=== PATIENT | female | born 2000 | race Caucasian/White ===

== ENCOUNTER 2022-07-26 09:26 | Emergency (ER) | payer OTHER, SELFPAY ==
[2022-07-26 09:55] VITALS: BP 132/90; PULSE 100; RESP 16; TEMP 37.1; O2SAT 100
--- NOTE | 2022-07-26 10:41 | ED.URI ---
HPI - URI/Sore Throat General Chief Complaint: Upper Respiratory Infection Stated Complaint: cough, congestion Time Seen by Provider: 07/26/22 10:25 History of Present Illness HPI Narrative: Patient is a 22-year-old female here for evaluation of upper respiratory infectious symptoms for the past several days. Patient states that she has been congested, runny nose, diffuse frontal headache. Son is sick with similar symptoms. Patient is about 5 weeks by LMP but she denies any abdominal cramping, vaginal bleeding, sudden gush of fluids or other concerns in that regard. Requesting a COVID test. Related Data Allergies Allergy/AdvReac Type Severity Reaction Status Date / Time No Known Allergies Allergy Unverified 05/07/18 14:40 Review of Systems Review of Systems: Gen.: Denies fevers or chills Eyes: Denies eye pain or visual change ENT: Reports congestion Respiratory: Denies shortness of breath or cough CV: Denies chest pain or palpitations GI: Denies abdominal pain nausea, emesis or diarrhea denies burning, urgency, frequency or hematuria Musculoskeletal: Denies back pain or muscle pain Neuro: Denies numbness, tingling, weakness or focal weakness Skin: Denies rash Except as documented, all other systems reviewed and negative Exam Narrative: APPEARANCE: Well appearing, no pain in distress, well-nourished. Head: Normocephalic and atraumatic. EYES: PERRLA/EOMI, conjunctivae clear NOSE: No nasal drainage EARS: External ear normal in appearance THROAT: Oropharynx is clear. Mucous membranes are moist. NECK: Supple. No adenopathy, no masses. RESPIRATORY: Airway patent, respirations nonlabored. Clear to auscultation bilaterally, no rales, rhonchi, wheezing. CARDIOVASCULAR: Regular rate and rhythm without murmurs, rubs, or gallops. ABDOMINAL: Normoactive bowel sounds. Soft, nontender, nondistended. No rebound tenderness or guarding. MUSCULOSKELETAL: Extremities are warm and well-perfused. Moves all extremities well. No edema. NEURO: Normal speech. No focal neurologic deficits. SKIN: Skin is warm and dry. No rashes. PSYCHIATRIC: Normal affect/mood. Course Vital Signs Vital signs: Vital Signs Temperature 98.7 F 07/26/22 09:55 Pulse Rate 100 07/26/22 09:55 Respiratory Rate 16 07/26/22 09:55 Blood Pressure 132/90 07/26/22 09:55 Pulse Oximetry 100 07/26/22 09:55 Temperature 98.7 F 07/26/22 09:55 Pulse Rate 16 L 07/26/22 11:06 Respiratory Rate 16 07/26/22 09:55 Blood Pressure 132/90 07/26/22 09:55 Pulse Oximetry 100 07/26/22 09:55 MDM - URI/Sore Throat MDM Narrative Medical decision making narrative: 22-year-old female here for evaluation of upper respiratory infectious symptoms over the past several days, positive sick contacts, patient's son has similar symptoms. She is nontoxic in appearance and has normal vital signs. She has no oropharyngeal exudates, and has clear breath sounds throughout. Requesting COVID testing which was negative today. Advised supportive measures at home, we discussed return precautions and she voiced understanding. Lab Data Labs: Lab Results 07/26/22 Range/Units 09:58 Influenza A (RT-PCR) Negative (Negative) Influenza B (RT-PCR) Negative (Negative) SARS-CoV-2 RNA (RT-PCR) Negative Discharge Plan Discharge Clinical Impression: Upper respiratory infection Patient Disposition: Home, Self-Care Condition: Stable Instructions: Antibiotic Form, Upper Respiratory Infection (ED) Additional Instructions: Your COVID and flu test were negative. Please continue pushing fluids, getting plenty of rest. Use Tylenol as needed for fever. Return to the ED if you have difficulty breathing or have other concerning symptoms. Follow-up/Referrals: UNKNOWN,DOCTOR [Primary Care Provider] -
[2022-07-26 10:47] LABS: Influenza A QL RT-PCR Negative (Negative); Influenza B QL RT-PCR Negative (Negative); SARS-CoV-2 RNA PCR Negative
[2022-07-26 11:06] VITALS: RESP 16
== END 2022-07-26 11:05 | disposition home or self-care (01) ==
LOC: ANHED 11:11
PROVIDERS: Emergency Medicine; Emergency Provider Physician Assistant
DX: O99.511 Diseases of the respiratory system complicating pregnancy, first trimester (principal); J06.9 Acute upper respiratory infection, unspecified; Z20.822 Contact with and (suspected) exposure to COVID-19; Z3A.01 Less than 8 weeks gestation of pregnancy
CPT/HCPCS: 87636; 99282; 99283

== ENCOUNTER 2022-12-01 11:26 | Emergency (ER) | payer OTHER, SELFPAY ==
--- NOTE | 2022-12-01 11:28 | ECG_ITS ---
Measurements Intervals [place] Rate: 108 P: 31 KS: 126 QRS: 13 QRSD: 85 T: 11 QT: 321 QTc: 432 Interpretive Statements SINUS TACHYCARDIA ABNORMAL RHYTHM ECG NO PREVIOUS ECG AVAILABLE FOR COMPARISON Electronically Signed On 12-01-2022 16:00:23 CDT by Vinnie Carrillo M.D.
[2022-12-01 11:34] VITALS: BP 127/71; PULSE 107; RESP 16; TEMP 36.7; O2SAT 100
[2022-12-01 11:46] VITALS: O2SAT 100
[2022-12-01 11:47] LABS: Basophils Percent Auto 0.3 % (0.2-1.2); Eosinophils Absolute Auto 0.3 K/mm3 (0-0.3); Eosinophils Percent Auto 2.5 % (0-4.4); Hematocrit 36.9 % (37.0-47.0); Hemoglobin 12.1 g/dL (12.0-15.0); Immature Granulocyte Absolute 0.14 K/mm3 (0.00-0.031); Immature Granulocyte Percent A 1.1 % (0-0.5); Lymphocytes Absolute Auto 2.03 K/mm3 (0.9-3.2); Lymphocytes Percent Auto 16.1 % (18.3-44.2); Mean Corpuscular HGB Conc 32.8 g/dl (32-36); Mean Corpuscular Hemoglobin 29.7 pg (26-34); Mean Corpuscular Volume 90.4 fl (80-100); Mean Platelet Volume 9.7 fl (7.4-10.4); Monocytes Absolute Auto 1.1 K/mm3 (0.1-0.6); Monocytes Percent Auto 8.4 % (2.6-8.5); Neutrophils Percent Auto 71.6 % (45.5-73.1); Platelet Count Result 313 k/mm3 (150-375); Red Blood Count 4.08 M/mm3 (4.2-5.4); Red Cell Distribution Width 12.8 % (11.5-14.5); White Blood Count 12.6 K/mm3 (4.5-10.0)
[2022-12-01 11:59] LABS: Alanine Aminotransferase 22 U/L (6-35); Alkaline Phosphatase 83 U/L (38-126); Anion Gap 7 mmol/L (8-16); Aspartate Amino Transferase 19 U/L (14-36); Bilirubin,Total 0.3 mg/dL (0.2-1.3); Blood Urea Nitrogen 10 mg/dL (7-17); Carbon Dioxide 25 mmol/L (22-30); Chloride 103 mmol/L (98-107); Estimated CRCL calculation 182 ml/min; Estimated Glomerular Filt Rate > 60; Glucose 74 mg/dL (65-110); Sodium 135 mmol/L (137-145)
[2022-12-01 13:13] VITALS: BP 114/66; PULSE 109; RESP 20; O2SAT 100
[2022-12-01] MEDS: SODIUM CHLORIDE 0.9% IV 1,000 ML 999 ML IV CONT (13:23)
--- NOTE | 2022-12-01 13:25 | ED.GENADULT ---
HPI - General Adult General Chief complaint: Shortness of Breath/Dyspnea Stated complaint: sob, dizziness, 23 weeks preg Time Seen by Provider: 12/01/22 11:58 History of Present Illness HPI narrative: 22-year-old female present emergency department for evaluation of dizziness and rapid heart rate. Patient states that she has had follow-up with her [employer] CLAIM EXAMINER and they told her this is most likely related to dehydration and the heat. Patient states she does not drink very much water Related Data Allergies Allergy/AdvReac Type Severity Reaction Status Date / Time No Known Allergies Allergy Verified 12/01/22 11:50 Review of Systems Review of Systems: All systems reviewed & are unremarkable except as noted in HPI and below Exam Narrative: APPEARANCE: Well appearing, no pain, no distress, well-nourished. HEAD: normocephalic, atraumatic. EYES: PERRLA/EOMI, conjunctivae clear. NOSE: Normal no drainage NECK: Supple. No adenopathy, no masses. RESPIRATORY: Airway patent, respirations nonlabored. Clear to auscultation bilaterally, no rales, rhonchi, wheezing. CARDIOVASCULAR: Regular rate and rhythm without murmurs rubs or gallops. ABDOMINAL: Soft, nontender, nondistended, normal bowel sounds MUSCULOSKELETAL: Moves all extremities. Strength/ROM intact, No edema, No calf tenderness. NEURO: Alert. Cranial nerves II through XII intact. SKIN: Warm, dry. Normal Color Course Course Emergency Course: 22-year-old female present emergency department for evaluation of lightheadedness. Patient is afebrile but does have a minor leukocytosis of 12.6. Patient has no significant electrolyte abnormalities. Patient did have an abnormal UA but patient denies any urinary symptoms. Urine culture was ordered. Patient was encouraged to drink more fluids. Patient is requesting discharge to home. Patient was educated on reasons to return to the emergency department and on the importance of close follow-up with [employer] CLAIM [employer]AM[employer]ER. Vital Signs Vital signs: Vital Signs Temperature 98.0 F 12/01/22 11:34 Pulse Rate 107 H 12/01/22 11:34 Respiratory Rate 16 12/01/22 11:34 Blood Pressure 127/71 12/01/22 11:34 Pulse Oximetry 100 12/01/22 11:34 Oxygen Delivery Room Air 12/01/22 11:34 Temperature 98.0 F 12/01/22 11:34 Pulse Rate 100 12/01/22 15:05 Respiratory Rate 18 12/01/22 15:05 Blood Pressure 105/70 12/01/22 15:05 Pulse Oximetry 100 12/01/22 15:05 Oxygen Delivery Room Air 12/01/22 11:46 Medical Decision Making Vital Signs Vital Signs: Vital Signs Temperature 98.0 F 12/01/22 11:34 Pulse Rate 107 H 12/01/22 11:34 Respiratory Rate 16 12/01/22 11:34 Blood Pressure 127/71 12/01/22 11:34 Pulse Oximetry 100 12/01/22 11:34 Oxygen Delivery Room Air 12/01/22 11:34 Temperature 98.0 F 12/01/22 11:34 Pulse Rate 100 12/01/22 15:05 Respiratory Rate 18 12/01/22 15:05 Blood Pressure 105/70 12/01/22 15:05 Pulse Oximetry 100 12/01/22 15:05 Oxygen Delivery Room Air 12/01/22 11:46 Lab Data 12/01/22 11:39 12/01/22 11:39 Labs: Lab Results 12/01/22 12/01/22 Range/Units 11:39 12:43 WBC 12.6 H (4.5-10.0) K/mm3 RBC 4.08 L (4.2-5.4) M/mm3 Hgb 12.1 (12.0-15.0) g/dL Hct 36.9 L (37.0-47.0) % MCV 90.4 (80-100) fl MCH 29.7 (26-34) pg MCHC 32.8 (32-36) g/dl RDW 12.8 (11.5-14.5) % Plt Count 313 (150-375) k/mm3 MPV 9.7 (7.4-10.4) fl Immature Gran % (Auto) 1.1 H (0-0.5) % Neut % (Auto) 71.6 (45.5-73.1) % Lymph % (Auto) 16.1 L (18.3-44.2) % [place] % (Auto) 8.4 (2.6-8.5) % Eos % (Auto) 2.5 (0-4.4) % Baso % (Auto) 0.3 (0.2-1.2) % Lymph # (Auto) 2.03 (0.9-3.2) K/mm3 [place] # (Auto) 1.1 H (0.1-0.6) K/mm3 Eos # (Auto) 0.3 (0-0.3) K/mm3 Baso # (Auto) 0.0 (0.0-0.1) K/mm3 Abs Immat Gran (auto) 0.14 H (0.00-0.031) K/mm3 Absolute Neuts (auto) 9.0 H (1.3-6.7) K/mm3 Absolute Nucle
[2022-12-01 13:33] LABS: Bacteria Urine 4+ /hpf; Bilirubin Urine Negative (Negative); Blood Urine Negative (Negative); Glucose Urine UA 1+ mg/dL (Negative); Ketones Urine Negative (Negative); Leukocyte Esterase Ur 1+ LEU/UL (Negative); Need Manual Microscopic Reviewed; Nitrate Urine Negative (Negative); Protein Urine Trace mg/dL (Negative); Specific Grav Ur 1.028 (1.001-1.035); Squamous Epithelial Cell Urine Many /hpf (Few)
[2022-12-01 13:44] LABS: Color Urine Yellow (Yellow)
[2022-12-01 13:46] LABS: Add Urine Microscopic? YES; Appearance Urine Cloudy (Clear)
[2022-12-01 15:05] VITALS: BP 105/70; PULSE 100; RESP 18; O2SAT 100
== END 2022-12-01 15:09 | disposition home or self-care (01) ==
PROVIDERS: General Practice; Emergency Provider Emergency Medicine
DX: R42 Dizziness and giddiness (principal)
CPT/HCPCS: 36415; 80053; 81001; 85025; 87086; 87147; 87181; 87186; 93005; 96360; 96361; 99284; J7030

== ENCOUNTER 2022-12-07 12:58 | Outpatient (CLI) | payer OTHER, SELFPAY ==
--- NOTE | 2022-12-11 16:16 | WPDHOLTEREM ---
Holter/Event Monitor Holter/Event Monitor Date of procedure: 12/07/22 Holter/Event Procedure: 24 Hr Holter Monitor Indications: Dizziness Conclusion: 1. 24 hour holter monitor on 12/07/22. 2. Underlying rhythm is sinus rhythm. HR range 63-138 bpm; average HR 94 bpm. 3. No premature supraventricular complexes. No supraventricular tachycardia. 4. No premature ventricular complexes. No ventricular tachycardia. 5. No sinoatrial or atrioventricular blocks. No significant pauses greater than 2 seconds. 6. No symptoms available for correlation.
== END 2022-12-07 12:59 | disposition home or self-care (01) ==
PROVIDERS: PCP Internal Medicine; Visit Provider Advanced Practice Midwife
DX: R42 Dizziness and giddiness (principal)
CPT/HCPCS: 93225; 93226

== ENCOUNTER 2023-03-09 11:07 | Observation (INO) | payer OTHER, SELFPAY ==
[2023-03-09] VITALS (7 sets, daily range): BP systolic 101–134; BP diastolic 77–86; PULSE 86–104
[2023-03-09] MEDS: ACETAMINOPHEN 325 MG TABLET 650 MG PO (12:40)
--- NOTE | 2023-03-09 13:18 | OBADM ---
This patient, Maricruz Duke, admitted to the OB room Labor/Delivery/Recovery 105 for observation. Patient/family oriented to hospital policies and general routines including ID bracelet, bed and alarms, visiting hours, pain management, procedures, bathroom and other care routines, personal items, smoking policy, room service/diet, and visiting hours. Patient/Family are encouraged to report perceived risks to care and to ask questions if they do not understand what they are told or what they should do.
--- NOTE | 2023-03-12 20:08 | PM.OBTRLD ---
OB - Triage/Final Diagnosis Visit Information Date of evaluation: 03/09/23 Reason for evaluation: threatened labor Comments/Additional reasons for admission: I have assessed the risk for this patient, Maricruz Duke, and determined that she would benefit from observation care.
== END 2023-03-09 13:41 | disposition home or self-care (01) ==
PROVIDERS: Admitting Provider Obstetrics & Gynecology; PCP Internal Medicine; Referring Provider Advanced Practice Midwife; Visit Provider Obstetrics & Gynecology
DX: O47.9 False labor, unspecified (principal); Z3A.00 Weeks of gestation of pregnancy not specified
CPT/HCPCS: A9270; G0378; G0379

== ENCOUNTER 2023-03-28 04:54 | Inpatient (IN) | payer OTHER, MEDICAID, SELFPAY ==
[2023-03-28] VITALS (112 sets, daily range): BP systolic 79–149; BP diastolic 48–97; PULSE 77–189; RESP 18; TEMP 36.4–37.3; O2SAT 96–100; BMI 38.0
[2023-03-28] MEDS: LACTATED RINGERS 1,000 ML 125 ML IV CONT ×3 (05:44→14:36)
[2023-03-28] MEDS: OXYTOCIN 30 UNITS/NS 500 ML 30 UNITS/500 ML BAG IV CONT (05:45)
[2023-03-28 05:47] LABS: Basophils Absolute Auto 0.1 K/mm3 (0.0-0.1); Basophils Percent Auto 0.4 % (0.2-1.2); Eosinophils Absolute Auto 0.2 K/mm3 (0-0.3); Eosinophils Percent Auto 1.5 % (0-4.4); Hematocrit 34.9 % (37.0-47.0); Hemoglobin 10.7 g/dL (12.0-15.0); Immature Granulocyte Percent A 0.8 % (0-0.5); Lymphocytes Absolute Auto 2.39 K/mm3 (0.9-3.2); Lymphocytes Percent Auto 18.1 % (18.3-44.2); Mean Corpuscular HGB Conc 30.7 g/dl (32-36); Mean Corpuscular Volume 78.4 fl (80-100); Mean Platelet Volume 10.6 fl (7.4-10.4); Monocytes Absolute Auto 1.2 K/mm3 (0.1-0.6); Monocytes Percent Auto 9.1 % (2.6-8.5); Neutrophils Absolute Auto 9.3 K/mm3 (1.3-6.7); Neutrophils Percent Auto 70.1 % (45.5-73.1); Platelet Count Result 369 k/mm3 (150-375); Red Blood Count 4.45 M/mm3 (4.2-5.4); Red Cell Distribution Width 14.7 % (11.5-14.5); White Blood Count 13.2 K/mm3 (4.5-10.0)
--- NOTE | 2023-03-28 06:45 | LDADM ---
This patient, Maricruz Duke, was admitted to Labor/Delivery/Recovery 104 on 03/28/23 at 04:54. Plans for labor, pain management and were discussed with patient. Patient/family oriented to hospital policies and general routines including ID bracelet, bed and alarms, visiting hours, pain management, procedures, bathroom and other care routines, personal items, smoking policy, room service/diet and guest tray routines, security routines, and visiting hours. Patient/Family are encouraged to report perceived risks to care and to ask questions if they do not understand what they are told or what they should do. See OBIX for further documentation.
[2023-03-28] MEDS: ACETAMINOPHEN 325 MG TABLET 650 MG PO (07:40)
--- NOTE | 2023-03-28 07:49 | WPDOBADMIT ---
Obstetrics - Admit Note Admission Note: record reviewed. No pertinent additions to the history and/or any subsequent changes in the physical findings that are not consistent with the expected course of the were found. Additions to the history and/or subsequent changes in the physical findings follow. Pt admitted for IOL. SVE /-3. AROM attempted. Anticipate vaginal delivery.
[2023-03-28] MEDS: fentaNYL CITRATE INJ (*CRX) 100 MCG/2 ML VIAL 50 MCG IV PUSH (13:22)
--- NOTE | 2023-03-28 14:21 | WPDANESEPP ---
Anes - Eval Pre Procedure Procedure: Labor epidural Date/Time: 03/28/23 14:21 Surgeon: Arron Preop Diagnosis: Abdominal pain with contractions Pre Op Diagnosis: IOL Patient Data Age: 23 Gender: F Height: 1.57 m Weight: 94.5 kg Last Vital Signs Temp 98.7 F 03/28/23 10:30 Pulse 89 03/28/23 14:01 BP 134/82 03/28/23 14:01 O2 Del Method Room Air 03/28/23 06:39 Allergies Allergy/AdvReac Type Severity Reaction Status Date / Time No Known Allergies Allergy Verified 03/28/23 06:34 Home Medications Medication Instructions Recorded Confirmed Type vit no.95-ferrous 1 tablet PO DAILY 03/09/23 03/09/23 History fumarate 28 mg-folic acid 800 mcg tablet () Laboratory Tests 03/28/23 05:38 WBC 13.2 H K/mm3 (4.5-10.0) RBC 4.45 M/mm3 (4.2-5.4) Hgb 10.7 L g/dL (12.0-15.0) Hct 34.9 L % (37.0-47.0) MCV 78.4 L fl (80-100) MCH 24.0 L pg (26-34) MCHC 30.7 L g/dl (32-36) RDW 14.7 H % (11.5-14.5) Plt Count 369 k/mm3 (150-375) MPV 10.6 H fl (7.4-10.4) Immature Gran % (Auto) 0.8 H % (0-0.5) Neut % (Auto) 70.1 % (45.5-73.1) Lymph % (Auto) 18.1 L % (18.3-44.2) [place] % (Auto) 9.1 H % (2.6-8.5) Eos % (Auto) 1.5 % (0-4.4) Baso % (Auto) 0.4 % (0.2-1.2) Lymph # (Auto) 2.39 K/mm3 (0.9-3.2) [place] # (Auto) 1.2 H K/mm3 (0.1-0.6) Eos # (Auto) 0.2 K/mm3 (0-0.3) Baso # (Auto) 0.1 K/mm3 (0.0-0.1) Abs Immat Gran (auto) 0.10 H K/mm3 (0.00-0.031) Absolute Neuts (auto) 9.3 H K/mm3 (1.3-6.7) Absolute Nucleated RBC 0.0 K/mm3 (0.0-0.012) Nucleated RBC % 0.0 % (0.0-0.2) RPR Pending Blood Type O Positive Antibody Screen Negative : gestational age HCG: positive Patient hx anesthesia problems: none Family hx anesthesia problems: none Results Review: All pre-operative results and documents have been reviewed as part of the pre-operative evaluation. COUNT INCLUDES THE [facility] Past Medical History Medical History Anxiety and depression Eczema Migraines Overweight (BMI 25.0-29.9) Post depression Family History Family History Other No pertinent family history in first degree relatives Social History Social History Smoking status: Never smoker Second hand tobacco smoke exposure: No Substance use: former Other substance usage details: Used marijuana prior to Lack of Transportation: No Lack of Food: Never True Current Housing: I Have Housing Concerned About Future Housing: No Difficulty Paying Gas/Electric Bills: No Difficulty Paying for Meds: No Currently Unemployed: No Education: High School Diploma/GED Difficulty w/ Childcare or Family Care: No Spiritual care concerns: No Exam Day of Procedure 03/28/23 14:21 Patient weight: overweight
[2023-03-28 14:40] LABS: Rapid Plasma Reagin Non-Reactive (NonReactive)
--- NOTE | 2023-03-28 17:53 | PM.OBPRVD ---
OB - Vaginal Delivery Note Procedure Delivery date: 03/28/23 Events: Elective Induction of Labor Induction method: AROM and Per Pitocin Protocol Delivery monitor: External FHT and Internal FHT Route of delivery: Episiotomy description: None Laceration Description: None Specimen: No Quantitative Blood Loss (ml): 75 Anesthesia type: Epidural Disposition: Floor Complications: Other complications [place] Baby Date of : 03/28/23 Time of : 17:44 Weeks of gestation at delivery: 40 Infant gender: Female Weight (pounds): 6 Weight (ounces): 14 presentation: vertex position: Left Occiput Anterior Placenta delivery description: Spontaneous Cord Vessel Description: 3 Vessels score one minute: 9 score five minutes: 9 Narrative: mother and baby skin to skin after pediatrican evaluation, stable condition
[2023-03-28] MEDS: OXYTOCIN 30 UNITS/NS 500 ML 30 UNITS/500 ML BAG 125 UNITS IV CONT (18:17)
[2023-03-28] MEDS: BENZOCAINE 20% AER SPR (*SP) 56 GM CAN 1 SPRAY TOPICAL (19:54)
[2023-03-28] MEDS: WITCH HAZEL 40 PADS 1 PAD TOPICAL (19:54)
--- NOTE | 2023-03-28 20:21 | OBPPTRN ---
Patient transferred to post room #284 via W/C. Support person present. Oriented to unit, room, information board, rooming in, admission packet and security measures. Patient verbalizes understanding.
[2023-03-28] MEDS: IBUPROFEN 600 MG TABLET PO (20:50)
[2023-03-29 00:45] VITALS: BP 127/83; PULSE 101; RESP 18; TEMP 36.9
[2023-03-29] MEDS: ACETAMINOPHEN 325 MG TABLET 650 MG PO ×4 (00:50→22:42)
[2023-03-29 05:21] LABS: Hematocrit 29.1 % (37.0-47.0); Hemoglobin 8.7 g/dL (12.0-15.0)
[2023-03-29 07:35] VITALS: BP 122/75; PULSE 89; RESP 16; TEMP 37.4; O2SAT 100
--- NOTE | 2023-03-29 08:02 | PM.OBPNVD ---
OB - PN: Subj Subjective Date/time seen: 03/29/23 08:02 Patient comments: no complaints, pain well controlled, incisional pain, tolerating diet and flatus present OB - PN: Obj Data Labs 03/29/23 04:31 Labs: Laboratory Results - last 24 hr 03/28/23 03/29/23 05:38 04:31 Hgb 8.7 L Hct 29.1 L RPR Non-reactive OB - PN A/P Plan day: 1 Plan: routine care Comments: No problems, routine care Time Spent With Patient Time: Total time spent is greater than 50% in coordination of care (as documented) at patient's floor/unit and/or counseling patient: Exam Const: General: comfortable, no acute distress and alert Resp: Effort & Inspection: normal respiratory effort Auscultation: no crackles, no rales and no rhonchi Cardio: Rate: regular rate Heart sounds: no click, no murmurs and no rubs GI: Inspection: non-distended GI Palp: No Tenderness to palpation present (GI) Auscultation: normal bowel sounds Other: Incision - CDI Extrem: General: normal to inspection, no pedal edema and no calf tenderness
[2023-03-29] MEDS: DOCUSATE SODIUM 100 MG CAPSULE PO ×2 (08:30→17:24)
[2023-03-29] MEDS: POLYSACCHARIDE IRON COMPLEX 150 MG CAPSULE PO ×2 (08:30→17:24)
[2023-03-29] MEDS: MULTIVIT/MIN/PREN/FOL AC/IRON TABLET 1 TAB PO (08:30)
--- NOTE | 2023-03-29 08:54 | WPDANLDPN2 ---
Anes-Prog Note L&D Date/Time: 03/29/23 08:54 Comfortable throughout: labor and delivery Neuraxial method: epidural Epidural/Spinal procedure site: tender Neuro status: Neuro function grossly intact. Cardiovascular status: normal Respiratory status: normal Airway patency: baseline Mental status: baseline Post-Op hydration status: normal Vital Signs: Last Vital Signs Temp 36.9 C 03/29/23 00:45 Pulse 101 H 03/29/23 00:45 Resp 18 03/29/23 00:45 BP 127/83 03/29/23 00:45 Pulse Ox 100 03/28/23 17:41 O2 Del Method Room Air 03/28/23 20:40 Pain score (VAS): 3/10 I/O: Intake & Output 03/28/23 03/29/23 03/29/23 23:59 07:59 15:59 Output Total 225 Balance -225 Post-procedural complaints: pruritis mild, no treatment Patient feedback: Patient satisfied with anesthetic care.
[2023-03-29] MEDS: IBUPROFEN 600 MG TABLET PO ×2 (10:21→17:24)
[2023-03-29 12:08] VITALS: BP 123/75; PULSE 89; RESP 16; TEMP 37.1; O2SAT 99
[2023-03-29 15:50] VITALS: BP 128/89; PULSE 96; RESP 16; TEMP 36.9; O2SAT 100
[2023-03-29 19:59] VITALS: BP 131/78; PULSE 84; RESP 18; TEMP 37; O2SAT 100
[2023-03-30] MEDS: IBUPROFEN 600 MG TABLET PO ×2 (05:13→12:46)
--- NOTE | 2023-03-30 07:50 | PM.OBPNVD ---
OB - PN: Subj Subjective Date/time seen: 03/30/23 07:50 Interval history: PPD 2 Baby not feeding well Will DC patient to no care bed No complaints OB - PN: Obj Data Labs 03/29/23 04:31 OB - PN A/P Plan day: 2 Plan: routine care and discharge home Time Spent With Patient Time: Total time spent is greater than 50% in coordination of care (as documented) at patient's floor/unit and/or counseling patient: Review of Systems Review of Systems: All systems reviewed & are unremarkable except as noted in HPI and below Exam Const: General: cooperative, healthy appearing and comfortable Resp: Effort & Inspection: normal respiratory effort Cardio: Rate: regular rate GI: Other: soft Neuro: General: patient oriented x3 Extrem: Right lower extremity: normal to inspection Left lower extremity: normal to inspection Psych: Appearance: grossly normal
--- NOTE | 2023-03-30 07:51 | PM.OBDSVD ---
DS: Admitting Diagnosis Discharge Date 03/30/23 Admitting Diagnosis IOL DS: Discharge Diagnosis Discharge Diagnosis (1) Vaginal delivery: Code(s): O80 - Encounter for full-term uncomplicated delivery Status: Acute OB - DS: Summary OB Procedures : None OB Procedures Intrapartum: Spontaneous Vag Delivery OB Procedures: : None Peripartum Data Laceration Description: None Episiotomy description: None Time Spent with Patient Time attestation: Total time spent providing and/or coordinating discharge services: Discharge Plan Discharge Attending physician on discharge: Germania Heller Discharging Clinician: Andria Ortiz Patient Disposition: Home, Self-Care Activity: pelvic rest Diet: regular Patient Instructions: Antibiotic Form Stand Alone Forms: General Discharge Information Follow-up/Referrals: Andria Ortiz CNM [Certified Nurse Networking Technology Instructor] - Discharge Medications: New ibuprofen 600 mg Tablet 600 mg PO Q6H PRN (Reason: Cramping) Qty: 30 0RF polysaccharide iron complex 150 mg iron Capsule 150 mg PO BIDWM Qty: 60 0RF Continued PNV cmb#95-ferrous fumarate-FA [] 28 mg iron- 800 mcg Tablet 1 tablet PO DAILY Date of admission: 03/28/23 04:54 Primary Care Provider: LorraineNeal Admitting Provider: Germania Heller Attending physician on admission: Germania Heller Condition: Stable
[2023-03-30 08:10] VITALS: BP 118/58; PULSE 96; RESP 16; TEMP 36.7; O2SAT 100
[2023-03-30] MEDS: POLYSACCHARIDE IRON COMPLEX 150 MG CAPSULE PO (09:08)
[2023-03-30] MEDS: DOCUSATE SODIUM 100 MG CAPSULE PO (09:08)
[2023-03-30] MEDS: MULTIVIT/MIN/PREN/FOL AC/IRON TABLET 1 TAB PO (09:08)
--- NOTE | 2023-03-30 15:40 | PC.NURSE ---
[id number] Introductions were made, then consulted with patient to assess needs related to . Discussed with mother her?plans to pump and feed EBM with a bottle. Mother has 50mls sitting on her night stand as we discuss protecting her milk supply, her goals and pumping. Instructions given on cleaning, care, usage, that there should be no pain, pumping schedule for milk production, collection, and storage of human milk. Patient encouraged to pump for comfort and nipple stretching/stimulation for adequate milk production every 3 hours (8 times in 24 hours) 1-2 times at night.?Mother voiced understanding of the education shared along with mom/baby guide. Resources provided for inpatient and outpatient services with community [facility] connection, OB office and the mom/baby guide. Mother voiced understanding of information and will call if there is a request for assistance.
[2023-03-31 08:24] VITALS: BP 139/81; PULSE 96; RESP 18; TEMP 37; O2SAT 100
== END 2023-03-30 16:30 | disposition home or self-care (01) | DRG 807 ==
LOC: ANHLDR 04:58 → ANHOB2 20:35
PROVIDERS: Advanced Practice Midwife; Admitting Provider Obstetrics & Gynecology; PCP Internal Medicine; Visit Provider Obstetrics & Gynecology
DX: O77.0 Labor and delivery complicated by meconium in amniotic fluid (principal); Z37.0 Single live birth; Z3A.40 40 weeks gestation of pregnancy
CPT/HCPCS: 36415; 85014; 85018; 85025; 86592; 86850; 86900; 86901; A9270; J2590; J2795; J3010; J7120

== ENCOUNTER 2023-07-26 14:00 | Outpatient (RCR) | payer OTHER, MEDICAID, SELFPAY ==
--- NOTE | 2023-06-28 14:56 | OPREHPOC ---
Outpatient Therapy Plan of Care This is a Multidisciplinary Plan of Care that may contain components documented by all disciplines (PT, OT, and ST.) PT Problem 1 PT Problem #1 Knowledge Deficit PT Goal 1 Goal 1. Patient will perform independent HEP Target Visit 3 PT Problem 2 PT Problem #2 Pain PT Goal 1 Goal 1. Patient will be able to tolerate use of tampon and pap smear or other pelvic exam without pain Target Visit 6 PT Problem 3 PT Problem #3 Impaired Flexibility PT Goal 1 Goal 1. Patient will demonstrate normal pelvic floor muscle tone Target Visit 6
--- NOTE | 2023-06-28 14:56 | PTOPEVAL1 ---
Assessment and note entered by Kimberly Gallegos DPT Evaluation Information Assessment Status Evaluation Subjective Information Pt reports pelvic pain since delivery 3 months ago . Some pelvic pain while but not to this extent. No prior pelvic pain. Highest pain 8/10 and lowest 0/10. Voids more than 10 times a day, reports stress incontinence since her first 5 years ago. Occurs with cough or sneeze and typically a couple times a week. Denies pain with urination. Can hold urge to void as long as needed. BM every 4-5 days, history of constipation all my life . Pain with BM which has always been present but is worse now. Pt has been 2 times, 2 vaginal deliveries. Uterine infection 1 month after her second delivery, was given antibiotics and has resolved. Pain is vaginal, with moderate to deep penetration. Too painful to use a tampon currently. Also reports she had a IUD inserted 6 weeks ago and has still been spotting. Patient goal: get rid of the pain Return to MD is not scheduled. Reported Pain Level Pain Score 0: Self Report Assessment PT Clinical Summary The patient is presenting to skilled therapy with a history of pelvic pain that has increased since delivery 3 months ago. She presents with increased pelvic floor muscle tone and pain with palpation, as well as decreased core strength which are contributing to her pain and inability to tolerate tampon use. She will highly benefit from therapy to address muscle impairments in order to reduce pain and allow her to return to prior level of fully tolerating tampon use, pap smear, etc. Plan of Care Interventions Electrical Stimulation,Hot Pack/Cold Pack,Manual Therapy,Neuro Re-education,Patient/Caregiver Education,Therapeutic Activities,Therapeutic Exercise,Self-Care/Home Management PT Services Indicated Yes Treatment Frequency and 1 time a week for 6 weeks Duration These treatments will address the objective and functional deficits as defined above. The patient will be advanced safely and appropriately in order for the patient to progress towards his/her prior level of function. Additional exercises will be introduced and as well as a comprehensive home exercise program upon discharge, if needed, ?to ensure carryover of functional gains achieved in the clinic. This treatment plan has been reviewed and agreement upon by the patient.
--- NOTE | 2023-07-12 11:21 | PCPTNOTE ---
Patient did not show up for appointment scheduled 07/12/23. Left VM for patient to reschedule.
--- NOTE | 2023-08-02 11:50 | PTOPDC ---
Assessment and note entered by KAMILA WalkerT Evaluation Information Assessment Status Discharge - Pt Not Present Subjective Information - Assessment PT Clinical Summary The patient called to cancel remaining appointments due to family issues. Plan of Care PT Services Indicated No
== END 2023-08-02 14:39 | disposition home or self-care (01) ==
LOC: ANHPT 14:00
PROVIDERS: PCP Internal Medicine; Visit Provider Advanced Practice Midwife
DX: R10.2 Pelvic and perineal pain (principal)
CPT/HCPCS: 97110; 97112; 97140; 97161; 99199

== ENCOUNTER 2024-01-14 13:31 | Outpatient (CLI) | payer OTHER, MEDICAID, SELFPAY ==
--- NOTE | ~2024-01-14 | NM_ITS ---
EXAMINATION: NM thyroid scan w uptake DATE: 01/15/2024 14:34 INDICATION: Other specified abnormal findings of blood chemistry COMPARISON: None. TECHNIQUE: [id number] microcuries [id number] was administered orally in capsule form. Scintigraphic images of th e thyroid gland were obtained at 24 hours. Thyroid uptake was calculated by the technologist. FINDINGS: The thyroid uptake is 33% (normal 10-30%), with the right lobe measuring 20.7% uptake and the left 13 .3%. Also there is twice the relative uptake in the right thyroid when compared with the left kidney activity appears relatively diffuse with no focal area of decreased or increased activity to suggest hypofunctioning or hyperfunctioning nodule. IMPRESSION: 1. Increased 24-hour iodine uptake consistent with Graves' disease. Given the asymmetric significant ly higher degree of uptake in the right thyroid lobe relative to the left could consider correlation with thyroid ultrasound although no discrete focal hyperfunctioning nodule is appreciated on the scin tigraphic images. Reviewed, dictated and finalized at location A. IMPRESSION: 1. Increased 24-hour iodine uptake consistent with Graves' disease. Given the asymmetric significantly higher degree of uptake in the right thyroid lobe rela tive to the left could consider correlation with thyroid ultrasound although no discrete focal hyperfunctioning nodule is appreciated on the scintigraphic denis ges.
== END 2024-01-14 13:32 | disposition home or self-care (01) ==
LOC: ANHIMG 13:32
PROVIDERS: PCP Internal Medicine; Visit Provider Internal Medicine
DX: R79.89 Other specified abnormal findings of blood chemistry (principal); E04.2 Nontoxic multinodular goiter
CPT/HCPCS: 78014; A9516

== ENCOUNTER 2024-02-18 12:33 | Outpatient (CLI) | payer OTHER, MEDICAID, SELFPAY ==
--- NOTE | ~2024-02-18 | US_ITS ---
EXAMINATION: US FNA w image guidance DATE: 02/18/2024 13:51 INDICATION: Thyroid nodule. TECHNIQUE: The procedure and its benefits and risks were discussed with the patient. Risks specifically discusse d included bleeding. The patient verbalized understanding of the risks and agreed to proceed. The nec k was prepped and draped in the usual sterile manner. 1% lidocaine was used for local anesthesia. 7 passes were made with a 25G needle into the lesion under ultrasound guidance. There were no immedia te complications. FINDINGS: Grayscale ultrasound images demonstrate needles advanced into a 2.0 cm nodule in left thyroid lobe fo r biopsy. IMPRESSION: 1. Ultrasound-guided fine needle aspiration of a left thyroid nodule. Reviewed, dictated and finalized at location A. SIGMA BLACK TRAINER
== END 2024-02-18 12:34 | disposition home or self-care (01) ==
PROVIDERS: PCP Internal Medicine; Visit Provider Internal Medicine
DX: E04.2 Nontoxic multinodular goiter (principal); R79.89 Other specified abnormal findings of blood chemistry
CPT/HCPCS: 10005; 88172; 88173; 88177; 88305

== ENCOUNTER 2024-05-30 06:57 | Day surgery (SDC) | payer OTHER, MEDICAID, SELFPAY ==
[2024-05-30] VITALS (18 sets, daily range): BP systolic 111–133; BP diastolic 72–93; PULSE 80–107; RESP 14–23; TEMP 36.1–36.8; O2SAT 98–100
--- NOTE | ~2024-05-30 | CT_ITS ---
EXAMINATION: CT abdomen pelvis wo con DATE: 05/30/2024 10:56 INDICATION: Right lower quadrant abdominal pain. TECHNIQUE: Computed tomography (CT) of the abdomen and pelvis was performed without intravenous contr ast. Automated exposure control and iterative reconstruction technique were employed. The dose-length product was 268.25 mGy-cm. COMPARISON: Pelvis ultrasound 05/30/2024 FINDINGS: The visualized portions of the lung bases demonstrate minimal atelectasis. No pleural effus ion. The heart size is normal. No pericardial effusion. The liver, gallbladder, spleen, pancreas, adr enal glands, and kidneys are normal. There is no urolithiasis. There is an intrauterine device in exp ected position. There are no dilated loops of bowel. The appendix measures 8 mm in diameter. There ar e no pathologically enlarged lymph nodes. There is physiologic fluid in the pelvis. There is a 3.0 cm cyst in the right ovary. The bones are unremarkable. IMPRESSION: 1. Appendiceal diameter of 8 mm, which is indeterminate for acute appendicitis. Correlate with physic al exam. 2. 3.0 cm cyst in the right ovary, likely a follicular cyst. Reviewed, dictated and finalized at location A. [facility] MEDIA COORDINATOR IMPRESSION: 1. Appendiceal diameter of 8 mm, which is indeterminate for acute appendicitis. Correlate with physical exam. 2. 3.0 cm cyst in the right ovary, likely a follicular cyst.
--- NOTE | ~2024-05-30 | US_ITS ---
EXAMINATION: US pelvic complete w TV DATE: 05/30/2024 09:16 INDICATION: Right lower quadrant abdominal pain. TECHNIQUE: Multiple transabdominal and transvaginal sonographic images of the pelvis were obtained. COMPARISON: None. FINDINGS: TRANSABDOMINAL ULTRASOUND: The uterus measures 10.0 x 5.3 x 7.3 cm. There is physiologic free fluid in the pelvis. TRANSVAGINAL ULTRASOUND: The endometrial complex measures 6 mm in thickness. There is an intrauterine device in expected posit ion. The right ovary is not well visualized. The left ovary measures 4.6 x 3.2 x 3.6 cm. There is a 3 .1 cm cyst in left ovary. IMPRESSION: 1. Right ovary not visualized. 2. 3.9 cm cyst in left ovary, likely a follicular cyst. Reviewed, dictated and finalized at location A. LFISH MANAGER
--- NOTE | 2024-05-30 07:38 | PC.NURSE ---
pt continues to refuse iv and lab draw edp aware
--- OUTSIDE RECORDS SUMMARY | 2024-05-30 08:19 | XMS_ITS | Clinical Summary ---
Author Organization [facility] Address [address] [place] [address] Care Team Providers Care Flitch Hanger Name Role Phone Dayanna Peters MD Primary Care Provide r Allergies No known active allergies Medications escitalopram (LEXAPRO) 5 mg tablet Take 5 mg by mouth daily 3 Active zonisamide (ZONEGRAN) 50 mg capsuleIndications: Partial Epilepsy Treatment Adjunct Take 1 capsule (50 mg total) by mouth daily 30 capsule 3 3 Active rizatriptan VEHICLE SERVICE ATTENDANT (MAXALT-VEHICLE SERVICE ATTENDANT) 10 mg disintegrating tabletIndications:M igraine Take 1 tablet (10 mg total) by mouth once as needed for migraine May repeat in 2 hours if unresolved. Do not exceed 30 mg in 24 hours. 9 tablet 3 3 Active Active Problems Problem Noted Date Diagnosed Date Migraine without status migrainosus, not intract able 06/21/2022 Social History Tobacco Use Types Packs/Day Years Used Date Smoking Tobacco: Never Smokeless Tobacco: Never Personal Safety Answer Date Recorded Getting School Help Needed Not on file 04/22 Comments Unknown Sex and Gender Information Value Date Recorded Sex Assigned at Not on file Legal Sex Female 5:09 AM CDT Gender Identity Not on file Sexual Orientation Not on file Obstetrics History Last Filed Vital Signs Vital Sign Reading Time Taken Comments Blood Pressure 90/60 06/21/2022 9:04 AM ELECTRICIAN WIRING Pulse 93 06/21/2022 9:04 AM ELECTRICIAN WIRING Temperature 36.7 C (98 F) 06/21/2022 9:04 AM ELECTRICIAN WIRING Respiratory Rate 20 06/21/2022 9:04 AM ELECTRICIAN WIRING Oxygen Saturation 99% 06/21/2022 9:04 AM ELECTRICIAN WIRING Inhaled Oxygen Concentration - - Weight 82 kg (180 lb 12.8 oz) 06/21/2022 9:04 AM ELECTRICIAN WIRING Height 157.5 cm (5' 2 ) 06/21/2022 9:04 AM ELECTRICIAN WIRING Body Mass Index 33.07 06/21/2022 9:04 AM ELECTRICIAN WIRING Plan of Treatment Health Maintenance Due Date Last Done Comments Cervical Cancer Screening 1999 Depression Screening 1999 Hepatitis C Screening 1999 Regular Well Visit/Exam 18-64 2017 DTaP/Tdap/Td Vaccine (7 - Td or Tdap) 03/04/2020 03/04/2010, 09/26/2004, 07/30/2000, Additional history exists Influenza Vaccine (#1) 2023 0, 03/04/2010, 01/26/2009, Additional history exists Pneumococcal vaccine <65 Completed 02/08/2001, 07/15 Varicella Vaccines Completed 02/04/2007, 04/30/2000 HPV Vaccines Completed 09/20/2010, 05/17, 03/04/2010 Insurance CMR CMR Care Teams Flitch Hanger Relationship Specialty Start Date End Date Dayanna Peters MD [address] [place] [address] PCP - General Internal Medicine 05/17/22
--- OUTSIDE RECORDS SUMMARY | 2024-05-30 08:19 | XMS_ITS | Referral Summary ---
Author Organization [facility] Address [address] [place] [address] Care Team Providers Care Operating Engineer Name Role Phone Dayanna Peters MD Primary Care Provide r Allergies No known active allergies Medications escitalopram (LEXAPRO) 5 mg tablet Take 5 mg by mouth daily 3 Active zonisamide (ZONEGRAN) 50 mg capsuleIndications: Partial Epilepsy Treatment Adjunct Take 1 capsule (50 mg total) by mouth daily 30 capsule 3 3 Active rizatriptan JOIST SETTER (MAXALT-JOIST SETTER) 10 mg disintegrating tabletIndications:M igraine Take 1 [...] on file Sexual Orientation Not on file Last Filed Vital Signs Vital Sign Reading Time Taken Comments Blood Pressure 90/60 06/21/2022 9:04 AM LOCKSTITCH POCKET SETTER Pulse 93 06/21/2022 9:04 AM LOCKSTITCH POCKET SETTER Temperature 36.7 C (98 F) 06/21/2022 9:04 AM LOCKSTITCH POCKET SETTER Respiratory Rate 20 06/21/2022 9:04 AM LOCKSTITCH POCKET SETTER Oxygen Saturation 99% 06/21/2022 9:04 AM LOCKSTITCH POCKET SETTER Inhaled Oxygen Concentration - - Weight 82 kg (180 lb 12.8 oz) 06/21/2022 9:04 AM LOCKSTITCH POCKET SETTER Height 157.5 cm (5' 2 ) 06/21/2022 9:04 AM LOCKSTITCH POCKET SETTER Body Mass Index 33.07 06/21/2022 9:04 AM LOCKSTITCH POCKET SETTER Plan of Treatment Not on file Insurance CMR Care Teams Operating Engineer Relationship Specialty Start Date End Date Dayanna Peters MD [address] [place] [address] PCP - General Internal Medicine 05/17/22
--- OUTSIDE RECORDS SUMMARY | 2024-05-30 08:20 | XMS_ITS | Data Portability ---
Author Organization [place] [facility], Main Office Address [address] [place] [address] Care Team Providers Care Pot Sander Name Role Phone ZACKARY PETERS Primary Care Provider [phone] ISAURA RICO Health Insurance Sales Agent LIZZIE MCKEON Marine [employer]el Mechanic SHELLY CLOUD Neurologist [facility] Otolary ngologist Assessment Encounter Date Assessment Date Assessment LastModified by Organization Details LastModified Time 07/31/2023 07/31/2023 05/01/2023 VIT D 26.8 ALT 70 TG 241 Not available 07/29/2023 12:27:42 02/21/2024 02/21/2024 05/01/2023 VIT D 26.8 ALT 70 TG 241 Not available 11/25/2023 17:23:29 04/01/2024 04/01/2024 05/01/2023 VIT D 26.8 ALT 70 TG 241 Not available 03/17/2024 11:40:09 05/08/2024 05/08/2024 05/01/2023 VIT D 26.8 ALT 70 TG 241 Not available 05/08/2024 17:40:36 Plan of Treatment Reminders Order Date Submit Date Provider Last Modified By Organization Details Last Modified Time Details Appointments New Patient 15 2024 09:30A Sherry Owens MD Not available Not available Not available Any 15 2024 04:30P M Zackary sandoval MD Not available Not available Not available Lab vitamin D, 25-hydrox y, total, serum [address] (Lab), [address] [place], [address], 05/08/2024 17:51:36 gamma-glu tamyl transfera se (ggt), serum 2024 025 [facility] (Lab), [address] [place], [address], 05/12/2024 11:18:48 hepatitis panel (A+B+C), acute, serum 2024 025 [facility] (Lab), [address] [place], [address], 05/12/2024 11:44:44 lipid panel, serum 2024 025 [facility] (Lab), [address] [place], [address], 05/12/2024 11:18:38 CMP, serum or plasma 2024 025 [facility] (Lab), [address] [place], [address], 05/12/2024 11:18:44 CBC w/ auto diff 2024 025 [facility] (Lab), [address] [place], [address], 05/12/2024 11:16:32 TSH, serum or plasma 2024 025 [facility] (Lab), [address] [place], [address], 05/12/2024 11:44:53 vitamin B12 + folate, serum or blood [address] (Lab), [address] [place], [address], 05/08/2024 17:51:36 gamma-glu tamyl transfera se (ggt), serum [address] (Lab), [address] [place], [address], 04/01/2024 18:03:09 hepatitis panel (A+B+C), acute, serum [address] (Lab), [address] [place], [address], 04/01/2024 18:03:09 lipid panel, serum [address] (Lab), [address] [place], [address], 04/01/2024 18:03:07 CMP, serum or plasma [address] (Lab), [address] [place], [address], 04/01/2024 18:03:08 CBC w/ auto diff [address] (Lab), [address] [place], [address], 04/01/2024 18:03:08 TSH, serum or plasma [address] (Lab), [address] [place], [address], 04/01/2024 18:03:09 vitamin D, 25-hydrox y, total, serum [address] (Lab), [address] [place], [address], 04/01/2024 18:03:08 vitamin B12 + folate, serum or blood [address] (Lab), [address] [place], [address], 04/01/2024 18:03:08 gamma-glu tamyl transfera se (ggt), serum [address] (Lab), [address] [place], [address], 02/21/2024 13:16:43 hepatitis panel (A+B+C), acute, serum [address] (Lab), [address] [place], [address], 02/21/2024 13:16:43 lipid panel, serum [address] (Lab), [address] [place], [address], 02/21/2024 13:16:41 CMP, serum or plasma [address] (Lab), [address] [place], [address], 02/21/2024 13:16:42 CBC w/ auto diff [address] (Lab), [address] [place], [address], 02/21/2024 13:16:42 TSH, serum or plasma [address] (Lab), [address] [place], [address], 02/21/2024 13:16:43 vitamin D, 25-hydrox y, total, serum [address] (Lab), [address] [place], [address], 02/21/2024 13:16:42 vitamin B12 + folate, serum or blood [address] (Lab), [address] [place], [address], 02/21/2024 13:16:42 vitamin D, 25-hydrox y, total, serum [address] (Lab), [address] [place], [address], 01/28/2024 11:18:01 gamma-glu tamyl transfera se (ggt), serum [address] (Lab), [address] [place], [address], 01/28/2024 11:18:01 hepatitis panel (A+B+C), acute, serum [address] (Lab), [address] [place], [address], 02/04/2024 10:53:10 lipid panel, serum [address] (Lab), [address] [place], [address], 01/28/2024 11:18:00 CMP, serum or plasma [address] (Lab), [address] [place], [address], 01/28/2024 11:18:00 CBC w/ auto diff [address] (Lab), [address] [place], [address], 01/28/2024 11:18:01 TSH, serum or plasma [address] (Lab), [address] [place], [address], 01/28/2024 11:18:01 vitamin B12 + folate, serum or blood [address] (Lab), [address] [place], [address], 01/28/2024 11:18:01 vitamin D, 25-hydrox y, total, serum [address] (Lab), [address] [place], [address], 11/01/2023 08:19:57 lipid panel, serum 2023 024 [facility] (Lab), [address] [place], [address], 05/01/2023 18:26:02 CMP, serum or plasma 2023 024 [facility] (Lab), [address] [place], [address], 05/01/2023 18:26:05 vitamin B12 + folate, serum or blood [address] (Lab), [address] [place], [address], 11/01/2023 08:19:57 Referral endocrino logy referral 2024 025 [place] [address] [place], [address], [place], [address], 05/08/2024 17:55:37 dermatolo gist referral - Please call patient to schedule. 2024 025 [email or web address] [facility] [place], [facility] [place], [address], 05/08/2024 17:55:[address] referral - Please call patient to schedule. 2024 025 Shelly Menezes, [address] [facility] [address], [place], [address], 05/08/2024 17:55:37 endocrino logy referral 2023 024 [email or web address] [place], [address] [address], [place], [address], 04/02/2024 15:11:27 dermatolo gist referral - Please call patient to schedule. 2023 024 [email or web address] [facility] [place], [facility] [place], [address], 04/02/2024 15:11:[address] referral - Please call patient to schedule. 2023 024 [email or web address] Shelly Menezes, [address], [place], [address], 04/02/2024 15:11:24 endocrino logy referral 2023 024 [email or web address] [place], [address] [address], [place], [address], 02/27/2024 14:04:34 dermatolo gist referral - Please call patient to schedule. 2023 024 [email or web address] [facility] [place], [address] [place], [address], 05/27/2024 08:59:[address] referral - Please call patient to schedule. 2023 024 [email or web address] Shelly Menezes, [facility] , [address], [place], [address], 05/27/2024 08:59:55 endocrino logy referral 2023 024 Isaura Rico MD, [address], [place], [address], 01/28/2024 11:18:43 dermatolo gist referral - Pt has [employer] Mer[employer] POS, no insurance referral required [address]23 [address] [place] [address] [facility] [place], [facility], [address] [place], [address], 01/28/2024 11:18:[address] referral - Pt has [employer] POS, no insurance referral required 2023 024 [place] [address] Shelly Menezes, [facility] , [address], [place], [address], 04/02/2024 15:10:55 ENT surgery referral 2023 024 [email or web address] Kyle Harvey, [address] [facility], [place], [address], 11/12/2023 09:17:47 dermatolo gist referral 2023 024 [place] [address] [facility], [address] [place], [address], 11/01/2023 08:20:[address] referral 2023 024 [email or web address] Shelly Menezes, [facility] [address], [place], [address], 11/27/2023 17:24:48 Procedures None recorded. Surgeries None recorded. Imaging MRI, internal auditory canal, w/o contrast [address] ([facility]), [address] [place], [address], 05/08/2024 18:00:33 MRI, internal auditory canal, w/o contrast [address] ([facility]), [address] [place], [address], 04/01/2024 18:27:14 MRI, internal auditory canal, w/o contrast - Please call patient to schedule. [address] ([facility]), [address] [place], [address], 05/06/2024 08:40:33 US, thyroid 2023 024 [facility] ([facility] Sched[facility]), [address] [place], [address], 05/11/2023 15:05:59 Medication Orders phentermi ne 37.5 mg tablet [address] [facility], [address] [place], [id number], 05/08/2024 17:10:26 phentermi ne 37.5 mg tablet [address] [id number], [address] [place], [id number], 05/08/2024 17:10:26 Qulipta 10 mg tablet 2023 024 [facility], [address] [place], [id number], 02/21/2024 13:16:27 Patient TargetsNo targets recorded. Patient InstructionsNo instructions recorded. Reason for Referral Neurologist Referral for [facility] reena Referring Physician: Sergio Pulliam Medicine, Encounter Date: 05/01/2023 Regulatory Attorney Referral for A cne Referring Physician: Sergio Pulliam, Encounter Date: 05/01/2023 ENT Surgery Referral for Thy roid nodule Referring Physician: Sergio Pulliam, Encounter Date: 05/01/2023 Neurologist Referral for Trey reena Pt has [employer] POS, no insurance referral required Referring Physician: Sergio Pulliam Medicine, Encounter Date: 07/31/2023 Regulatory Attorney Referral for A cne Pt has [employer] POS, no insurance referral required Referring Physician: Sergio Pulliam, Encounter Date: 07/31/2023 Endocrinology Referral for T hyroid nodule Referring Physician: Sergio Pulliam, Encounter Date: 07/31/2023 Neurologist Referral for Trey reena Please call patient to schedule. Referring Physician: Sergio Pulliam, Encounter Date: 02/21/2024 Regulatory Attorney Referral for A cne Please call patient to schedule. Referring Physician: Sergio Pulliam, Encounter Date: 02/21/2024 Endocrinology Referral for T hyroid nodule Referring Physician: Sergio Pulliam, Encounter Date: 02/21/2024 Neurologist Referral for Trey reena Please call patient to schedule. Referring Physician: Sergio Pulliam, Encounter Date: 04/01/2024 Regulatory Attorney Referral for A cne Please call patient to schedule. Referring Physician: Sergio Pulliam, Encounter Date: 04/01/2024 Endocrinology Referral for T hyroid nodule Referring Physician: Sergio Pulliam, Encounter Date: 04/01/2024 Neurologist Referral for Trey reena Please call patient to schedule. Referring Physician: Zackary Peters Internal Medicine, Encounter Date: 05/08/2024 Regulatory Attorney Referral for A cne Please call patient to schedule. Referring Physician: Zackary Peters, Internal Medicine, Encounter Date: 05/08/2024 Endocrinology Referral for T hyroid nodule Referring Physician: Zackary Peters, Internal Medicine, Encounter Date: 05/08/2024 Results Created Date Observation Date Name Description Value Unit Range Abnormal Flag Note LastModifiedBy Organization Detail LastModifiedTime 05/01/19 24 05/01/2023 LIPID PANEL cholesterol 185 mg/dL 140-19 9 [facility] NSUS RECOM MENDA TION FOR JACK STERO L: ADULT CHILD LOW RISK: <200 <170 BORDE RLINE : <200- 239 ----- HIGH RISK: >240 >200 Not Available [facility] (Lab) [address] [place], [address], 05/01/2023 18:26:02 05/01/19 24 05/01/2023 LIPID PANEL triglyceride s 241 mg/dL 0-150 high [facility] NSUS REPOR T RECOM MENDA TION FOR TRIGL YCERI LATHA: ADULT CHILD LOW RISK: <150 ----- BODER LINE: 150-1 99 ----- HIGH RISK: >200 ----- Not Available [facility] (Lab) [address] [place], [address], 05/01/2023 18:26:02 05/01/19 24 05/01/2023 LIPID PANEL HDL cholesterol 43 mg/dL 40- Not Available [facility] (Lab) [address] [place], [address], 05/01/2023 18:26:02 05/01/19 24 05/01/2023 LIPID PANEL LDL cholesterol, calculated 94 mg/dL 0-130 [facility] NSUS REPOR T RECOM MENDA TIONS FOR LDL: ADULT CHILD LOW RISK <130 <110 (OPTI MAL LDL) <100 ----- BORDE RLINE : 130-1 59 ----- HIGH RISK: >160 >130 A TRIGL YCERI DE RESUL T >400 INVAL IDATE S THE CALCU LATIO N FOR LDL FRACT IONAT ION - THE LDL RESUL T WILL NOT BE REPOR RAVI. Not Available [facility] (Lab) [address] [place], [address], 05/01/2023 18:26:02 05/01/19 24 05/01/2023 COMPR EHENS TAMMY METAB OLIC PANEL sodium 141 mmol/ L 137-14 5 Not Available [facility] (Lab) [address] [place], [address], 05/01/2023 18:26:05 05/01/19 24 05/01/2023 COMPR EHENS TAMMY METAB OLIC PANEL potassium 4.7 mmol/ L 3.5-5. 1 Not Available [facility] (Lab) [address] [place], [address], 05/01/2023 18:26:05 05/01/19 24 05/01/2023 COMPR EHENS TAMMY METAB OLIC PANEL chloride 103 mmol/ L 98-107 Not Available [facility] (Lab) [address] [place], [address], 05/01/2023 18:26:05 05/01/19 24 05/01/2023 COMPR EHENS TAMMY METAB OLIC PANEL carbon dioxide 30 mmol/ L 22-30 Not Available [facility] (Lab) [address] [place], [address], 05/01/2023 18:26:05 05/01/19 24 05/01/2023 COMPR EHENS TAMMY METAB OLIC PANEL anion gap 12.7 mmol/ L 14-22 low Not Available [facility] (Lab) [address] [place], [address], 05/01/2023 18:26:05 05/01/19 24 05/01/2023 COMPR EHENS TAMMY METAB OLIC PANEL glucose 93 mg/dL 70-99 Not Available [facility] (Lab) [address] [place], [address], 05/01/2023 18:26:05 05/01/19 24 05/01/2023 COMPR EHENS TAMMY METAB OLIC PANEL BUN 14 mg/dL 8-19 Not Available [facility] (Lab) [address] [place], [address], 05/01/2023 18:26:05 05/01/19 24 05/01/2023 COMPR EHENS TAMMY METAB OLIC PANEL creatinine 0.72 mg/dL 0.66-1 .25 Not Available [facility] (Lab) [address] [place], [address], 05/01/2023 18:26:05 05/01/19 24 05/01/2023 COMPR EHENS TAMMY METAB OLIC PANEL GFR >60 Refer ence Range : [place] ge GFR Healt hy Adult : >60 mL/mi n/1.7 3 m2 Chron ic Kidne y Disea se: 15-60 mL/mi n/1.7 3 m2 Kidne y Failu re: <15/m L/min /1.73 m2 www.n iddk. nih.g ov The MDRD study equat ion has not been valid ated in child giuliana <18 years of age; pregn ant women ; the elder ly >85 years of age; or in some racia l or ethni c subgr oups, such as Hispa nics. Outsi de the valid ated jessica eters , estim ated GFR is less accur ate, requi ring clini arun judgm ent on a case- by-ca se basis . Clini arun inter preta tion for other races and ages must be made by the clini mu. The MDRD study equat ion has not been valid ated for the evalu ation of serum creat inine relat ed to nutri eber l statu s or medic ation usage . For perso ns <18 years of age, a pedia tric GFR calcu lator is avail able on the [facility] websi te: https ://tabitha dunne.arianne boggs.o prabha/tiffany avilez s/kdo qi/gf r_cal culat or Not Available [facility] (Lab) [address] [place], [address], 05/01/2023 18:26:05 05/01/19 24 05/01/2023 COMPR EHENS TAMMY METAB OLIC PANEL alkaline phosphatase 114 U/L 38-126 Not Available [facility] (Lab) [address] [place], [address], 05/01/2023 18:26:05 05/01/19 24 05/01/2023 COMPR EHENS TAMMY METAB OLIC PANEL alanine aminotransfe rase 70 U/L 0-35 high Not Available [facility] (Lab) [address] [place], [address], 05/01/2023 18:26:05 05/01/19 24 05/01/2023 COMPR EHENS TAMMY METAB OLIC PANEL aspartate aminotransfe rase 27 U/L 15-37 Not Available [facility] (Lab) [address] [place], [address], 05/01/2023 18:26:05 05/01/19 24 05/01/2023 COMPR EHENS TAMMY METAB OLIC PANEL bilirubin, total 0.20 mg/dL 0.20-1 .30 Not Available [facility] (Lab) [address] [place], [address], 05/01/2023 18:26:05 05/01/19 24 05/01/2023 COMPR EHENS TAMMY METAB OLIC PANEL calcium 10.3 mg/dL 8.4-10 .2 high Not Available [facility] (Lab) [address] [place], [address], 05/01/2023 18:26:05 05/01/19 24 05/01/2023 COMPR EHENS TAMMY METAB OLIC PANEL total protein 7.4 g/dL 6.3-8. 2 Not Available [facility] (Lab) [address] [place], [address], 05/01/2023 18:26:05 05/01/19 24 05/01/2023 COMPR EHENS TAMMY METAB OLIC PANEL albumin 4.1 g/dL 3.4-5. 0 Not Available [facility] (Lab) [address] [place], [address], 05/01/2023 18:26:05 05/01/19 24 05/01/2023 COMPR EHENS TAMMY METAB OLIC PANEL globulin 3.3 g/dL 2.6-4. 2 Not Available [facility] (Lab) [address] [place], [address], 05/01/2023 18:26:05 05/01/19 24 05/01/2023 COMPR EHENS TAMMY METAB OLIC PANEL A/G ratio 1.2 ratio 1.0-2. 0 Not Available [facility] (Lab) [address] [place], [address], 05/01/2023 18:26:05 05/01/19 24 05/01/2023 VITAM IN D 25-HY DROXY [id number] 26.8 NG/mL 30-100 low Vitam in D Statu s: Defic ient: <20 ng/mL Insuf ficie nt: 20-29 ng/mL Suffi cient : 30-10 0 ng/mL Not Available [facility] (Lab) [address] [place], [address], 05/01/2023 18:40:20 05/01/19 24 05/01/2023 VITAM IN B12 (MONTRELL ABAD ) vb12 942 pg/mL 239-93 1 high Not Available [facility] (Lab) [address] [place], [address], 05/01/2023 19:50:38 05/01/19 24 05/01/2023 FOLAT E, SERUM /PLAS MA folate 7.69 NG/mL 2.76-2 0.0 Not Available [facility] (Lab) [address], [place], [address], 05/01/2023 19:50:43 05/11/19 24 05/11/2023 US, head + neck, soft tissu e [facility] [address], [place] [address] Patien t Name: MARICRUZ DODD Access ion #: [id number] Sex: F : 1999 8 Dictat ed By: Brittani Nguyễn Attend ing Physic constanza: KEYANNA MUIR Orderi Physic constanza: KEYANNA MUIR Exam Date: 2023 12:05 PM Exam Name: US NECK HEAD SOFT TISSUE Admitt ing Diagno sis(es ): ULTRAS OUND SOFT TISSUE HEAD AND NECK CLINIC AL INDICA TION: Abnorm al TSH TECHNI QUE: Multip le real time sonogr aphic images of the thyroi d were obtain ed. COMPAR CHONG: Prior exam datedn one FINDIN GS: The right thyroi d gland measur es 4.2 x 1.2 x 1.9 cm. The left thyroi d gland measur es approx imatel y 4.3 x 1.2 x 1.6 cm. The isthmu s measur es 0.3 cm. There is a hetero geneou s TI-RAD S 4 thyroi d nodule in the left inferi or thyroi d gland measur ing 1.6 cm. There is a hetero geneou s TI-RAD S 4 nodule measur ing 0.7 cm in the left mid thyroi d gland. IMPRES KEYSHAWN: 1. A 1.6 cm TI-RAD S 4 nodule in the left inferi or thyroi d gland. Recomm end FNA. 2. A 0.7 cm TI-RAD S 4 nodule in the left mid thyroi d gland. No furthe r follow -up is needed . Americ an Paul idllard of Radiol ogy TI-RAD S Catego diamante and Recomm endati ons (2017) : TR1: 0 points , Benign , No FNA TR2: 2 points , Not suspic ious, No FNA TR3: 3 points , Mildly suspic ious, FNA if > or = 2.5 cm, Follow if > or = 1.5 Page 1 [facility] [address] [place] [address] Patien t Name: MARICRUZ DODD Access ion #: [id number] Sex: F : 1999 8 Dictat ed By: Brittani Nguyễn Attend ing Physic constanza: GINI CASTREJONclearsky [facility] Physic constanza: KEYANNA MUIR Exam Date: 2023 12:05 PM Exam Name: US NECK HEAD SOFT TISSUE Admitt ing Diagno sis(es ): cm TR4: 4-6 points , Modera tely Suspic ious, FNA if > or = 1.5 cm, Follow if > or = 1.0 cm TR5: 7+ points , Highly Suspic ious, FNA if > or = 1.0 cm, Follow if > or = 0.5 cm Follow -up ultras ound guidel laurie: TR5: yearly for 5 years, if no growth or change in TI-RAD S level TR4: at 1, 2, 3 and 5 years, if no growth or change in TI-RAD S level TR3: at 1, 3 and 5 years, if no growth or change in TI-RAD S level If increa sed but below thresh old for FNA, repeat in one year. Source : ACR Thyroi d Gigi g, Report ing and Data System (TI-RA DS): White Paper of the ACR TI-RAD S Commit candie. Cynthia et al., J Am Irwin Radiol 2017;1 4:587- 595. Electr onical ly Signed by: Brittani Nguyễn at 2023 13:56: 03 PM Page 2 [email or web address] [facility] (Imaging) [address] [place], [address], 05/16/2023 15:31:50 05/11/19 24 05/11/2023 US, thyro id No observ ation record ed. [email or web address] [facility] [address] [place], [address], 05/17/2023 14:59:04 05/15/19 24 05/15/2023 US, abdom en, limit ed [facility] [address] [facility] [place] [address] Patien t Name: MARICRUZ DODD Access ion #: [id number] Sex: F : 1999 0 Dictat ed By: Emanuel Mueller Attend ing Physic constanza: KEYANNA MUIR Orderi ng Physic constanza: KEYANNA MUIR Exam Date: 2023 11:23 AM Exam Name: US ABDOME N SINGLE ORGAN Admitt ing Diagno sis(es ): US ABDOME N SINGLE ORGAN HISTOR Y: 23 years old Female being evalua ravi for elevat ed lfts. COMPAR CHONG: None TECHNI QUE: Transv erse and longit udinal graysc christy and color sonogr aphic images were obtain ed of the abdome n. FINDIN GS: Liver: - Size: 16.2 cm - Echoge nicity : Increa sed - Surfac e Contou r: Smooth - Liver Lesion (s): None - Portal Vein: Patent and forwar d flowin g. - Bile Ducts: Normal . The common bile duct measur es 2.1 mm. Gallbl adder: Normal . The sonogr aphic Contreras sign is negati ve. Pancre as: Not seen. Kidney s: - Right kidney size: 8.9 x 3.9 x 4.6 cm. There is no hydron ephros is, renal calcul i, or mass lesion . Aorta and Inferi or Vena Cava: The visual ized portio ns of the abdomi nal aorta and intrah epatic vena cava are normal . Other: None Page 1 [facility] [address] [facility] [place] [address] [phone] Patien t Name: MARICRUZ DODD ion #: [id number] Sex: F : 1999 0 Dictat ed By: Emanuel Mueller Attend ing Physic constanza: KEYANNA Fitch JULIOWENDI PITTS Orderi Physic constanza: JULIOWENDI PITTS MURTUZ A Exam Date: 2023 11:23 AM Exam Name: US ABDOME N SINGLE ORGAN Admitt ing Diagno sis(es ): IMPRES KEYSHAWN: Mild hepati c steato sis. Electr onical ly Signed by: Emanuel Mueller at 2023 14:47: 13 PM Page [email or web address] (Imaging) [address] [place], [address], 05/16/2023 15:31:42 05/15/19 24 05/15/2023 US, liver No observ ation record ed. [email or web address] [facility] [address] [place], [address], 05/17/2023 14:59:11 01/15/20 24 01/14/2024 NM, thyro id scan No observ ation record ed. [email or web address] [facility] ([facility]) [address] [place], [address], 01/23/2024 16:37:28 02/18/20 24 02/18/2024 fine needl e aspir ation , thyro id (PROC ) No observ ation record ed. [email or web address] [facility] [address], [place], [address], 05/06/2024 08:39:25 05/19/19 25 05/19/2024 MRI, inter nal audit ory canal , w/o contr ast [facility] [address] [facility] [place] [address] [phone] Patien t Name: MARICRUZ DODD Access ion #: [id number] Sex: F : 1999 2 Dictat ed By: Juvencio dillard Attend ing Physic constanza: GINI KEYANNA PITTS Physic constanza: GINI PITTSKEYANNA Exam Date: 2024 10:11 AM Exam Name: MRI IACS WO Admitt ing Diagno sis(es ): EXAM: MRI IACS WO HISTOR Y: 24-yea r-old female with migrai ne headac hes, dizzin ess, blurry vision COMPAR CHONG: MRI BRAIN WO on DOS: TECHNI QUE: Multip lanar multis equenc e noncon trast MR images of the brain and IACs were perfor med. FINDIN GS: Brain: No intrac ranial mass, midlin e shift, hydroc ephalu s, signal abnorm alitie s, or abnorm al enhanc ement. Diffus ion-we ighted images were not perfor med. Flow voids are presen t in the major intrac ranial vessel s. The corpus callos um, sella, and pituit bisi are unrema rkable . There is mild cerebe llar tonsil lar ectopi a withou t eviden ce of Chiari I malfor mation . The optic globes are symmet angie. There is mild mucosa l thicke jose of the bilate ral maxill bisi sinuse s. The other parana joe sinuse s are clear. There is palati ne and lingua l tonsil lar hypert rophy with mild narrow ing of the oropha ryngea l airway . IACs: No abnorm al thicke jose of the sevent h or eighth crania l nerves . No masses are identi fied in the IACs or cerebe llopon lian angle cister ns. No fluid is seen in the mastoi d air cells or middle ear spaces . The manager wellness al audito ry canals are patent . IMPRES KEYSHAWN: 1. No acute intrac ranial proces s. Page 1 [facility] [address] [place] [address] [phone] Patien t Name: MARICRUZ DODD Access ion #: [id number] Sex: F : 1999 2 Dictat ed By: Juvencio dillard Attend ing Physic constanza: SAMANTHAFrandyKAREL Fitch [facility] Ordersuhail esquivel Physic constanza: KEYANNA MUIR Exam Date: 2024 10:11 AM Exam Name: MRI IACS WO Admitt ing Diagno sis(es ): 2. Normal MRI appear ance of the IACs and tempor al bones. 3. Mild bilate ral maxill bisi sinus diseas e. 4. Palati ne and lingua l tonsil lar hypert rophy with mild narrow ing of the upper airway . Electr onical ly Signed by: Juvencio dillard at 2024 15:21: 20 PM Page 2 [facility] (Imaging) [address] [place], [address], 05/19/2024 16:23:56 05/19/19 25 05/19/2024 imagi ng/judy castilloos tic resul t No observ ation record ed. [facility] [address] [place], [address], 05/19/2024 16:26:15 Result Notes None recorded. Problems Name Problem SNOMED Code Status Onset Date Resolution Date Notes Provider Name and Address Organization Details Recorded Time Bipolar disorder 51309032 Active 2020 Not Available [facility] 3 19:17:51 Toothache 22101451 Active 2022 Not Available [facility] 3 19:17:51 Pain of left hip joint 9872009317206 00 Active 2021 Not Available [facility] 3 19:17:51 Depressive disorder 18751962 Active 2020 Not Available [facility] 3 19:17:51 Migraine 00918592 Active 2021 Not Available [facility] 3 19:17:51 Anxiety 01850194 Active 2020 Not Available [facility] 3 19:17:51 Limitation of joint movement 93789613 Active 2021 Not Available [facility] 3 19:17:51 COVID-19 175335089 Active 2021 Not Available [facility] 3 19:17:51 Mixed anxiety and depressive disorder 442139048 Active 2022 Not Available [facility] 3 19:17:51 Acne 79992539 Active 2022 Not Available [facility] 3 19:17:51 Low back pain 395305851 Active 2022 Not Available [facility] 3 19:17:51 Hyperlipid emia 74905920 Active 2022 Not Available [facility] 3 19:17:51 Dizziness 240999333 Active 2022 Not Available [facility] 3 19:17:51 Vitamin D deficiency 83411459 Active 2022 Not Available [facility] 3 19:17:51 Serum vitamin B12 below reference range 698313284 Active 2022 Not Available [facility] 3 19:17:51 Acute right otitis media 971203696 Active 2022 Not Available [facility] 3 19:17:51 Upper respirator y infection 41989457 Active 2022 Not Available [facility] 3 19:17:51 Vertigo 366329041 Active 2022 Not Available [facility] 3 19:17:51 Acute sinusitis 98288374 Active 2022 Not Available [facility] 3 19:17:51 Serum thyroid stimulatin g hormone level outside reference range 414619970 Active 2023 Zackary fitch MD [address], [address], [place], [address] , [facility] 4 16:53:02 Thyroid nodule 818554749 Active 2023 Zackary fitch MD [address], [address], [place], [address] , [facility] 4 16:54:04 Liver enzymes level above reference range 981311446 Active 2023 Andie Anders RN null, [facility] 4 15:38:27 Steatosis of liver 280786009 Active 2023 Andie Anders RN null, [facility] 4 10:40:40 Increased liver function 84874535 Active 2023 Zackary fitch MD [address] [facility], [address], [place], [address] , [facility] 4 12:28:47 Acute urinary tract infection 488183114 Active 2023 Georgia Bliss MA null, [facility] 4 17:45:40 Obesity 025977787 Active 2023 Zackary fitch MD [address], [facility] [address], [place], [address] , [facility] 4 13:11:43 Graves' disease 314035606 Active 2023 SAM Mcguire null, [facility] 5 12:51:35 Hypertroph y of lingual tonsil 292735825 Active 2024 SAM Mcguire null, [facility] 5 13:59:22 Problem Notes None recorded. Procedures Surgical History Date Name Laterality Status Provider Name and Address Organization Details Recorded Time biopsy of thyroid completed SAM Mcguire [facility] 02/21/2024 12:21:32 Imaging Results Imaging Date Name Status LastModified by Organiz [facility] Details LastModified Time 05/11/2023 US, head + neck, soft tissue completed [email or web address] [place] [address] (Imaging) [address] [facility], [place], [address], 05/16/2023 15:31:50 05/11/2023 US, thyroid completed [id number] [facility] [address] [place], [address], 05/17/2023 14:59:04 05/15/2023 US, abdomen, limited completed [id number] (Imaging) [address] [place], [address], 05/16/2023 15:31:42 05/15/2023 US, liver completed [email or web address] [facility] [address] [place], [address], 05/17/2023 14:59:11 01/14/2024 NM, thyroid scan completed [address] ([employer] [facility]) [address] [place], [address], 01/23/2024 16:37:28 02/18/2024 fine needle aspiration, thyroid (PROC) active [address], [place], [address], 05/06/2024 08:39:25 05/19/2024 MRI, internal auditory canal, w/o contrast active INTERFACE [facility] (Imaging) [address] [place], [address], 05/19/2024 16:23:56 05/19/2024 imaging/diagn ostic result active KELLE [facility] [address] [place], [address], 05/19/2024 16:26:15 Procedure Notes None recorded. Medical Equipment None Reported. Allergies No known drug allergies Medications Name Sig Start Date Stop Date Status Note LastModified by Organization Details LastModified Time amoxicillin 500 mg capsule TAKE 1 CAPSULE BY MOUTH EVERY 12 HOURS FOR 10 DAYS 05/01 completed Not Available Not Available Not Available bupropion HCl SR 150 mg tablet,12 hr sustained-r elease TAKE 1 TABLET BY MOUTH TWICE DAILY IN THE MORNING 02/22 completed Not Available Not Available Not Available benztropine 0.5 mg tablet TAKE 1 TABLET BY MOUTH AT BEDTIME 06/26 completed Not Available Not Available Not Available trazodone 50 mg tablet TAKE 1 TABLET BY MOUTH AT BEDTIME AND AT NIGHT NEEDED 02/22 completed Not Available Not Available Not Available citalopram 10 mg tablet TAKE 1 TABLET BY MOUTH DAILY 02/22 completed Not Available Not Available Not Available hydrocodone 5 mg-acetamin ophen 325 mg tablet TAKE 1 TABLET BY MOUTH EVERY 6 HOURS NEEDED FOR PAIN 02/20 completed Not Available Not Available Not Available ondansetron HCl 4 mg tablet TAKE 1 TABLET BY MOUTH THREE TIMES DAILY NEEDED FOR NAUSEA 06/26 completed Not Available Not Available Not Available dextroamphe tamine-amph etamine 10 mg tablet TAKE 1 TABLET BY MOUTH EVERY DAY 02/22 completed Not Available Not Available Not Available clonazepam 0.5 mg tablet TAKE 1 TABLET BY MOUTH TWICE DAILY NEEDED 02/22 completed Not Available Not Available Not Available spironolact one 100 mg tablet TAKE 1 TABLET BY MOUTH DAILY 06/26 completed Not Available Not Available Not Available doxycycline hyclate 50 mg capsule TAKE 1 CAPSULE BY MOUTH TWICE DAILY 06/26 completed Not Available Not Available Not Available sertraline 100 mg tablet TAKE 1 TABLET BY MOUTH AT BEDTIME 06/26 completed Not Available Not Available Not Available metronidazo le 500 mg tablet TAKE 1 TABLET BY MOUTH EVERY 12 HOURS FOR 7 DAYS 02/20 completed Not Available Not Available Not Available phentermine 37.5 mg tablet Take 1 tablet every day by oral route for 30 days. 05/08 completed She did not even pick it up. Not Available Not Available Not Available ciprofloxac in 500 mg tablet TAKE 1 TABLET BY MOUTH EVERY 12 HOURS FOR 7 DAYS 02/20 completed Not Available Not Available Not Available bupropion HCl SR 100 mg tablet,12 hr sustained-r elease TAKE 1 TABLET BY MOUTH TWICE DAILY 06/26 completed Not Available Not Available Not Available amoxicillin 500 mg tablet TAKE 1 TABLET BY MOUTH EVERY 8 HOURS FOR 5 DAYS 05/01 completed Not Available Not Available Not Available lamotrigine 25 mg tablet TAKE 1 TABLET BY MOUTH TWICE DAILY 06/26 completed Not Available Not Available Not Available bupropion HCl 100 mg tablet TAKE 1 TABLET BY MOUTH TWICE DAILY 02/22 completed Not Available Not Available Not Available citalopram 20 mg tablet TAKE 1 TABLET BY MOUTH DAILY 02/22 completed Not Available Not Available Not Available metoclopram alec 5 mg tablet TAKE 1 TABLET BY MOUTH FOUR TIMES DAILY 09/26 completed Not Available Not Available Not Available rizatriptan 10 mg disintegrat ing tablet Take 1 mg every day by oral route as needed for 9 days. 09/26 completed Not Available Not Available Not Available buspirone 10 mg tablet TAKE 1 TABLET BY MOUTH TWICE DAILY 02/22 completed Not Available Not Available Not Available polymyxin B sulfate 10,000 unit-trimet hoprim 1 mg/mL eye drops 02/22 completed Not Available Not Available Not Available minocycline 50 mg capsule TAKE 1 CAPSULE BY MOUTH TWICE DAILY FOR 30 DAYS THEN TAKE 1 CAPSULE BY MOUTH DAILY FOR 30 DAYS 06/26 completed Not Available Not Available Not Available ergocalcife rol (vitamin D2) 1,250 mcg (50,000 unit) capsule TAKE 1 CAPSULE BY MOUTH EVERY WEEK 05/01 completed Not Available Not Available Not Available ibuprofen 600 mg tablet TAKE 1 TABLET BY MOUTH EVERY 6 HOURS NEEDED FOR CRAMPING 05/01 completed Not Available Not Available Not Available levofloxaci n 750 mg tablet TAKE 1 TABLET BY MOUTH EVERY DAY FOR 7 DAYS 09/26 completed Not Available Not Available Not Available hydroxyzine HCl 10 mg tablet TAKE 1 TABLET BY MOUTH EVERY 4 HOURS NEEDED 02/22 completed Not Available Not Available Not Available ondansetron 4 mg disintegrat ing tablet DISSOLVE 1 TABLET ON THE TONGUE EVERY 4 TO 6 HOURS NEEDED 05/01 completed Not Available Not Available Not Available topiramate 100 mg tablet TAKE 1 TABLET BY MOUTH TWICE DAILY 02/22 completed Not Available Not Available Not Available sertraline 50 mg tablet TAKE 1 TABLET BY MOUTH EVERY DAY 05/01 completed Not Available Not Available Not Available doxycycline hyclate 100 mg tablet TAKE 1 TABLET BY MOUTH TWICE DAILY FOR 7 DAYS 02/20 completed Not Available Not Available Not Available amoxicillin 875 mg-potassiu m clavulanate 125 mg tablet TAKE 1 TABLET BY MOUTH EVERY 12 HOURS FOR 7 DAYS 09/26 completed Not Available Not Available Not Available buspirone 15 mg tablet TAKE 1 TABLET BY MOUTH TWICE DAILY 02/22 completed Not Available Not Available Not Available cyclobenzap rine 5 mg tablet TAKE 1 TABLET BY MOUTH EVERY 8 HOURS NEEDED 07/30 completed Not Available Not Available Not Available ciprofloxac in 0.3 %-dexametha sone 0.1 % ear drops,suspe nsion SHAKE LIQUID AND INSTILL 4 DROPS TO AFFECTED EAR EVERY 12 HOURS FOR 7 DAYS 05/24 completed Not Available Not Available Not Available Crestor 40 mg tablet Take 1 tablet every day by oral route. 2024 active Not Available Not Available Not Avai lable bupropion HCl XL 300 mg 24 hr tablet, extended release TAKE 1 TABLET BY MOUTH EVERY DAY IN THE MORNING 06/26 completed Not Available Not Available Not Available bupropion HCl XL 150 mg 24 hr tablet, extended release TAKE 1 TABLET BY MOUTH EVERY DAY 06/26 completed Not Available Not Available Not Available zonisamide 50 mg capsule Take 1 capsule every day by oral route for 90 days. 09/26 completed Not Available Not Available Not Available escitalopra m 5 mg tablet TAKE 1 TABLET BY MOUTH EVERY DAY 09/26 completed Not Available Not Available Not Available topiramate 50 mg tablet TAKE 1 TABLET BY MOUTH TWICE DAILY 02/22 completed Not Available Not Available Not Available nitrofurant oin monohydrate /macrocryst als 100 mg capsule TAKE 1 CAPSULE BY MOUTH EVERY 12 HOURS FOR 7 DAYS DIRECTED 05/01 completed Not Available Not Available Not Available duloxetine 30 mg capsule,del ayed release TAKE 1 CAPSULE BY MOUTH EVERY DAY FOR 7 DAYS 03/30 completed Not Available Not Available Not Available duloxetine 60 mg capsule,del ayed release TAKE 1 CAPSULE BY MOUTH EVERY DAY AT BEDTIME 03/30 completed Not Available Not Available Not Available 05/01 completed Not Available Not Available Not Available aripiprazol e 2 mg tablet TAKE 1 TABLET BY MOUTH EVERY DAY 06/26 completed Not Available Not Available Not Available cholecalcif duyen (vitamin D3) 1,250 mcg (50,000 unit) capsule Take 1 capsule every week by oral route, for 8 weeks. 2024 active Not Available Not Available Not Avai lable FeroSul 325 mg (65 mg iron) tablet TAKE 1 TABLET BY MOUTH EVERY DAY DIRECTED 02/20 completed Not Available Not Available Not Available BP 5 % topical gel APPLY TO THE AFFECTED AREA EACH MORNING FOR ACNE 06/23 completed Not Available Not Available Not Available Aurovela Fe 1-20 (28) 1 mg-20 mcg (21)/75 mg (7) tablet TAKE 1 TABLET BY MOUTH EVERY DAY 02/22 completed Not Available Not Available Not Available Ubrelvy 50 mg tablet TAKE 1 TABLET BY MOUTH AT START OF HEADACHE, CAN REPEAT IN 2 HOURS IF NEEDED; NO MORE THAN 2 PER 24 HOURS 2023 active Not Available Not Available Not Mary [facility] ID NOW COVID-19 Test Kit TEST DIRECTED 02/22 completed Not Available Not Available Not Available Qulipta 60 mg tablet Take 1 tablet every day by oral route. 06/26 completed Not Available Not Available Not Available Qulipta 10 mg tablet TAKE 1 TABLET BY MOUTH EVERY DAY 2023 active Not Available Not Available Not [facility] Paxlovid 300 mg (150 mg x 2)-100 mg tablets in a dose pack Take 3 tablets twice a day by oral route for 5 days. 06/26 completed Not Available Not Available Not Available Vitals Date Recorded Body height Body mass index (BMI) Body weight Body temperature Heart rate Systolic blood pressure Diastolic blood pressure Provider Name and Address Organization Details Last Updated DateTime 4 154.94 cm 35 kg/m2 69627.5 9 g 97.6 [degF] 84 /min 116 mm[Hg] 80 mm[Hg] SAM Mcguire [facility] [employer] 4 16:26:51 Date Recorded Body height Body mass index (BMI) Body weight Body temperature Heart rate Systolic blood pressure Diastolic blood pressure Provider Name and Address Organization Details Last Updated DateTime 4 154.94 cm 33.7 kg/m2 98711.2 4 g 97.5 [degF] 84 /min 100 mm[Hg] 66 mm[Hg] SAM Mcguire [facility] [employer] [facility] 4 11:16:43 Date Recorded Body height Body mass index (BMI) Body weight Body temperature Heart rate Systolic blood pressure Diastolic blood pressure Provider Name and Address Organization Details Last Updated DateTime 4 154.94 cm 36.5 kg/m2 07793.3 3 g 97.8 [degF] 84 /min 118 mm[Hg] 76 mm[Hg] SAM [facility]guire [facility] [employer] [facility] 4 12:23:33 Date Recorded Body height Body mass index (BMI) Body weight Body temperature Heart rate Systolic blood pressure Diastolic blood pressure Provider Name and Address Organization Details Last Updated DateTime 4 154.94 cm 34.2 kg/m2 23363.2 2 g 97.6 [degF] 84 /min 124 mm[Hg] 80 mm[Hg] SAM Mcguire [facility] [employer] [facility] 4 17:51:13 Date Recorded Body height Body mass index (BMI) Body weight Body temperature Heart rate Systolic blood pressure Diastolic blood pressure Provider Name and Address Organization Details Last Updated DateTime 5 154.94 cm 34.6 kg/m2 95325.4 g 97.6 [degF] 84 /min 118 mm[Hg] 80 mm[Hg] SAM Mcguire [facility] [employer] [facility] 5 17:13:11 Social History Question Answer Notes LastModified by Organizat ion Details LastModified Time Tobacco Smoking Status Never Smoker Not Available [facility] 06/14/2022 23:55:08 Do You Have An Advance Directive? No Information n ot available 06/26/2022 What Is Your Level Of Alcohol Consumption? None [id number] Information not available 06/14/2022 What Is Your Level Of Caffeine Consumption? Heavy [id number].[id number] Information not available 06/14/2022 In The 14 Days Before Symptom Onset, Have You Had Close Contact With A Laboratory-confirm ed COVID-19 While That Case Was Ill? No [id number] Information not available 06/14/2022 In The 14 Days Before Symptom Onset, Have You Had Close Contact With A Person Who Is Under Investigation For COVID-19 While That Person Was Ill? No [id number].[id number] Information not available 06/14/2022 Are You Currently Employed? Yes Information not available 06/26/2022 What Type Of Diet Are You Following? REGULAR [id number].[id number] Information not available 06/14/2022 Which Illicit Or Recreational Drugs Have You Used? 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 Unknown Information not available 06/26/2022 Do You Use Insect Repellent Routinely? No MIGRATION.[id number] Information not available 06/14/2022 Do You Have A Medical Power Of Business Development Representative? No Information not available 06/26/2022 What Was The Date Of Your Most Recent Tobacco Screening? 05/08/2024 Information not available 05/08/2024 What Is Your Relationship Status? Single MIGRATION.[id number] Information not available 06/14/2022 Do You Use Your Seat Belt Or Car Seat Routinely? Yes [id number] Information not available 06/14/2022 Do You Have Smoke And Carbon Monoxide Detectors In Your Home? Yes MIGRATION.957321 1992 Information not available 06/14/2022 Are You Passively Exposed To Smoke? Yes MIGRATION.[id number] Information not available 06/14/2022 Are There Any Smokers In Your House? Yes MIGRATION.924181 4567 Information not available 06/14/2022 Do You Feel Stressed (tense, Restless, Nervous, Or Anxious, Or Unable To Sleep At Night)? [id number] MIGRATION.196283 5061 Information not available 06/14/2022 Do You Use Any Illicit Or Recreational Drugs? Yes MIGRATION.573222 0201 Information not available 06/14/2022 Do You Use Sunscreen Routinely? No MIGRATION.893519 9076 Information not available 06/14/2022 Has Tobacco Cessation Counseling Been Provided? No N/a Information not available 09/26/2022 Have You Recently Traveled Abroad? No [id number].[id number] Information not available 06/14/2022 Have You Used IV Drugs? No MIGRATION.234760 8647 Information not available 06/14/2022 Do You Have Any Dietary Restrictions? No MIGRATION.128498 4276 Information not available 06/14/2022 Do You Or Have You Ever Used Any Other Forms Of Tobacco Or Nicotine? No Information not available 06/26/2022 Sex: Female Functional Status Question Answer Note LastModified by Organizat ion Details LastModified Time What is your exercise level? Occasional [id number].[id number] Information not available 06/14/2022 Mental Status None recorded. Family History Relationship Description Onset Age of this Age Resolved Age Notes LastModified by Organization Details LastModified Time Mother Vertigo [id number] Not available 06/14/2022 23:55:33 Maternal Grandmother Anemia MIGRATION.488 [id number] Not available 06/14/2022 23:55:33 Maternal Grandmother Vertigo MIGRATION.959 [id number] Not available 06/14/2022 23:55:33 Maternal Grandmother Heart disease MIGRATION.423 [id number] Not available 06/14/2022 23:55:33 Maternal Grandmother Hypertensive disorder MIGRATION.632 [id number] Not available 06/14/2022 23:55:33 Maternal Grandmother Diabetes mellitus MIGRATION.548 [id number] Not available 06/14/2022 23:55:33 Medical History Condition Response BLINDNESS N NERVE DISEASE N RHEUMATIC FEVER N BLADDER PROBLEMS N KIDNEY STONES N MRSA N OTHER # 1 N POLIO N LUNG DISEASE/DISORDER N HISTORY OF DRUG ABUSE N RADIATION / CHEMOTHERAPY N COPD N Other # 2 N BLOOD DISEASES N EAR OR HEARING PROBLEMS N MUMPS N SHINGLES N DEPRESSION (INCLUDING POST ) N BOWEL PROBLEMS N STROKE/TIA N ULCERS N BENIGN PROSTATIC HYPERPLASIA N MEASLES N HYPOTENSION N MYOCARDIAL INFARCTION N OBESITY N GERD/NAUSEA N ANEURYSM N URINARY/BLADDER/KIDNEY PROBLEMS N CORONARY ARTERY DISEASE (CAD) N ADDICTION CONCERNS N ENDOMETRIOSIS N Impotence N USE OF BLOOD THINNERS N SKIN PROBLEMS N GASTROINTESTINAL DISORDER N PERIPHERAL VASCULAR DISEASE N MUSCLE,JOINT OR BONE PROBLEMS N GASTROINTESTINAL BLEEDING N BLOOD CLOTS N ASTHMA N CATARACTS N ERECTILE DYSFUNCTION N VARICOSITIES N GI PROBLEMS N Low Testosterone N INFERTILITY N AIDS/HIV N CHEMOTHERAPY / RADIATION N LIVER DISEASE N MALE HYPOGONADISM N HYPERTENSION N Deficiency N TOURETTE'S N ANXIETY DISORDER Y BLOOD TRANSFUSION N ANEMIA/BLOOD DISORDER Y CHRONIC EAR INFECTIONS N BRONCHITIS N TUBERCULOSIS N GLAUCOMA N FOOT PROBLEM N DIVERTICULITIS N CHICKENPOX N SLEEP APNEA N INFECTIOUS DISEASE N HEART ARRHYTHMIA N PROSTATE N INSOMNIA N HIGH CHOLESTEROL / HYPERLIPIDEMIA N HYPERTHYROIDISM N EYE PROBLEMS N EDEMA N CHRONIC PAIN SYNDROME N HYPOTHYROIDISM Y CAROTID BLOCKAGE N CONSTIPATION N BACK / NECK PROBLEMS N HAVE YOU BEEN HOSPITALIZED OR SEEN IN [facility] IN THE PAST YEAR ? N ATHEROSCLEROSIS N BREAST PROBLEMS N DIALYSIS N ECZEMA N OSTEOPOROSIS N ARTHRITIS N NO SIGNIFICANT PAST MEDICAL HISTORY N APPENDICITIS N DIABETES, TYPE N BAD TEETH N ENT N HEARTBURN / REFLUX N AUTISM SPECTRUM DISORDER (ASD) N HEPATITIS / LIVER DISEASE N GOUT N SLEEP DISORDER N ALZHEIMER'S DISEASE N Brain Problems N HERPES N DEMENTIA N HEADACHES/MIGRAINES N SEIZURES/EPILEPSY N VASCULAR DISEASE N PACEMAKER N Blood Disorder N DIZZINESS N HEART DISEASE/HEART PROBLEMS N KIDNEY DISEASE N MULTIPLE SCLEROSIS N CARDIAC ARRHYTHMIA N CANCER: SPECIFY N ATRIAL FIBRILLATION N Gall Stones N PULMONARY EMBOLISM N AUTOIMMUNE DISEASE N Gynecological HistoryNo gynecological history recorded. Obstetrics History GPAL:G 1 P 1 0 0 1 Type Value Full Term 1 Living 1 Total 1 Past Encounters Encounter ID Performer Location Encounter Start Date Encounter Closed Date Diagnosis/Indication Diagnosis SNOMED-CT Code Diagnosis ICD10 Code Diagnosis Note [id number] [facility] [address] [place] [address] [address] 02/22/2021 00:00:00 02/23/2021 13:30:49 [id number] [facility] Jose Rafael mendoza [address] [place] [address] [place] [address] 03/30/2021 00:00:00 03/30/2021 12:12:50 [id number] [facility] [address] [address] 05/24/2021 00:00:00 05/24/2021 14:06:17 [id number] [facility] [address] [address] 06/23/2021 00:00:00 06/23/2021 11:57:35 [id number] Zackary fitch MD [facility] Jose Rafael mendoza [address] [place] [address] [place] [address] 06/26/2022 17:39:22 06/26/2022 18:28:43 Screening - NAD 457070553 Z13.9 Well women: Get a referral, to Dr Burnette Get yearly flu shotGet tdapGet COVID 19 vaccineShe has refused the above vaccine follow all [facility] guidleline s! RTC in 3 monthsDo labsER if worseShe did verbalize her understand ing of the above Migraine [id number] G43.90 9 On zonisamide 50mg dailyOn rizatripta n 10mg PRNGiven by Shelly Gutierrez NP neurology, will now refer to Dr Jha Mixed anxi ety and depressive disorder 493594277 F41.8 Not on aripoprazo le 2mg daily or bupropion XL 300mg daily On escitalopr am 5mg daily, given by Georgia Stallings SOCIAL SERVICE ASSISTANT, does not see Dr Rivera nowNot suicidal or homicidal Acne 25881327 L70.9 See dermatolog y Hyperlipidemia 11807729 E78.5 Not on any medsGet labs Dizziness 181879594 R42 [facility] Dr Mendoza 06/23/2022 On heart monitor Vitamin D deficiency 347 39400 E55.9 Serum case min B12 below reference range 182715043 R79.89 Gynecologi c examination 07621197 Z01.419 Acute righ t otitis media 298721091 H66.91 Recently treated with augmentin, no relief, get on levaquin and if not better may need MDP and see ENT [id number] Zackary fitch MD [facility] [address] [facility], [address] [place] [address] 09/26/2022 17:21:03 09/26/2022 17:55:35 Screening - NAD [id number] Z13.9 Well women: Now see her OB as she is , she is on pre Get yearly flu shotGet tdapGet COVID 19 vaccineShe has refused the above vaccine follow all [facility] guidleline s! RTC in 6 monthsDo labsER if worseShe did verbalize her understand ing of the above Migraine 21271406 G43.90 9 On zonisamide 50mg dailyOn rizatripta n 10mg PRNGiven by Shelly Gutierrez NP neurology, will now refer to Dr Jha OV 09/26/2022 :Does well now Mixed anxi ety and depressive disorder [id number] F41.8 Not on aripoprazo le 2mg daily or bupropion XL 300mg daily On escitalopr am 5mg daily, given by Georgia Stallings SOCIAL SERVICE ASSISTANT, does not see Dr Miguel Delarosa suicidal or homicidal OV 09/26/2022 :On sertraline 50mg daily, given by Jes Phillips who is her OB Acne [id number] L70.9 See dermatolog y Hyperlipidemia 76189505 E78.5 Not on any medsGet labs Dizziness [id number] R42 [facility] Dr Mendoza 06/23/2022 On heart monitor Vitamin D deficiency 347 42813 E55.9 Serum case min B12 below reference range 523402246 R79.89 Acute righ t otitis media 250554832 H66.91 R otitis, get on amoxicilli n, it is listed as an allergy, but she is able to take this, has taken in the past, it is listed as an allergy as it is not very effective , she is , ENT if not better [id number] Zackary fitch MD [facility] [address] [facility], [facility] [address] [place] [address] 05/01/2023 16:15:29 05/01/2023 17:08:42 Screening - NAD [id number] Z13.9 See her OB, s/p Get yearly flu shotGet tdapGet COVID 19 vaccineShe has refused the above vaccine follow all CDC guidleline s! 05/01/2023 RTC in 3 monthsDo labsER if worseShe did verbalize her understand ing of the above Migraine 72677407 G43.90 9 On zonisamide 50mg dailyOn rizatripta n 10mg PRNGiven by Shelly Gutierrez NP neurology, will now refer to Dr Jha OV 09/26/2022 :Does well now OV 05/01/2023 :Does well now, should see neurology Mixed anxi ety and depressive disorder 415746208 F41.8 Not on aripoprazo le 2mg daily or bupropion XL 300mg daily On escitalopr am 5mg daily, given by Georgia Stallings SOCIAL SERVICE ASSISTANT, does not see Dr Miguel Delarosa suicidal or homicidal OV 09/26/2022 :On sertraline 50mg daily, given by Jes Phillips who is her OB OV 05/01/2023 : Not on any meds, does well, not suicidal or homicidal Acne 57338307 L70.9 See dermatolog y Hyperlipidemia 67450793 E78.5 Did have CBC and TSH and FT4 done at her OB office , get the reports Not on any medsGet labs Dizziness 766111978 R42 [facility] [address] Mendoza 06/23/2022 Does well now Vitamin D deficiency 347 02138 E55.9 Serum case min B12 below reference range 768102466 R79.89 Get labsOn iron Serum thyr oid stimulating hormone level outside reference range 622320594 R89.1 Did get TSH and FT4 done at her OB's office, get the reportsGet US thyroidRef er to ENT for the thyroid nodule noted on the L side of thyroid Thyroid nodule 507376740 E04.1 Get a referral to ENT [id number] Zackary fitch MD [facility] [address] [facility], [facility] [address] 07/31/2023 10:56:19 07/31/2023 11:53:32 Screening - NAD 797487573 Z13.9 See her OB, s/p Get yearly flu shotGet tdapGet COVID 19 vaccineShe has refused the above vaccine follow all CDC guidleline s! 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 Not on aripoprazo le 2mg daily or bupropion XL 300mg daily On escitalopr am 5mg daily, given by Georgia Chandrakant SOCIAL SERVICE ASSISTANT, does not see Dr Miguel Delarosa suicidal or homicidal OV 09/26/2022 :On sertraline 50mg daily, given by Jes Phillips who is her OB OV 05/01/2023 : Not on any meds, does well, not suicidal or homicidal OV 07/31/2023 : Not on any meds, does well, not suicidal or homicidal Acne 53542429 L70.9 See dermatolog y Hyperlipidemia 29459373 E78.5 Did have CBC and TSH and FT4 done at her OB office , get the reports Not on any medsGet labs Dizziness 055522250 R42 [facility] [address] Mendoza 06/23/2022 Does well now Vitamin D deficiency 347 20218 E55.9 Serum case min B12 below reference range 627560992 R79.89 Get labsOn iron Serum thyr oid stimulating hormone level outside reference range 258357401 R89.1 Did get TSH and FT4 done at her OB's office, get the reportsGet US thyroidRef er to ENT for the thyroid nodule noted on the L side of thyroidNow has to see endocrine MD Thyroid nodule 912306758 E04.1 US thyroid 05/11/2023 Get a referral to ENT but was told she must see an endocrine MD first, see case 05/03/2023 Increased liver function 49367693 R94.5 US liver 05/15/2023 : Mild hepatic steatosisG et labs [id number] Zackary fitch MD [facility] [address] [facility] [address] [place] [address] 02/21/2024 11:55:21 02/21/2024 13:17:34 Screening - NAD 178984891 Z13.9 See her OB, s/p Get yearly flu shotGet tdapGet COVID 19 vaccineShe has refused the above vaccine follow all CDC guidleline s! 05/01/2023 RTC in 3 monthsDo labsER if worseShe did verbalize her understand ing of the above Migraine 25590966 G43.90 9 On zonisamide 50mg dailyOn rizatripta n 10mg PRNGiven by Shelly Gutierrez NP neurology, will now refer to Dr Jha OV 09/26/2022 :Does well now OV 05/01/2023 :Does well now, should see neurology OV 07/31/2023 : Again advised to keep her neurology apt, she does state that she has not noted any migraines since her delivery of her baby since 04/2023 See case 02/13/2024 OV 02/21/2024 :MRI brain 03/07/2021 , get MRI IACs as she does get dizzy spells with turning her headKeep apt with neurologyG et on quilipta Mixed anxi ety and depressive disorder 596171598 F41.8 Not on aripoprazo le 2mg daily or bupropion XL 300mg daily On escitalopr am 5mg daily, given by Georgia Stallings SOCIAL SERVICE ASSISTANT, does not see Dr Miguel Delarosa suicidal or homicidal OV 09/26/2022 :On sertraline 50mg daily, given by Jes Phillips who is her OB OV 05/01/2023 : Not on any meds, does well, not suicidal or homicidal OV 07/31/2023 : Not on any meds, does well, not suicidal or homicidal Acne 00371680 L70.9 See dermatolog y Hyperlipidemia 69026550 E78.5 Did have CBC and TSH and FT4 done at her OB office , get the reports Not on any medsGet labs Dizziness 107369392 R42 [facility] Dr Mendoza 06/23/2022 Does well now Vitamin D deficiency 347 67728 E55.9 Serum case min B12 below reference range 091331181 R79.89 Get labsOn iron Serum thyr oid stimulating hormone level outside reference range 748433057 R89.1 Did get TSH and FT4 done at her OB's office, get the reportsGet US thyroidRef er to ENT for the thyroid nodule noted on the L side of thyroidNow has to see endocrine MD Thyroid Bx: 02/18/2024 : Benign Thyroid nodule 955856578 E04.1 US thyroid 05/11/2023 Get a referral to ENT but was told she must see an endocrine MD first, see case 05/03/2023 Thyroid Bx: 02/18/2024 : Benign Will now see Dr Valero as Dr Rico has not contacted her regarding the thryoid bx Increased liver function 24739039 R94.5 US liver 05/15/2023 : Mild hepatic steatosisG et labs Obesity 917567952 E66.9 She is eager to start on phentermin e, did not want to take any GLP-1All side effects explained to herRUST in one month for refill and weight check [id number] Zackary fitch MD [facility] [address] [facility], [facility] [address] [place] [address] 04/01/2024 17:42:18 04/01/2024 18:03:31 Screening - NAD 079624585 Z13.9 See her OB, s/p Get yearly flu shotGet tdapGet COVID 19 vaccineShe has refused the above vaccine follow all CDC guidleline s! 05/01/2023 RTC in 3 monthsDo labsER if worseShe did verbalize her understand ing of the above Migraine 48205327 G43.90 9 On zonisamide 50mg dailyOn rizatripta n 10mg PRNGiven by Shelly Gutierrez SOCIAL SERVICE ASSISTANT neurology, will now refer to Dr Jha OV 09/26/2022 :Does well now OV 05/01/2023 :Does well now, should see neurology OV 07/31/2023 : Again advised to keep her neurology apt, she does state that she has not noted any migraines since her delivery of her baby since 04/2023 See case 02/13/2024 OV 02/21/2024 :MRI brain 03/07/2021 , get MRI IACs as she does get dizzy spells with turning her headKeep apt with neurologyG et on quilipta OV 04/01/2024 :Keep apt with neurology and get MRI Mixed anxi ety and depressive disorder 507986006 F41.8 Not on aripoprazo le 2mg daily or bupropion XL 300mg daily On escitalopr am 5mg daily, given by Georgia Stallings SOCIAL SERVICE ASSISTANT, does not see Dr Miguel Delarosa suicidal or homicidal OV 09/26/2022 :On sertraline 50mg daily, given by Jes Phillips who is her OB OV 05/01/2023 : Not on any meds, does well, not suicidal or homicidal OV 07/31/2023 : Not on any meds, does well, not suicidal or homicidal Acne 31072582 L70.9 See dermatolog y Hyperlipidemia 75166160 E78.5 Did have CBC and TSH and FT4 done at her OB office , get the reports Not on any medsGet labs Dizziness 782422970 R42 [facility] Dr Mendoza 06/23/2022 Does well now Vitamin D deficiency 347 80490 E55.9 Serum case min B12 below reference range 073934495 R79.89 Get labsOn iron Serum thyr oid stimulating hormone level outside reference range 234510631 R89.1 Did get TSH and FT4 done at her OB's office, get the reportsGet US thyroidRef er to ENT for the thyroid nodule noted on the L side of thyroidNow has to see endocrine MD Thyroid Bx: 02/18/2024 : Benign Thyroid nodule 019478170 E04.1 US thyroid 05/11/2023 Get a referral to ENT but was told she must see an endocrine MD first, see case 05/03/2023 Thyroid Bx: 02/18/2024 : Benign Will now see Dr Valero as Dr Rico has not contacted her regarding the thryoid bx Increased liver function 93449252 R94.5 US liver 05/15/2023 : Mild hepatic steatosisG et labs Obesity 087672772 E66.9 She is eager to start on phentermin e, did not want to take any GLP-1All side effects explained to herRTC in one month for refill and weight check OV 04/01/2024 :Does wellLost about 8 poundsRene wed phentermin e [id number] Zackary fitch MD [facility] [address] [place] [address] 05/08/2024 16:55:54 05/08/2024 17:55:37 Screening - NAD 891308854 Z13.9 See her OB, s/p Get yearly flu shotGet tdapGet COVID 19 vaccineShe has refused the above vaccine follow all CDC guidleline s! 05/01/2023 RTC in 3 monthsDo labsER if worseShe did verbalize her understand ing of the above Migraine 40298265 G43.90 9 On zonisamide 50mg dailyOn rizatripta n 10mg PRNGiven by Shelly Gutierrez NP neurology, will now refer to Dr Jha OV 09/26/2022 :Does well now OV 05/01/2023 :Does well now, should see neurology OV 07/31/2023 : Again advised to keep her neurology apt, she does state that she has not noted any migraines since her delivery of her baby since 04/2023 See case 02/13/2024 OV 02/21/2024 :MRI brain 03/07/2021 , get MRI IACs as she does get dizzy spells with turning her headKeep apt with neurologyG et on quilipta OV 04/01/2024 :Keep apt with neurology and get MRI OV 05/08/2024 :Still needs to get the MRINeeds to see the neurology Mixed anxi ety and depressive disorder 783879430 F41.8 Not on aripoprazo le 2mg daily or bupropion XL 300mg daily On escitalopr am 5mg daily, given by Georgia Stallings SOCIAL SERVICE ASSISTANT, does not see Dr Miguel Delarosa suicidal or homicidal OV 09/26/2022 :On sertraline 50mg daily, given by Jes Phillips who is her OB OV 05/01/2023 : Not on any meds, does well, not suicidal or homicidal OV 07/31/2023 : Not on any meds, does well, not suicidal or homicidal Acne 89548433 L70.9 See dermatolog y Hyperlipidemia 25451689 E78.5 Did have CBC and TSH and FT4 done at her OB office , get the reports Not on any medsGet labs Dizziness 202680544 R42 [facility] Dr Mendoza 06/23/2022 Does well now Vitamin D deficiency 347 68413 E55.9 Serum case min B12 below reference range 140519067 R79.89 Get labsOn iron Serum thyr oid stimulating hormone level outside reference range 258660934 R89.1 Did get TSH and FT4 done at her OB's office, get the reportsGet US thyroidRef er to ENT for the thyroid nodule noted on the L side of thyroidNow has to see endocrine Thyroid Bx: 02/18/2024 : Benign Thyroid nodule 777702361 E04.1 US thyroid 05/11/2023 Get a referral to ENT but was told she must see an endocrine MD first, see case 05/03/2023 Thyroid Bx: 02/18/2024 : Benign Will now see Dr Valero as Dr Rico has not contacted her regarding the thryoid bx Increased liver function 19263587 R94.5 US liver 05/15/2023 : Mild hepatic steatosisG et labs Obesity 508176073 E66.9 She is eager to start on phentermin e, did not want to take any GLP-1All side effects explained to [facility] in one month for refill and weight check OV 04/01/2024 :Does wellLost about 8 poundsRene wed phentermin e OV 05/08/2024 :Not on any phentermin eGet a referral to endocrine Health Concerns Section Related Observation LastModified by Organization Detai ls LastModified Time None Recorded Concern Status LastModified by Organization Details LastModified Time None Recorded Advance Directives Directive N: Payers Encounter Date Sequence Insurance Name Policy Number Policy Quarles Covered Member ID Quarles Member ID Guarantor Name 05/01/2023 1 [employer] Kyle Bob [id number] [employer] 07/31/2023 1 [employer] Kyle Bob [id number] [employer] [facility] 02/21/2024 1 [employer] Kyle Bob [id number] Mar[employer]ruz [facility] 02/21/2024 2 [place] [facility] [id number] [facility] 04/01/2024 1 [employer] Kyle Bob [id number] Maricruz [place] 04/01/2024 2 [place] [facility] [id number] [facility] 05/08/2024 1 [employer] Kyle Bob [id number] [employer] [facility] 05/08/2024 2 [place] [facility] [id number] [facility] Notes Date Note Type Note Provider Name and Address Organization Details Recorded Time 05/01/2023 text/html OV 02/22/21:Here to establish care/ new patientPast Hx:Anxiety did see a counsler at [facility]es bar not anymoreNot suicidal or homicidalReviewed social family and surgical historyC/o occasional headaches, none today, feels that these could be migraines, do make her nauseous sometimesAlso has acne and wants to get treated for that OV 05/24/2021:Here for her routine aptShe is doing wellShe did see Debora Perez and is now on ubrelvyLabs done on 03/04/2021 OV 06/26/2022:Here for her f/u apt, she did see Dr Mendoza for her dizzy spells and is now on a heart monitor, no recent labs noted OV 09/26/2022:Here for f/u apt she is doing well, does have R ear ache again, no d/c no fevers or chills, or dizziness, she is and has stopped her migraine medication, she has not seen the military pay technician or the neurologist OV 05/01/2023: Here for her routine apt, she is doing well today Zackary Peters MD [address] [facility], [place] [address], [place], [address], [facility] 05/10/2023 11:40:21 07/31/2023 text/html OV 02/22/21:Here to establish care/ new patientPast Hx:Anxiety did see a counsler at somes bar not anymoreNot suicidal or homicidalReviewed social family and surgical historyC/o occasional headaches, none today, feels that these could be migraines, do make her nauseous sometimesAlso has acne and wants to get treated for that OV 05/24/2021:Here for her routine aptShe is doing Alex did see Debora Perez and is now on ubrelvyLabs done on 03/04/2021 OV 06/26/2022:Here for her f/u apt, she did see Dr Mendoza for her dizzy spells and is now on a heart monitor, no recent labs noted OV 09/26/2022:Here for f/u apt she is doing well, does have R ear ache again, no d/c no fevers or chills, or dizziness, she is and has stopped her migraine medication, she has not seen the military pay technician or the neurologist OV 05/01/2023: Here for her routine apt, she is doing well today OV 07/31/2023: Here for her f/u apt, she feels well today Zackary Peters MD [address] [facility], [address], [place], [address], [facility] 07/31/2023 12:14:54 02/21/2024 text/html OV 02/22/21:Here to establish care/ new patientPast Hx:Anxiety did see a counsler at somes bar not anymoreNot suicidal or homicidalReviewed social family and surgical historyC/o occasional headaches, none today, feels that these could be migraines, do make her nauseous sometimesAlso has acne and wants to get treated for that OV 05/24/2021:Here for her routine aptShe is doing wellShe did see Debora Perez and is now on ubrelvyLabs done on 03/04/2021 OV 06/26/2022:Here for her f/u apt, she did see Dr Mendoza for her dizzy spells and is now on a heart monitor, no recent labs noted OV 09/26/2022:Here for f/u apt she is doing well, does have R ear ache again, no d/c no fevers or chills, or dizziness, she is and has stopped her migraine medication, she has not seen the military pay technician or the neurologist OV 05/01/2023: Here for her routine apt, she is doing well today OV 07/31/2023: Here for her f/u apt, she feels well today OV 02/21/2024: Here for her f/u apt, she is doing well today, wants to discuss her migraines, she has not yet seen neurology Zackary Peters MD [address] [facility], [address], [place], [address], [facility] 02/27/2024 12:57:56 04/01/2024 text/html OV 02/22/21:Here to establish care/ new patientPast Hx:Anxiety did see a counsler at somes bar not anymoreNot suicidal or homicidalReviewed social family and surgical historyC/o occasional headaches, none today, feels that these could be migraines, do make her nauseous sometimesAlso has acne and wants to get treated for that OV 05/24/2021:Here for her routine aptShe is doing wellShe did see Debora Perez and is now on ubrelvyLabs done on 03/04/2021 OV 06/26/2022:Here for her f/u apt, she did see Dr Mendoza for her dizzy spells and is now on a heart monitor, no recent labs noted OV 09/26/2022:Here for f/u apt she is doing well, does have R ear ache again, no d/c no fevers or chills, or dizziness, she is and has stopped her migraine medication, she has not seen the military pay technician or the neurologist OV 05/01/2023: Here for her routine apt, she is doing well today OV 07/31/2023: Here for her f/u apt, she feels well today OV 02/21/2024: Here for her f/u apt, she is doing well today, wants to discuss her migraines, she has not yet seen neurology OV 04/01/2024: Here for her phentermine refill, she is doing well today Zackary Peters MD [address] [place] [address], [address] [address], [place], [address], [facility] 04/01/2024 18:03:43 05/08/2024 text/html OV 02/22/21:Here to establish care/ new patientPast Hx:Anxiety did see a counsler at somes bar not anymoreNot suicidal or homicidalReviewed social family and surgical historyC/o occasional headaches, none today, feels that these could be migraines, do make her nauseous sometimesAlso has acne and wants to get treated for that OV 05/24/2021:Here for her routine aptShe is doing wellShe did see Debora Perez and is now on ubrelvyLabs done on 03/04/2021 OV 06/26/2022:Here for her f/u apt, she did see Dr Mendoza for her dizzy spells and is now on a heart monitor, no recent labs noted OV 09/26/2022:Here for f/u apt she is doing well, does have R ear ache again, no d/c no fevers or chills, or dizziness, she is and has stopped her migraine medication, she has not seen the military pay technician or the neurologist OV 05/01/2023: Here for her routine apt, she is doing well today OV 07/31/2023: Here for her f/u apt, she feels well today OV 02/21/2024: Here for her f/u apt, she is doing well today, wants to discuss her migraines, she has not yet seen neurology OV 04/01/2024: Here for her phentermine refill, she is doing well today OV 05/12/2024: Here for her f/u apt, she is doing very well today Zackary Peters MD [address] [place] [address], [facility] [address], [place], [address], [facility] 05/12/2024 09:27:53 OBGyn Episode No OBEpisode recorded.
--- OUTSIDE RECORDS SUMMARY | 2024-05-30 08:20 | XMS_ITS | Clinical Summary ---
Author Organization [facility] Address [address] [place] [id number] Care Team Providers Care Provider Relations Consultant Name Role Phone Unavailable Primary Care Provider Unavailabl e Social History Tobacco Use Types Packs/Day Years Used Date Smoking Tobacco: Never Assessed Comments Unknown Sex and Gender Information Value Date Recorded Sex Assigned at Not on file Legal Sex Female 4:34 PM CDT Gender Identity Not on file Sexual Orientation Not on file Plan of Treatment Health Maintenance Due Date Last Done Comments Cervical Cancer Screening Pa p Smear (Age 21 to 29) Every 3 Years 1999 Cervical Cancer Screening 1999 Annual Physical 2002 HPV Vaccines (1 - 3-dose series) 2014 Hepatitis C 2017 DTaP, Tdap and Td Vaccines ( 1 - Tdap) 2018 Hepatitis B Vaccines (1 of 3 - 19+ 3-dose series) 2018 COVID-19 Vaccine (2023-2 5 season) 2023 Influenza Adult (#1) 2024 Meningococcal B Vaccine Aged Out No l onger eligible based on patient's age to complete this topic Meningococcal Vaccine Aged Out No jacoby jacques eligible based on patient's age to complete this topic Pneumococcal Vaccine: Pediat rics (0 to 5 Years) and At-Risk Patients (6 to 64 Years) Aged Out No longer eligible b ased on patient's age to complete this topic RSV Immunizations Under 20 Months Aged Out No longer eligible based on patient's age to complete this topic
--- OUTSIDE RECORDS SUMMARY | 2024-05-30 08:20 | XMS_ITS | Data Portability ---
Author Organization [facility] Address [address] [place] [address] Assessment Encounter Date Assessment Date Assessment LastModified by Organization Details LastModified Time 12/07/2023 12/07/[address] mccullough send cultures treat infection and pain do not have unprotected intercourse as IUD is mal-positioned plan to removal and replace next sunday if fever worsening pain to ED for evlauation [id number] Not available 12/07/2023 17:02:17 Plan of Treatment Reminders Order Date Submit Date Provider Last Modified By Organization Details Last Modified Time Details Appointments None recorded. Lab bacterial vaginosis DNA, PCR, vaginal fluid 2023 024 [facility] (Lab), [address], [place], [address], 4 11:06:39 colleen sp DNA, vaginal 2023 024 [facility] (Lab), [address], [place], [address], 4 11:06:40 mobiluncus, DNA, vaginal 2023 024 [facility] (Lab), [address] [place], [address], 4 11:06:40 colleen krusei DNA, vaginal 2023 024 [facility] (Lab), [address], [place], [address], 4 11:06:41 STI panel 2023 024 [facility] (Lab), [address], [place], [address], 4 11:06:38 test, urine 2023 024 [email or web address] [address], [address], [place], [address], 4 15:08:39 Referral None recorded. Procedures None recorded. Surgeries None recorded. Imaging US, transvagina l 2023 024 [place] [address] [address], [address], [place], [address], 4 13:50:49 US, pelvis 2023 [address], [address], [place], [address], 4 12:49:54 US, transvagina l 2023 [address], [address], [place], [address], 4 12:49:54 US, pelvis [address], [address], [place], [address], 4 18:49:33 US, transvagina l 2023 [address], [address], [place], [address], 4 18:49:33 Medication Orders Mirena 21 mcg/24 hr (up to 8 years) 52 mg intrauterin e device 2023 024 [email or web address] 1 [facility][id number], [address], [place], [place], [id number], 4 15:10:05 Flagyl 500 mg tablet 2023 024 [facility] #[id number], [address], [place], [place], [id number], 4 15:04:12 hydrocodone 5 mg-acetamin ophen 325 mg tablet 2023 024 [facility] #[id number], [address], [place], [place], [id number], 4 16:48:58 doxycycline hyclate 100 mg tablet 2023 024 [facility] #[id number], [address], [place], [place], [id number], 4 15:04:05 Patient TargetsNo targets recorded. Patient InstructionsNo instructions recorded. Reason for Referral None Reported. Results Created Date Observation Date Name Description Value Unit Range Abnormal Flag Note LastModifiedBy Organization Detail LastModifiedTime 05/09/19 24 05/09/2023 CT/GC AND TRICH OMONA S VAGIN KENNEY (RRNA ), URINE chlamydia trachomatis, PCR Negati ve negati ve Not Available [facility] (Lab) [address] [place], [address], 05/10/2023 15:34:52 05/09/19 24 05/09/2023 CT/GC AND TRICH OMONA S VAGIN KENNEY (RRNA ), URINE neisseria gonorrhoeae, PCR Negati ve negati ve Not Available [facility] (Lab) [address] [place], [address], 05/10/2023 15:34:52 05/09/19 24 05/09/2023 CT/GC AND TRICH OMONA S VAGIN KENNEY (RRNA ), URINE trichomonas vaginalis ribosomal RNA (rrna) Negati ve negati ve Not Available [facility] (Lab) [address] [facility], [place], [address], 05/10/2023 15:34:52 12/07/19 24 12/07/2023 CT/GC AND TRICH OMONA S VAGIN KENNEY (RRNA ), URINE chlamydia trachomatis, PCR Negati ve negati ve Not Available [facility] (Lab) [address] [facility], [place], [address], 12/10/2023 10:34:57 12/07/19 24 12/07/2023 CT/GC AND TRICH OMONA S VAGIN KENNEY (RRNA ), URINE neisseria gonorrhoeae, PCR Negati ve negati ve Not Available [facility] (Lab) [address] [facility], [place], [address], 12/10/2023 10:34:57 12/07/19 24 12/07/2023 CT/GC AND TRICH OMONA S VAGIN KENNEY (RRNA ), URINE trichomonas vaginalis ribosomal RNA (rrna) Negati ve negati ve Not Available [facility] (Lab) [address] [facility], [place], [address], 12/10/2023 10:34:57 12/07/19 24 12/07/2023 CULTU RE: URINE result report SEE RESULT S BELOW Test: Cultu re: Urine Speci men Sourc e: Urine - Clean Catch Speci men Type: Urine Speci men Date: 2023 1554 Resul t Date: 2023 0608 Resul t Statu s: Final resul t Abnor mal: No Resul stevog Lab: [facility] [address] [facility] [address] Tel: CULTU RE ----- ----- ----- --- No growt h in 1 day (dete ction level of 10,00 0 colon ies / ml.) Not Available [facility] (Lab) [address] [facility], [place], [address], 12/10/2023 10:34:58 12/07/19 24 12/07/2023 VAGIN ITIS/ VAGIN OSIS, DNA PROBE colleen sp. detection, direct probe Negati ve negati ve Not Available [facility] (Lab) [address] [facility], [place], [address], 12/10/2023 10:34:59 12/07/19 24 12/07/2023 VAGIN ITIS/ VAGIN OSIS, DNA PROBE gardnerella vag. detection, direct probe Negati ve negati ve Not Available [facility] (Lab) [address] [facility], [place], [address], 12/10/2023 10:34:59 12/07/19 24 12/07/2023 VAGIN ITIS/ VAGIN OSIS, DNA PROBE trichomonas vag. detection, direct probe Negati ve negati ve Not Available [facility] (Lab) [address] [place], [address], 12/10/2023 10:34:59 12/14/19 24 12/14/2023 UROGE NITAL MYCOP LASMA /UREA PLASM A PANEL RT-PC R, ONESW AB mycoplasma genitalium by RT-PCR Negati ve Swab- 1 Cerv/ End Not Available [facility] (Lab) [address] [place], [address], 12/25/2023 11:06:38 12/14/19 24 12/14/2023 UROGE NITAL MYCOP LASMA /UREA PLASM A PANEL RT-PC R, ONESW AB mycoplasma hominis by RT-PCR Negati ve Swab- 1 Cerv/ End Not Available [facility] (Lab) [address] [place], [address], 12/25/2023 11:06:38 12/14/19 24 12/14/2023 UROGE NITAL MYCOP LASMA /UREA PLASM A PANEL RT-PC R, ONESW AB ureaplasma urealyticum by RT-PCR Negati ve Swab- 1 Cerv/ End Not Available [facility] (Lab) [address] [place], [address], 12/25/2023 11:06:38 12/14/19 24 12/14/2023 BACTE RIAL VAGIN OSIS PANEL (WITH LACTO BACIL CHATO PROFI LING) BY QRT TERRELL, ERON STEWART (CHARISMA) atopobium vaginae PCR Negati ve Swab- 1 Cerv/ End Not Available [facility] (Lab) [address] [place], [address], 12/25/2023 11:06:39 12/14/19 24 12/14/2023 BACTE RIAL VAGIN OSIS PANEL (WITH LACTO BACIL CHATO PROFI LING) BY QRT TERRELL, ERON STEWART (CHARISMA) bacterial vaginosis associated bacterium 1 (bvab1) RT PCR Negati ve Swab- 1 Cerv/ End Not Available [facility] (Lab) [address] [facility], [place], [address], 12/25/2023 11:06:39 12/14/19 24 12/14/2023 BACTE RIAL VAGIN OSIS PANEL (WITH LACTO BACIL CHATO PROFI LING) BY QRT PRC, ERON STEWART (CHARISMA) bacterial vaginosis associated bacteria 2 (bvab2) Negati ve Swab- 1 Cerv/ End Not Available [facility] (Lab) [address] [place], [address], 12/25/2023 11:06:39 12/14/19 24 12/14/2023 BACTE RIAL VAGIN OSIS PANEL (WITH LACTO BACIL CHATO PROFI LING) BY QRT TERRELL, ERON STEWART (CHARISMA) bacterial vaginosis associated bacterium 3 (bvab3) RT PCR Negati ve Swab- 1 Cerv/ End Not Available [facility] (Lab) [address] [place], [address], 12/25/2023 11:06:39 12/14/19 24 12/14/2023 BACTE RIAL VAGIN OSIS PANEL (WITH LACTO BACIL CHATO PROFI LING) BY QRT PRC, ERON STEWART (CHARISMA) bacteroides fragilis by real - time PCR Negati ve Swab- 1 Cerv/ End Not Available [facility] (Lab) [address] [place], [address], 12/25/2023 11:06:39 12/14/19 24 12/14/2023 BACTE RIAL VAGIN OSIS PANEL (WITH LACTO BACIL CHATO PROFI LING) BY QRT PRC, ERON STEWART (CHARISMA) bifidobacter ium breve by real-time PCR Negati ve Swab- 1 Cerv/ End Not Available [facility] (Lab) [address] [place], [address], 12/25/2023 11:06:39 12/14/19 24 12/14/2023 BACTE RIAL VAGIN OSIS PANEL (WITH LACTO BACIL CHATO PROFI LING) BY QRT PRC, ERON STEWART (CHARISMA) gardnerella vaginalis PCR Negati ve Swab- 1 Cerv/ End Not Available [facility] (Lab) [address] [place], [address], 12/25/2023 11:06:39 12/14/19 24 12/14/2023 BACTE RIAL VAGIN OSIS PANEL (WITH LACTO BACIL CHATO PROFI LING) BY QRT PRC, ERON STEWART (CHARISMA) lactobacillu s (bvpanel) PCR See Commen t Swab- 1 Cerv/ End L.cri spatu s: Posit andrea L.radha senii : Negat andrea L.gas seri : Negat andrea L.ine rs : Negat andrea. Not Available [facility] (Lab) [address] [place], [address], 12/25/2023 11:06:39 12/14/19 24 12/14/2023 BACTE RIAL VAGIN OSIS PANEL (WITH LACTO BACIL CHATO PROFI LING) BY QRT PRC, ERON STEWART (CHARISMA) lactobacillu s acidophilus by real-time PCR Negati ve Swab- 1 Cerv/ End Not Available [facility] (Lab) [address] [place], [address], 12/25/2023 11:06:39 12/14/19 24 12/14/2023 BACTE RIAL VAGIN OSIS PANEL (WITH LACTO BACIL CHATO PROFI LING) BY QRT PRC, KOFIW AB (MDL) megasphaera species (type 1 and type 2) PCR Negati ve (Type1 ,Type2 ) Swab- 1 Cerv/ End Type1 :Nega tive Type2 :Nega tive. Not Available [facility] (Lab) [address] [facility], [place], [address], 12/25/2023 11:06:39 12/14/19 24 12/14/2023 BACTE RIAL VAGIN OSIS PANEL (WITH LACTO BACIL CHATO PROFI LING) BY QRT PRC, KOFIW AB (MDL) mobiluncus curtisii by real-time PCR Negati ve Swab- 1 Cerv/ End Not Available [facility] (Lab) [address] [facility], [place], [address], 12/25/2023 11:06:39 12/14/19 24 12/14/2023 BACTE RIAL VAGIN OSIS PANEL (WITH LACTO BACIL CHATO PROFI LING) BY QRT PRC, ERON AB (MDL) mobiluncus mulieris by real-time PCR Negati ve Swab- 1 Cerv/ End Not Available [facility] (Lab) [address] [place], [address], 12/25/2023 11:06:39 12/14/19 24 12/14/2023 BACTE RIAL VAGIN OSIS PANEL (WITH LACTO BACIL CHATO PROFI LING) BY QRT PRC, KOFIW AB (MDL) prevotella bivia by real-time PCR Negati ve Swab- 1 Cerv/ End Not Available [facility] (Lab) [address] [place], [address], 12/25/2023 11:06:39 12/14/19 24 12/14/2023 BACTE RIAL VAGIN OSIS PANEL (WITH LACTO BACIL CHATO PROFI LING) BY QRT PRC, ERON STEWART (CHARISMA) sneathia sanguinegens real-time PCR Negati ve Swab- 1 Cerv/ End Not Available [facility] (Lab) [address] [place], [address], 12/25/2023 11:06:39 12/14/19 24 12/14/2023 BACTE RIAL VAGIN OSIS PANEL (WITH LACTO BACIL CHATO PROFI LING) BY QRT PRC, ERON STEWART (L) streptococcu s anginosus by real-time PCR Negati ve Swab- 1 Cerv/ End Not Available [facility] (Lab) [address] [place], [address], 12/25/2023 11:06:39 12/14/19 24 12/14/2023 MOBIL UNCUS MULIE RIS/C URTIS STEVEN, RT-PC R, ONE SWAB mobiluncus mulieris and mobiluncus curtisii by RT-PCR Negati ve Swab- 1 Cerv/ End Not Available [facility] (Lab) [address] [place], [address], 12/25/2023 11:06:40 12/14/19 24 12/14/2023 EMILI DA VAGIN ITIS PANEL RT-PC R, ONESW AB colleen albicans PCR Negati ve Swab- 1 Cerv/ End Not Available [facility] (Lab) [address] [place], [address], 12/25/2023 11:06:40 12/14/19 24 12/14/2023 EMILI DA VAGIN ITIS PANEL RT-PC R, ONESW AB colleen glabrata PCR Negati ve Swab- 1 Cerv/ End Not Available [facility] (Lab) [address] [place], [address], 12/25/2023 11:06:40 12/14/19 24 12/14/2023 EMILI DA VAGIN ITIS PANEL RT-PC R, ONESW AB colleen krusei by RT-PCR Negati ve Swab- 1 Cerv/ End Not Available [facility] (Lab) [address] [facility], [place], [address], 12/25/2023 11:06:40 12/14/19 24 12/14/2023 EMILI DA VAGIN ITIS PANEL RT-PC R, ONESW AB colleen parapsilosis PCR Negati ve Swab- 1 Cerv/ End Not Available [facility] (Lab) [address] [facility], [place], [address], 12/25/2023 11:06:40 12/14/19 24 12/14/2023 EMILI DA VAGIN ITIS PANEL RT-PC R, ONESW AB colleen tropicalis PCR Negati ve Swab- 1 Cerv/ End Not Available [facility] (Lab) [address] [facility], [place], [address], 12/25/2023 11:06:40 12/14/19 24 12/14/2023 EMILI DA AYAH I BY RT-PC R colleen krusei by RT-PCR [facility] Not Available [facility] (Lab) [address] [facility], [place], [address], 12/25/2023 11:06:41 12/14/19 24 12/14/2023 pregn gamaliel test, urine HCG negati ve Not Available [place] [address], [place], [address], 12/14/2023 15:07:32 06/06/19 24 06/06/2023 US, trans vagin al No observ ation record ed. [email or web address] [place] [address], [place], [address], 06/06/2023 15:53:01 06/07/19 24 06/07/2023 US, pelvi s No observ ation record ed. [email or web address] [place] [address], [place], [address], 06/07/2023 10:32:49 06/07/19 24 06/07/2023 US, trans vagin al No observ ation record ed. [email or web address] [place] [address] [address], [place], [address], 06/07/2023 10:32:38 06/07/19 24 06/07/2023 US, pelvi s No observ ation record ed. KELLE Gaby [address], [place], [address], 06/08/2023 20:56:23 12/04/19 24 12/04/2023 US, pelvi s No observ ation record ed. [facility] [address], [place], [address], 12/04/2023 17:40:10 12/04/19 24 12/04/2023 US, trans vagin al No observ ation record ed. [facility] [address], [place], [address], 12/04/2023 17:40:25 12/04/19 24 12/04/2023 US, pelvi s No observ ation record ed. [email or web address] [address], [place], [address], 12/06/2023 09:48:56 01/11/20 24 01/11/2024 US, trans vagin al No observ ation record ed. [email or web address], [place], [address], 01/11/2024 13:15:06 01/11/20 24 01/11/2024 US, trans vagin al No observ ation record ed. KELLE [address], [place], [address], 01/13/2024 10:06:03 Result Notes None recorded. Problems Name Problem SNOMED Code Status Onset Date Resolution Date Notes Provider Name and Address Organization Details Recorded Time Gestatio n period, 37 weeks [id number] Completed 201808/18/2020 37 weeks gestatio n of pregnanc y;Practi ce ID: 0001 Natalie arias, [facility] 11:33:46 Normal pregnanc y in multigra phyllis [id number] 4106 Completed 201808/18/2020 Encounte r for suprvsn of normal pregnanc y, third trimeste r;Practi ce ID: 0001 Natalie arias, [facility] 11:34:43 False labor at or after 37 complete d weeks of gestatio n [id number] Completed 201808/18/2020 False labor at or after 37 complete d weeks of gestatio n;Practi ce ID: 0001 Natalie arias, [facility] 11:33:32 Gestatio n period, 38 weeks [id number] Completed 201808/18/2020 38 weeks gestatio n of pregnanc y;Practi ce ID: 0001 Natalie arias, [facility] 11:33:48 Lacerati on of female perineum Completed 201808/18/2020 First degree perineal lacerati on during delivery ;Practic e ID: 0001 Natalie arias, [facility] 11:33:57 Single live [id number] Completed 201808/18/2020 Single live ;Pr actice ID: 0001 Natalie arias, [facility] 11:34:58 Gestatio n period, 39 weeks [id number] Completed 201808/18/2020 39 weeks gestatio n of pregnanc y;Practi ce ID: 0001 Natalie arias, [facility] 11:33:50 Lochia finding Completed 201808/18/2020 Encounte r for routine postpart um follow-u p;Practi ce ID: 0001 Natalie arias, [facility] 11:34:42 Discharg e from nipple [id number] Completed 201908/18/2020 Nipple discharg e;Practi ce ID: 0001 Natalie arias, [facility] 11:33:27 Uses combined oral contrace ption [id number] Completed 201908/18/2020 Encounte r for surveill ance of contrace ptive pills;Pr actice ID: 0001 Natalie arias, [facility] 11:33:26 Finding of menstrua l bleeding Completed 201608/18/2020 Menorrha trevon;Juan Manuel rded Elsewher e: No Locat ion: [facility] S ource: EHR Mechanical Sound Technician alida: N Practi ce ID: 0001 Scout lable Time: 02:15:00 PM Natalie arias, [facility] 11:33:34 Procedur e Completed 201608/18/2020 Encounte r for checking , reinsert ion or removal of implanta ble subderma l contrace ptive;Re corded Elsewher e: No [facility] S ource: EHR Mechanical Sound Technician alida: N Practi ce ID: 0001 Scout lable Time: 02:15:00 PM Natalie arias, [facility] 11:34:54 Pregnanc y, childbir th and puerperi um finding Completed 201708/18/2020 Encounte r for supervis ion of normal 1st pregnanc y;Record ed Elsewher e: No Locat ion: [facility] S ource: EHR Mechanical Sound Technician alida: N Practi ce ID: 0001 Scout lable Time: 02:30:00 PM Natalie Magana [facility], [facility] 1 11:34:48 Pregnanc y detectio n examinat ion Completed 201708/18/2020 Encounte r for pregnanc y test, result positive ;Recorde d Elsewher e: No [facility] S ource: EHR Mechanical Sound Technician alida: N Practi ce ID: 0001 Scout lable Time: 11:00:00 AM Natalie Magana [facility], [facility] 11:34:45 Developm ental disorder Completed 201708/18/2020 Malforma tion of placenta , unspecif ied, third trimeste r;Record ed Elsewher e: No Locat ion: Randal gilma [facility] S ource: EHR Mechanical Sound Technician alida: N Stuti ce ID: 0001 Scout lable Time: 03:15:00 PM Natalie Magana [facility], [facility] 11:33:16 Cardioto chogram finding [id number] Completed 201808/18/2020 Other abnormal findings on antenata l screenin g of mother;R ecorded Elsewher e: No Locat ion: Randal gilma [facility] S ource: EHR Mechanical Sound Technician alida: N Practi ce ID: 0001 Scout lable Time: 03:30:00 PM Natalie Magana [facility], [facility] 1 11:33:23 Gestatio n period, 30 weeks [id number] Completed 201708/18/2020 30 weeks gestatio n of pregnanc y;Record ed Elsewher e: No Locat ion: [facility] S ource: EHR Mechanical Sound Technician alida: N Practi ce ID: 0001 Scout lable Time: 03:15:00 PM Natalie Magana [facility] 11:33:42 Rubella screenin g status [id number] Completed 201708/18/2020 Encounte r for antenata l screenin g, unspecif ied;Juan Manuel rded Elsewher e: No Locat ion: [facility] S ource: EHR Mechanical Sound Technician alida: N Stuti ce ID: 0001 Scout lable Time: 10:15:00 AM Natalie Magana [facility], [facility] 11:34:56 Pregnanc y test negative [id number] Completed 201608/18/2020 Encounte r for pregnanc y test, result negative ;Recorde d Elsewher e: No Locat ion: [facility] S ource: EHR Mechanical Sound Technician alida: N Stuti ce ID: 0001 Scout lable Time: 02:15:00 PM Natalie arias, [facility] 11:34:46 Insertio n of subcutan eous contrace ptive Completed 201408/18/2020 Insertio n of implanta ble subderma l contrace ptive;Re corded Elsewher e: No Locat ion: [facility] S ource: EHR Mechanical Sound Technician alida: N Stuti ce ID: 0001 Scout lable Time: 11:00:00 AM Natalie arias, [facility] 11:33:55 Gestatio n period, 32 weeks [id number] Completed 201708/18/2020 32 weeks gestatio n of pregnanc y;Record ed Elsewher e: No Locat ion: [facility] S ource: EHR Mechanical Sound Technician alida: N Stuti ce ID: 0001 Scout lable Time: 03:15:00 PM Natalie arias, [facility] 11:33:44 Developm ental disorder Completed 201708/18/2020 Malforma tion of placenta , unspecif ied, second trimeste r;Record ed Elsewher e: No Locat ion: [facility] S ource: EHR Mechanical Sound Technician alida: Jemima Perazati ce ID: 0001 Scout lable Time: 02:00:00 PM Natalie Izzy hugo, [facility] 1 11:33:14 Antenata l ultrasou nd finding [id number] Completed 201808/18/2020 Abnormal ultrason ic finding on antenata l screenin g of mother;R ecorded Elsewher e: No Locat ion: [facility]: N Stuti ce ID: 0001 Scout lable Time: 01:45:00 PM Natalie Magana hugo, [facility] 11:33:21 Speciali zed medical examinat ion Completed 201308/18/2020 Gynecolo gical Examinat ion;Juan Manuel rded Elsewher e: No Locat ion: [facility] S [facility]ce: [facility]: Jemima Perazalawson ce ID: 0001 Scout lable Time: 03:00:00 PM Natalie Magana [facility], [facility] 11:35:05 Threaten ed miscarri age [id number] Completed 201708/18/2020 Threaten ed ;Recorde d Elsewher e: No Locat ion: [facility] S ource: EHR Mechanical Sound Technician alida: N Stulawson ce ID: 0001 Scout lable Time: 11:30:00 AM Natalie Magana hugo, [facility] 1 11:35:09 Antenata l screenin g for malforma tion Completed 201708/18/2020 Encounte r for antenata l screenin g for malforma tions;Re corded Elsewher e: No Locat ion: [facility] S ource: EHR Mechanical Sound Technician alida: N Stuti ce ID: 0001 Scout lable Time: 03:30:00 PM Natalie Magana hugo, [facility] 11:33:20 Subcutan eous contrace ptive implant present [id number] Completed 201408/18/2020 Surveill ance of implanta ble subderma l contrace ptive;Re corded Elsewher e: No Locat ion: [facility] S ource: EHR Mechanical Sound Technician alida: N Practi ce ID: 0001 Scout lable Time: 03:00:00 PM Natalie arias [facility] 11:35:07 Gestatio n less than 9 weeks [id number] Completed 201708/18/2020 Less than 8 weeks gestatio n of pregnanc y;Record ed Elsewher e: No Locat ion: [facility] S ource: EHR Mechanical Sound Technician alida: N Stuti ce ID: 0001 Scout lable Time: 11:30:00 AM Natalie arias [facility] 11:33:[address] Concept Completed 201608/18/2020 Well woman check w/o abnormal finding; Recorded Elsewher e: No Locat ion: [facility] S ource: EHR Mechanical Sound Technician alida: N Practi ce ID: 0001 Scout lable Time: 01:30:00 PM Natalie arias [facility] 11:35:02 Gestatio n period, 23 weeks [id number] Completed 201708/18/2020 23 weeks gestatio n of pregnanc y;Record ed Elsewher e: No Locat ion: [facility] S ource: EHR Mechanical Sound Technician alida: N Practi ce ID: 0001 Scout lable Time: 03:00:00 PM Natalie arias [facility] 11:33:38 Gestatio n period, 28 weeks [id number] Completed 201708/18/2020 28 weeks gestatio n of pregnanc y;Record ed Elsewher e: No Locat ion: [facility] S ource: EHR Mechanical Sound Technician alida: N Stuti ce ID: 0001 Scout lable Time: 02:00:00 PM Natalie arias [facility] 11:33:40 Gestatio n period, 35 weeks [id number] Completed 201808/18/2020 35 weeks gestatio n of pregnanc y;Record ed Elsewher e: No Locat ion: [facility] S ource: EHR Mechanical Sound Technician alida: N Practi ce ID: 0001 Scout lable Time: 03:30:00 PM Natalie arias [facility] 11:33:45 Educatio n Completed 201408/18/2020 Family planning ;Recorde d Elsewher e: No [facility] S ource: EHR Mechanical Sound Technician alida: N Practi ce ID: 0001 Scout lable Time: 01:00:00 PM Natalie arias [facility] 11:33:30 Pregnanc y, childbir th and puerperi um finding Completed 201708/18/2020 Encntr for suprvsn of normal first preg, second trimeste r;Record ed Elsewher e: No Locat ion: Mary dillard [facility] S ource: EHR Mechanical Sound Technician alida: N Practi ce ID: [id number] Scout lable Time: 09:30:00 AM Natalie arias [facility] 11:34:[address] Concept Completed 201608/18/2020 Encntr for routine child health exam w/o abnormal findings ;Recorde d Elsewher e: No Locat ion: [facility] S ource: EHR Mechanical Sound Technician alida: N Practi ce ID: [id number] Scout lable Time: 01:30:00 PM Natalie arias [facility] 11:35:[address] Concept Completed 201608/18/2020 Encounte r for surveill ance of other contrace ptives;P ractice ID: [id number] Natalie Magana [facility], [facility] 1 11:35:03 Pregnanc y, childbir th and puerperi um finding Completed 201708/18/2020 Encntr for suprvsn of normal first preg, first trimeste r;Practi ce ID: [id number] Natalie Magana [facility], [facility] 1 11:34:50 Antenata l screenin g Completed 201708/18/2020 Encounte r for other specifie d antenata l screenin g;Practi ce ID: [id number] Natalie Magana [facility], [facility] 1 11:33:18 Pregnanc y [id number] Completed 202204/02/[address] [facility] 3 16:06:04 Mixed anxiety and depressi ve disorder [id number] Active bipolar- zoloft 50. stopped. needs to make appt with psych- [place] Chandrakantrajinder Blackmananejerald Snyderle [facility] 3 16:05:56 Mixed anxiety and depressi ve disorder [id number] Completed bipolar- zoloft 50. stopped. needs to make appt with psych- [place] Chandrakantrajinder Blackmananejerald IrbyQuinton [facility] 3 16:05:56 Postpart um depressi on [id number] Active last pregnanc y- bad Britaney Quinton [facility] 3 16:05:56 Postpart um depressi on [id number] Completed last pregnanc y- bad Britaney Quinton [facility] 3 16:05:56 Anemia of pregnanc y [id number] Completed 2022 slofe daily Britaney Quinton null, [facility] 3 16:05:56 Problem Notes None recorded. Procedures Surgical History Date Name Laterality Status Provider Name and Address Organization Details Recorded Time 4 IUD Removal completed Andria Ortiz CNM [address], [place], [address], [facility] 12/14/2023 15:32:58 4 IUD Insertion completed Andria Ortiz CNM [address], [place], [address], [facility] 12/14/2023 15:32:56 4 IUD Insertion completed Natalie Magana [facility] 05/14/2023 11:37:05 3 Date of Last Pap Smear completed Natalie Magana [facility] 08/08/2022 17:32:46 9 procedure on tongue completed Natalievesta Magana [facility] 08/18/2020 11:36:37 Imaging Results Imaging Date Name Status LastModified by Organization Details LastModified Time 06/06/2023 US, transvaginal completed [email or web address] [place] [address], [place], [address], 06/06/2023 15:53:01 06/07/2023 US, pelvis completed [email or web address] [place] [address], [place], [address], 06/07/2023 10:32:49 06/07/2023 US, transvaginal completed [email or web address] [place] [address], [place], [address], 06/07/2023 10:32:38 06/07/2023 US, pelvis completed KELLE Gaby [address], [place], [address], 06/08/2023 20:56:23 12/04/2023 US, pelvis completed [email or web address] [place] [address], [place], [address], 12/04/2023 17:40:10 12/04/2023 US, transvaginal completed martina dillard [address], [place], [address], 12/04/2023 17:40:25 12/04/2023 US, pelvis completed Gaby [address], [place], [address], 12/06/2023 09:48:56 01/11/2024 US, transvaginal completed [email or web address] dillard [address], [place], [address], 01/11/2024 13:15:06 01/11/2024 US, transvaginal completed KELLE Gaby [address], [place], [address], 01/13/2024 10:06:03 Procedure Notes None recorded. Medical Equipment None Reported. Allergies No known drug allergies Medications Name Sig Start Date Stop Date Status Note LastModified by Organization Details LastModified Time amoxicill in 500 mg capsule TAKE 1 CAPSULE BY MOUTH EVERY 12 HOURS FOR 10 DAYS 03/14 completed Not Available Not Available Not Available Mirena 21 mcg/24 hr (up to 8 years) 52 mg intrauter ine device Take 1 device by intraute rine route. 2023 active 4 mirena IUD inserted lot [id number] Exp 01/2026 and needs removed by 2 Not Available Not Available Not Available bupropion HCl SR 150 mg tablet,12 hr sustained -release TAKE 1 TABLET BY MOUTH TWICE DAILY IN THE MORNING 07/13 completed Not Available Not Available Not Available benztropi ne 0.5 mg tablet TAKE 1 TABLET BY MOUTH AT BEDTIME 08/08 completed Not Available Not Available Not Available trazodone 50 mg tablet TAKE 1 TABLET BY MOUTH AT BEDTIME AND AT NIGHT NEEDED 08/08 completed Not Available Not Available Not Available citalopra m 10 mg tablet TAKE 1 TABLET BY MOUTH DAILY 08/18 completed Not Available Not Available Not Available hydrocodo ne 5 mg-acetam inophen 325 mg tablet TAKE 1 TABLET BY MOUTH EVERY 6 HOURS NEEDED FOR PAIN active Not Available Not Available No t Available ondansetr on HCl 4 mg tablet TAKE 1 TABLET BY MOUTH THREE TIMES DAILY NEEDED FOR NAUSEA 08/08 completed Not Available Not Available Not Available dextroamp hetamine- amphetami ne 10 mg tablet TAKE 1 TABLET BY MOUTH EVERY DAY 07/13 completed Not Available Not Available Not Available clonazepa m 0.5 mg tablet TAKE 1 TABLET BY MOUTH TWICE DAILY NEEDED 08/18 completed Not Available Not Available Not Available spironola ctone 100 mg tablet TAKE 1 TABLET BY MOUTH DAILY 08/08 completed Not Available Not Available Not Available doxycycli ne hyclate 50 mg capsule TAKE 1 CAPSULE BY MOUTH TWICE DAILY 08/08 completed Not Available Not Available Not Available sertralin e 100 mg tablet TAKE 1 TABLET BY MOUTH AT BEDTIME 08/08 completed Not Available Not Available Not Available metronida zole 500 mg tablet TAKE 1 TABLET BY MOUTH EVERY 12 HOURS FOR 7 DAYS 12/13 completed Not Available Not Available Not Available oxcarbaze pine 300 mg tablet TK 1 T PO BID 08/18 completed Not Available Not Available Not Available ciproflox acin 500 mg tablet TAKE 1 TABLET BY MOUTH EVERY 12 HOURS FOR 7 DAYS 12/13 completed Not Available Not Available Not Available bupropion HCl SR 100 mg tablet,12 hr sustained -release TAKE 1 TABLET BY MOUTH TWICE DAILY 08/08 completed Not Available Not Available Not Available amoxicill in 500 mg tablet TAKE 1 TABLET BY MOUTH EVERY 8 HOURS FOR 5 DAYS 10/04 completed Not Available Not Available Not Available lamotrigi ne 25 mg tablet TAKE 1 TABLET BY MOUTH TWICE DAILY 08/08 completed Not Available Not Available Not Available bupropion HCl 100 mg tablet TAKE 1 TABLET BY MOUTH TWICE DAILY 07/13 completed Not Available Not Available Not Available citalopra m 20 mg tablet TAKE 1 TABLET BY MOUTH DAILY 08/18 completed Not Available Not Available Not Available metoclopr amide 5 mg tablet TAKE 1 TABLET BY MOUTH FOUR TIMES DAILY 01/15 completed Not Available Not Available Not Available ibuprofen 100 mg tablet take 2 tablet by oral route every 4 - 6 hours as needed with food 08/18 completed Prescrib ed [facility] e: Yes Loca tion: [facility] M odify By: araceli nichols DateTime : 01/20/20 03:00:00 PM Not Available Not Available Not Available rizatript an 10 mg disintegr ating tablet 08/08 completed Not Available Not Available Not Available buspirone 10 mg tablet TAKE 1 TABLET BY MOUTH TWICE DAILY 08/18 completed Not Available Not Available Not Available polymyxin B sulfate 10,000 unit-trim ethoprim 1 mg/mL eye drops INSTILL 1 DROP IN AFFECTED EYE(S) EVERY 4 HOURS FOR 7 DAYS. 08/18 completed Not Available Not Available Not Available minocycli ne 50 mg capsule TAKE 1 CAPSULE BY MOUTH TWICE DAILY FOR 30 DAYS THEN TAKE 1 CAPSULE BY MOUTH DAILY FOR 30 DAYS 08/08 completed Not Available Not Available Not Available ergocalci ferol (vitamin D2) 1,250 mcg (50,000 unit) capsule TAKE 1 CAPSULE BY MOUTH EVERY WEEK 03/14 completed Not Available Not Available Not Available ibuprofen 600 mg tablet TAKE 1 TABLET BY MOUTH EVERY 6 HOURS NEEDED FOR CRAMPING 04/25 completed Not Available Not Available Not Available levofloxa alex 750 mg tablet TAKE 1 TABLET BY MOUTH EVERY DAY FOR 7 DAYS 08/08 completed Not Available Not Available Not Available hydroxyzi ne HCl 10 mg tablet TAKE 1 TABLET BY MOUTH EVERY 4 HOURS NEEDED 07/13 completed Not Available Not Available Not Available ondansetr on 4 mg disintegr ating tablet DISSOLVE 1 TABLET ON THE TONGUE EVERY 4 TO 6 HOURS NEEDED 03/14 completed Not Available Not Available Not Available topiramat e 100 mg tablet TAKE 1 TABLET BY MOUTH TWICE DAILY 07/13 completed Not Available Not Available Not Available sertralin e 50 mg tablet TAKE 1 TABLET BY MOUTH EVERY DAY 01/15 completed Not Available Not Available Not Available doxycycli ne hyclate 100 mg tablet TAKE 1 TABLET BY MOUTH TWICE DAILY FOR 7 DAYS 12/13 completed Not Available Not Available Not Available amoxicill in 875 mg-potass ium clavulana te 125 mg tablet TAKE 1 TABLET BY MOUTH EVERY 12 HOURS FOR 7 DAYS 08/08 completed Not Available Not Available Not Available buspirone 15 mg tablet TAKE 1 TABLET BY MOUTH TWICE DAILY 08/18 completed Not Available Not Available Not Available Bactrim DS 800 mg-160 mg tablet take 1 tablet by oral route every 12 hours 12/18 completed Prescrib ed Elsewher e: No Locat ion: [facility] odify By: ashly worthington DateTime : 11/27/19 18 02:43:12 PM Not Available Not Available Not Available Ortho Evra 150 mcg-35 mcg/24 hr transderm al patch apply 1 patch by transder mal route every week 04/26 completed Prescrib ed Elsewher e: No Locat ion: [facility] odify By: carmela z Encoun ter DateTime : 01/22/20 14 10:57:33 AM Not Available Not Available Not Available Lexapro 10 mg tablet Take 1 tablet every day by oral route. 11/02 completed Not Available Not Available Not Available Lexapro 20 mg tablet take one tablet by oral route once daily 12/24 completed Not Available Not Available Not Available Sprintec (28) 0.25 mg-35 mcg tablet take 1 tablet by oral route every day 10/15 completed Prescrib ed Elsewher e: No Locat ion: [facility] odify By: araceli nichols DateTime : 12/09/19 17 03:46:37 PM Not Available Not Available Not Available cyclobenz aprine 5 mg tablet TAKE 1 TABLET BY MOUTH EVERY 8 HOURS NEEDED active Not Available Not Available No t Available ciproflox acin 0.3 %-dexamet hasone 0.1 % ear drops,en pension SHAKE LIQUID AND INSTILL 4 DROPS TO AFFECTED EAR EVERY 12 HOURS FOR 7 DAYS 03/30 /2022 completed Not Available Not Available Not Available bupropion HCl XL 300 mg 24 hr tablet, extended release TAKE 1 TABLET BY MOUTH EVERY DAY IN THE MORNING 07/13 completed Not Available Not Available Not Available bupropion HCl XL 150 mg 24 hr tablet, extended release TAKE 1 TABLET BY MOUTH EVERY DAY 08/08 completed Not Available Not Available Not Available zonisamid e 50 mg capsule 08/08 completed Not Available Not Available Not Available escitalop félix 5 mg tablet TAKE 1 TABLET BY MOUTH EVERY DAY 08/08 completed Not Available Not Available Not Available topiramat e 50 mg tablet TAKE 1 TABLET BY MOUTH TWICE DAILY 08/08 completed Not Available Not Available Not Available nitrofura ntoin monohydra te/macroc rystals 100 mg capsule TAKE 1 CAPSULE BY MOUTH EVERY 12 HOURS FOR 7 DAYS DIRECTED 04/25 completed Not Available Not Available Not Available duloxetin e 30 mg capsule,d elayed release TAKE 1 CAPSULE BY MOUTH EVERY DAY FOR 7 DAYS 07/13 completed Not Available Not Available Not Available duloxetin e 60 mg capsule,d elayed release TAKE 1 CAPSULE BY MOUTH EVERY DAY AT BEDTIME 07/13 completed Not Available Not Available Not Available 04/25 completed Not Available Not Available Not Available aripipraz ole 2 mg tablet TAKE 1 TABLET BY MOUTH EVERY DAY 08/08 completed Not Available Not Available Not Available FeroSul 325 mg (65 mg iron) tablet TAKE 1 TABLET BY MOUTH EVERY DAY DIRECTED 04/25 completed Not Available Not Available Not Available Lo Loestrin Fe 1 mg-10 mcg (24)/10 mcg (2) tablet take 1 tablet by oral route every day 07/02 completed Prescrib ed Elsewher e: No [facility] By: roxana medina DateTime : 06/29/19 19 02:30:00 PM Not Available Not Available Not Available Nexplanon 68 mg subdermal implant 05/25 completed Prescrib ed Elsewher e: Yes [facility] By: jair Tovar nter DateTime : 04/26/19 17 02:15:00 PM Not Available Not Available Not Available BP 5 % topical gel APPLY TO THE AFFECTED AREA EACH MORNING FOR ACNE 08/08 completed Not Available Not Available Not Available Aurovela Fe 1-20 (28) 1 mg-20 mcg (21)/75 mg (7) tablet TAKE 1 TABLET BY MOUTH EVERY DAY 07/13 completed Not Available Not Available Not Available Ubrelvy 50 mg tablet 08/08 completed Not Available Not Available Not Available ID NOW COVID-19 Test Kit TEST DIRECTED 07/13 completed Not Available Not Available Not Available Paxlovid 300 mg (150 mg x 2)-100 mg tablets in a dose pack TK 2 NIRMATRE LVIR TS AND 1 RITONAVI R T TOGETHER PO BID FOR 5 DAYS TWICE DAILY FOR 5 DAYS 08/08 completed Not Available Not Available Not Available Vitals Date Recorded Body height Body mass index (BMI) Body weight Systolic blood pressure Diastolic blood pressure Provider Name and Address Organization Details Last Updated DateTime 12/07/2023 156.21 cm 35.5 kg/m2 80374.14 g 124 mm[Hg] 85 mm[Hg] Natalie Magana [facility] 4 16:24:40 Date Recorded Body height Body mass index (BMI) Body weight Systolic blood pressure Diastolic blood pressure Provider Name and Address Organization Details Last Updated DateTime 12/14/2023 156.21 cm 35.5 kg/m2 39857.14 g 136 mm[Hg] 86 mm[Hg] Natalie Magana [facility] 4 15:02:14 Social History Question Answer Notes LastModified by Organizat ion Details LastModified Time Tobacco Smoking Status Never Smoker Natalie Magana [facility], [facility] 08/08/2022 17:30:01 What Is Your Level Of Alcohol Consumption? None Information not available 07/13/2021 If You Are , What Was Your Level Of Alcohol Consumption Prior To ? None [email or web address] Information not available 08/08/2022 Are You Blind Or Do You Have Difficulty Seeing? No [email or web address] Information not available 08/18/2020 What Is Your Level Of Caffeine Consumption? Heavy Information not available 07/13/2021 How Much Tobacco Do You Chew? None [email or web address] Information not available 08/08/2022 In The 14 Days Before Symptom Onset, Have You Had Close Contact With A Laboratory-confir med COVID-19 While That Case Was Ill? No [email or web address] Information not available 08/18/2020 In The 14 Days Before Symptom Onset, Have You Had Close Contact With A Person Who Is Under Investigation For COVID-19 While That Person Was Ill? No [email or web address] Information not available 08/18/2020 Have You Been To An Area Known To Be High Risk For COVID-19? No [email or web address] Information not available 08/18/2020 Are You Deaf Or Do You Have Serious Difficulty Hearing? No [email or web address] Information not available 08/18/2020 What Type Of Diet Are You Following? REGULAR [email or web address] Information not available 08/18/2020 Do You Or Have You Ever Used E-cigarettes Or Vape? Never Used Electronic Cigarettes [email or web address] Information not available 08/08/2022 What Is The Highest Grade Or Level Of School You Have Completed Or The Highest Degree You Have Received? [id number] Information not available 07/13/2021 Are There Any Guns Present In Your Home? No Information not available 07/13/2021 What Was The Date Of Your Most Recent Tobacco Screening? 12/14/2023 [email or web address] Information not available 12/14/2023 Have You Ever Been Counseled For Unhealthy Alcohol Use? No Information not available 08/08/2022 Do You Use Protection During Sex? No Information not available 07/13/2021 Do You Use Your Seat Belt Or Car Seat Routinely? Yes Information not available 08/18/2020 Do You Have Smoke And Carbon Monoxide Detectors In Your Home? Yes [email or web address] Information not available 08/18/2020 Do You Or Have You Ever Used Smokeless Tobacco? Never Used Smokeless Tobacco [email or web address] Information not available 08/08/2022 How Much Tobacco Do You Smoke? No [email or web address] Information not available 12/25/2019 Do You Feel Stressed (tense, Restless, Nervous, Or Anxious, Or Unable To Sleep At Night)? [id number] [email or web address] Information not available 08/18/2020 Do You Use Any Illicit Or Recreational Drugs? No Information not available 08/18/2020 Do You Use Sunscreen Routinely? No Information not available 07/13/2021 Has Tobacco Cessation Counseling Been Provided? No [email or web address] Information not available 08/08/2022 Have You Used IV Drugs? No [email or web address] Information not available 08/08/2022 Do You Or Have You Ever Used Any Other Forms Of Tobacco Or Nicotine? No [email or web address] Information not available 08/08/2022 Sex: Unknown Functional Status Question Answer Note LastModified by Organizat ion Details LastModified Time Do you have difficulty walking or climbing stairs? No [email or web address] Information not available 08/08/2022 Are you able to walk? YESWOREST [email or web address] Information not available 08/18/2020 Are you able to care for yourself? Yes [email or web address] Information not available 08/08/2022 Do you have difficulty dressing or bathing? No [email or web address] Information not available 08/08/2022 What is your exercise level? Occasional [email or web address] Information not available 12/25/2019 Mental Status None recorded. Family History Relationship Description Onset Age of this Age Resolved Age Notes LastModified by Organization Details LastModified Time Paternal Grandmother Asthma [email or web address] Not available 2019 13:59:04 Paternal Grandmother Hypertensive disorder [email or web address] Not available 2019 13:59:22 Paternal Grandfather Hypertensive disorder [email or web address] Not available 2019 13:59:22 Medical History Condition Response Allergies (Food, seasonal, environmental ) N Other N Breast Cancer N Drug/Latex Allergies/Reactions N Blood Transfusion N Dermatologic Disorders N Lung Disease N Defects or Inherited Disease N Breast Problem N Gestational Diabetes N Hematologic disorders N Anesthesia Complications N History of STI N Deep Vein Thrombosis N Polycystic ovary syndrome N Anxiety Disorder Y Autoimmune disease N Arthritis N Infertility N Polyps N Acid Reflux (GERD) N History of abnormal pap N Cancer N Stroke N Varicosities N Neurologic/Epilepsy Y Endometriosis N High Cholesterol N Headaches N Fibromyalgia N Kidney Disease N Heart Problems N Kidney or Bladder Problems N Thyroid Problems Y GI Problems N Eating Disorder N Anemia N Art (IVF or FET) N Psychiatric Illness Y Ovarian Cancer N Diabetes N Pulmonary (TB, Asthma) N Hepatitis/Liver Disease N No Past Medical History N Eczema N Urinary Tract Infection N Abuse/Domestic Violence N Asthma N Trauma/Violence N Depression/ depression Y Heart Disease N Pre-Eclampsia N Hypertension N Osteoporosis N Thrombophilias N Gynecological History Statement/Question Response Flow Light Date of LMP 06/14/2022 N Was last menstrual period normal Y STIs/STDs Y HPV Vaccine Y Duration of Flow (days) 6 Current Control Method IUD Age at First Child 3 Are cycles usually normal Y Sexually Active? Y Menses Monthly Y Age of first menstrual cycle 12 Date of Last Pap Smear 08/08/2022 Sexual Problems? Y Desired Control Method LMP Approximate N Obstetrics History GPAL:G 2 P 2 0 0 2 Type Value Full Term 2 Living 2 Total 2 Past Encounters Encounter ID Performer Location Encounter Start Date Encounter Closed Date Diagnosis/Indication Diagnosis SNOMED-CT Code Diagnosis ICD10 Code Diagnosis Note [id number] Steven Mccullough MD [place] [address],[place] [address] 09/05/2019 12:18:56 09/05/2019 13:53:44 Mixed anxiety and depressive disorder [id number] F41.8 This patient is a 19-year-ol d female anxiety and depression . Talked about her symptoms, performed physical exam, took a detailed history. Patient does have a overbearin g, rigid, difficult mother. We talked about counseling . We talked about medical treatment. We talked about the side effects, risks and benefits of the medication . We agreed to treat with Lexapro 10 mg. She is no think about counseling . She will return in 1 month. We spent over 35 minutes face-to-fa ce. [id number] MD Brannon Wyatt [address],[facility] [place] [address] 10/06/2019 12:40:28 10/06/2019 13:06:30 [id number] MD Brannon Wyatt [address],[facility] [place] [address] 11/03/2019 11:19:11 11/03/2019 12:23:40 Mixed anxiety and depressive disorder [id number] F41.8 This patient is a 19-year-ol d female who presents for follow-up on depression and anxiety.We had increased her Lexapro to 20 mg a day. She is not finding this helpful. She still has significan t anxiety and depression . We talked abouttreat ment options. She does seem to have a element of marked agitation. Talked about the addition of medication s for agitation. The patient is interested in trying Zoloft.We agreed to change her dose to 100 mg of Zoloft. She also needs counseling . We spent over 15 minutes face-to-fa ce talking aboutvario us aspects of her care.We are going to arrange for a counselor. She is going to return in 4 weeks todiscuss the value of the medication change. [id number] Steven Mccullough MD [place] [address],[place] [address] 11/24/2019 10:43:02 11/24/2019 11:23:54 Mood disorder [id number] F39 This patient is a 19-year-ol d female presents for follow-up on anxiety and depression . She had a medication changes her last visit. She with her Lexapro to 100 mg of Zoloft. She says that her mood is much better. Does have some diarrhea. I encouraged her to stick with it and that the diarrhea may resolve soon. She does continue has some agitation. We talked about the addition of all oxcarbazep ine. We talked about that previously . We agreed to 300 of oxcarbazep ine twice a day. She will follow up in 4 weeks. She was given precaution s about the medication s. [id number] Steven Mccullough MD [place] [address],[place] [address] 12/25/2019 12:05:15 12/25/2019 13:05:40 Mixed anxiety and depressive disorder [id number] F41.8 This patient is a 19-year-ol d female who presents for follow-up on medication s. She has depression and anxiety. She has been treated with Zoloft initially. The dosed of Zoloft was increased to 100 at some point. Later when she still complained of anxiety oxcarbazep ine was added. She presents today and continues to have anxiety. I believe she has a more complex problem that I am able to deal with. we agreed to a psychiatry referral. She will continue on her current medication s. The counselor we refer her to never reached out to her. We will contact that counselor or new counselor to make arrangemen ts. [id number] [facility] [address] [address] 08/18/2020 11:11:52 08/18/2020 11:56:41 Vaginal discharge [id number] N89.8 [id number] Grace Prater [facility] [address],[facility] [place] [address] 07/13/2021 15:49:12 07/13/2021 16:41:35 Cyst of ovary [id number] N83.209 PCP referred today for incidental finding of ovarian cyst on MRI.She did not bring this report with her.A release was signed but unable to get this result in a timely manner today.We agreed to update a TVUS in this office & will scheduleSh e is not having any concerning sx's today. ER precaution s reviewed: Patient is to contact office or go to nearest ED/Urgent care if fever >/= 100.1, pain, excessive bleeding, unusual drainage or swelling in area of concern; or experienci ng worsening sx's or new onset of concerning sx's. Understand ing verbalized . All questions answered to patient satisfacti on. Once have results will reach out to let her know next steps. Time spent in visit is a total of 32 mins with at least 50% of visit consisting of counseling and review of plan of care.Addit ional precaution bisi measures were taken to minimize potential exposure to the Covid-19 virus during this patient s visit, including available hand freight car cleaner delta system upon arrive, temperatur e check and being asked a series of screening questions. All staff wore face coverings during this encounter, as well as provided additional cleaning and sanitizing of all surfaces, including countertop s, pens, chairs, door handles, light switches, etc, prior to and following the patient s visit. [id number] Remedios Hendrix [place] [address],[place] [address] 07/14/2021 10:51:44 07/14/2021 11:41:35 Cyst of left ovary [id number] N83.292 [id number] Louann Rojas [place] [address],[place] [address] 08/08/2022 16:32:18 08/08/2022 17:28:04 Uncertain viability of 393717690 O36.80X0 Z3A.01 [id number] Jes Phillips [place] [address],[place] [address] 08/08/2022 16:34:23 08/08/2022 18:02:30 Amenorrhea 02069448 N91.2 test positive 879968479 Z32.01 Risk factors addressed: Tobacco Cessation, Safe Sexual Practices, environmen yessi, work hazards, travel restrictio ns, seat belt use.Eat a health well balanced diet, avoid alcohol, tobacco, and street drugs.Enga ge in daily low impact exercise, avoid temperatur e extremes, and cat, rodent, and bird feces.Avoi d travel to areas where zika virus is a concern.Of fered cf/sma/nip t. Desires at 12 weeks. Handouts given and discussed with patient.Ch ildbirth classes recommende d.New OB sheet given.If previous , counseling .Pt verbalizes that she understand s the importance of above instructio ns.All questions were answered.P atient reminded to have annual well woman examinatio n and address preventati ve healthcare .Time spent in visit is a total of 45 mins with at least 50% of visit consisting of counseling and review of plan of care. Mixed anxi ety and depressive disorder [id number] F41.8 Pt would like to restart sertraline . Discussed risks and benefits. Will return in 2 weeks for follow up or sooner if any problems/c oncerns. [id number] Remedios Hendrix [place] [address],[place] [address] 09/04/2022 14:23:25 09/04/2022 15:34:43 screening 674972490 Z36.82 [id number] Paulina Trimble MD [place] [address],[place] [address] 09/04/2022 14:23:54 09/06/2022 10:54:32 Routine care 664352811 Z34.91 Mixed anxi ety and depressive disorder 977848906 F41.8 [id number] Paulina Trimble MD [place] [address],[place] [address] 10/04/2022 14:04:27 10/04/2022 14:36:27 Routine care 093128938 Z34.91 Mixed anxi ety and depressive disorder 747622034 F41.8 [id number] Louann Rojas [place] [address],[place] [address] 11/01/2022 14:08:20 11/01/2022 16:00:16 screening 550566473 Z36.3 [id number] Paulina Trimble MD [place] [address],[place] [address] 11/01/2022 14:08:32 11/08/2022 13:13:27 Routine care 433286429 Z34.91 [id number] Remedios Hendrix [place] [address],[place] [address] 11/27/2022 16:32:41 11/27/2022 17:35:09 screening 456645166 Z36.2 [id number] Paulina Trimble MD [place] [address],[place] [address] 11/27/2022 16:36:02 11/28/2022 15:49:11 Routine care 012233978 Z34.91 Mixed anxi ety and depressive disorder 120126206 F41.8 [id number] [facility] [address],[place] [address] 12/11/2022 17:27:19 12/11/2022 17:51:53 Low back pain in 5327431325 106 O26.899 O23.42 Z3A.24 [id number] Paulina Trimble MD [place] [address],[place] [address] 01/01/2023 15:29:48 01/03/2023 15:02:56 Routine care 002441380 Z34.91 Mixed anxi ety and depressive disorder 149905318 F41.8 [id number] OCTAVIANO KIMBLE MD [place] [address],[place] [address] 01/15/2023 15:49:53 01/15/2023 16:41:02 Routine care 273781084 Z34.93 Mixed anxi ety and depressive disorder 369980352 F41.8 [id number] Andria Ortiz [facility] [address],[place] [address] 02/02/2023 16:50:57 02/04/2023 17:05:44 Routine care 317739043 Z34.82 [id number] [facility] [address],[place] [address] 02/16/2023 16:39:22 02/16/2023 17:26:19 Urinary symptoms 605907163 R39.9 Routine an tenatal care 458592016 Z34.82 [id number] [facility] [address],[place] [address] 02/16/2023 16:39:47 02/18/2023 09:55:17 Uterine size for dates discrepancy 481715240 O26.843 Z3A.34 [id number] [facility] [address],[place] [address] 02/28/2023 16:25:09 02/28/2023 17:29:27 Routine care 893541265 Z34.82 Acute righ t otitis media 028551336 H66.91 [id number] [facility] [address] [place] [address] 03/07/2023 16:25:01 03/07/2023 16:54:45 Routine care 942099296 Z34.82 [id number] Remedios Hendrix [place] [address] [place] [address] 03/14/2023 15:28:01 03/14/2023 16:13:02 Poor growth affecting management 513939856 O36.5930 Z3A.38 [id number] Andria Ortiz [facility] [address],[place] [address] 03/14/2023 15:28:26 03/14/2023 16:32:56 Routine care 825772251 Z34.82 [id number] Andria Ortiz [facility] [address],[place] [address] 03/21/2023 16:22:36 03/21/2023 16:56:08 Routine care 504471363 Z34.82 [id number] OCTAVIANO KIMBLE MD [place] [address],[place] [address] 03/26/2023 16:11:47 03/29/2023 09:01:40 Gestation period, 39 weeks 31478864 Z3A.39 [id number] [facility] [address],[place] [address] 04/06/2023 13:59:14 04/06/2023 16:03:01 Abnormal uterine bleeding 2569790367 9100 N93.9 R10.2 [id number] Andria Ortiz [facility] [address],[place] [address] 04/06/2023 15:18:33 04/06/2023 15:35:53 Urinary symptoms 932274632 R39.9 Abdominal pain 48992477 R10.9 urine for culture, flagyl and macrobid to pharmacypr ecautions for ed given f/u pending culture [id number] Natalie Magana [place] [address] [place] [address] 04/25/2023 14:11:13 04/25/2023 16:46:53 care 336461689 R53.82 continue meds for UTI, abstain from intercours e until mirena placementf /u in 2 weeks [id number] Natalie Magana [place] [address],[place] [address] 05/09/2023 16:44:59 05/09/2023 17:23:45 Insertion of intrauterine contraceptive device 79702782 Z30.430 [id number] [facility] [address],[place] [address] 06/06/2023 14:12:13 06/06/2023 14:33:11 Pain in pelvis 80989564 R10.2 plan pelvic floor PT Irregular periods 564144 07 N92.6 Abnormal u terine bleeding 6319581257 9100 N93.9 [id number] Remedios Hendrix [place] [address],[place] [address] 06/07/2023 09:56:05 06/07/2023 10:38:53 Abnormal uterine bleeding 9767325217 9100 N93.9 R10.2 [id number] Alicia Aguirre [place] [address],[place] [address] 12/04/2023 10:47:25 12/04/2023 12:11:56 Abnormal uterine bleeding 0518194079 9100 N93.9 R10.2 [id number] [facility] [address],[place] [address] 12/07/2023 16:08:20 12/10/2023 09:42:12 Mechanical complication of intrauterine contraceptive device 093807301 T83.39XA Irregular intermenstrual bleeding 50380026 N92.1 Pain in pelvis 97376998 R10.2 Bacterial vaginosis 4197 20740 N76.0 [id number] Natalie Magana [place] [address],[place] [address] 12/14/2023 14:39:13 12/14/2023 15:37:30 Contraception care management 565154340 Z30.9 removal and reinsertio n of IUD f/u one month IUD check Venereal d isease screening 981306732 Z11.3 Insertion of intrauterine contraceptive device 24464296 Z30.430 Vaginal discharge 226420 006 N89.8 [id number] Remedios [facility] [address],[place] [address] 01/11/2024 12:19:12 01/11/2024 13:44:05 Vaginal discharge 726845648 N89.8 Health Concerns Section Related Observation LastModified by Organization Detai ls LastModified Time None Recorded Concern Status LastModified by Organization Details LastModified Time None Recorded Advance Directives Directive None Recorded Payers Encounter Date Sequence Insurance Name Policy Number Policy Quarles Covered Member ID Quarles Member ID Guarantor Name 06/07/2023 1 [employer] (POS II) [id number] Kyle Lisbeth [id number] Kyle Lisbeth 06/07/2023 2 MEDICAID-[place]: [address] [id number] Kyle Lisbeth 12/04/2023 1 [employer] (POS II) [id number] Kyle Lisbeth [id number] [place] 12/04/2023 2 MEDICAID[place]: [address] [id number] Kyle [place] 12/07/2023 1 [employer] (POS II) [id number] Kyle [place] [id number] Kyle [place] 12/07/2023 2 MEDICAID-DC: [facility] [address] [place] [address] [id number] Kyle [place] 12/14/2023 1 [employer] (POS II) [id number] Kyle [place] [id number] Kyle Lisbeth 12/14/2023 2 MEDICAID-[place]: [facility] [employer] [address] [place] [address] [id number] Kyle Lisbeth 01/11/2024 1 [employer] (POS II) [id number] Kyle [place] [id number] Kyle [place] 01/11/2024 2 MEDICAID-[place]: [address] [id number] Kyle Lisbeth Notes Date Note Type Note Provider Name and Address Organization Details Recorded Time 12/07/2023 text/html Patient presents for follow up on pelvic US, IUD positioned in myometrium, has been having pelvic pain and cramping, lots of spotting and now also started vaginal discharge with odor and green/mucous in color, afebrile Andria Ortiz, CNM [address], [place], [address], [facility] 12/07/2023 17:03:00 12/14/2023 text/html Patient presents for IUD removal and reinsertion, still some d/c with odor took flagyl and doxy all tests were negative for infection Natalie arias, [facility] 12/14/2023 15:38:05 OBGyn Episode Ob Episode Information Episode Created Date Number of Fetuses Patient Bloodtype Patient rh Status Prepregnancy Weight lbs Domestic Partner Domestic Partner Phone Father Name Price Lister Status 09/05/19 20 1 CLOSED Fetus Data First Name Last Name Admitted to NICU Weight (g) Sex Living Outcome Pediatric Complications Fetus ID Race Codes Race Delivery Type 3430.06 2704 M Full Term 1661 Vaginal Delivery Mitul Calculation Initial Mitul Date Initial Exam Date Initial Exam Provider Initial Ultrasound Date Last Menstrual Period Date Ultra Sound Weeks Gestation 0 Eighteen To Twenty Week Mitul Update Ultra Sound Date Fundal Height At Umbil Quickening Date Ultra Sound Latest Weeks Gestation Final Mitul Confirmed By Final Mitul Confirmed Date Final Mitul Date Ultra Sound Latest Days Gestation 0 0 Menstrual History Last Menstrual Date Menses Monthly On Bcp Conception Prior Menses Frequency Hcg Plus Date Menarche Onset Age Delivery Information Delivery Date Delivery Type Labor Anesthesia Weeks Gestation Incision Type Labor Labor Length Hrs Delivered By Post Complications Tubal Sterilization Discharge Date Comments 9 39 Discharge Information Feeding Method Contraceptive Method Maternal HG B and HCT Levels Ob Episode Information Episode Created Date Number of Fetuses Patient Bloodtype Patient rh Status Prepregnancy Weight lbs Domestic Partner Domestic Partner Phone Father Name Price Lister Status 09/05/19 23 1 O Positive 183 CLOSED Fetus Data First Name Last Name Admitted to NICU Weight (g) Sex Living Outcome Pediatric Complications Fetus ID Race Codes Race Delivery Type Maria Esther 3118.44 5 F true Full Term Vaginal Delivery Problems Problem Notes Problem Name Start Date End Date Resolution Snomed Code Not e Anemia of 02/20/2023 [id number] slofe daily Mixed anxiety and depressive disorder [id number] bipolar- zoloft 50. stopped. needs to make appt with psych- Georgia Chandrakant depression 21081409 last - bad Mitul Calculation Initial Mitul Date Initial Exam Date Initial Exam Provider Initial Ultrasound Date Last Menstrual Period Date Ultra Sound Weeks Gestation 03/28/2023 09/04/2022 08/08/2022 6 Eighteen To Twenty Week Mitul Update Ultra Sound Date Fundal Height At Umbil Quickening Date Ultra Sound Latest Weeks Gestation Final Mitul Confirmed By Final Mitul Confirmed Date Final Mitul Date Ultra Sound Latest Days Gestation 0 [email or web address] 09/04/2022 03/28/20 23 0 Pre- Flowsheet Flowsheet Date 09/04/2022 Alexandre Score Blood Edema Fundus Height Fundus Units Glucose Ketones Leukocytes Nitrite Labor Signs Protein Cervic Dilation Cervic Effacement Cervic Station neg none none trace Type Weight in lbs Pre/Post Dialysis Refused Weight 186.236061114971 BP Diastolic BP Location Tested BP Systolic BP Type 80 120 Fetus Heart Rate Present A 165 Fetus Movement A No Comments Maricruz is a at 10.5 here for care. She has history of anxiety and depression and ADHD. ON zoloft 25mg, restarted about 4 weeks ago, not really helping, will increase to 50mg. Having a lot of nausea, about 3 of 7 days are bad right now. Taking reglan which helps a little. Her migraines have not been bad. NOrmal NT today, though 2 days short of 11w. Labs and NIPT today. Routine care. Depression precautions given. Flowsheet Date 10/04/2022 Alexandre Score Blood Edema Fundus Height Fundus Units Glucose Ketones Leukocytes Nitrite Labor Signs Protein Cervic Dilation Cervic Effacement Cervic Station neg none none trace Type Weight in lbs Pre/Post Dialysis Refused Weight 185.690462128744 BP Diastolic BP Location Tested BP Systolic BP Type 79 116 Fetus Heart Rate Present A 160 Fetus Movement A No Comments Doing well, feels much trip r. Anx/dep better too. Some sciatica, comfort measures discussed. Anatomy US next. Flowsheet Date 11/01/2022 Alexandre Score Blood Edema Fundus Height Fundus Units Glucose Ketones Leukocytes Nitrite Labor Signs Protein Cervic Dilation Cervic Effacement Cervic Station Type Weight in lbs Pre/Post Dialysis Refused BP Diastolic BP Location Tested BP Systolic BP Type Fetus Heart Rate Present Fetus Movement Comments Flowsheet Date 11/01/2022 Alexandre Score Blood Edema Fundus Height Fundus Units Glucose Ketones Leukocytes Nitrite Labor Signs Protein Cervic Dilation Cervic Effacement Cervic Station trace Type Weight in lbs Pre/Post Dialysis Refused Weight 186.538438600368 BP Diastolic BP Location Tested BP Systolic BP Type 74 110 Fetus Heart Rate Present A 160 Fetus Movement A Yes Comments Doing ok. Some nausea with h eat/showers. Some round lig pain, discussed comfort measures, precautions. Diarrhea for a few days, may try immodium. Us today anatomy wnl but incomplete, will repeat in 4 weeks. Maricruz is asking about a tubal. We discussed the procedure and RBA in depth, especially the risk of regret given her young age. I encouraged her to consider LARC instead. She will consider. Flowsheet Date 11/27/2022 Alexandre Score Blood Edema Fundus Height Fundus Units Glucose Ketones Leukocytes Nitrite Labor Signs Protein Cervic Dilation Cervic Effacement Cervic Station Type Weight in lbs Pre/Post Dialysis Refused BP Diastolic BP Location Tested BP Systolic BP Type Fetus Heart Rate Present Fetus Movement Comments Flowsheet Date 11/27/2022 Alexandre Score Blood Edema Fundus Height Fundus Units Glucose Ketones Leukocytes Nitrite Labor Signs Protein Cervic Dilation Cervic Effacement Cervic Station neg trace none trace Type Weight in lbs Pre/Post Dialysis Refused Weight 192.552324216238 BP Diastolic BP Location Tested BP Systolic BP Type 78 117 Fetus Heart Rate Present A 160 Fetus Movement A Yes Comments Doing ok. Mood is bad but denies SI/HI. Admits she has not been taking her zoloft, she doesn't like it. Feels dull and has no sex drive on it. She has not contacted her psychiatrist yet- Georgia Stallings in [place]. She admits she had very bad PP depression after her last . She will schedule an appt with Dr. Stallings. I am happy to communicate with her re medications that are ok to use in . We will check with Maricruz in a couple days to make sure that she has an appt set up. Depression precautions given. US today anatomy now complete and wnl. GCT next visit. Needs to sschedule more visits. Flowsheet Date 12/11/2022 Alexandre Score Blood Edema Fundus Height Fundus Units Glucose Ketones Leukocytes Nitrite Labor Signs Protein Cervic Dilation Cervic Effacement Cervic Station Type Weight in lbs Pre/Post Dialysis Refused BP Diastolic BP Location Tested BP Systolic BP Type Fetus Heart Rate Present Fetus Movement Comments Flowsheet Date 01/01/2023 Alexandre Score Blood Edema Fundus Height Fundus Units Glucose Ketones Leukocytes Nitrite Labor Signs Protein Cervic Dilation Cervic Effacement Cervic Station neg trace 30 2+ trace Type Weight in lbs Pre/Post Dialysis Refused Weight 197.152672510619 BP Diastolic BP Location Tested BP Systolic BP Type 83 130 Fetus Heart Rate Present A 155 Fetus Movement A Yes Comments Doing fine. Mood not good be cause cat got out and now lost for 2 days. Denies SI/HI. Never made appt with her psychiatrist because she doesn't want to start meds until after delivery. We discussed that that is an ok plan, but I would like her to see her and have a plan in place for after delivery, nevertheless, since she had severe pp depression last . She agrees. GCT today. Will do Tdap, but probably not flu. Flowsheet Date 01/15/2023 Alexandre Score Blood Edema Fundus Height Fundus Units Glucose Ketones Leukocytes Nitrite Labor Signs Protein Cervic Dilation Cervic Effacement Cervic Station none 1+ trace Type Weight in lbs Pre/Post Dialysis Refused Weight 200.147368102162 BP Diastolic BP Location Tested BP Systolic BP Type 84 129 Fetus Heart Rate Present A 155 Fetus Movement Comments Doing well, baby moving. BH contractions, no painful contractions. No LOF, VB. Discussed growth US at 36 weeks. Mood fine, no SI/HI. Passed GCT. RTC 2 weeks Flowsheet Date 02/02/2023 Alexandre Score Blood Edema Fundus Height Fundus Units Glucose Ketones Leukocytes Nitrite Labor Signs Protein Cervic Dilation Cervic Effacement Cervic Station neg trace none trace Type Weight in lbs Pre/Post Dialysis Refused Weight 200.940083892441 BP Diastolic BP Location Tested BP Systolic BP Type 84 130 Fetus Heart Rate Present Fetus Movement A Yes Comments patient is having some pain, contractions, discharge, swelling and not sleeping well. ok for unisom/benadryl, +FM ptl precautions reviewed, call for preadmit f/u 2 weeks Flowsheet Date 02/16/2023 Alexandre Score Blood Edema Fundus Height Fundus Units Glucose Ketones Leukocytes Nitrite Labor Signs Protein Cervic Dilation Cervic Effacement Cervic Station neg trace none trace Type Weight in lbs Pre/Post Dialysis Refused Weight 204.143353560815 BP Diastolic BP Location Tested BP Systolic BP Type 89 125 Fetus Heart Rate Present Fetus Movement A Yes Comments patient BH contractions, dis charge, pain with urination and swelling. macrobid rx, urine for culture, US today for growth, gbs next visitplans only in room for delivery Flowsheet Date 02/16/2023 Alexandre Score Blood Edema Fundus Height Fundus Units Glucose Ketones Leukocytes Nitrite Labor Signs Protein Cervic Dilation Cervic Effacement Cervic Station Type Weight in lbs Pre/Post Dialysis Refused BP Diastolic BP Location Tested BP Systolic BP Type Fetus Heart Rate Present Fetus Movement Comments Flowsheet Date 02/28/2023 Alexandre Score Blood Edema Fundus Height Fundus Units Glucose Ketones Leukocytes Nitrite Labor Signs Protein Cervic Dilation Cervic Effacement Cervic Station neg trace none trace 1cm 50% -2 Type Weight in lbs Pre/Post Dialysis Refused Weight 204.972182597441 BP Diastolic BP Location Tested BP Systolic BP Type 87 125 Fetus Heart Rate Present A 150 Fetus Movement A Yes Comments patient state that has ear a liliya, BH contractions, discharge, swelling, nausea and vomiting. right ear, fluid filled red, plan antibiotic, hard to sleep due to pain, norco 5/325mg for pain. gbs done precautions and education f/u one week Flowsheet Date 03/07/2023 Alexandre Score Blood Edema Fundus Height Fundus Units Glucose Ketones Leukocytes Nitrite Labor Signs Protein Cervic Dilation Cervic Effacement Cervic Station neg trace none trace 2cm 50% -2 Type Weight in lbs Pre/Post Dialysis Refused Weight 207.670590228730 BP Diastolic BP Location Tested BP Systolic BP Type 80 127 Fetus Heart Rate Present Fetus Movement A Yes Comments patient states that having s ome contractions, swelling, and discharge. doing well, does not want iOL, precautions reviewed +FM f/u one week Flowsheet Date 03/14/2023 Alexandre Score Blood Edema Fundus Height Fundus Units Glucose Ketones Leukocytes Nitrite Labor Signs Protein Cervic Dilation Cervic Effacement Cervic Station Type Weight in lbs Pre/Post Dialysis Refused BP Diastolic BP Location Tested BP Systolic BP Type Fetus Heart Rate Present Fetus Movement Comments Flowsheet Date 03/14/2023 Alexandre Score Blood Edema Fundus Height Fundus Units Glucose Ketones Leukocytes Nitrite Labor Signs Protein Cervic Dilation Cervic Effacement Cervic Station neg none none trace 2cm 50% -3 Type Weight in lbs Pre/Post Dialysis Refused Weight 204.241662901778 BP Diastolic BP Location Tested BP Systolic BP Type 84 132 Fetus Heart Rate Present Fetus Movement A Yes Comments patient is having contractio ns, pelvic pain, discharge and nausea. efw 18%, membrane sweep next week education and precautions Flowsheet Date 03/21/2023 Alexandre Score Blood Edema Fundus Height Fundus Units Glucose Ketones Leukocytes Nitrite Labor Signs Protein Cervic Dilation Cervic Effacement Cervic Station neg none none trace 2cm 40% -3 Type Weight in lbs Pre/Post Dialysis Refused Weight 207.196264113790 BP Diastolic BP Location Tested BP Systolic BP Type 86 121 Fetus Heart Rate Present A 145 Present Fetus Movement A Yes Comments patient is having some pelvi c pain, contractions, discharge, and nausea. wants IOL at 40 weeks if undelivered, membrane sweep on membrane, precautions reviewed Flowsheet Date 03/26/2023 Alexandre Score Blood Edema Fundus Height Fundus Units Glucose Ketones Leukocytes Nitrite Labor Signs Protein Cervic Dilation Cervic Effacement Cervic Station 2cm 50% -3 Type Weight in lbs Pre/Post Dialysis Refused Weight 209.906457940274 BP Diastolic BP Location Tested BP Systolic BP Type 84 133 Fetus Heart Rate Present A 140 Fetus Movement Comments Intermittent contractions, g ood movement. Planning induction this week. Membrane sweep performed, 2cm dilated. Menstrual History Last Menstrual Date Menses Monthly On Bcp Conception Prior Menses Frequency Hcg Plus Date Menarche Onset Age Genetic Screening And Infection History Question Response Note Mental Retardation/Autism false Patient's Age Will Be 35 Years Or Older At Estim ated Date of Delivery false Thalassemia ([place] Islander, Armenian, Mediterranean, Or Background): MCV < 80 false Neural Tube Defect (Meningomyelocele, Spina Bifi da, Or Anencephaly) false Congenital Heart Defect false Down Syndrome false Jesus-Sachs (eg, Catholic, Cajun, Macedonian-Coke) f alse Davion Disease false Sickle Cell Disease Or Trait () false Hemophilia Or Other Blood Disorders false Muscular Dystrophy false Cystic Fibrosis false Cristiane's Chorea false Intellectual Disability/Autism false If Yes, Was Person Tested For Fragile X? false Other Inherited Genetic Or Chromosomal Disorder false Maternal Metabolic Disorder (eg, Type 1 Diabetes , PKU) false Patient Or Baby's Father Had A Child With Defects Not Listed Above false Recurrent Loss, Or A Stillbirth false Medications (including Suppl ements, Vitamins, Herbs, OTC Drugs), Illicit/Recreational Drugs, Alcohol true If Yes, Agent(s) And Strength/Dosage false Any Other Genetic History false Live With Someone With TB Or Exposed To TB false Patient Or Partner Has History Of Genital Herpes false Rash Or Viral Illness Since Last Menstrual Perio d false History Of STD, Gonorrhea, Chlamydia, HPV, Syphi lis false Other Infection History false History of HIV false History of Hepatitis false Prior GBS-infected child false Hemoglobinopathy Or Carrier false Other Structural Defect false Recent Travel History Outside of Country false Delivery Information Delivery Date Delivery Type Labor Anesthesia Weeks Gestation Incision Type Labor Labor Length Hrs Delivered By Post Complications Tubal Sterilization Discharge Date Comments 3 Induce d Regional-Ep idural 40 false Andria Ortiz CNM Anemia of , Mixed anxiety and depressiv e disorder, Postpartu m depressio n Discharge Information Feeding Method Contraceptive Method Maternal HG B and HCT Levels
--- OUTSIDE RECORDS SUMMARY | 2024-05-30 08:20 | XMS_ITS ---
Author Organization [facility] Address [address] [address] Care Team Providers Care Household Assistant Name Role Phone Anjum Emily Primary Care Provider Allergies No Known Allergies REASON FOR VISIT est. care referred pt// TEXT LINK Medications Medication SIG (Take, Route, Frequency, Duration) Notes Start Date End Date Status Mirena (52 MG) 20 MCG/DAY as directed Intrauterine Active dexAMETHasone 1 MG 1 tablet Orally at 1 0 pm night before 8 am cortisol for 1 days 05/15/2024 Active Qulipta 10 MG 1 tablet Orally Once a day Active Ubrelvy 50 MG 1 tablet as needed, may take second dose at least 2 hours after first dose up to 4 tablets per day as needed Orally Once a day Active Social History Tobacco Use: Social History Observation Description Date Smoking Status WARNING: Information temporarily unavailable Smoking: Question Answer Notes Additional Findings: Tobacco User does smoke marijuana Problems Problem Type SNOMED Code ICD Code Onset Dates Problem Status W/U Status Risk Notes Problem Non-toxic single thyroid nodule (343667349) Nontoxic single thyroid nodule (E04.1) Active confirmed Problem Obesity (096201988) Obesity, unspecified (E66.9) Active confirmed Problem Irregular menstruation (46881415) Irregular menstruation, unspecified (N92.6) Active confirmed Problem Vitamin D deficiency (45932370) Vitamin D deficiency, unspecified (E55.9) Active confirmed Vital Signs Blood pressure systolic 120 mm Hg 05/15/19 25 Blood pressure diastolic 72 mm Hg 025 Heart Rate 82 /min 05/15/2024 Respiratory Rate 12 /min 05/15/2024 Height 62 in 05/15/2024 Weight 180 lbs 05/15/2024 BMI 32.92 kg/m2 05/15/2024 Encounters Encounter Location Date Provider Diagnosis [facility] - Emily Valero [address] [place] [address] 05/15/2024 Emily Valero Nontoxic single thyroid nodule E04.1 ; Obesity, unspecified E66.9 ; Irregular menstruation, unspecified N92.6 ; Impaired fasting glucose R73.01 ; Encounter for screening for lipoid disorders Z13.220 and Vitamin D deficiency, unspecified E55.9 Assessments Encounter Date Diagnosis (ICD Code) Assessment Notes Treatment Notes Treatment Clinical Notes Section Notes 05/15/2024 Nontoxic single thyroid nodule (ICD-10 - E04.1) 05/15/2024 Obesity, unspecified (ICD-10 - E66.9) 05/15/2024 Irregular menstruation, unspecified (ICD-10 - N92.6) 05/15/2024 Impaired fasting glucose (ICD-10 - R73.01) 05/15/2024 Encounter for screening for lipoid disorders (ICD-10 - Z13.220) 05/15/2024 Vitamin D deficiency, unspecified (ICD-10 - E55.9) 05/15/2024 Other Assessment and Plan: Thyroid NodulePatient presents with a thyroid nodule, experiencing occasional difficulty swallowing and pain from seatbelt friction.Previous evaluations included thyroid ultrasound, uptake scan, and pathology from February through August.Recent labs indicated normal thyroid function after initial findings suggestive of Graves' disease, potentially due to subacute thyroiditis.Actions: Repeat thyroid function tests. Schedule follow-up thyroid nodule imaging in August. Arrange a follow-up appointment in 3-4 weeks post-lab completion. 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 Schedule cortisol and dexamethasone level labs before 8 AM, with fasting from midnight. Order additional 15-18 labs for a comprehensive evaluation. Provide written instructions for the DEXA suppression test. MigrainesPatient reports frequent migraines, currently managed with Qulipta and Ubrelvy.Actions: Continue current migraine medications: Qulipta and Ubrelvy. Consider recommending a brain MRI as previously suggested by another provider. ObesityPatient reports a weight increase over the past five years, with a current weight indicating obesity.Actions: Address weight management within the overall treatment plan. Consider the relation to suspected Frankfort's syndrome. Multiple ComorbiditiesPatient reports various health issues including irregular menstrual cycles, acid reflux, and more.Actions: Comprehensive lab workup for thyroid function, metabolic panel, lipid profile, complete blood count, and vitamin D levels. Consider a sleep study for sleep apnea. Recommend an annual eye exam due to family history and current vision changes. Follow up on management of recurrent UTIs. Evaluate and manage other reported symptoms based on lab results and clinical presentation. Follow-up:Schedule follow-up appointments as necessary to review lab results and assess the response to interventions.Encourage patient to report any new or worsening symptoms. Spent 45 minutes preparing to see the patient (ex review of tests/chart), obtaining and / or reviewing separately obtained history, performing a medically appropriate examination and/or evaluation, counseling and educating the patient/family/caregive r, ordering medications, tests, or procedures, referring and communicating with other health personal care worker, documenting clinical information in the electronic or other health record, independently interpreting results and communicating results to the patient/family/caregive r and care coordinating patient plan. Patient alert and oriented x 4 and aware of discussion noted above and in agreeance to plan in management of thyroid nodule, insomnia, weight gain, irregular cycles. Due to the nature of telemedicine, the ability to do physical assessment was limited to what can be accomplished by patient directed telehealth visit based on instruction. Those limits are understood by the patient and myself. Impression is based on history, available information, and physical findings accomplished with telehealth visit. Chronic disease/problem list/ medication list reviewed and updated where indicated. Discussed diagnosis, plan including risks, benefits, and options of treatment. Advised to call for new, worsening, or persistent symptoms. Level of patient risk was of moderate complexity due to the documented nature of presentation, the information assessment required and the nature of the development of an evaluation and treatment plan as documented. PMH, FHx, SHx, Surgical Hx, Quality management review carried out and addressed as documented today as part of this visit. Medication list was reviewed and adjusted as indicated. Medication requiring a refill was addressed. Risk and benefits of any new medications were discussed and all questions were answered. Plan Of Treatment Medication Medication Name Sig Start Date Stop Date Notes dexAMETHasone 1 MG 1 tablet Orally at 1 0 pm night before 8 am cortisol for 1 days 05/15/2024 Treatment Notes Assessment Notes Other Assessment and Plan: Thyroid NodulePatient presents with a thyroid nodule, experiencing occasional difficulty swallowing and pain from seatbelt friction.Previous evaluations included thyroid ultrasound, uptake scan, and pathology from February through August.Recent labs indicated normal thyroid function after initial findings suggestive of Graves' disease, potentially due to subacute thyroiditis.Actions: Repeat thyroid function tests. Schedule follow-up thyroid nodule imaging in August. Arrange a follow-up appointment in 3-4 weeks post-lab completion. Suspected Alvaro's SyndromePresentation includes weight gain, anxiety, mood swings, sleep disturbances, and prolonged healing, with physical examination revealing stretch valverde and bruising.Actions: Order dexamethasone suppression test and prescribe dexamethasone for the night before the test. Schedule cortisol and dexamethasone level labs before 8 AM, with fasting from midnight. Order additional 15-18 labs for a comprehensive evaluation. Provide written instructions for the DEXA suppression test. MigrainesPatient reports frequent migraines, currently managed with Qulipta and Ubrelvy.Actions: Continue current migraine medications: Qulipta and Ubrelvy. Consider recommending a brain MRI as previously suggested by another provider. ObesityPatient reports a weight increase over the past five years, with a current weight indicating obesity.Actions: Address weight management within the overall treatment plan. Consider the relation to suspected Alvaro's syndrome. Multiple ComorbiditiesPatient reports various health issues including irregular menstrual cycles, acid reflux, and more.Actions: Comprehensive lab workup for thyroid function, metabolic panel, lipid profile, complete blood count, and vitamin D levels. Consider a sleep study for sleep apnea. Recommend an annual eye exam due to family history and current vision changes. Follow up on management of recurrent UTIs. Evaluate and manage other reported symptoms based on lab results and clinical presentation. Follow-up:Schedule follow-up appointments as necessary to review lab results and assess the response to interventions.Encourage patient to report any new or worsening symptoms. Spent 45 minutes preparing to see the patient (ex review of tests/chart), obtaining and / or reviewing separately obtained history, performing a medically appropriate examination and/or evaluation, counseling and educating the patient/family/caregiver, ordering medications, tests, or procedures, referring and communicating with other health personal care worker, documenting clinical information in the electronic or other health record, independently interpreting results and communicating results to the patient/family/caregiver and care coordinating patient plan. Patient alert and oriented x 4 and aware of discussion noted above and in agreeance to plan in management of thyroid nodule, insomnia, weight gain, irregular cycles. Due to the nature of telemedicine, the ability to do physical assessment was limited to what can be accomplished by patient directed telehealth visit based on instruction. Those limits are understood by the patient and myself. Impression is based on history, available information, and physical findings accomplished with telehealth visit. Chronic disease/problem list/ medication list reviewed and updated where indicated. Discussed diagnosis, plan including risks, benefits, and options of treatment. Advised to call for new, worsening, or persistent symptoms. Level of patient risk was of moderate complexity due to the documented nature of presentation, the information assessment required and the nature of the development of an evaluation and treatment plan as documented. PMH, FHx, SHx, Surgical Hx, Quality management review carried out and addressed as documented today as part of this visit. Medication list was reviewed and adjusted as indicated. Medication requiring a refill was addressed. Risk and benefits of any new medications were discussed and all questions were answered. Next Appt Details Follow Up: 4 Weeks, Reason: labwork Progress Notes * Aleksandr DUKEDreOB:2000 (24 yo F)Acc No.[id number]:05/15/2024 Progress Notes Patient: Maricruz CAST Provider: Sherry Valero MD :2000 A ge:24 Y S ex:Female Date:05/15/2024 Address:[address] [place] [address] Subjective: * Chief Complaints: * 1 . est. care referred pt// TEXT LINK. * HPI: I nterval Hx: 24 yo female calls in to initiate telehealth visit to establish care in management of nontoxic thyroid nodule, weight gain/obesity, fatigue, irregular cycles and concern for underlying hormonal changes. Verbal consent provided by patient to proceed with this visit. This visit was performed in office via provider and patient located in primary care office with real time audio with video. Patient had thyroid u/s completed in 12/07 found to have 2 cm left dominant nodule- sent for nuclear scan in 03/09 and this was consistent with graves disease not autonomous functioning nodule. Biopsy completed end of February of 2024 and pathology benign. The patient presents for evaluation of a thyroid nodule, reporting occasional difficulty swallowing and pain. She has a history of Graves' disease, with recent labs suggesting possible subacute thyroiditis. The patient also experiences frequent migraines, significant weight gain, and multiple comorbidities including sleep apnea, acid reflux, and recurrent UTIs. A comprehensive lab workup and follow-up imaging for the thyroid nodule are planned, along with evaluation for suspected Alvaro's syndrome. Current migraine medications will be continued, and weight management will be addressed. Patient presents for evaluation of a thyroid nodule. She reports occasional difficulty swallowing and pain, especially when the seatbelt rubs against it. Patient has a history of Graves' disease, but recent labs were normal, suggesting possible subacute thyroiditis following illness this winter. Patient also complains of frequent migraines, for which she is currently taking Qulipta and Ubrelvy. She reports associated fatigue, vision changes, and blurry vision. Family history is significant for macular degeneration, glaucoma, and Fuchs' dystrophy. Patient has experienced significant weight gain, increasing from 150-160 lbs five years ago to a current weight of 180 lbs, with a maximum weight of 195 lbs. She is 5'2 tall. Associated symptoms include irregular menstrual cycles, sleep apnea, snoring, hair loss, acne, and night sweats. Patient also reports acid reflux, allergies, sinus issues, and approximately 2 UTIs per year. Additional symptoms include lower back pain with sciatic nerve involvement, palpitations, cold hands, leg cramps, and restless leg syndrome. Patient has a history of high cholesterol (192) and low vitamin D3. She also reports high anxiety and depression. Medical History - Thyroid nodule - Graves' disease (possibly resolved) - Migraines - Acid reflux - Sleep apnea - Allergies/sinus issues - Anemia - Vitamin D deficiency - Hypercholesterolemia - Recurrent UTIs - Lower back pain - Sciatic nerve pain - Hair loss - Acne - Night sweats - Vision issues - Restless leg syndrome - Anxiety - Depression Current and Past Medications and Supplements - Qulipta - Ubrelvy - Mirena IUD Social History - Marital status: Single - Sexual activity: Sexually active, using Mirena IUD for contraception - Substance use: Occasional marijuana use - Mental health: History of anxiety and depression Review of Systems - General: Weight gain, fatigue - Neurological: Migraines, headaches, blurry vision - Endocrine: Irregular menstrual cycles - Gastrointestinal: Acid reflux, trouble swallowing - Respiratory: Sleep apnea, snoring - Allergic/Immunologic: Allergies, sinus issues - Hematologic: Anemia - Genitourinary: Recurrent UTIs - Musculoskeletal: Lower back pain, sciatic nerve pain - Dermatologic: Hair loss, acne - Psychiatric: Anxiety, depression - Cardiovascular: Heart racing/fluttering - Vascular: Cold hands - Neurological: Leg cramps, restless leg syndrome - Constitutional: Night sweats - ENT: Sore throat, cough, congestion. * ROS: D ERMATOLOGY: no r danay. n o c hange in color of moles. n o?lumps. n o d ry or sensitive skin. n o h randal. n o o isaac skin. n o?acne. n o m oles-irregular. n o m oles-change/new. n o b oils. n o dandruff. n o e xcessive body odor. n o p soriasis. n o f ungal infections. n o n ail problems. n o r edness/inflammation. n o a thlete's foot. n o s kin cancer. n o e czema. E NDOCRINOLOGY: fatigue y es. n o e xcessive sweating. n o e xcessive thirst. n o e xcessive urination. n o w eight loss. n o s leep disturbance. n o c old intolerance. n o h eat intolerence. t hyroid disease y es. i ncreased loss of hair y es. n o h x of borderline diabetes. n o d iabetes. a bdormal body hair y es. n o r heumatism. n o c hanges in skin texture. N EUROLOGY: headache y es. n o t ingling numbness. n o s eizures. n o i nsomnia. n o m kevon loss. n o d izziness. n o g ait abnormality. n o c hange in sensation anywhere on body. n o l ocalized weakness or numbness. n o b lackouts or near blackouts. m igraine y es. n o t remors.?no f ainting spells. n o h ead injury. n o s troke. O PTHALMOLOGY: no d iminished vision. n o e ye irritation. n o?drainage from eyes. b lurring of vision y es. n o s easonal eye sx. n o?dander related eye sx. n o l oss of vision. n o c ataracts. n o g lasses/contacts. n o g laucoma, r uns in family. n o d etached retina. n o m acular degeneration, r uns in family. n o e ye redness. R ESPIRATORY: no s hortness of breath. n o c hest pain. n o?wheezing. n o a sthma. n o b reathlessness when lying flat. n o p rolonged cough. n o f requent infections (bronchitis). n o e mphysema. n o c hest congestion. n o s leep apnea. A LLERGY: no r unny nose. n o s cratchy throat. n o i tchy eyes. n o e ar fullness. n o s inus congestion. n o s tuffy nose. n o w atery eyes. s easonal allergies y es. n o h ay fever. n o a llergy. n o p olyps. n o s neezing. H EMATOLOGY/LYMPH: no s wollen glands. f atigue y es. n o l oss of appetite. n o e asy bruising. n o e asy bleeding. a nemia y es. ? U ROLOGY: no d ifficulty urinating. n o b lood in urine. n o u rinary urgency. n o f requent urination. n o u rinary incontinence. n o v oiding dysfunction. n o v ulvodynia. n o d ysparaunia. r ecurrent UTI yes. n o w eak flow. n o d ribbling after urination. f requent bladder infections y es. n o k idney stone. n o k idney disease. n o u rine hesitancy.?no p ainful urination. N UTRITION: greater than body requirmemts y es. L ess than body requirements y es. a ppropriate / adequate y es, y es. C ONSTITUTIONAL: weight gain y es. n o l oss of appetite. n o?fever. n o w eakness. n o w eight loss. n ight sweats y es. n o n ausea. n o v isual changes. n o c hange in sleep patterns. h +p reviewed y es, R OS form reviewed with patient see scan for detail. n o c hange in activity capacity. E NT: no c old. n o c ough. n o c oughing blood.?no n ose bleed. n o h earing loss. n o c hange in voice. n o s ore throat. n o r inging in ears. n o s noring. n o e ar pain. n o r unny nose. n o w atery eyes. n o s inus infection. n o e ar infection. n o facial pain. n o h oarseness. n o g oiter. n o g um problems. n o?postnasal drip. n o f requent nosebleeds. C ARDIOLOGY: no c hest pain. p alpitations y es. n o l eg swelling. n o d izziness. n o s hortness of breath. n o v aricose veins.?leg cramps y es. c old hands or feet y es. n o h igh blood pressure. n o ankle swelling. n o c ardiac catheterization. n o h eart attacks. n o a ngina. n o m urmurs. n o l ow blood pressure. n o l eg pain that resolves w/rest. n o p urple fingers or lips. n o i rregular heart rate. n o c ongenital heart defects. n o d izziness when standing up quickly. n o a wakening at night short of breath. G ASTROENTEROLOGY: no n ausea. h eartburn y es. n o s tool incontinence. n o r eflux. n o a bdominal pain. n o i ndigestion. n o h emorrhoids. n o h iatal hernia. n o u lcers. n o a nal fissures. n o?hepatitis. n o g allstones. n o r ed blood after bowel movements. n o v omiting. n o b loating/belching. n o d ifficulty swallowing. n o d iarrhea.?no c onstipation. n o c hange in bowel habits. n o b lood in stool. ? M USCULOSKELETAL: no j oint swelling. n o j oint pain. n o l eg cramps. n o j oint stiffness. n o a rthritis. n o b ack pain. n o?muscle aches. n o m orning stiffness. n o t endinitis. n o n guy pain. no b ursitis. n o b one marrow biopsy. n o g out. a ctivity intolerance?weakness. n o f racture. P SYCHOLOGY: no h igh stress level. n o d epression. n o?sleep disturbances. n o r gabi sx worse with stress. n o s uicidal ideation. n o e ating disorder. n o m ental or physical abuse. n o a nxiety. n o h eadaches. d isease state y es. F EMALE REPRODUCTIVE: no h eavy periods. n o d ysparaunia. n o s exually active. n o p remenstrual syndrome. n o d ysmenorrhea. n o i nfertility. n o f requent yeast infections. n o v aginal itching. n o i ntermenstrual bleeding. n o p ost coital bleeding. n o p ostmenopausal bleeding. n o p elvic pain. n o m enstral cycle. n o v aginal discharge. n o v aginal dryness. n o o varian cysts. n o f ibroids. n o d ischarge from breast. n o abn. bleeding between cycles. n o p ostmenopausal symptoms. n o l oss of sexual interest. n o p ainful sexual intercourse. n o e ndometriosis. n o v aginal warts. n o a bnormal pap. n o i rregular periods. n o a bnormal vaginal discharge. n o h ot flashes. * Medical History: T hyroid nodule, Graves disease. * Surgical History: t yon tied as , thyroid biopsy of left dominant nodule , vaginal delivery x 2 . * Hospitalization/Major Diagno stic Procedure: v aginal delivery x 2 . * Family History: F ather: alive. M other: alive. S iblings: alive. M atechris Grand Mother: , diagnosed with Stroke, Heart Disease, Diabetes, family history unknown . * Social History: S moking: no A dditional Findings: Tobacco User does smoke marijuana. E xercise: no. Alcohol: no. Sexually active: yes, single. sexually active, has IUD. * Medications: T aking Mirena (52 MG)(Levonorgestrel) 20 MCG/DAY Intrauterine Device as directed Intrauterine , Taking Qulipta(Atogepant) 10 MG Tablet 1 tablet Orally Once a day , Taking Ubrelvy(Ubrogepant) 50 MG Tablet 1 tablet as needed, may take second dose at least 2 hours after first dose up to 4 tablets per day as needed Orally Once a day * Allergies: N .K.D.A. Objective: * Vitals: R R:12, HR:82, BP:120/72, Ht:62, Wt:180, BMI: 32.92. * Examination: G eneral Examination: General n ormal, NAD, well nourished and hydrated, pleasant obese female. Neck, thyroid : s upple. Assessment: * Assessment: 1. N ontoxic single thyroid nodule - E04.1 (Primary) 2 . O besity, unspecified - E66.9 3 . I rregular menstruation, unspecified - N92.6 4 .?Impaired fasting glucose - R73.01 5 . E ncounter for screening for lipoid disorders - Z13.220 6 . V itamin D deficiency, unspecified - E55.9 ? Plan: * Treatment: 2. O thers Notes: Assessment and Plan: Thyroid NodulePatient presents with a thyroid nodule, experiencing occasional difficulty swallowing and pain from seatbelt friction.Previous evaluations included thyroid ultrasound, uptake scan, and pathology from February through August.Recent labs indicated normal thyroid function after initial findings suggestive of Graves' disease, potentially due to subacute thyroiditis.Actions: Repeat thyroid function tests. Schedule follow-up thyroid nodule imaging in August. Arrange a follow-up appointment in 3-4 weeks post-lab completion. 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 Schedule cortisol and dexamethasone level labs before 8 AM, with fasting from midnight. Order additional 15-18 labs for a comprehensive evaluation. Provide written instructions for the DEXA suppression test. MigrainesPatient reports frequent migraines, currently managed with Qulipta and Ubrelvy.Actions: Continue current migraine medications: Qulipta and Ubrelvy. Consider recommending a brain MRI as previously suggested by another provider. ObesityPatient reports a weight increase over the past five years, with a current weight indicating obesity.Actions: Address weight management within the overall treatment plan. Consider the relation to suspected Alvaro's syndrome. Multiple ComorbiditiesPatient reports various health issues including irregular menstrual cycles, acid reflux, and more.Actions: Comprehensive lab workup for thyroid function, metabolic panel, lipid profile, complete blood count, and vitamin D levels. Consider a sleep study for sleep apnea. Recommend an annual eye exam due to family history and current vision changes. Follow up on management of recurrent UTIs. Evaluate and manage other reported symptoms based on lab results and clinical presentation. Follow-up:Schedule follow-up appointments as necessary to review lab results and assess the response to interventions.Encourage patient to report any new or worsening symptoms. Spent 45 minutes preparing to see the patient (ex review of tests/chart), obtaining and / or reviewing separately obtained history, performing a medically appropriate examination and/or evaluation, counseling and educating the patient/family/caregiver, ordering medications, tests, or procedures, referring and communicating with other health personal care worker, documenting clinical information in the electronic or other health record, independently interpreting results and communicating results to the patient/family/caregiver and care coordinating patient plan. Patient alert and oriented x 4 and aware of discussion noted above and in agreeance to plan in management of thyroid nodule, insomnia, weight gain, irregular cycles. Due to the nature of telemedicine, the ability to do physical assessment was limited to what can be accomplished by patient directed telehealth visit based on instruction. Those limits are understood by the patient and myself. Impression is based on history, available information, and physical findings accomplished with telehealth visit. Chronic disease/problem list/ medication list reviewed and updated where indicated. Discussed diagnosis, plan including risks, benefits, and options of treatment. Advised to call for new, worsening, or persistent symptoms. Level of patient risk was of moderate complexity due to the documented nature of presentation, the information assessment required and the nature of the development of an evaluation and treatment plan as documented. PMH, FHx, SHx, Surgical Hx, Quality management review carried out and addressed as documented today as part of this visit. Medication list was reviewed and adjusted as indicated. Medication requiring a refill was addressed. Risk and benefits of any new medications were discussed and all questions were answered. ? * Follow Up: 4 Weeks (Reason: labwork) * Billing Information: * Visit Code: 61987 Office Visit, New Pt., Level 4. Modifiers: 95 * Procedure Codes: * O REGULATOR Sign off status: Completed true * Provider: Sherry Valero MD Date: 05/15/2024 Generated for Altagraciai ng/Fajulisag/eTransmitting on: 05/30/2024 08:20 AM PIANO REGULATOR History and Physical Notes * HPI (History of Present Illness) Category Sub-Category Detail Notes Category Not es Interval Hx 24 yo female calls in to initiate telehealth visit to establish care in management of nontoxic thyroid nodule, weight gain/obesity, fatigue, irregular cycles and concern for underlying hormonal changes. Verbal consent provided by patient to proceed with this visit. This visit was performed in office via provider and patient located in primary care office with real time audio with video. Patient had thyroid u/s completed in 12/07 found to have 2 cm left dominant nodule- sent for nuclear scan in 03/09 and this was consistent with graves disease not autonomous functioning nodule. Biopsy completed end of February of 2024 and pathology benign. The patient presents for evaluation of a thyroid nodule, reporting occasional difficulty swallowing and pain. She has a history of Graves' disease, with recent labs suggesting possible subacute thyroiditis. The patient also experiences frequent migraines, significant weight gain, and multiple comorbidities including sleep apnea, acid reflux, and recurrent UTIs. A comprehensive lab workup and follow-up imaging for the thyroid nodule are planned, along with evaluation for suspected Frankfort's syndrome. Current migraine medications will be continued, and weight management will be addressed. Patient presents for evaluation of a thyroid nodule. She reports occasional difficulty swallowing and pain, especially when the seatbelt rubs against it. Patient has a history of Graves' disease, but recent labs were normal, suggesting possible subacute thyroiditis following illness this winter. Patient also complains of frequent migraines, for which she is currently taking Qulipta and Ubrelvy. She reports associated fatigue, vision changes, and blurry vision. Family history is significant for macular degeneration, glaucoma, and Fuchs' dystrophy. Patient has experienced significant weight gain, increasing from 150-160 lbs five years ago to a current weight of 180 lbs, with a maximum weight of 195 lbs. She is 5'2 tall. Associated symptoms include irregular menstrual cycles, sleep apnea, snoring, hair loss, acne, and night sweats. Patient also reports acid reflux, allergies, sinus issues, and approximately 2 UTIs per year. Additional symptoms include lower back pain with sciatic nerve involvement, palpitations, cold hands, leg cramps, and restless leg syndrome. Patient has a history of high cholesterol (192) and low vitamin D3. She also reports high anxiety and depression. Medical History - Thyroid nodule - Graves' disease (possibly resolved) - Migraines - Acid reflux - Sleep apnea - Allergies/sinus issues - Anemia - Vitamin D deficiency - Hypercholesterolemia - Recurrent UTIs - Lower back pain - Sciatic nerve pain - Hair loss - Acne - Night sweats - Vision issues - Restless leg syndrome - Anxiety - Depression Current and Past Medications and Supplements - Qulipta - Ubrelvy - Mirena IUD Social History - Marital status: Single - Sexual activity: Sexually active, using Mirena IUD for contraception - Substance use: Occasional marijuana use - Mental health: History of anxiety and depression Review of Systems - General: Weight gain, fatigue - Neurological: Migraines, headaches, blurry vision - Endocrine: Irregular menstrual cycles - Gastrointestinal: Acid reflux, trouble swallowing - Respiratory: Sleep apnea, snoring - Allergic/Immunologic: Allergies, sinus issues - Hematologic: Anemia - Genitourinary: Recurrent UTIs - Musculoskeletal: Lower back pain, sciatic nerve pain - Dermatologic: Hair loss, acne - Psychiatric: Anxiety, depression - Cardiovascular: Heart racing/fluttering - Vascular: Cold hands - Neurological: Leg cramps, restless leg syndrome - Constitutional: Night sweats - ENT: Sore throat, cough, congestion Examination Category Sub-Category Detail Notes Category Not es General Examination Neck, thyroid : supple General normal, NAD, well no urished and hydrated, pleasant obese female
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
--- OUTSIDE RECORDS SUMMARY | 2024-05-30 08:21 | XMS_ITS ---
Author Organization [facility] Address [address] [place] [address] Care Team Providers Care Colored Leather Setter Name Role Phone Emily Valero Primary Care Provider [phone] REASON FOR VISIT records Encounters Encounter Location Date Provider Diagnosis [facility] - Emily Valero [address] [place] [address] 05/15/2024 Emily Valero Plan Of Treatment No Information Progress Notes * Yeny DODDOB:2000 (24 yo F)Acc No.[id number]:05/15/2024 Patient: Maricruz CAST :2000 A ge:24 Y S ex:Female Address:[address] [place] [address] * true * Date: Generated for Altagraciai alvin/Fajulisag/eTransmitting on: 0 05/30/2024 08:21 AM SIMPLEX PRINTER INSTALLER
--- OUTSIDE RECORDS SUMMARY | 2024-05-30 08:21 | XMS_ITS | Patient Health Record ---
Author Organization [facility] Address [address] [address] Care Team Providers Care Medical Record Consultant Name Role Phone Emily Valero Primary Care Provider Allergies No Known Allergies Results Component Value Reference Range Notes COMPREHENSIVE METABOLIC PANE L (Not yet reviewed by provider) Interpretation: Performing Lab:JAYANT, [facility], [address], [place], [address] Vern Lyons Notes/Report: FASTING:YES FASTING: YES VITAMIN D, 25-HYDROXY, LC/MS /MS (Not yet reviewed by provider) Interpretation: Performing Lab:KS, [facility], [address], [address] Vern Lyons MD Notes/Report: FASTING:YES FASTING: YES ACTH, PLASMA (Not yet review ed by provider) Interpretation: Performing Lab:ELEAZAR, [facility], [address], [place], [place], Kaveh Caicedo M.D.,PhD Notes/Report: FASTING:YES FASTING: YES TSI (THYROID STIMULATING IMM UNOGLOBULIN) (Not yet reviewed by provider) Interpretation: Performing Lab:EZ, [facility],, [address] [place], [address] Kesha Rojo MD,PhD,MANPREET Notes/Report: FASTING:YES FASTING: YES T3, FREE (Not yet reviewed b y provider) Interpretation: Performing Lab:KS, [facility], [address] [place], [address] Vern Lyons MD Notes/Report: FASTING:YES FASTING: YES CORTISOL, TOTAL (Not yet rev iewed by provider) Interpretation: Performing Lab:[facility], [address] [place], [address] Vern Lyons MD Notes/Report: FASTING:YES FASTING: YES DHEA SULFATE (Not yet review ed by provider) Interpretation: Performing Lab:[facility], [address] [place], [address] Vern Lyons MD Notes/Report: FASTING:YES FASTING: YES ESTRADIOL (Not yet reviewed by provider) Interpretation: Performing Lab:[facility], [address] [place], [address] [facility] Lyons Notes/Report: FASTING:YES FASTING: YES FERRITIN (Not yet reviewed b y provider) Interpretation: Performing Lab:[facility], [address] [place], [address] LauraSara Lyons MD Notes/Report: FASTING:YES FASTING: YES HEMOGLOBIN A1c (Not yet revi ewed by provider) Interpretation: Performing Lab:[facility], [address] [place], [address] [place] [address] Karin Lyons Notes/Report: FASTING:YES FASTING: YES INSULIN (Not yet reviewed by provider) Interpretation: Performing Lab:[facility], [address] [place], [address] LauraSara Lyons MD Notes/Report: FASTING:YES FASTING: YES CBC (INCLUDES DIFF/PLT) (Not yet reviewed by provider) Interpretation: Performing Lab:[facility], [address] [place], [phone] [place] [address] Karin Lyons Notes/Report: FASTING:YES FASTING: YES VITAMIN B12/FOLATE, SERUM PA LAWRENCE (Not yet reviewed by provider) Interpretation: Performing Lab:[facility], [address] [place], [address] Vern Lyons MD Notes/Report: FASTING:YES FASTING: YES PROGESTERONE (Not yet review ed by provider) Interpretation: Performing Lab:, [facility], [address] [place], [address] [facility] Karin Notes/Report: FASTING:YES FASTING: YES IRON AND TOTAL IRON BINDING CAPACITY (Not yet reviewed by provider) Interpretation: Performing Lab:[place], [facility], [address] [facility], [place], [address] Laura-Sara Lyons MD Notes/Report: FASTING:YES FASTING: YES LIPID PANEL (Not yet reviewe d by provider) Interpretation: Performing Lab:, [facility], [address] [place], [address] [facility] Lyons Notes/Report: FASTING:YES FASTING: YES T4, FREE (Not yet reviewed b y provider) Interpretation: Performing Lab:, [facility], [address] [place], [address] [facility] Karin Lyons Notes/Report: FASTING:YES FASTING: YES TSH (Not yet reviewed by pro vider) Interpretation: Performing Lab:, [facility], [address] [place], [address] [facility] Karin Lyons Notes/Report: FASTING:YES FASTING: YES THYROID PEROXIDASE ANTIBODIE S (Not yet reviewed by provider) Interpretation: Performing Lab:, [facility], [address] [place], [address] Michael Medina Notes/Report: FASTING:YES FASTING: YES THYROID PEROXIDASE ANTIBODIES 2 <9 IU/mL TESTOSTERONE, FREE (DIALYSIS ) AND TOTAL,MS (Not yet reviewed by provider) Interpretation: Performing Lab:Z3E, [facility], [address] [address], [address], [place], [address] Kirt Leonard MD,PhD Notes/Report: FASTING:YES FASTING: YES Reason For Referral No Information Medications Medication SIG (Take, Route, Frequency, Duration) [...] Problem Status W/U Status Risk Notes Problem Vitamin D deficiency (90779608) Vitamin D deficiency, unspecified (E55.9) Active confirmed Problem Non-toxic single thyroid nodule (163928800) Nontoxic single thyroid nodule (E04.1) Active confirmed Problem Obesity (052070712) Obesity, unspecified (E66.9) Active confirmed Problem Irregular menstruation (54555239) Irregular menstruation, unspecified (N92.6) Active confirmed Vital Signs Heart Rate 82 /min 05/15/2024 Respiratory Rate 12 /min 05/15/2024 Blood pressure diastolic 72 mm Hg 05/15/2024 Height 62 in 05/15/2024 Blood pressure systolic 120 mm Hg 05/15/2024 Weight 180 lbs 05/15/2024 BMI 32.92 kg/m2 05/15/2024 Encounters Encounter Location Date Provider Diagnosis [facility] [address] [place] [address] 05/15/2024 [email or web address] Nontoxic single thyroid nodule E04.1 ; Obesity, unspecified E66.9 ; Irregular menstruation, unspecified N92.6 ; Impaired fasting glucose R73.01 ; Encounter for screening for lipoid disorders Z13.220 and Vitamin D deficiency, unspecified E55.9 [facility] [address] [place] [address] 05/15/2024 Emily [employer] Assessments Encounter Date Diagnosis (ICD Code) Assessment [...] appointment in 3-4 weeks post-lab completion. 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 Plan Of Treatment Pending Test Test Name Order Date COMPREHENSIVE METABOLIC PANEL 05/27/2024 VITAMIN D, 25-HYDROXY, LC/MS/MS 05/27/19 25 ACTH, PLASMA 05/27/2024 TSI (THYROID STIMULATING IMMUNOGLOBULIN) 05/27/2024 T3, FREE 05/27/2024 CORTISOL, TOTAL 05/27/2024 DHEA SULFATE 05/27/2024 ESTRADIOL 05/27/2024 FERRITIN 05/27/2024 HEMOGLOBIN A1c 05/27/2024 INSULIN 05/27/2024 CBC (INCLUDES DIFF/PLT) 05/27/2024 VITAMIN B12/FOLATE, SERUM PANEL 05/27/19 25 PROGESTERONE 05/27/2024 IRON AND TOTAL IRON BINDING CAPACITY 02/2025 LIPID PANEL 05/27/2024 T4, FREE 05/27/2024 TSH 05/27/2024 THYROID PEROXIDASE ANTIBODIES 05/27/2024 TESTOSTERONE, FREE (DIALYSIS) AND TOTAL, MS 05/27/2024 Insurance Providers Payer Name Payer Address Payer Phone Subscriber Number Group Number Insured Name Patient Relationship to Insured Coverage Start Date Coverage End Date [facility] [address] [place], [place] [phone] [id number] Maricruz Duke Self - patient is the insured Medicaid [place] [address] [address] [place] [address] [id number] Maricruz Duke Self - patient is the insured Medical (General) History Medical History History ICD Code thyroid nodule graves disease Surgical History Surgery Date(Month/Year) vaginal delivery x 2 thyroid biopsy of left dominant nodule tongue tied as infant Hospitalization History Reason Date(Month/Year) vaginal delivery x 2
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
--- OUTSIDE RECORDS SUMMARY | 2024-05-30 08:21 | XMS_ITS | Patient Health Record ---
Author Organization Formerly [facility] Address [address] [place] [address] Care Team Providers Care Corporate Giving Manager Name Role Phone Georgia Stallings Primary Care Provider Allergies No Known Allergies Reason For Referral No Information Medications Medication SIG (Take, Route, Frequency, Duration) Notes Start Date End Date Status busPIRone HCl 15 MG 1 tablet Orally Twic e a day Not-Taking clonazePAM 0.5 MG 1 tablet at bedtime Orally Once a day Not-Taking traZODone HCl 50 MG 1 tablet at bedtime as needed Orally at night for 30 day(s) 08/23/2020 Not-Taking Citalopram Hydrobromide 20 MG 1 tablet Orally Once a day for 30 day(s) Not-Taking lamoTRIgine 25 MG 1 tablet Orally Twic e a day Not-Taking Topiramate 100 MG 1 tablet Orally twic e a day for 30 day(s) 08/23/2020 Not-Taking Wellbutrin SR 150 MG 1 tablet in the mor jose Orally twice a day for 30 days Not-Taking hydrOXYzine HCl 10 MG 1 tablet as needed Orally every 4 hrs for 30 days 10/06/2020 Not-Taking Adderall 10 MG 1 tablet Orally once daily for 30 days 10/06/2020 Not-Taking Social History Tobacco Use: Social History Observation Description Date Details (start date - stop date) Never Smoker NA - NA Dont use, Tobacco Use/Smoking Question Answer Notes Are you a nonsmoker Problems Problem Type SNOMED Code ICD Code Onset Dates Problem Status W/U Status Risk Notes Problem 62548254 Bipolar II disorder (F31.81) Active confirmed Problem 29649379 ADHD (attention deficit hyperactivity disorder), combined type (F90.2) Active confirmed Problem 16380858 WILLIS (generalized anxiety disorder) (F41.1) Active confirmed Plan Of Treatment No Information Insurance Providers Payer Name Payer Address Payer Phone Subscriber Number Group Number Insured Name Patient Relationship to Insured Coverage Start Date Coverage End Date [facility] [address] [address] [place] [phone] [id number] Kyle Cruz Child - Insured has Financial Responsibility 1 MEDICAID [address] [place] [address] [id number] Maricruz Duke Self - patient is the insured 1 Medical (General) History Surgical History Surgery Date(Month/Year)
--- OUTSIDE RECORDS SUMMARY | 2024-05-30 08:21 | XMS_ITS | Referral Summary ---
Author Organization [facility] Address [address] [place] [address] Care Team Providers Care Catering Server Name Role Phone Neal Peters MD Primary Care Provider Source Comments [facility],non-owned Affiliates and Associated Physician Practices is amultiple site organization consisting of ambulatory clinics and hospital sitesin [place], [place], [place] and [place]. This disclosure is being madepursuant to the Care Everywhere program and may not contain all information available regarding this patient. Last updated 18.[facility] Allergies No known active allergies Medications * [...] PPD 12/07/2003 TDAP (7yrs+) 03/04/2010 VARICELLA 02/04/2007,04/30/2000 Social History Tobacco Use Types Packs/Day Years [...] Pressure 133/91 09/07/2023 12:22 PM CDT Repeat BS=197/86 Pulse 86 09/07/2023 12:22 PM CDT Temperature [...] 09/07/2023 12:22 PM CDT Plan of Treatment Not on file Goals Goal Patient Goal Type Associated Problems Recent Progress Patient-Stated? Author Medication Management General No Luci Navas, RN Note: Expected end date: Ongoing Interventions: Take all medications as prescribed Let your doctor know right away about any changes in your medications Make sure to request a refill of your medication at least one week prior to your last dose Use safety retraint in car Lifestyle On track( 017 4:02 PM CDT) No Pelaez, Cricket A, RN Administered Medications Maricruz Duke Personal/Famil y Self 2000 [address] 04[address] [address] Care Teams Catering Server Relationship Specialty Start Date End Date Neal Peters MD [address] [address] PCP - General Internal Medicine 09/07/23
[2024-05-30 08:50] LABS: BEDSIDEPREGUCG Negative (Negative)
[2024-05-30 08:50] LABS: Basophils Percent Auto 0.3 % (0.2-1.2); Eosinophils Absolute Auto 0.3 K/mm3 (0-0.3); Eosinophils Percent Auto 2.3 % (0-4.4); Hemoglobin 16.2 g/dL (12.0-15.0); Immature Granulocyte Absolute 0.03 K/mm3 (0.00-0.031); Immature Granulocyte Percent A 0.3 % (0-0.5); Lymphocytes Absolute Auto 2.58 K/mm3 (0.9-3.2); Lymphocytes Percent Auto 21.6 % (18.3-44.2); Mean Corpuscular HGB Conc 32.4 g/dl (32-36); Mean Corpuscular Hemoglobin 29.2 pg (26-34); Mean Corpuscular Volume 90.1 fl (80-100); Mean Platelet Volume 9.7 fl (7.4-10.4); Monocytes Absolute Auto 0.6 K/mm3 (0.1-0.6); Monocytes Percent Auto 5.3 % (2.6-8.5); Neutrophils Absolute Auto 8.4 K/mm3 (1.3-6.7); Neutrophils Percent Auto 70.2 % (45.5-73.1); Platelet Count Result 346 k/mm3 (150-375); Red Blood Count 5.55 M/mm3 (4.2-5.4); Red Cell Distribution Width 12.4 % (11.5-14.5); White Blood Count 11.9 K/mm3 (4.5-10.0)
[2024-05-30 08:58] LABS: Add Urine Microscopic? YES; Appearance Urine Cloudy (Clear); Bacteria Urine Rare /hpf; Bilirubin Urine Negative (Negative); Blood Urine Negative (Negative); Color Urine Yellow (Yellow); Glucose Urine UA Negative (Negative); Ketones Urine Negative (Negative); Leukocyte Esterase Ur Negative LEU/UL (Negative); Nitrate Urine Negative (Negative); Non Pathogenic Casts 0-2; Protein Urine Negative (Negative); Specific Grav Ur 1.023 (1.001-1.035); Squamous Epithelial Cell Urine Few /hpf (Few); Urobilinogen Urine 0.2 mg/dL (<2.0); WBC Urine 0-5 /hpf (0-3); pH Urine 5.5 (5.0-9.0)
[2024-05-30 09:05] LABS: Alanine Aminotransferase 35 U/L (6-35); Albumin Level 4.6 g/dL (3.5-5.1); Alkaline Phosphatase 80 U/L (38-126); Anion Gap 12 mmol/L (4-12); Aspartate Amino Transferase 22 U/L (14-36); Bilirubin,Total 0.9 mg/dL (0.2-1.3); Blood Urea Nitrogen 12 mg/dL (7-17); Calcium 9.5 mg/dL (8.4-10.2); Carbon Dioxide 26 mmol/L (22-30); Chloride 103 mmol/L (98-107); Estimated CRCL calculation 137 ml/min; Estimated Glomerular Filt Rate > 60; Glucose 93 mg/dL (65-110); Sodium 141 mmol/L (137-145)
[2024-05-30 09:18] LABS: Beta HCG Quantitative < 2.39 mIU/ML
--- NOTE | 2024-05-30 12:13 | ED_ITS ---
HPI - General Adult General Chief complaint: Unspecified Stated complaint: right groin pain Time Seen by Provider: 05/30/24 07:33 Source: patient Mode of arrival: ambulatory Limitations: no limitations History of Present Illness HPI narrative: 24-year-old with a history of ovarian cysts here with a complaint of right lower abdominal pain which started last night however since this morning pain has been quite intense. She denies any fever or chills. Denies any vaginal bleeding. Onset (ago): day(s) (1) Location: abdomen Radiation: non-radiation Severity: moderate Quality: aching Pain Consistency: constant Relieving factors: none Exacerbating factors: none Associated symptoms: denies other symptoms Related Data Allergies Allergy/AdvReac Type Severity Reaction Status Date / Time No Known Allergies Allergy Verified 05/30/24 07:07 Review of Systems 2 Review of Systems: All systems reviewed & are unremarkable except as noted in HPI and below Constitutional: Constitutional: Reports no additional constitutional complaints Eyes: Eyes: Reports no additional eye complaints ENT: Reports system reviewed and no additional complaints, except as documented Cardiovascular: Cardiovascular: Reports no additional cardiovascular complaints Respiratory: Respiratory: Reports no additional respiratory complaints Gastrointestinal: Gastrointestinal: Reports as per HPI Genitourinary: Genitourinary: Reports as per HPI Musculoskeletal: Musculoskeletal: Reports no additional musculoskeletal complaints Integumentary/Breasts: Skin/Breast: Reports system reviewed and no additional complaints, except as docu PMFSH Past Medical History Medical History Tongue tied Post depression Eczema Anxiety and depression Overweight (BMI 25.0-29.9) Migraines Family History Family History Sibling Diabetes mellitus Heart disease Hypertension Asthma Depression Stomach cancer Thyroid disease Other No pertinent family history in first degree relatives Social History Social History Smoking status: Never smoker Second hand tobacco smoke exposure: No Substance use: former Other substance usage details: Used marijuana prior to Do You Feel Safe in your Home?: No Lack of Transportation: No Lack of Food: Never True Current Housing: I Have Housing Concerned About Future Housing: No Difficulty Paying Gas/Electric Bills: No Difficulty Paying for Meds: No Currently Unemployed: No Education: High School Diploma/GED Difficulty w/ Childcare or Family Care: No Spiritual care concerns: No Exam 2 Narrative: GENERAL: Well-appearing, well-nourished, and in no acute distress. HEAD: Normocephalic, atraumatic. EYES: PERRLA and EOMI. NECK: Supple. CHEST: Clear to auscultation. No respiratory distress. HEART: Regular rate and rhythm. No murmur heard. Normal peripheral pulses. ABDOMEN: Soft, mild tenderness in the right lower quadrant area ., nondistended, normal active bowel sounds. EXTREMITIES: Normal range of motion. No edema. SKIN: Warm, dry, no rash. NEURO: No focal deficits. Alert and oriented x3. PSYCH: Normal mood and affect. Course Course Emergency Course: Notified patient about her ultrasound findings she still continues to have pain will do a CT scan to rule out appendicitis CT shows indeterminate appendix surgery was consulted. Tracy VISCOSE CELLAR WORKER for Surgery was here to see the patient discussed with Dr. Gomez, will take her to surgery. Vital Signs Vital signs: Vital Signs Oxygen Delivery Room Air 05/30/24 07:04 Pulse Rate 80 05/30/24 10:31 Respiratory Rate 16 05/30/24 10:31 Blood Pressure 122/86 05/30/24 10:31 Pulse Oximetry 98 05/30/24 10:31 Oxygen Delivery Room Air 05/30/24 07:04 Medical Decision Making Vital Signs Vital Signs: Vital Signs Oxygen Delivery Room Air 05/30/24 07:04 Pulse Rate 80 05/30/24 10:31 Respiratory Rate 16 05/30/24 10:31 Blood Pressure 122/86 05/30/24 10:31 Pulse Oximetry 98 05/30/24 10:31 Oxygen Delivery Room Air 05/30/24 07:04 Lab Data 05/30/24 08:39 05/30/24 08:39 Labs: Lab Results 05/30/24 05/30/24 Range/Units 08:39 08:48 WBC 11.9 H (4.5-10.0) K/mm3 RBC 5.55 H (4.2-5.4) M/mm3 Hgb 16.2 H D (12.0-15.0) g/dL Hct 50.0 H (37.0-47.0) % MCV 90.1 (80-100) fl MCH 29.2 (26-34) pg MCHC 32.4 (32-36) g/dl RDW 12.4 (11.5-14.5) % Plt Count 346 (150-375) k/mm3 MPV 9.7 (7.4-10.4) fl Immature Gran % (Auto) 0.3 (0-0.5) % Neut % (Auto) 70.2 (45.5-73.1) % Lymph % (Auto) 21.6 (18.3-44.2) % [place] % (Auto) 5.3 (2.6-8.5) % Eos % (Auto) 2.3 (0-4.4) % Baso % (Auto) 0.3 (0.2-1.2) % Lymph # (Auto) 2.58 (0.9-3.2) K/mm3 [place] # (Auto) 0.6 (0.1-0.6) K/mm3 Eos # (Auto) 0.3 (0-0.3) K/mm3 Baso # (Auto) 0.0 (0.0-0.1) K/mm3 Abs Immat Gran (auto) 0.03 (0.00-0.031) K/mm3 Absolute Neuts (auto) 8.4 H (1.3-6.7) K/mm3 Absolute Nucleated RBC 0.000 (0.0-0.012) K/mm3 Nucleated RBC % 0.0 (0.0-0.2) % Sodium 141 (137-145) mmol/L Potassium 4.0 (3.4-5.0) mmol/L Chloride 103 (98-107) mmol/L Carbon Dioxide 26 (22-30) mmol/L Anion Gap 12 (4-12) mmol/L BUN 12 (7-17) mg/dL Creatinine 0.51 L (0.7-1.0) mg/dL Estim Creat Clear Calc 137 ml/min Estimated GFR > 60 (59 - ) Glucose 93 (65-110) mg/dL Calcium 9.5 (8.4-10.2) mg/dL Total Bilirubin 0.9 (0.2-1.3) mg/dL AST 22 (14-36) U/L ALT 35 (6-35) U/L Alkaline Phosphatase 80 (38-126) U/L Total Protein 8.0 (6.3-8.2) g/dL Albumin 4.6 (3.5-5.1) g/dL Beta HCG, Quant < 2.39 mIU/ML Urine Color Yellow (Yellow) Urine Appearance Cloudy H (Clear) Urine pH 5.5 (5.0-9.0) Ur Specific [place] 1.023 (1.001-1.035) Urine Protein Negative (Negative) mg/dL Urine Glucose (UA) Negative (Negative) mg/dL Urine Ketones Negative (Negative) mg/dL Ur Blood (Man) Negative (Negative) Urine Nitrate Negative (Negative) Urine Bilirubin Negative (Negative) Urine Urobilinogen 0.2 (<2.0) mg/dL Leukocyte Esterase Rfl Negative (Negative) KM/UL Urine RBC 3-5 H (0-2) /hpf Urine WBC 0-5 (0-3) /hpf Ur Squamous Epith Cells Few (Few) /hpf Urine Bacteria Rare /hpf Urine Casts 0-2 POC Urine HCG, Qual Negative (Negative) Discharge Plan Discharge Clinical Impression: Acute appendicitis Qualifiers: Acute appendicitis type: with localized peritonitis Appendicitis gangrene presence: without gangrene Appendicitis perforation presence: without perforation Appendicitis abscess presence: without abscess Qualified Code(s): K 35.30 - Acute appendicitis with localized peritonitis, without perforation or gangrene Patient Disposition: Still a Patient Condition: Stable
[2024-05-30] MEDS: ACETAMINOPHEN 500 MG TABLET 1000 MG PO (12:19)
--- OUTSIDE RECORDS SUMMARY | 2024-05-30 12:24 | XMS_ITS | Clinical Summary ---
Author Organization [facility] Address [address] [place] [address] Care Team Providers Care Electric Fork Operator Name Role Phone Dayanna Peters MD Primary Care Provide r Allergies No known active allergies Medications escitalopram (LEXAPRO) 5 mg tablet Take 5 mg by mouth daily 3 Active zonisamide (ZONEGRAN) 50 mg capsuleIndications: Partial Epilepsy Treatment Adjunct Take 1 capsule (50 mg total) by mouth daily 30 capsule 3 3 Active rizatriptan ZINC PLATE GRAINER (MAXALT-ZINC PLATE GRAINER) 10 mg disintegrating tabletIndications:M igraine Take 1 [...] Comments Blood Pressure 90/60 06/21/2022 9:04 AM FLUE DUST LABORER Pulse 93 06/21/2022 9:04 AM FLUE DUST LABORER Temperature 36.7 C (98 F) 06/21/2022 9:04 AM FLUE DUST LABORER Respiratory Rate 20 06/21/2022 9:04 AM FLUE DUST LABORER Oxygen Saturation 99% 06/21/2022 9:04 AM FLUE DUST LABORER Inhaled Oxygen Concentration - - Weight 82 kg (180 lb 12.8 oz) 06/21/2022 9:04 AM FLUE DUST LABORER Height 157.5 cm (5' 2 ) 06/21/2022 9:04 AM FLUE DUST LABORER Body Mass Index 33.07 06/21/2022 9:04 AM FLUE DUST LABORER Plan of Treatment Health Maintenance Due Date Last Done Comments Cervical Cancer Screening 1999 Depression Screening 1999 Hepatitis C Screening 1999 Regular Well Visit/Exam 18-64 2017 DTaP/Tdap/Td Vaccine (7 - Td or Tdap) 03/04/2020 03/04/2010, 09/26/2004, 07/30/2000, Additional history exists Influenza Vaccine (#1) 2023 0, 03/04/2010, 01/26/2009, Additional history exists Pneumococcal vaccine <65 Completed 02/08/2001, 07/15 Varicella Vaccines Completed 02/04/2007, 04/30/2000 Hepatitis B Screening Completed 01/07/2010 , 1999, 1999, Additional history exists HPV Vaccines Completed 09/20/2010, 05/17, 03/04/2010 Insurance CMR Care Teams Electric Fork Operator Relationship Specialty Start Date End Date Dayanna Peters MD [address] [place] [address] PCP - General Internal Medicine 05/17/22
--- OUTSIDE RECORDS SUMMARY | 2024-05-30 12:24 | XMS_ITS | Referral Summary ---
Author Organization [facility] Address [address] [place] [address] Care Team Providers Care Refining Machine Operator Name Role Phone Dayanna Peters MD Primary Care Provide r Allergies No known active allergies Medications escitalopram (LEXAPRO) 5 mg tablet Take 5 mg by mouth daily 3 Active zonisamide (ZONEGRAN) 50 mg capsuleIndications: Partial Epilepsy Treatment Adjunct Take 1 capsule (50 mg total) by mouth daily 30 capsule 3 3 Active rizatriptan TIN RECOVERY WORKER (MAXALT-TIN RECOVERY WORKER) 10 mg disintegrating tabletIndications:M igraine Take 1 [...] Comments Blood Pressure 90/60 06/21/2022 9:04 AM THERAPEUTIC RADIOLOGIST Pulse 93 06/21/2022 9:04 AM THERAPEUTIC RADIOLOGIST Temperature 36.7 C (98 F) 06/21/2022 9:04 AM THERAPEUTIC RADIOLOGIST Respiratory Rate 20 06/21/2022 9:04 AM THERAPEUTIC RADIOLOGIST Oxygen Saturation 99% 06/21/2022 9:04 AM THERAPEUTIC RADIOLOGIST Inhaled Oxygen Concentration - - Weight 82 kg (180 lb 12.8 oz) 06/21/2022 9:04 AM THERAPEUTIC RADIOLOGIST Height 157.5 cm (5' 2 ) 06/21/2022 9:04 AM THERAPEUTIC RADIOLOGIST Body Mass Index 33.07 06/21/2022 9:04 AM THERAPEUTIC RADIOLOGIST Plan of Treatment Not on file Insurance CMR Care Teams Refining Machine Operator Relationship Specialty Start Date End Date Dayanna Peters MD [address] [place] [address] PCP - General Internal Medicine 05/17/22
--- OUTSIDE RECORDS SUMMARY | 2024-05-30 12:24 | XMS_ITS | Clinical Summary ---
Author Organization [facility] Address [address] [place] [address] Care Team Providers Care Sql Programmer Analyst Name Role Phone Unavailable Primary Care Provider [...]
--- OUTSIDE RECORDS SUMMARY | 2024-05-30 12:25 | XMS_ITS | Patient Health Summary ---
Author Organization [facility] Address [address] [place] [address] Care Team Providers Care Mobile Qa Tester Name Role Phone Neal Peters MD Primary Care Provider Note from [facility],non-owned Affiliates and Associated Physician Practices is amultiple site organization consisting of ambulatory clinics and hospital sitesin [place], [place], [place] and [place]. This disclosure is being madepursuant to the Care Everywhere program and may not contain all information available regarding this patient. Last updated 18.[facility] Allergies No known active allergies Medications [...] Pressure 133/91 09/07/2023 12:22 PM CDT Repeat CJ=231/86 Pulse 86 09/07/2023 12:22 PM CDT Temperature [...] DIFFERENTIAL(Performed 09/07/2023) Performed for Elevated LFTs * [place] LIVER ELASTOGRAPHY(Performed 09/07/2023) Performed for Elevated LFTs [...] 4.0 - 10.7 x10E9/L 09/07/2023 3:26 PM [facility] RBC Count 5.30(H) 3.90 - 5.20 x10E12/L 09/07/2023 3:26 PM [facility] Hemoglobin 13.9 11.9 - 15.8 g/dL 09/07/2023 3:26 PM [facility] Hematocrit 43.7 34.8 - 46.1 % 09/07/2023 3:26 PM [facility] MCV 82.5 80.0 - 98.0 fL 09/07/2023 3:26 PM [facility] MCH 26.2(L) 26.7 - 33.6 pg 09/07/2023 3:26 PM [facility] MCHC 31.8 31.7 - 36.3 g/dL 09/07/2023 3:26 PM [facility] RDW-CV 13.5 11.3 - 14.8 % 09/07/2023 3:26 PM [facility] Platelet Count 366 150 - 420 x10E9/L 09/07/2023 3:26 PM [facility] MPV 10.1 7.8 - 11.4 fL 09/07/2023 3:26 PM [facility] Neutrophil % 53.0 41.0 - 74.0 % 09/07/2023 3:26 PM [facility] Lymphocyte % 28.0 17.0 - 47.0 % 09/07/2023 3:26 PM [facility] Monocyte % 9.7 3.0 - 11.0 % 09/07/2023 3:26 PM [facility] Eosinophil % 8.0(H) 0.0 - 7.0 % 09/07/2023 3:26 PM [facility] Basophil % 1.1 0.0 - 1.6 % 09/07/2023 3:26 PM [facility] Immature Granulocytes % 0.2 0.0 - 1.0 % 09/07/2023 3:26 PM [facility] Neutrophil Absolute 4.38 1.60 - 7.50 x10E9/L 09/07/2023 3:26 PM [facility] Lymphocyte Absolute 2.31 1.00 - 4.40 x10E9/L 09/07/2023 3:26 PM [facility] Monocyte Absolute 0.80 0.15 - 1.00 x10E9/L 09/07/2023 3:26 PM [facility] Eosinophil Absolute 0.66(H) 0.00 - 0.60 x10E9/L 09/07/2023 3:26 PM [facility] Basophil Absolute 0.09 0.00 - 0.13 x10E9/L 09/07/2023 3:26 PM [facility] Blood BLOOD SPECIMEN / Unknown Lab Venipuncture / Unknown 09/07/2023 2:28 PM CDT 09/07/2023 3:16 PM T Laureen Cota MINER PLACER-MARKETING PROFESSOR LAB - HEMATO LOGY ORDERABLES [facility] [address] [place] [address], [facility] [phone] * (ABNORMAL) COMPREHENSIVE METABOLIC PANEL (09/07/2023 2:28 PM CDT) Only the most recent of2 resultswithin the time period is included. BUN 13 7 - 26 mg/dL 09/07/2023 3:45 PM [facility] Creatinine 0.56 0.56 - 0.96 mg/dL 09/07/2023 3:45 PM [facility] Sodium 141 136 - 145 mmol/L 09/07/2023 3:45 PM [facility] Potassium 4.1 3.5 - 4.5 mmol/L 09/07/2023 3:45 PM [facility] Chloride 106 98 - 107 mmol/L 09/07/2023 3:45 PM [facility] CO2 26 22 - 29 mmol/L 09/07/2023 3:45 PM [facility] Glucose 78 70 - 115 mg/dL 09/07/2023 3:45 PM [facility] Calcium 10.1 8.4 - 10.2 mg/dL 09/07/2023 3:45 PM [facility] Protein Total 7.9 6.0 - 8.3 g/dL 09/07/2023 3:45 PM [facility] Albumin 4.0 3.4 - 5.0 g/dL 09/07/2023 3:45 PM [facility] Bilirubin Total 0.4 0.2 - 1.2 mg/dL 09/07/2023 3:45 PM [facility] Alkaline Phosphatase 90 40 - 150 U/L 09/07/2023 3:45 PM [facility] ALT 27 5 - 55 U/L 09/07/2023 3:45 PM [facility] AST 16 5 - 34 U/L 09/07/2023 3:45 PM [facility] Anion Gap 9 6 - 16 09/07/2023 3:45 PM [facility] BUN/Creatinine Ratio 23 7 - 23 09/07/2023 3:45 PM CDT [facility] Osmolality Calculated 291 275 - 295 mOsm/kg 09/07/2023 3:45 PM CDT [facility] Albumin/Globulin Ratio 1.0(L) 1.1 - 2.3 09/07/2023 3:45 PM CDT [facility] eGFR by CKD-EPI >90 >=90 mL/min/1.7 3 m2 09/07/2023 3:45 PM CDT [facility] Blood BLOOD SPECIMEN / Unknown Lab Venipuncture / Unknown 09/07/2023 2:28 PM CDT 09/07/2023 3:15 PM CDT Laureen SANZ LAB - CHEMIS TRY ORDERABLES [facility] [address] [place] [address], [facility] [phone] * [place] LIVER ELASTOGRAPHY (09/07/2023 1:17 PM CDT) Narrative [...] patients with nonalcoholic fatty liver disease. Gastroenterology 2019;156:8326-8416. Sushila MS, Mary Carmen R, Van Natta [...] at-risk nonalcoholic steatohepatitis (MEDINA) in a [place] cohort and comparison to other non-invasive algorithms. PLoS ONE (2021) 17: [id number]. Josie AJ, Tae J, Enoc ZM, et al. Enhanced diagnosis of advanced fibrosis and cirrhosis in individuals with NAFLD using FibroScan-based Agile scores. J Hepatol (2022) 78: 247-259. Fibroscan LSM can also be used with laboratory parameters without formulas to assess prognosis. According to the Baveno-VII criteria (Ferrell, 2021), Fibroscan LSM ?15 kPa plus a platelet count of ?214y315/L rules out clinically significant portal hypertension (sensitivity [...] FIB-4 score (Ingauke et al. Hepatology Communications 2019;3:2491-1843) or NAFLD Fibrosis score (Conteh et al. Clinical Gastroenterology and Hepatology 2019;17:4022-2266 using routine clinical data. Note: 1. Fibroscan [...] additional interpretive data was last updated 08/19/22.) [email or web address] Laureen Cota MINER PLACER-MARKETING PROFESSOR PROCEDURE/DE NOR SURGICAL ORDERABLES * SKIN TEST PPD - POINT OF CARE (07/10/2018) Only the most recent of2 resultswithin the time period is included. PPD 0mm Comment:No induration Other MISCELLANEOUS SAMPLE S / Unknown 07/10/2018 Rosie Chapa MINER PLACER-MARKETING PROFESSOR LAB - POINT OF CARE ORDERABLES * SONOGRAM - COMPLETE (04/26/2018 8:04 AM RETICLE PRINTER) Anatomical Region Laterality Modality Other 04/26/2018 8:04 AM RETICLE PRINTER Narrative 04/26/2018 9:55 AM RETICLE PRINTER [facility] PHONE: FAX: Pat. Name: MARICRUZ DODD Pat. 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 MEASUREMENTS & AGE GROWTH EVALUATION Measurement GA Range Srce %for GA Ratios ----- ---- ------- BPD 8.8 cm 35w3d (98q5d-11b6s) Hadl BPD 66% FL/BPD 0.76 (0.71 - 0.87) HC 34.2 cm 39w3d (12p6e-64d6u) Hadl HC 97% FL/AC 0.20 (0.20 - 0.24) AC 32.7 cm 36w4d (63q9u-50t3i) Hadl AC 92% HC/AC 1.05 (0.93 - 1.12) FL 6.6 cm 34w1d (68a8y-26h4k) Hadl FL 22% CI 0.69 (0.70 - 0.86* HL 5.8 cm 33w6d (41p2a-66z3b) Jesse HL 30% GA for sonogram 36w3d (49x8m-70a0m) Weight Estimate: based on (BPD,HC,AC,FL) Avg Weight: [...] <Electronic Signature> 04/26/2018 09:55am Chase Heller MD [facility] ORDERABLES * IMAGING/RADIOLOGY/XRAY RESULTS ORDER (04/10/2018) [...] - CHEMISTRY ASHOK GRIMALDO Performing Organization Address City/[facility]/ZIP Co de Phone Number NONSSM RESULT SCAN * C-REACTIVE PROTEIN (12/06/2015) Blood specimen (specimen) BLOOD SPECIMEN / Unknown 12/06/2015 Scarlet Larkin MD LAB - CHEMISTRY ASHOK GRIMALDO NONSSM RESULT SCAN * KATI[place]KA BLOOD SCREEN W/REFLEX TITER (12/06/2015) Blood specimen (specimen) BLOOD SPECIMEN / Unknown 12/06/2015 Scarlet Larkin MD LAB - CHEMISTRY ASHOK GRIMALDO Performing Organization Address City/[facility] Co de Phone Number NONSSM RESULT SCAN * SED RATE AUTO (ESR) (12/06/2015) Blood specimen (specimen) BLOOD SPECIMEN / Unknown 12/06/2015 Scarlet Larkin MD LAB - HEMATOLOGY ORD [facility] RESULT [facility] * CBC W MANUAL DIFFERENTIAL (12/06/2015) Blood specimen (specimen) BLOOD SPECIMEN / Unknown 12/06/2015 Scarlet Larkin MD LAB - HEMATOLOGY ORD ERAERICH NONS RESULT SCAN * LAB RESULTS ORDER (04/13/2015) Scanned Document LAB - THERAPEUTIC DR UG MONITORING ORDERABLES * URINALYSIS W MICROSCOPIC - POINT OF CARE (05/06/2013 3:38 PM RETICLE PRINTER) Only the most recent of2 resultswithin the time period is included. Leukocyte UA trace Negative Comment:culture sent Nitrite UA POCT negative Negative Urobilinogen UA 0.2 0.1 - 1.0 Protein UA POCT trace Negative pH UA 5.0 5.0 - 8.0 pH units Blood UA negative Negative Specific Isabella UA POCT 1.030 1.002 - 1.030 Ketone [...] ORDERABLES * CULTURE URINE (05/06/2013 3:33 PM RETICLE PRINTER) Only the most recent of2 resultswithin the time period is included. Urine Culture Routine Final report [facility] INSURANCE BILL Result 1 No growth [facility] INSURANCE BILL Urine specimen (specimen) URINE SPECIMEN OBTAINED BY CLEAN CATCH PROCEDURE / Unknown 05/06/2013 3:33 PM RETICLE PRINTER 05/06/2013 9:07 PM RETICLE PRINTER Narrative Resulting Agency Comment [facility] [address] [facility] [phone] Scarlet Larkin MD LAB - MICROBIOLOGY O RDERAERICH [facility] INSURANCE BILL * (ABNORMAL) INFLUENZA A+B - POINT OF CARE (AMB) (04/18/2013 4:07 PM RETICLE PRINTER) Influenza A Antigen Rapid Positive(A) Negative Influenza [...] 9:10 PM CDT Narrative Resulting Agency Comment [facility] [address] [facility] [phone] Dhaval Jovel MD LAB - MICROBIOLOGY O [place] Performing Organization Address City/[facility] Co de Phone Number [facility] INSURANCE BILL [...] MD DIAGNOSTIC IMAGING O RDERABLES Care Teams Mobile Qa Tester Relationship Specialty Start Date End Date Neal Peters MD [address] [phone] PCP - General Internal Medicine 09/07/23
--- OUTSIDE RECORDS SUMMARY | 2024-05-30 12:25 | XMS_ITS | Referral Summary ---
Author Organization [facility] [employer] Address [address] [place] [address] Care Team Providers Care Nursery School Attendant Name Role Phone Neal Peters MD Primary Care Provider Source Comments [facility],non-owned Affiliates and Associated Physician Practices is amultiple site organization consisting of ambulatory clinics and hospital sitesin [place], [place], [place] and [place]. This disclosure is being madepursuant to the Care Everywhere program and may not contain all information available regarding this patient. Last updated 18.[facility] [employer] Allergies No known active allergies Medications * [...] Pressure 133/91 09/07/2023 12:22 PM CDT Repeat EE=024/86 Pulse 86 09/07/2023 12:22 PM CDT Temperature [...] Self [address] 04[address] [address] Care Teams Nursery School Attendant Relationship Specialty Start Date End Date Neal Peters MD [address] [id number] PCP - General Internal Medicine 09/07/23
--- OUTSIDE RECORDS SUMMARY | 2024-05-30 12:25 | XMS_ITS | Clinical Summary ---
Author Organization [facility] [employer] Address [address] [facility] [facility] [place] [address] Care Team Providers Care Parquet Floor Layer Name Role Phone Neal Peters MD Primary Care Provider Source Comments [facility],non-owned Affiliates and Associated Physician Practices is amultiple site organization consisting of ambulatory clinics and hospital sitesin [place], [place] and [place]. This disclosure is being madepursuant to the Care Everywhere program and may not contain all information available regarding this patient. Last updated 18.[facility] [employer] Allergies No known active allergies Medications * [...] Pressure 133/91 09/07/2023 12:22 PM CDT Repeat RN=237/86 Pulse 86 09/07/2023 12:22 PM CDT Temperature [...] [address] 04[address]17 [place] [address] Care Teams Parquet Floor Layer Relationship Specialty Start Date End Date Neal Peters MD [address] [facility] [address] [place] [address] PCP - General Internal Medicine 09/07/23
[2024-05-30] MEDS: ONDANSETRON INJ 4 MG/2 ML VIAL IV PUSH ×2 (12:33→15:40)
[2024-05-30] MEDS: SODIUM CHLORIDE 0.9% IV 1,000 ML 150 ML IV CONT (12:33)
--- NOTE | 2024-05-30 12:54 | P.HP_ITS ---
H&P: HPI History of Present Illness Date/Time: 05/30/24 12:54 Chief Complaint: Right lower quadrant abdominal pain Narrative: This is a 24-year-old with history of ovarian cysts, who presented to the ED today with complaints of right lower quadrant pain. She reports noticing some diffuse lower abdominal cramping yesterday throughout the day. She did not pay much attention to this pain, as she thought it was the start of her menstrual cycle. This cramping persisted throughout the day and she woke up early this morning from sleep with an acute onset of right lower quadrant pain. She has a history of ovarian cyst and reports this pain is much more severe than what she has experienced in the past. Due to her worsening pain, she came into the ED for evaluation. She is afebrile and vital signs stable in the ED. [place] [address]. UA negative for UTI. Bedside negative. With her history of ovarian cyst, she initially had a transvaginal pelvic ultrasound that showed a 3.9 cm cyst in the left ovary and right ovary not visualized. She then had a CT scan of the abdomen and pelvis which showed her appendix measuring 8 mm, which is indeterminate for acute appendicitis. Also seen is a 3 cm cyst in the right ovary likely a follicular cyst. Our service was then consulted for the right lower quadrant pain with abnormal CT findings of the appendix. She is now seen in the ED. She is still having right lower quadrant pain. She reports her pain is aggravated by bending and certain movements. She reports that it hurt to get in and out of the car. No previous abdominal surgeries. Denies ever having this type of pain in the past. Review of Systems Review of Systems: All systems reviewed & are unremarkable except as noted in HPI and below PMFSH Past Medical History Medical History Tongue tied Post depression Eczema Anxiety and depression Overweight (BMI 25.0-29.9) Migraines Surgical History Surgical History No pertinent past surgical history Family History Family History Sibling Diabetes mellitus Heart disease Hypertension Asthma Depression Stomach cancer Thyroid disease Other No pertinent family history in first degree relatives Social History Social History Smoking status: Never smoker Second hand tobacco smoke exposure: No Substance use: former Other substance usage details: Used marijuana prior to Do You Feel Safe in your Home?: No Lack of Transportation: No Lack of Food: Never True Current Housing: I Have Housing Concerned About Future Housing: No Difficulty Paying Gas/Electric Bills: No Difficulty Paying for Meds: No Currently Unemployed: No Education: High School Diploma/GED Difficulty w/ Childcare or Family Care: No Spiritual care concerns: No Meds Home Medications and Allergies Home Medications ?Medication ?Instructions ?Recorded ?Confirmed ?Type ibuprofen 600 mg tablet 600 mg PO Q6H PRN Cramping #30 tabs 03/30/23 Rx polysaccharide iron complex 150 mg 150 mg PO BIDWM #60 caps 03/30/23 Rx iron capsule Allergies Allergy/AdvReac Type Severity Reaction Status Date / Time No Known Allergies Allergy Verified 05/30/24 07:07 Vital Signs Vital Signs - 24 hr 05/30/24 07:04 05/30/24 10:31 05/30/24 12:20 Temperature Pulse Rate 80 102 H Respiratory Rate 16 Blood Pressure 122/86 Pulse Oximetry 98 Oxygen Delivery Room Air 05/30/24 12:25 05/30/24 12:26 05/30/24 12:27 Temperature 97.0 F L Pulse Rate 102 H 103 H 97 Respiratory Rate 14 16 17 Blood Pressure 133/88 133/88 Pulse Oximetry 100 100 Oxygen Delivery 05/30/24 12:31 Temperature Pulse Rate 94 Respiratory Rate 23 H Blood Pressure 121/85 Pulse Oximetry 99 Oxygen Delivery Exam Const: General: comfortable and no acute distress Nutritional Appearance: average body habitus Orientation/consciousness: patient oriented x3 HENMT: Head: normocephalic and atraumatic Ears: hearing grossly normal bilaterally Mouth: Yes moist mucous membranes Eyes: General: appearance normal, both eyes and all related structures Pupils: Equal, round and reactive pupils present Neck: Neck: normal visual inspection and full ROM Resp: Effort & Inspection: no respiratory distress Auscultation: clear to auscultation bilaterally Cardio: Rate: regular rate Rhythm: regular rhythm Peripheral pulses: Peripheral pulses 2+ throughout GI: Inspection: non-distended, no scars, striae and no visible herniation GI Palp: Yes Soft to palpation, Yes Tenderness to palpation present (GI) (focal RLQ tenderness), Yes Guarding due to palpation present (GI) (RLQ), Yes No hepatosplenomegaly present and No Rebound tenderness present Percussion: Yes normal to percussion Auscultation: normal bowel sounds Skin: General skin exam: normal color Neuro: General: moves all extremities and no focal motor deficits Speech: normal speech Motor exam (neuro): 5/5 motor strength present throughout Extrem: General: normal to inspection and no edema Psych: Mental Status: mental status grossly normal Attitude: cooperative Insight: Good insight present (Psych) Judgement: Good judgement present (Psych) H&P: Results Labs Labs: Short CBC 05/30/24 Range/Units 08:39 WBC 11.9 H (4.5-10.0) K/mm3 Hgb 16.2 H D (12.0-15.0) g/dL Hct 50.0 H (37.0-47.0) % Plt Count 346 (150-375) k/mm3 BMP 05/30/24 08:39 Sodium 141 Potassium 4.0 Chloride 103 Carbon Dioxide 26 BUN 12 Creatinine 0.51 L Glucose 93 Calcium 9.5 Liver Function 05/30/24 Range/Units 08:39 Total Bilirubin 0.9 (0.2-1.3) mg/dL AST 22 (14-36) U/L ALT 35 (6-35) U/L Alkaline Phosphatase 80 (38-126) U/L Albumin 4.6 (3.5-5.1) g/dL Urine 05/30/24 Range/Units 08:39 Urine Color Yellow (Yellow) Urine Appearance Cloudy H (Clear) Urine pH 5.5 (5.0-9.0) Ur Specific [place] 1.023 (1.001-1.035) Urine Protein Negative (Negative) mg/dL Urine Glucose (UA) Negative (Negative) mg/dL Imaging CT scan - abdomen: Radiologist's impression: ITS Impressions Pelvic/Transvag US 05/30/24 09:46 IMPRESSION: 1. Right ovary not visualized. 2. 3.9 cm cyst in left ovary, likely a follicular cyst. Abdomen/Pelvis CT 05/30/24 11:10 IMPRESSION: 1. Appendiceal diameter of 8 mm, which is indeterminate for acute appendicitis. Correlate with physical exam. 2. 3.0 cm cyst in the right ovary, likely a follicular cyst. Assessment and Plan Assessment and plan (1) Acute appendicitis: Qualifiers: Acute appendicitis type: with localized peritonitis Appendicitis abscess presence: without abscess Appendicitis gangrene presence: without gangrene Appendicitis perforation presence: without perforation Qualified Code(s): K35.30 - Acute appendicitis with localized peritonitis, without perforation or gangrene Code(s): K35.80 - Unspecified acute appendicitis Status: Acute Assessment and Plan: Patient presents with RLQ abdominal pain and CT findings of an 8 mm appendix without surrounding inflammatory stranding. Her WBC count is elevated at 11,900. Her clinical picture and exam would correlate with acute appendicitis. I discussed the CT scan findings and both nonoperative and surgical treatment options with the patient. We discussed the option of treating with IV antibiotics and monitoring versus proceeding with a laparoscopic appendectomy, possible open. We discussed the risks of recurrence or treatment failure with the option of antibiotic therapy. I also discussed the details of a laparoscopic appendectomy, possible open, under general anesthesia that would be done by Dr. Gomez. Description of the procedure, risks, benefits, alternatives, and expected recovery were discussed. She wishes to proceed with surgery. Will keep her NPO and start IV Zosyn, IV fluids, and analgesics as needed pre-operatively. She has been added to the surgery schedule for today. Plan I have discussed the patient's case and plan of care with Dr. Gomez.
[2024-05-30] MEDS: LACTATED RINGERS 1,000 ML 30 ML IV CONT ×2 (13:00→15:20)
--- NOTE | 2024-05-30 14:04 | WPDHPUPDATE1 ---
History and Physical Update Update Date/Time: 05/30/24 14:04 History and Physical has been reviewed, including an updated exam of the patient. There are NO changes in the patient's condition. Risks, benefits, and alternatives have been discussed and questions answered. Patient agrees to proceed with procedure.
--- NOTE | 2024-05-30 14:13 | P.PNAN_ITS ---
Anes - Initial Pre Proc Eval Procedure: Operation Date: 05/30/24 15:00 Proposed Procedures p Laparoscopic Appendectomy - Paulo Gomez DO Date/Time: 05/30/24 14:13 Surgeon: Paulo Gomez DO Pre Op Diagnosis: right groin pain Patient Data Age: 24 Gender: F Height: 1.55 m Weight: 81.8 kg Last Vital Signs Temp 97.0 F L 05/30/24 12:26 Pulse 94 05/30/24 12:31 Resp 23 H 05/30/24 12:31 BP 121/85 05/30/24 12:31 Pulse Ox 99 05/30/24 12:31 O2 Del Method Room Air 05/30/24 07:04 Allergies Allergy/AdvReac Type Severity Reaction Status Date / Time No Known Allergies Allergy Verified 05/30/24 07:07 Home Medications ?Medication ?Instructions ?Recorded ?Confirmed ?Type ibuprofen 600 mg tablet 600 mg PO Q6H PRN Cramping #30 tabs 03/30/23 Rx polysaccharide iron complex 150 mg 150 mg PO BIDWM #60 caps 03/30/23 Rx iron capsule Laboratory Tests 05/30/24 05/30/24 08:39 08:48 WBC 11.9 H K/mm3 (4.5-10.0) RBC 5.55 H M/mm3 (4.2-5.4) Hgb 16.2 H D g/dL (12.0-15.0) Hct 50.0 H % (37.0-47.0) MCV 90.1 fl (80-100) MCH 29.2 pg (26-34) MCHC 32.4 g/dl (32-36) RDW 12.4 % (11.5-14.5) Plt Count 346 k/mm3 (150-375) MPV 9.7 fl (7.4-10.4) Immature Gran % (Auto) 0.3 % (0-0.5) Neut % (Auto) 70.2 % (45.5-73.1) Lymph % (Auto) 21.6 % (18.3-44.2) [place] % (Auto) 5.3 % (2.6-8.5) Eos % (Auto) 2.3 % (0-4.4) Baso % (Auto) 0.3 % (0.2-1.2) Lymph # (Auto) 2.58 K/mm3 (0.9-3.2) [place] # (Auto) 0.6 K/mm3 (0.1-0.6) Eos # (Auto) 0.3 K/mm3 (0-0.3) Baso # (Auto) 0.0 K/mm3 (0.0-0.1) Abs Immat Gran (auto) 0.03 K/mm3 (0.00-0.031) Absolute Neuts (auto) 8.4 H K/mm3 (1.3-6.7) Absolute Nucleated RBC 0.000 K/mm3 (0.0-0.012) Nucleated RBC % 0.0 % (0.0-0.2) Sodium 141 mmol/L (137-145) Potassium 4.0 mmol/L (3.4-5.0) Chloride 103 mmol/L (98-107) Carbon Dioxide 26 mmol/L (22-30) Anion Gap 12 mmol/L (4-12) BUN 12 mg/dL (7-17) Creatinine 0.51 L mg/dL (0.7-1.0) Estim Creat Clear Calc 137 ml/min Estimated GFR > 60 (59 - ) Glucose 93 mg/dL (65-110) Calcium 9.5 mg/dL (8.4-10.2) Total Bilirubin 0.9 mg/dL (0.2-1.3) AST 22 U/L (14-36) ALT 35 U/L (6-35) Alkaline Phosphatase 80 U/L (38-126) Total Protein 8.0 g/dL (6.3-8.2) Albumin 4.6 g/dL (3.5-5.1) Beta HCG, Quant < 2.39 mIU/ML Urine Color Yellow (Yellow) Urine Appearance Cloudy H (Clear) Urine pH 5.5 (5.0-9.0) Ur Specific [place] 1.023 (1.001-1.035) Urine Protein Negative mg/dL (Negative) Urine Glucose (UA) Negative mg/dL (Negative) Urine Ketones Negative mg/dL (Negative) Ur Blood (Man) Negative (Negative) Urine Nitrate Negative (Negative) Urine Bilirubin Negative (Negative) Urine Urobilinogen 0.2 mg/dL (<2.0) Leukocyte Esterase Rfl Negative KM/UL (Negative) Urine RBC 3-5 H /hpf (0-2) Urine WBC 0-5 /hpf (0-3) Ur Squamous Epith Cells Few /hpf (Few) Urine Bacteria Rare /hpf Urine Casts 0-2 POC Urine HCG, Qual Negative (Negative) Patient hx anesthesia problems: none Family hx anesthesia problems: none Results Review: All pre-operative results and documents have been reviewed as part of the pre- operative evaluation. [facility] Past Medical History Medical History Tongue tied Post depression Eczema Anxiety and depression Overweight (BMI 25.0-29.9) Migraines Surgical History Surgical History No pertinent past surgical history Family History Family History Sibling Diabetes mellitus Heart disease Hypertension Asthma Depression Stomach cancer Thyroid disease Other No pertinent family history in first degree relatives Social History Social History Smoking status: Never smoker Second hand tobacco smoke exposure: No Substance use: former Other substance usage details: Used marijuana prior to Do You Feel Safe in your Home?: No Lack of Transportation: No Lack of Food: Never True Current Housing: I Have Housing Concerned About Future Housing: No Difficulty Paying Gas/Electric Bills: No Difficulty Paying for Meds: No Currently Unemployed: No Education: High School Diploma/GED Difficulty w/ Childcare or Family Care: No Spiritual care concerns: No Anes - Eval Final PreProcedure Day of Procedure 05/30/24 14:13 Patient weight: obese Heart: regular rate and rhythm Lungs: clear to auscultation Airway: Mallampati scale class II Neurological: alert and oriented Last oral intake: >/= 8 hours ASA classification: II Emergent: no Anesthetic plan: proceed Anesthesia type and monitoring: general ETT and standard monitoring Results Review: All pre-operative results and documents have been reviewed as part of the pre- operative evaluation. Informed Consent: The patient's anesthetic plan and its attendant risks and benefits were discus sed with the patient/family/POA. Questions were solicited and answers provided to the satisfaction of the patient/family/POA.
[2024-05-30] MEDS: BUPIVACAINE/EPINEPHRINE 0.5% 50 ML VIAL 30 ML INFILTRATE (14:43)
[2024-05-30] MEDS: fentaNYL CITRATE INJ (*CRX) 100 MCG/2 ML VIAL 25 MCG IV PUSH ×4 (15:36→15:48)
--- NOTE | 2024-05-30 15:50 | W.PM.PROC2 ---
Procedure Note - Detailed Date of Procedure 05/30/24 Pre-op Diagnosis Acute appendicitis Post-op Diagnosis Other (Ruptured right ovarian cyst, appendicitis) Procedure Performed Laparoscopic appendectomy Surgeon Paulo Gomez, DO Anesthesia General and Local (0.5% bupivicaine with epinephrine) Indications This is a 24-year-old woman who presented to the emergency department with right lower quadrant abdominal pain. She was having some crampy abdominal pain yesterday but then pain became more severe and woke her from sleep this morning. She had never experienced anything like this in the past. She has had ovarian cysts in the past but symptoms were different. She did have an elevated white blood count in the emergency department and CT showed a slightly dilated appendix and 3 cm right ovarian cyst. She had focal tenderness in the right lower quadrant and positive guarding. Discussions were made with the patient about treatment options and decision was made to proceed with laparoscopic appendectomy, possible open. Findings Laparoscopic appendectomy was performed. The appendix was identified in the right lower quadrant and there was some blood tinged fluid around the appendix. The appendix appeared possibly slightly dilated and indurated, but there was no significant erythema or signs of significant inflammation. The base of the appendix appeared healthy and viable. The appendix was removed and sent to the lab for pathology. Upon inspecting further into the pelvis, she was found to have a right ovarian cyst. As I flipped the ovary over to inspected further, I did identify that there was a ruptured cyst with some clear fluid draining from the cyst. There did not appear to be any active bleeding. The ovary otherwise appeared healthy and viable. The left ovary also possibly had a small cyst but otherwise appeared normal. The abdomen and pelvis was irrigated with sterile saline. No other abnormalities were seen. Description of Procedure Procedure as well as risks, benefits, and alternatives were explained to the patient. The patient agreed to proceed. Written consent was obtained and placed in chart prior to procedure. The patient was brought back to surgical suite. She was placed supine on operating table. Time-out was done to confirm the patient and procedure. The patient was then intubated by the Anesthesia Department. Her abdomen was prepped and draped in sterile fashion using chlorhexidine prep. A 5 mm incision was made just to the left of the patient's umbilicus and a 5 mm Optiview trocar was advanced through the abdominal layers under direct visualization. Once inside the peritoneal cavity, carbon dioxide insufflation was used to create a pneumoperitoneum. The camera was inserted and the abdomen was inspected. No immediate abnormalities were identified. The patient was then placed in slight Trendelenburg position and rotated to the left. A 5 mm incision was made in the suprapubic region in midline and a 5 mm trocar was inserted under direct visualization. A 12 mm incision was made in the left lower quadrant and a 12 mm trocar was inserted under direct visualization. The right lower quadrant was carefully inspected. The cecum was identified and then this was traced back to the appendix. The appendix was identified and grasped at the mesoappendix and lifted anteriorly. Careful blunt dissection was carried out at the base of the appendix through the mesoappendix using a [place] grasper. An Endo-JORDEN 45 mm blue load stapler was then advanced across the base of the appendix and clamped and fired. A white reload was then clamped across the mesoappendix and fired. This freed up our appendix completely. It was then placed in an EndoCatch bag and removed through the left lower quadrant port. The staple lines were then inspected. Hemostasis appeared adequate and the staple lines appeared secure. The area was then irrigated with sterile saline. The pelvis was then carefully inspected and irrigated with sterile saline as well and the remainder of the abdomen was carefully inspected. There did appear to be a right ovarian cyst and as I lifted the ovary up to inspect the underside of the ovary there did appear to be a rupture on the surface of the cyst. This appeared to be open adequately for complete drainage and there did not appear to be any active bleeding. The patient was then flattened out in bed. One final inspection was made around the abdominal cavity and no other abnormalities were seen. The left lower quadrant port was removed and a Ramirez-Channing cone was used to approximate the fascia with an 0 Vicryl simple interrupted suture. The remaining ports were then removed under direct visualization. The camera was removed and the pneumoperitoneum was released. 0.5% bupivacaine with epinephrine was infiltrated locally around each of the incisions. The skin of the incisions was then approximated using 4-0 Monocryl subcuticular suture and Exofin glue was applied on top. The patient was then awakened from anesthesia, extubated, and transferred to Recovery. Estimated Blood Loss 5 Urine Output 300 Pathology Yes (Appendix) Complications No immediate complications Condition Stable Disposition Same day [facility] Billing Surgery - Charge Forward: Surgery Billing
--- NOTE | 2024-05-30 16:09 | SUR.PHASEII ---
Patient still nauseated after ordered Trent Yoo contacted. New orders for RN to give 25mg Benadryl IVP once.
[2024-05-30] MEDS: diphenhydrAMINE HCl INJ 50 MG/ML VIAL 25 MG IV PUSH (16:16)
--- NOTE | 2024-05-30 16:28 | SUR.PHASEII ---
Pt requesting pain pill prior to discharge - MD Yoo notified. New orders for RN to give 5mg oxycodone PO once PRN for pain.
--- NOTE | 2024-05-30 16:37 | SUR.PHASEII ---
MD Yoo contacted - request for Toradol IVP for pain. New orders for RN to give 15mg toradol IVP once.
[2024-05-30] MEDS: oxyCODONE HCL (*CRX) 5 MG TAB IR PO (16:53)
--- NOTE | 2024-05-30 17:26 | SUR.PHASEII ---
LR bag #3 hung and infused 700 mL.
== END 2024-05-30 17:43 | disposition home or self-care (01) ==
LOC: ANHED 12:14 → ANHSURGERY 12:22
PROVIDERS: Emergency Provider Family Medicine; PCP Internal Medicine; Visit Provider Surgery
PROC: 0DTJ4ZZ Resection of Appendix, Percutaneous Endoscopic Approach (ICD-10-PCS; CPT 44970; principal; 2024-05-30 15:00)
DX: K38.8 Other specified diseases of appendix (principal); N83.202 Unspecified ovarian cyst, left side; N83.201 Unspecified ovarian cyst, right side; E66.9 Obesity, unspecified; Z68.34 Body mass index [BMI] 34.0-34.9, adult
CPT/HCPCS: 44970; 36415; 74176; 76830; 76856; 80053; 81001; 81025; 84702; 85025; 88304; A9270; J1100; J1200; J1885; J2003; J2250; J2405; J2704; J3010; J7030; J7120

== ENCOUNTER 2024-06-09 09:50 | Emergency (ER) | payer OTHER, MEDICAID, SELFPAY ==
--- NOTE | ~2024-06-09 | CT_ITS ---
EXAMINATION: CT abdomen pelvis w con DATE: 06/09/2024 11:59 INDICATION: Left lower quadrant abdominal pain. TECHNIQUE: Computed tomography (CT) of the abdomen and pelvis was performed with 100 mL Omnipaque 350 intravenous contrast. Automated exposure control and iterative reconstruction technique were employe d. The dose-length product was 617.98 mGy-cm. COMPARISON: CT abdomen and pelvis 05/30/2024 FINDINGS: The visualized portions of the lung bases are clear without pneumonia or pleural effusion. The heart size is normal. No pericardial effusion. The liver and gallbladder are normal. There is a 2 .6 cm mass in the spleen. The pancreas, adrenal glands, and kidneys are normal. There is an intrauter ine device in expected position. There are no dilated loops of bowel. There are changes of appendecto my. There are no pathologically enlarged lymph nodes. There is no free intraperitoneal fluid. There i s subcutaneous fat stranding in the anterior abdominal wall, consistent with inflammation at sites of recent surgery. The bones are unremarkable. IMPRESSION: 1. 2.6 cm splenic mass, most likely a benign mass such as cyst, granulomatous disease, or hemangioma. Malignancy is unlikely, but could have the same appearance. Consider abdomen MRI without and with co ntrast in 6 months. Reviewed, dictated and finalized at location A. ITUTIONAL ASSET MANAGER IMPRESSION: 1. 2.6 cm splenic mass, most likely a benign mass such as cyst, granulomatous d isease, or hemangioma. Malignancy is unlikely, but could have the same appearan ce. Consider abdomen MRI without and with contrast in 6 months.
[2024-06-09 09:56] VITALS: BP 124/83; PULSE 84; RESP 18; TEMP 36.6; O2SAT 98
--- OUTSIDE RECORDS SUMMARY | 2024-06-09 10:49 | XMS_ITS | Clinical Summary ---
Author Organization [facility] Address [address] [place] [address] Care Team Providers Care Final Block Press Operator Name Role Phone Dayanna Peters MD Primary Care Provide r Allergies No known active allergies Medications escitalopram (LEXAPRO) 5 mg tablet Take 5 mg by mouth daily 3 Active zonisamide (ZONEGRAN) 50 mg capsuleIndications: Partial Epilepsy Treatment Adjunct Take 1 capsule (50 mg total) by mouth daily 30 capsule 3 3 Active rizatriptan FRANCHISE FIELD CONSULTANT (MAXALT-FRANCHISE FIELD CONSULTANT) 10 mg disintegrating tabletIndications:M igraine Take 1 [...] Comments Blood Pressure 90/60 06/21/2022 9:04 AM INDIVIDUAL PENSION ADVISER Pulse 93 06/21/2022 9:04 AM INDIVIDUAL PENSION ADVISER Temperature 36.7 C (98 F) 06/21/2022 9:04 AM INDIVIDUAL PENSION ADVISER Respiratory Rate 20 06/21/2022 9:04 AM INDIVIDUAL PENSION ADVISER Oxygen Saturation 99% 06/21/2022 9:04 AM INDIVIDUAL PENSION ADVISER Inhaled Oxygen Concentration - - Weight 82 kg (180 lb 12.8 oz) 06/21/2022 9:04 AM INDIVIDUAL PENSION ADVISER Height 157.5 cm (5' 2 ) 06/21/2022 9:04 AM INDIVIDUAL PENSION ADVISER Body Mass Index 33.07 06/21/2022 9:04 AM INDIVIDUAL PENSION ADVISER Plan of Treatment Health Maintenance Due Date [...] 09/20/2010, 05/17, 03/04/2010 Insurance CMR Care Teams Final Block Press Operator Relationship Specialty Start Date End Date Dayanna Peters MD [address] [place] [address] PCP - General Internal Medicine 05/17/22
--- OUTSIDE RECORDS SUMMARY | 2024-06-09 10:49 | XMS_ITS | Referral Summary ---
Author Organization [facility] Address [address] [place] [address] Care Team Providers Care Coding Manager Name Role Phone Dayanna Peters MD Primary Care Provide r Allergies No known active allergies Medications escitalopram (LEXAPRO) 5 mg tablet Take 5 mg by mouth daily 3 Active zonisamide (ZONEGRAN) 50 mg capsuleIndications: Partial Epilepsy Treatment Adjunct Take 1 capsule (50 mg total) by mouth daily 30 capsule 3 3 Active rizatriptan CRYPTOLOGIC TECHNICIAN (MAXALT-CRYPTOLOGIC TECHNICIAN) 10 mg disintegrating tabletIndications:M igraine Take 1 [...] Comments Blood Pressure 90/60 06/21/2022 9:04 AM MAINTENANCE PARTS TECHNICIAN Pulse 93 06/21/2022 9:04 AM MAINTENANCE PARTS TECHNICIAN Temperature 36.7 C (98 F) 06/21/2022 9:04 AM MAINTENANCE PARTS TECHNICIAN Respiratory Rate 20 06/21/2022 9:04 AM MAINTENANCE PARTS TECHNICIAN Oxygen Saturation 99% 06/21/2022 9:04 AM MAINTENANCE PARTS TECHNICIAN Inhaled Oxygen Concentration - - Weight 82 kg (180 lb 12.8 oz) 06/21/2022 9:04 AM MAINTENANCE PARTS TECHNICIAN Height 157.5 cm (5' 2 ) 06/21/2022 9:04 AM MAINTENANCE PARTS TECHNICIAN Body Mass Index 33.07 06/21/2022 9:04 AM MAINTENANCE PARTS TECHNICIAN Plan of Treatment Not on file Insurance CMR Care Teams Coding Manager Relationship Specialty Start Date End Date Dayanna Peters MD [address] [place] [address] PCP - General Internal Medicine 05/17/22
--- OUTSIDE RECORDS SUMMARY | 2024-06-09 10:50 | XMS_ITS ---
Author Organization [facility] Address [address] [address] Care Team Providers Care Private Eye Name Role Phone Anjum Emily Primary Care [...] Risk Notes Problem Non-toxic single thyroid nodule (957056411) Nontoxic single thyroid nodule (E04.1) Active confirmed Problem Obesity (266593907) Obesity, unspecified (E66.9) Active confirmed Problem Irregular menstruation (42161711) Irregular menstruation, unspecified (N92.6) Active confirmed Problem Vitamin D deficiency (23203201) Vitamin D deficiency, unspecified (E55.9) Active confirmed Vital Signs Blood pressure systolic 120 mm Hg 05/15/19 25 Blood pressure diastolic 72 mm Hg 025 Heart Rate 82 /min 05/15/2024 Respiratory Rate 12 /min 05/15/2024 Height 62 in 05/15/2024 Weight 180 lbs 05/15/2024 BMI 32.92 kg/m2 05/15/2024 Encounters Encounter Location Date Provider Diagnosis [facility] - Emily Valero [address] [place] [address] 05/15/2024 Emily Valero Nontoxic single thyroid nodule [...] appointment in 3-4 weeks post-lab completion. Suspected Benge's SyndromePresentation includes weight gain, anxiety, mood swings, [...] treatment plan. Consider the relation to suspected Benge's syndrome. Multiple ComorbiditiesPatient reports various health issues [...] procedures, referring and communicating with other health care center manager, documenting clinical information in the electronic or [...] procedures, referring and communicating with other health care center manager, documenting clinical information in the electronic or [...] Notes * Aleksandr DUKEDreOB:2000 (24 yo F)Acc No.[id number]:05/15/2024 Progress Notes Patient: Maricruz CAST Provider: Sherry Valero MD :2000 A ge:24 Y S ex:Female Date:05/15/2024 Address:[address] [place] [address] Subjective: * Chief Complaints: * 1 . [...] appointment in 3-4 weeks post-lab completion. Suspected Benge's SyndromePresentation includes weight gain, anxiety, mood swings, [...] procedures, referring and communicating with other health care center manager, documenting clinical information in the electronic or [...] labwork) * Billing Information: * Visit Code: 69541 Office Visit, New Pt., Level 4. 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 Current migraine medications will be continued, [...]
--- OUTSIDE RECORDS SUMMARY | 2024-06-09 10:50 | XMS_ITS | Data Portability ---
Author Organization [place] [facility], Main Office Address [address] [place] [address] Care Team Providers Care Corporate Human Resources Manager Name Role Phone NEAL PETERS Primary Care Provider [phone] ISAURA RICO Senior Sales Operations Analyst [phone] LIZZIE MCKEON Paper Sheeter [phone] VERONA CLOUD Neurologist [facility] Otolary ngologist Assessment [...] Not available Any 15 2024 04:30P M Neal sandoval MD Not available Not available Not available Lab vitamin D, 25-hydrox y, total, serum [address] (Lab), [address] [place], [address], 05/08/2024 17:51:36 gamma-glu tamyl transfera se (ggt), serum 2024 025 [facility] (Lab), [address] [place], [address], 05/12/2024 11:18:48 hepatitis panel (A+B+C), acute, serum 2024 025 [facility] (Lab), [address] [place], [address], 05/12/2024 11:44:44 lipid panel, serum 2024 025 [facility] (Lab), [address] [place], [address], 05/12/2024 11:18:38 CMP, serum or plasma 2024 025 [facility] (Lab), [address] [place], [address], 05/12/2024 11:18:44 CBC w/ auto diff 2024 025 [facility] (Lab), [address] [place], [address], 05/12/2024 11:16:32 TSH, serum or plasma 2024 025 [facility] (Lab), [address] [place], [address], 05/12/2024 11:44:53 vitamin B12 + folate, serum or blood [address] (Lab), [address] [place], [address], 05/08/2024 17:51:36 gamma-glu tamyl transfera se (ggt), serum [address] (Lab), [address] [place], [address], 04/01/2024 18:03:09 hepatitis panel (A+B+C), acute, serum [address] (Lab), [address] [place], [address], 04/01/2024 18:03:09 lipid panel, serum [address] (Lab), [address] [place], [address], 04/01/2024 18:03:07 CMP, serum or plasma [address] (Lab), [address] [place], [address], 04/01/2024 18:03:08 CBC w/ auto diff [address] (Lab), [address] [place], [address], 04/01/2024 18:03:08 TSH, serum or plasma [address] (Lab), [address] [place], [address], 04/01/2024 18:03:09 vitamin D, 25-hydrox y, total, serum [address] (Lab), [address] [place], [address], 04/01/2024 18:03:08 vitamin B12 + folate, serum or blood [address] (Lab), [address] [place], [address], 04/01/2024 18:03:08 gamma-glu tamyl transfera se (ggt), serum [address] (Lab), [address] [place], [address], 02/21/2024 13:16:43 hepatitis panel (A+B+C), acute, serum [address] (Lab), [address] [place], [address], 02/21/2024 13:16:43 lipid panel, serum [address] (Lab), [address] [place], [address], 02/21/2024 13:16:41 CMP, serum or plasma [address] (Lab), [address] [place], [address], 02/21/2024 13:16:42 CBC w/ auto diff [address] (Lab), [address] [place], [address], 02/21/2024 13:16:42 TSH, serum or plasma [address] (Lab), [address] [place], [address], 02/21/2024 13:16:43 vitamin D, 25-hydrox y, total, serum [address] (Lab), [address] [place], [address], 02/21/2024 13:16:42 vitamin B12 + folate, serum or blood [address] (Lab), [address] [place], [address], 02/21/2024 13:16:42 vitamin D, 25-hydrox y, total, serum [address] (Lab), [address] [place], [address], 01/28/2024 11:18:01 gamma-glu tamyl transfera se (ggt), serum [address] (Lab), [address] [place], [address], 01/28/2024 11:18:01 hepatitis panel (A+B+C), acute, serum [address] (Lab), [address] [place], [address], 02/04/2024 10:53:10 lipid panel, serum [address] (Lab), [address] [place], [address], 01/28/2024 11:18:00 CMP, serum or plasma [address] (Lab), [address] [place], [address], 01/28/2024 11:18:00 CBC w/ auto diff [address] (Lab), [address] [place], [address], 01/28/2024 11:18:01 TSH, serum or plasma [address] (Lab), [address] [place], [address], 01/28/2024 11:18:01 vitamin B12 + folate, serum or blood [address] (Lab), [address] [place], [address], 01/28/2024 11:18:01 Referral endocrino logy referral 2024 025 [email or web address] [place], [address] [address], [place], [address], 05/08/2024 17:55:37 dermatolo gist referral - Please call patient to schedule. 2024 025 [email or web address] [facility], [facility] [place], [address], 05/08/2024 17:55:[address] referral - Please call patient to schedule. 2024 025 [place] [address] [place] [facility], [facility] , [address], [address], 05/08/2024 17:55:37 endocrino logy referral 2023 024 [email or web address] [place], [address] [address], [place], [address], 04/02/2024 15:11:27 dermatolo gist referral - Please call patient to schedule. 2023 024 [facility], [facility] [place], [address], 04/02/2024 15:11:[address] referral - Please call patient to schedule. 2023 024 [email or web address] Verona Menezes, [address] [facility] , [address], [place], [address], 04/02/2024 15:11:24 endocrino logy referral 2023 024 [email or web address] [place], [address] [address] , [place], [address], 02/27/2024 14:04:34 dermatolo gist referral - Please call patient to schedule. 2023 024 [place] [address] [facility], [address] [place], [address], 05/27/2024 08:59:[address] referral - Please call patient to schedule. 2023 024 [place] [address] Verona Menezes, [address] [facility] , [address], [place], [address], 05/27/2024 08:59:55 endocrino logy referral 2023 024 [email or web address] Isaura Rico MD, [address], [place], [address], 01/28/2024 11:18:43 dermatolo gist referral - Pt has [employer] POS, no insurance referral required 2023 024 [place] [address] [facility], [address] [place], [address], 01/28/2024 11:18:[address] referral - Pt has [employer] POS, no insurance referral required 2023 024 [email or web address] Verona Menezes, [address], [address], [place], [address], 04/02/2024 15:10:55 Procedures None recorded. Surgeries None recorded. Imaging MRI, internal auditory canal, w/o contrast [address] ([facility] Scheduling), [address] [place], [address], 05/08/2024 18:00:33 MRI, internal auditory canal, w/o contrast [address] ([facility]uling), [address] [place], [address], 04/01/2024 18:27:14 MRI, internal auditory canal, w/o contrast - Please call patient to schedule. [address] ([facility] Scheduling), [address] [place], [address], 05/06/2024 08:40:33 Medication Orders Medrol (Fernando) 4 mg tablets in a dose pack 2024 025 [facility] #24724, [address], [place], [id number], 06/09/2024 10:44:15 cefdinir 300 mg capsule 2024 025 [facility] #93485, [address] [place], [place], [id number], 06/09/2024 10:44:29 phentermi ne 37.5 mg tablet [address] [facility]55054, [address] [place], [place], [id number], 05/08/2024 17:10:26 phentermi ne 37.5 mg tablet [address] [facility]60, [address], [id number], 05/08/2024 17:10:26 Qulipta 10 mg tablet 2023 024 [facility] #11921, [address], [place], [place], [id number], 02/21/2024 13:16:27 Patient TargetsNo targets recorded. Patient InstructionsNo instructions recorded. Reason for Referral Neurologist Referral for Trey reena Pt has [employer] POS, no insurance referral required Referring Physician: Neal Peters Internal Medicine, Encounter Date: 07/31/2023 Inventory Accountant Referral for A cne Pt has [employer] POS, no insurance referral required Referring Physician: Sergio Pulliam Medicine, Encounter Date: 07/31/2023 Endocrinology Referral for T hyroid nodule Referring Physician: Sergio Pulliam Medicine, Encounter Date: 07/31/2023 Neurologist Referral for Trey reena Please call patient to schedule. Referring Physician: Sergio Pulliam, Encounter Date: 02/21/2024 Inventory Accountant Referral for A cne Please call patient to schedule. Referring Physician: Sergio Pulliam, Encounter Date: 02/21/2024 Endocrinology Referral for T hyroid nodule Referring Physician: Sergio Pulliam Medicine, Encounter Date: 02/21/2024 Neurologist Referral for Trey reena Please call patient to schedule. Referring Physician: Sergio Pulliam, Encounter Date: 04/01/2024 Inventory Accountant Referral for A cne Please call patient to schedule. Referring Physician: Sergio Pulliam, Encounter Date: 04/01/2024 Endocrinology Referral for T hyroid nodule Referring Physician: Sergio Pulliam, Encounter Date: 04/01/2024 Neurologist Referral for Trey reena Please call patient to schedule. Referring Physician: Neal Peters, Internal Medicine, Encounter Date: 05/08/2024 Inventory Accountant Referral for A cne Please call patient to schedule. Referring Physician: Neal Peters, Internal Medicine, Encounter Date: 05/08/2024 Endocrinology Referral for T hyroid nodule Referring Physician: Neal Peters, Internal Medicine, Encounter Date: 05/08/2024 Results Created Date Observation Date Name Description Value Unit Range Abnormal Flag Note LastModifiedBy Organization Detail LastModifiedTime 01/15/20 24 01/14/2024 NM, thyro id scan No observ ation record ed. [email or web address] [facility] ([facility] Sched[facility]) [address] [place], [address], 01/23/2024 16:37:28 02/18/20 24 02/18/2024 fine needl e aspir ation , thyro id (PROC ) No observ ation record ed. [place] [id number] [facility] [address], [place], [address], 05/06/2024 08:39:25 05/19/19 25 05/19/2024 MRI, inter nal audit ory canal , w/o contr ast [facility] [place] [address] [place], [place] [id number] Patien t Name: MARICRUZ DODD Access ion #: [id number] Sex: F : 1999 2 Dictat ed By: Juvencio dillard Attend ing Physic constanza: KEYANNA MUIR Orderi Physic constanza: KEYANNA MUIR Exam Date: 2024 [...] cells or middle ear spaces . The box worker al audito ry canals are patent . IMPRES KEYSHAWN: 1. No acute intrac ranial proces s. Page 1 [facility] [place] [address] [place] [address] Patien t Name: MARICRUZ DODD Access ion #: [id number] Sex: F : 1999 2 Dictat ed By: Juvencio Mesa e Attend ing Physic constanza: GINI CASTREJON Physic constanza: KEYANNA MUIR Exam Date: 2024 [...] at 2024 15:21: 20 PM Page [address] [facility] (Imaging) [address] [facility], [place], [address], 05/19/2024 16:23:56 05/19/19 25 05/19/2024 imagi ng/di agnos tic resul t No observ ation record ed. [facility] [address] [facility], [place], [address], 05/19/2024 16:26:15 05/30/19 25 05/30/2024 imagi ng/di agnos tic resul t No observ ation record ed. [address], [place], [address], 05/30/2024 10:56:36 05/30/19 25 05/30/2024 imagi ng/di agnos tic resul t No observ ation record ed. [address], [place], [address], 05/30/2024 12:32:34 Result Notes None recorded. Problems Name Problem SNOMED Code Status Onset Date Resolution Date Notes Provider Name and Address Organization Details Recorded Time Bipolar disorder 60224034 Active 2020 Not Available [facility] 3 19:17:51 Toothache 68689213 Active 2022 Not Available [facility] 3 19:17:51 Pain of left hip joint 7300666154124 00 Active 2021 Not Available [facility] 3 19:17:51 Depressive disorder 49730104 Active 2020 Not Available [facility] 3 19:17:51 Migraine 35102734 Active 2021 Not Available [facility] 3 19:17:51 Anxiety 87449906 Active 2020 Not Available [facility] 3 19:17:51 Limitation of joint movement 07487967 Active 2021 Not Available [facility] 3 19:17:51 COVID-19 970498114 Active 2021 Not Available [facility] 3 19:17:51 Mixed anxiety and depressive disorder 095154406 Active 2022 Not Available [facility] 3 19:17:51 Acne 51578520 Active 2022 Not Available [facility] 3 19:17:51 Low back pain 968592447 Active 2022 Not Available [facility] 3 19:17:51 Hyperlipid emia 74829284 Active 2022 Not Available [facility] 3 19:17:51 Dizziness 911135292 Active 2022 Not Available [facility] 3 19:17:51 Vitamin D deficiency 78490111 Active 2022 Not Available [facility] 3 19:17:51 Serum vitamin B12 below reference range 231860598 Active 2022 Not Available [facility] 3 19:17:51 Acute right otitis media 252161426 Active 2022 Not Available [facility] 3 19:17:51 Upper respirator y infection 09790844 Active 2022 Not Available [facility] 3 19:17:51 Vertigo 220801155 Active 2022 Not Available [facility] 3 19:17:51 Acute sinusitis 87534637 Active 2022 Not Available [facility] 3 19:17:51 Serum thyroid stimulatin g hormone level outside reference range 584068988 Active 2023 Neal fitch MD [address], [address], [place], [address] , [facility] [employer] [facility] 4 16:53:02 Thyroid nodule 595145018 Active 2023 Neal fitch MD [address], [address], [place], [address] , [facility] 4 16:54:04 Liver enzymes level above reference range 923522848 Active 2023 Andie Anders RN null, [place] [facility] 4 15:38:27 Steatosis of liver 833157018 Active 2023 Andie Anders RN null, [facility] 4 10:40:40 Increased liver function 94258179 Active 2023 Neal fitch MD [address], [address], [place], [address] , [facility] 4 12:28:47 Acute urinary tract infection 263811279 Active 2023 Georgia Bliss MA null, [facility] 4 17:45:40 Obesity 404493397 Active 2023 Neal fitch MD [address], [address], [place], [address] , [facility] 4 13:11:43 Graves' disease 911859993 Active 2023 SAM Mcguire null, [facility] 5 12:51:35 Hypertroph y of lingual tonsil 193315780 Active 2024 SAM Mcguire null, [facility] 5 13:59:22 Chronic maxillary sinusitis 51740471 Active 2024 Ivan Owens MD [address], [address], [place], [address] , [facility] 5 10:43:21 Hypertroph y of tonsils 10500430 Active 2024 Ivan Owens MD [address], [address], [place], [address] , [facility] 5 10:43:38 Problem Notes None recorded. Procedures Surgical History Date Name Laterality Status Provider Name and Address Organization Details Recorded Time biopsy of thyroid completed SAM Mcguire [place] - [place] [facility] 02/21/2024 12:21:32 Imaging Results Imaging Date Name Status LastModified by Organiz ation Details LastModified Time 01/14/2024 NM, thyroid scan completed [id number] [facility] ([facility]) [address] [place], [address], 01/23/2024 16:37:28 02/18/2024 fine needle aspiration, thyroid (PROC) active [address], [address], 05/06/2024 08:39:25 05/19/2024 MRI, internal auditory canal, w/o contrast active [facility] (Imaging) [address] [place], [address], 05/19/2024 16:23:56 05/19/2024 imaging/diagn ostic result active [facility] [address] [place], [address], 05/19/2024 16:26:15 05/30/2024 imaging/diagn ostic result active [address], [address], 05/30/2024 10:56:36 05/30/2024 imaging/diagn ostic result active [address], [address], 05/30/2024 12:32:34 Procedure Notes None recorded. Medical Equipment None [...] TABLET BY MOUTH EVERY 4 HOURS NEEDED FOR PAIN active Not Available Not Available No t Available ondansetron HCl 4 mg tablet TAKE 1 TABLET BY MOUTH THREE TIMES DAILY NEEDED FOR NAUSEA 06/26 completed Not Available Not Available Not Available Medrol (Fernando) 4 mg tablets in a dose pack Take 1 dose pk by oral route. 2024 active Not Available Not Available Not Avai lable dextroamphe tamine-amph etamine 10 mg tablet TAKE [...] completed Not Available Not Available Not Available oxycodone-a cetaminophe n 5 mg-325 mg tablet TAKE 1 TABLET BY MOUTH EVERY 4 HOURS NEEDED FOR PAIN active Not Available Not Available No t Available bupropion HCl 100 mg tablet TAKE [...] DISSOLVE 1 TABLET ON THE TONGUE EVERY 6 HOURS NEEDED FOR NAUSEA OR VOMITING active Not Available Not Available No t Available cefdinir 300 mg capsule Take 1 capsule every 12 hours by oral route. 2024 active Not Available Not Available Not Avai lable topiramate 100 mg tablet TAKE 1 TABLET [...] completed Not Available Not Available Not Available rosuvastati n 40 mg tablet TAKE 1 TABLET BY MOUTH EVERY DAY active Not Available Not Available No t Available bupropion HCl XL 300 mg 24 [...] Not Available Not Available Not Avai lable ID NOW COVID-19 Test Kit TEST DIRECTED 02/22 completed Not Available Not Available Not Available Qulipta 60 mg tablet Take 1 tablet every day by oral route. 06/26 completed Not Available Not Available Not Available Qulipta 10 mg tablet TAKE 1 TABLET BY MOUTH EVERY DAY 2023 active Not Available Not Available Not [facility] Paxlovid 300 mg (150 mg x [...] Updated DateTime 4 154.94 cm 33.7 kg/m2 18006.2 4 g 97.5 [degF] 84 /min 100 mm[Hg] 66 mm[Hg] SAM Mcguire [place] [facility] 4 11:16:43 Date Recorded Body height Body mass index (BMI) Body weight Body temperature Heart rate Systolic blood pressure Diastolic blood pressure Provider Name and Address Organization Details Last Updated DateTime 4 154.94 cm 36.5 kg/m2 08227.3 3 g 97.8 [degF] 84 /min 118 mm[Hg] 76 mm[Hg] ASM Mcguire [facility] [employer] [facility] 4 12:23:33 Date Recorded Body height Body mass index (BMI) Body weight Body temperature Heart rate Systolic blood pressure Diastolic blood pressure Provider Name and Address Organization Details Last Updated DateTime 4 154.94 cm 34.2 kg/m2 47710.2 2 g 97.6 [degF] 84 /min 124 mm[Hg] 80 mm[Hg] Sally Cristina Lilian [facility] [employer] [facility] 4 17:51:13 Date Recorded Body height Body mass index (BMI) Body weight Body temperature Heart rate Systolic blood pressure Diastolic blood pressure Provider Name and Address Organization Details Last Updated DateTime 5 154.94 cm 34.6 kg/m2 56492.4 g 97.6 [degF] 84 /min 118 mm[Hg] 80 mm[Hg] Sally Cristina [facility] [employer] [facility] 5 17:13:11 Date Recorded Body height Body mass index (BMI) Body weight Body temperature Provider Name and Address Organization Details Last Updated DateTime 06/09/2024 154.94 cm 34 kg/m2 66727.63 g 97.9 [degF] Maggy Cheek RN [facility] [employer] [facility] 06/09/2024 10:33:09 Social History Question Answer Notes LastModified by Organizat ion Details LastModified Time Tobacco Smoking Status Never Smoker Not Available [employer] 06/14/2022 23:55:08 Do You Have An Advance Directive? No Information n ot available 06/26/2022 What Is Your Level Of Alcohol Consumption? None [id number] Information not available 06/14/2022 What Is Your Level Of Caffeine Consumption? Heavy MIGRATION.[id number] Information not available 06/14/2022 In The 14 Days Before Symptom Onset, Have You Had Close Contact With A Laboratory-confirm ed COVID-19 While That Case Was Ill? No MIGRATION.[id number] 8009 Information not available 06/14/2022 In The 14 Days Before Symptom Onset, Have You Had Close Contact With A Person Who Is Under Investigation For COVID-19 While That Person Was Ill? No MIGRATION.[id number] 5641 Information not available 06/14/2022 Are You Currently Employed? Yes Information not available 06/26/2022 What Type Of Diet Are You Following? REGULAR MIGRATION.980478 8216 Information not available 06/14/2022 Which Illicit Or Recreational Drugs Have You Used? 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 Unknown Information not available 06/26/2022 Do You Use Insect Repellent Routinely? No MIGRATION.479629 2128 Information not available 06/14/2022 Do You Have A Medical Power Of Automobile Body Worker? No Information not available 06/26/2022 What Was The Date Of Your Most Recent Tobacco Screening? 05/08/2024 Information not available 05/08/2024 What Is Your Relationship Status? Single MIGRATION.[id number] 8036 Information not available 06/14/2022 Do You Use Your Seat Belt Or Car Seat Routinely? Yes MIGRATION.893105 8757 Information not available 06/14/2022 Do You Have Smoke And Carbon Monoxide Detectors In Your Home? Yes MIGRATION.907668 5271 Information not available 06/14/2022 Are You Passively Exposed To Smoke? Yes MIGRATION.079078 3028 Information not available 06/14/2022 Are There Any Smokers In Your House? Yes MIGRATION.833544 2767 Information not available 06/14/2022 Do You Feel Stressed (tense, Restless, Nervous, Or Anxious, Or Unable To Sleep At Night)? [id number] MIGRATION.504602 4880 Information not available 06/14/2022 Do You Use Any Illicit Or Recreational Drugs? Yes MIGRATION.250881 5247 Information not available 06/14/2022 Do You Use Sunscreen Routinely? No MIGRATION.516167 2716 Information not available 06/14/2022 Has Tobacco Cessation Counseling Been Provided? No N/a Information not available 09/26/2022 Have You Recently Traveled Abroad? No MIGRATION.392058 5491 Information not available 06/14/2022 Have You Used IV Drugs? No MIGRATION.770706 0449 Information not available 06/14/2022 Do You Have Any Dietary Restrictions? No MIGRATION.760915 1292 Information not available 06/14/2022 Do You Or Have You Ever Used Any Other Forms Of Tobacco Or Nicotine? No Information not available 06/26/2022 Sex: Female Functional Status Question Answer Note LastModified by Organizat ion Details LastModified Time What is your exercise level? Occasional [id number] 26 Information not available 06/14/2022 Mental Status None recorded. Family History Relationship Description Onset Age of this Age Resolved Age Notes LastModified by Organization Details LastModified Time Mother Vertigo [id number] Not available 06/14/2022 23:55:33 Maternal Grandmother Anemia MIGRATION.965 [id number] Not available 06/14/2022 23:55:33 Maternal Grandmother Vertigo MIGRATION.694 [id number] Not available 06/14/2022 23:55:33 Maternal Grandmother Heart disease MIGRATION.779 [id number] Not available 06/14/2022 23:55:33 Maternal Grandmother Hypertensive disorder MIGRATION.199 [id number] Not available 06/14/2022 23:55:33 Maternal Grandmother Diabetes mellitus MIGRATION.984 [id number] Not available 06/14/2022 23:55:33 Sister Tonsillectom y [email or web address] Not available 2024 10:30:25 Medical History Condition Response NERVE DISEASE N BLINDNESS N RHEUMATIC FEVER N KIDNEY STONES N BLADDER PROBLEMS N MRSA N OTHER # 1 N POLIO N LUNG DISEASE/DISORDER N HISTORY OF DRUG ABUSE N RADIATION / CHEMOTHERAPY N COPD N Other # 2 N BLOOD DISEASES N EAR OR HEARING PROBLEMS N MUMPS N SHINGLES N BOWEL PROBLEMS N DEPRESSION (INCLUDING POST ) N STROKE/TIA N ULCERS N BENIGN PROSTATIC [...] HAVE YOU BEEN HOSPITALIZED OR SEEN IN [facility] IN THE PAST YEAR ? [...] SNOMED-CT Code Diagnosis ICD10 Code Diagnosis Note [id number] [facility] Internal Med [facility] [address] [address] 02/22/2021 00:00:00 02/23/2021 13:30:49 [id number] [facility] [address] [place] [address] [place] [address] 03/30/2021 00:00:00 03/30/2021 12:12:50 [id number] [facility] Internal Med [facility] [address] [address] 05/24/2021 00:00:00 05/24/2021 14:06:17 [id number] [facility] [address] [address] 06/23/2021 00:00:00 06/23/2021 11:57:35 [id number] Neal fitch MD [facility] Internal [facility] Jose Rafael mendoza [address] [facility] [place] [address] 06/26/2022 17:39:22 06/26/2022 18:28:43 Screening - NAD [id number] Z13.9 Well women: Get a referral, to Dr Burnette Get yearly flu shotGet tdapGet COVID 19 vaccineShe has refused the above vaccine follow all [facility] guidleline s! RTC in 3 monthsDo labsER if worseShe did verbalize her understand ing of the above Migraine 51221695 G43.90 9 On zonisamide 50mg dailyOn rizatripta n 10mg PRNGiven by Verona Gutierrez [employer]CCUPATIONAL THER[employer]Y CO DIRECTOR neurology, will now refer to Dr Jha Mixed anxi ety and depressive disorder 532210515 F41.8 Not on aripoprazo le 2mg daily or bupropion XL 300mg daily On escitalopr am 5mg daily, given by Georgia Stallings OCCUPATIONAL THERAPY CO DIRECTOR, does not see Dr Rivera nowNot suicidal or homicidal Acne 17624480 L70.9 See dermatolog y Hyperlipidemia 29645019 E78.5 Not on any medsGet labs Dizziness 164012808 R42 [facility] Dr Mendoza 06/23/2022 On heart monitor Vitamin D deficiency 347 58877 E55.9 Serum case min B12 below reference range 817477609 R79.89 Gynecologi c examination 90109031 Z01.419 Acute righ t otitis media 192237240 H66.91 Recently treated with augmentin, no relief, get on levaquin and if not better may need MDP and see ENT [id number] Neal fitch MD [facility] Internal Med [facility] [address] [place] [address] 09/26/2022 17:21:03 09/26/2022 17:55:35 Screening - NAD 183171570 Z13.9 Well women: Now see her OB as she is , she is on pre Get yearly flu shotGet tdapGet COVID 19 vaccineShe has refused the above vaccine follow all [facility] guidleline s! RTC in 6 monthsDo labsER if worseShe did verbalize her understand ing of the above Migraine 86866125 G43.90 9 On zonisamide 50mg dailyOn rizatripta n 10mg PRNGiven by Verona Gutierrez NP neurology, will now refer to Dr Jha OV 09/26/2022 :Does well now Mixed anxi ety and depressive disorder 176406421 F41.8 Not on aripoprazo le 2mg daily or bupropion XL 300mg daily On escitalopr am 5mg daily, given by Georgia Stallings OCCUPATIONAL THERAPY CO DIRECTOR, does not see Dr Miguel manciniNot suicidal or homicidal OV 09/26/2022 :On sertraline 50mg daily, given by Jes Phillips who is her OB Acne 40056831 L70.9 See dermatolog y Hyperlipidemia 00807238 E78.5 Not on any medsGet labs Dizziness 646878215 R42 [facility] [address] Mendoza 06/23/2022 On heart monitor Vitamin D deficiency 347 43310 E55.9 Serum case min B12 below reference range 465747942 R79.89 Acute righ t otitis media 247819691 H66.91 R otitis, get on amoxicilli n, it is listed as an allergy, but she is able to take this, has taken in the past, it is listed as an allergy as it is not very effective , she is , ENT if not better [id number] Neal fitch MD [facility] Internal Med [facility] [address]43 [facility], [address] [address] 05/01/2023 16:15:29 05/01/2023 17:08:42 Screening - NAD 372812492 Z13.9 See her OB, s/p Get yearly flu shotGet tdapGet COVID 19 vaccineShe has refused the above vaccine follow all CDC guidleline s! 05/01/2023 RTC in 3 monthsDo labsER if worseShe did verbalize her understand ing of the above Migraine 47621704 G43.90 9 On zonisamide 50mg dailyOn rizatripta n 10mg PRNGiven by Verona Gutierrez NP neurology, will now refer to Dr Jha OV 09/26/2022 :Does well now OV 05/01/2023 :Does well now, should see neurology Mixed anxi ety and depressive disorder 119848268 F41.8 Not on aripoprazo le 2mg daily or bupropion XL 300mg daily On escitalopr am 5mg daily, given by Georgia Stallings OCCUPATIONAL THERAPY CO DIRECTOR, does not see Dr Miguel Delarosa suicidal or homicidal OV 09/26/2022 :On sertraline 50mg daily, given by Jes Phillips who is her OB OV 05/01/2023 : Not on any meds, does well, not suicidal or homicidal Acne 67592419 L70.9 See dermatolog y Hyperlipidemia 97581510 E78.5 Did have CBC and TSH and FT4 done at her OB office , get the reports Not on any medsGet labs Dizziness 209194039 R42 [facility] [address] Mendoza 06/23/2022 Does well now Vitamin D deficiency 347 25865 E55.9 Serum case min B12 below reference range 832758714 R79.89 Get labsOn iron Serum thyr oid stimulating hormone level outside reference range 630191378 R89.1 Did get TSH and FT4 done at her OB's office, get the reportsGet US thyroidRef er to ENT for the thyroid nodule noted on the L side of thyroid Thyroid nodule 178593148 E04.1 Get a referral to ENT [id number] Neal fitch MD [facility] Internal Med [facility] [address] [facility], [facility] [address] [place] [address] 07/31/2023 10:56:19 07/31/2023 11:53:32 Screening - NAD 060180116 Z13.9 See her OB, s/p Get yearly flu shotGet tdapGet COVID 19 vaccineShe has refused the above vaccine follow all CDC guidleline s! 05/01/2023 RTC in 3 monthsDo labsER if worseShe did verbalize her understand ing of the above Migraine 53539586 G43.90 9 On zonisamide 50mg dailyOn rizatripta n 10mg PRNGiven by Verona Gutierrez NP neurology, will now refer to Dr Jha OV 09/26/2022 :Does well now OV 05/01/2023 :Does well now, should see neurology OV 07/31/2023 : Again advised to keep her neurology apt, she does state that she has not noted any migraines since her delivery of her baby since 04/2023 Mixed anxi ety and depressive disorder 821812767 F41.8 Not on aripoprazo le 2mg daily or bupropion XL 300mg daily On escitalopr am 5mg daily, given by Georgia Stallings OCCUPATIONAL THERAPY CO DIRECTOR, does not see Dr Miguel manciniNot suicidal or homicidal OV 09/26/2022 :On sertraline 50mg daily, given by Jes Phillips who is her OB OV 05/01/2023 : Not on any meds, does well, not suicidal or homicidal OV 07/31/2023 : Not on any meds, does well, not suicidal or homicidal Acne 07379568 L70.9 See dermatolog y Hyperlipidemia 24829351 E78.5 Did have CBC and TSH and FT4 done at her OB office , get the reports Not on any medsGet labs Dizziness 360213373 R42 [facility] [address] Mendoza 06/23/2022 Does well now Vitamin D deficiency 347 04777 E55.9 Serum case min B12 below reference range 081739549 R79.89 Get labsOn iron Serum thyr oid stimulating hormone level outside reference range 657956546 R89.1 Did get TSH and FT4 done at her OB's office, get the reportsGet US thyroidRef er to ENT for the thyroid nodule noted on the L side of thyroidNow has to see endocrine MD Thyroid nodule 632155309 E04.1 US thyroid 05/11/2023 Get a referral to ENT but was told she must see an endocrine MD first, see case 05/03/2023 Increased liver function 33073622 R94.5 US liver 05/15/2023 : Mild hepatic steatosisG et labs [id number] Neal fitch MD [facility] Internal Med [address] [place] [address] 02/21/2024 11:55:21 02/21/2024 13:17:34 Screening - NAD 465566212 Z13.9 See her OB, s/p Get yearly flu shotGet tdapGet COVID 19 vaccineShe has refused the above vaccine follow all [facility] guidleline s! 05/01/2023 RTC in 3 monthsDo labsER if worseShe did verbalize her understand ing of the above Migraine 65969352 G43.90 9 On zonisamide 50mg dailyOn rizatripta n 10mg PRNGiven by Verona Gutierrez NP neurology, will now refer to [...] quilipta Mixed anxi ety and depressive disorder 594537826 F41.8 Not on aripoprazo le 2mg daily or bupropion XL 300mg daily On escitalopr am 5mg daily, given by Georgia Stallings OCCUPATIONAL THERAPY CO DIRECTOR, does not see Dr Miguel Delarosa suicidal or homicidal OV 09/26/2022 :On sertraline 50mg daily, given by Jes Phillips who is her OB OV 05/01/2023 : Not on any meds, does well, not suicidal or homicidal OV 07/31/2023 : Not on any meds, does well, not suicidal or homicidal Acne 51335586 L70.9 See dermatolog y Hyperlipidemia 58500826 E78.5 Did have CBC and TSH and FT4 done at her OB office , get the reports Not on any medsGet labs Dizziness 359856308 R42 [facility] [address] Mendoza 06/23/2022 Does well now Vitamin D deficiency 347 95401 E55.9 Serum case min B12 below reference range 591141319 R79.89 Get labsOn iron Serum thyr oid stimulating hormone level outside reference range 165234627 R89.1 Did get TSH and FT4 done at her OB's office, get the reportsGet US thyroidRef er to ENT for the thyroid nodule noted on the L side of thyroidNow has to see endocrine MD Thyroid Bx: 02/18/2024 : Benign Thyroid nodule 502822127 E04.1 US thyroid 05/11/2023 Get a referral to ENT but was told she must see an endocrine MD first, see case 05/03/2023 Thyroid Bx: 02/18/2024 : Benign Will now see Dr Valero as Dr Rico has not contacted her regarding the thryoid bx Increased liver function 46963579 R94.5 US liver 05/15/2023 : Mild hepatic steatosisG et labs Obesity 596047046 E66.9 She is eager to start on phentermin e, did not want to take any GLP-1All side [facility] and weight check [id number] Neal fitch MD [facility] Internal Med [facility] [address] [facility], [address] [address] 04/01/2024 17:42:18 04/01/2024 18:03:31 Screening - NAD 305364647 Z13.9 See her OB, s/p Get yearly flu shotGet tdapGet COVID 19 vaccineShe has refused the above vaccine follow all CDC guidleline s! 05/01/2023 RTC in 3 monthsDo labsER if worseShe did verbalize her understand ing of the above Migraine 67844783 G43.90 9 On zonisamide 50mg dailyOn rizatripta n 10mg PRNGiven by Verona Gutierrez OCCUPATIONAL THERAPY CO DIRECTOR neurology, will now refer to Dr Jha [...] MRI Mixed anxi ety and depressive disorder 487202324 F41.8 Not on aripoprazo le 2mg daily or bupropion XL 300mg daily On escitalopr am 5mg daily, given by Georgia Stallings OCCUPATIONAL THERAPY CO DIRECTOR, does not see Dr Miguel Delarosa suicidal or homicidal OV 09/26/2022 :On sertraline 50mg daily, given by Jes Phillips who is her OB OV 05/01/2023 : Not on any meds, does well, not suicidal or homicidal OV 07/31/2023 : Not on any meds, does well, not suicidal or homicidal Acne 01369029 L70.9 See dermatolog y Hyperlipidemia 29137034 E78.5 Did have CBC and TSH and FT4 done at her OB office , get the reports Not on any medsGet labs Dizziness 147196019 R42 [facility] [address] Mendoza 06/23/2022 Does well now Vitamin D deficiency 347 48366 E55.9 Serum case min B12 below reference range 824735415 R79.89 Get labsOn iron Serum thyr oid stimulating hormone level outside reference range 689843810 R89.1 Did get TSH and FT4 done at her OB's office, get the reportsGet US thyroidRef er to ENT for the thyroid nodule noted on the L side of thyroidNow has to see endocrine Thyroid Bx: 02/18/2024 : Benign Thyroid nodule 331777693 E04.1 US thyroid 05/11/2023 Get a referral to ENT but was told she must see an endocrine MD first, see case 05/03/2023 Thyroid Bx: 02/18/2024 : Benign Will now see Dr Valero as Dr Rico has not contacted her regarding the thryoid bx Increased liver function 15756858 R94.5 US liver 05/15/2023 : Mild hepatic steatosisG et labs Obesity 484533908 E66.9 She is eager to start on phentermin e, did not want to take any GLP-1All side effects explained to herRTC in one month for refill and weight check OV 04/01/2024 :Does wellLost about 8 poundsRene wed phentermin e [id number] Neal fitch MD [facility] Internal Med [address] [place] [address] 05/08/2024 16:55:54 05/08/2024 17:55:37 Screening - NAD 526799436 Z13.9 See her OB, s/p Get yearly flu shotGet tdapGet COVID 19 vaccineShe has refused the above vaccine follow all CDC guidleline s! 05/01/2023 RTC in 3 monthsDo labsER if worseShe did verbalize her understand ing of the above Migraine 57946106 G43.90 9 On zonisamide 50mg dailyOn rizatripta n 10mg PRNGiven by Verona Gutierrez NP neurology, will now refer to [...] neurology Mixed anxi ety and depressive disorder 455295529 F41.8 Not on aripoprazo le 2mg daily or bupropion XL 300mg daily On escitalopr am 5mg daily, given by Georgia Stallings OCCUPATIONAL THERAPY CO DIRECTOR, does not see Dr Miguel Delarosa suicidal or homicidal OV 09/26/2022 :On sertraline 50mg daily, given by Jes Phillips who is her OB OV 05/01/2023 : Not on any meds, does well, not suicidal or homicidal OV 07/31/2023 : Not on any meds, does well, not suicidal or homicidal Acne 75902550 L70.9 See dermatolog y Hyperlipidemia 20996612 E78.5 Did have CBC and TSH and FT4 done at her OB office , get the reports Not on any medsGet labs Dizziness 719302920 R42 [facility] Dr Mendoza 06/23/2022 Does well now Vitamin D deficiency 347 56787 E55.9 Serum case min B12 below reference range 802086329 R79.89 Get labsOn iron Serum thyr oid stimulating hormone level outside reference range 773780546 R89.1 Did get TSH and FT4 done at her OB's office, get the reportsGet US thyroidRef er to ENT for the thyroid nodule noted on the L side of thyroidNow has to see endocrine MD Thyroid Bx: 02/18/2024 : Benign Thyroid nodule 857566760 E04.1 US thyroid 05/11/2023 Get a referral to ENT but was told she must see an endocrine MD first, see case 05/03/2023 Thyroid Bx: 02/18/2024 : Benign Will now see Dr Valero as Dr Rico has not contacted her regarding the thryoid bx Increased liver function 40425039 R94.5 US liver 05/15/2023 : Mild hepatic steatosisG et labs Obesity 170594224 E66.9 She is eager to start on phentermin e, did not want to take any GLP-1All side [facility] for refill and weight check OV 04/01/2024 :Does wellLost about 8 poundsRene wed phentermin e OV 05/08/2024 :Not on any phentermin eGet a referral to endocrine [id number] Ivan Owens MD [facility] ENT [place] [address] [place] [address] 06/09/2024 10:25:08 06/09/2024 10:44:41 Chronic maxillary sinusitis 25973049 J32.0 Hypertroph y of tonsils 84951984 J35.1 Health Concerns Section Related Observation LastModified by Organization Detai ls LastModified Time None Recorded Concern Status LastModified by Organization Details LastModified Time None Recorded Advance Directives Directive N: Payers Encounter Date Sequence Insurance Name Policy Number Policy Quarles Covered Member ID Quarles Member ID Guarantor Name 07/31/2023 1 [employer] Kyle Bob [id number] Maricruz Hough 02/21/2024 1 [employer] Kyle Bob [id number] [facility] 02/21/2024 2 [place] [facility] [id number] [facility] 04/01/2024 1 [facility] [employer] Kyle Bob [id number] [facility] 04/01/2024 2 [place] [facility] [id number] [facility] 05/08/2024 1 [facility] [employer] Kyle Bob [id number] [facility] 05/08/2024 2 [place] [facility] [id number] [facility] 06/09/2024 1 [facility] [employer] Kyle Bob [id number] [facility] 06/09/2024 2 [place] [facility] [id number] [facility] Notes Date Note Type Note Provider Name and Address Organization Details Recorded Time 07/31/2023 text/html OV 02/22/21:Here to establish care/ new patientPast Hx:Anxiety [place] [facility] not anymoreNot suicidal or homicidalReviewed social family [...] migraine medication, she has not seen the cafeteria aide or the neurologist OV 05/01/2023: Here for her routine apt, she is doing well today OV 07/31/2023: Here for her f/u apt, she feels well today Neal Peters MD [address] [place], [place] [address], [address] [address], [place], [address], [facility] [employer] [facility] [employer] 07/31/2023 12:14:54 02/21/2024 text/html OV 02/22/21:Here to establish care/ new patientPast Hx:Anxiety [place] [facility] [place] [facility]ler [facility] not anymoreNot suicidal or homicidalReviewed social family [...] migraine medication, she has not seen the cafeteria aide or the neurologist OV 05/01/2023: Here for her routine apt, she is doing well today OV 07/31/2023: Here for her f/u apt, she feels well today OV 02/21/2024: Here for her f/u apt, she is doing well today, wants to discuss her migraines, she has not yet seen neurology Neal Peters MD [address], [facility] [address], [place], [address], [facility] [employer] 02/27/2024 12:57:56 04/01/2024 text/html OV 02/22/21:Here to establish care/ new patientPast Hx:Anxiety [place] [facility] [place] [facility] not anymoreNot suicidal or homicidalReviewed social family and surgical historyC/o occasional headaches, none today, feels that these could be migraines, do make her nauseous sometimesAlso has acne and wants to get treated for that OV 05/24/2021:Here for her routine aptShe is doing wellSrosibel did see Debora Perez and is now [...] migraine medication, she has not seen the cafeteria aide or the neurologist OV 05/01/2023: Here for her routine apt, she is doing well today OV 07/31/2023: Here for her f/u apt, she feels well today OV 02/21/2024: Here for her f/u apt, she is doing well today, wants to discuss her migraines, she has not yet seen neurology OV 04/01/2024: Here for her phentermine refill, she is doing well today Neal Peters MD [address] [place] [address], [facility] [address], [place], [address], [place] [facility] [employer] 04/01/2024 18:03:43 05/08/2024 text/html OV 02/22/21:Here to establish care/ new patientPast Hx:Anxiety [place] [facility] [place] [facility] not anymoreNot suicidal or homicidalReviewed social family [...] migraine medication, she has not seen the cafeteria aide or the neurologist OV 05/01/2023: Here for [...] apt, she is doing very well today Neal Peters MD [address], [address], [place], [address], [employer] 05/12/2024 09:27:53 06/09/2024 text/html This patient rep orts migraine headaches resulting in an MRI scan. This demonstrated tonsillar and adenoidal hypertrophy. She reports some congestion and pisx-ymr-zasnwih medications have not been helpful. Maxillary sinusitis was also seen and she has been on no medications for this Ivan Owens MD [address], [address], [place], [address], [employer] 06/09/2024 10:44:40 OBGyn Episode No OBEpisode recorded.
--- OUTSIDE RECORDS SUMMARY | 2024-06-09 10:50 | XMS_ITS | Clinical Summary ---
Author Organization [facility] Address [address] [place] [address] Care Team Providers Care Airline Mechanic Name Role Phone Unavailable Primary Care Provider [...]
--- OUTSIDE RECORDS SUMMARY | 2024-06-09 10:51 | XMS_ITS | Continuity of Care Document ---
Author Organization [place] - [facility], [facility] [place] Address [address] , [address] [place] [address] Care Team Providers Care Plaster Die Maker Name Role Phone NEAL JAIN Primary Care Provider ISAURA RICO Long Chain Beamer LIZZIE MCKEON Pharmacy Clerk SHELLY CLOUD Neurologist [phone] [facility] Otolary ngologist Assessment No assessment recorded. Plan of Treatment Reminders Order Date Submit Date Provider Last Modified By Organization Details Last Modified Time Details Appointments New Patient 2024 09:30A M Ivan Owens MD Not available Not available Not available Any 15 2024 04:30P M Neal sandoval MD Not available Not available Not available Lab None recorded. Referral None recorded. Procedures None recorded. Surgeries None recorded. Imaging None recorded. Medication Orders Medrol (Fernando) 4 mg tablets in a dose pack 2024 025 [id number], [address], [place], [place], [id number], 06/09/2024 10:44:15 cefdinir 300 mg capsule 2024 025 [id number], [address], [place], [place], [id number], 06/09/2024 10:44:29 Patient TargetsNo targets recorded. Patient InstructionsNo instructions recorded. Reason for Referral None Reported. Results Created Date Observation Date Name Description Value Unit Range Abnormal Flag Note LastModifiedBy Organization Detail LastModifiedTime 05/19/1905/19/2024 MRI, inter nal audit ory canal , w/o contr ast [facility] [address] [facility], [place] [address] Patien t Name: MARICRUZ DODD Access ion #: [id number] Sex: F : 1999 2 Dictat ed By: Juvencio dillard Attend ing Physic constanza: KEYANNA MUIR Orderi ng Physic constanza: KEYANNA MUIR Exam Date: 2024 [...] cells or middle ear spaces . The die maintenance al audito ry canals are patent . IMPRES KEYSHAWN: 1. No acute intrac ranial proces s. Page 1 [facility] [address] [place] [address] [phone] Patien t Name: MARICRUZ DODD Access ion #: [id number] Sex: F : 1999 2 Dictat ed By: Juvencio dillard Attend ing Physic constanza: GINI CASTREJON Physic [...] at 2024 15:21: 20 PM Page 2 [facility] (Imaging) [address] [place], [address], 05/19/2024 16:23:56 05/19/19 25 05/19/2024 imagi ng/di agnos tic resul t No observ ation record ed. [facility] [address] [place], [address], 05/19/2024 16:26:15 05/30/19 25 05/30/2024 imagi ng/di agnos tic resul t No observ ation record ed. [address], [place], [address], 05/30/2024 10:56:36 05/30/19 25 05/30/2024 imagi ng/di agnos tic resul t No observ ation record ed. [facility] [address], [place], [address], 05/30/2024 12:32:34 Result Notes None recorded. Problems Name Problem SNOMED Code Status Onset Date Resolution Date Notes Provider Name and Address Organization Details Recorded Time Bipolar disorder 97806674 Active 2020 Not Available [facility] 3 19:17:51 Toothache 39694487 Active 2022 Not Available [facility] 3 19:17:51 Pain of left hip joint 0485993373747 00 Active 2021 Not Available [facility] 3 19:17:51 Depressive disorder 51333479 Active 2020 Not Available [facility] 3 19:17:51 Migraine 85021271 Active 2021 Not Available [facility] 3 19:17:51 Anxiety 00699869 Active 2020 Not Available [facility] 3 19:17:51 Limitation of joint movement 43442702 Active 2021 Not Available [facility] 3 19:17:51 COVID-19 922822127 Active 2021 Not Available [facility] 3 19:17:51 Mixed anxiety and depressive disorder 809645882 Active 2022 Not Available [facility] 3 19:17:51 Acne 35949693 Active 2022 Not Available [facility] 3 19:17:51 Low back pain 432125841 Active 2022 Not Available [facility] 3 19:17:51 Hyperlipid emia 59437405 Active 2022 Not Available [facility] 3 19:17:51 Dizziness 205561096 Active 2022 Not Available [facility] 3 19:17:51 Vitamin D deficiency 27445027 Active 2022 Not Available [facility] 3 19:17:51 Serum vitamin B12 below reference range 165954512 Active 2022 Not Available [facility] 3 19:17:51 Acute right otitis media 677933232 Active 2022 Not Available [facility] 3 19:17:51 Upper respirator y infection 40358931 Active 2022 Not Available [facility] 3 19:17:51 Vertigo 851600507 Active 2022 Not Available [facility] 3 19:17:51 Acute sinusitis 04983551 Active 2022 Not Available [facility] 3 19:17:51 Serum thyroid stimulatin g hormone level outside reference range 270590201 Active 2023 Neal fitch MD [address], [address], [place], [address] , [facility] 4 16:53:02 Thyroid nodule 079948935 Active 2023 Neal fitch MD [address], [address], [place], [address] , [facility] 4 16:54:04 Liver enzymes level above reference range 437465299 Active 2023 Andie Anders RN null, [place] [facility] 4 15:38:27 Steatosis of liver 634791686 Active 2023 Andie Anders RN null, [place] [facility] 4 10:40:40 Increased liver function 49782270 Active 2023 Neal fitch MD [address], [address], [place], [address] , [facility] 4 12:28:47 Acute urinary tract infection 939972404 Active 2023 Georgia Bliss MA null, [place] [facility] 4 17:45:40 Obesity 425674720 Active 2023 Neal fitch MD [address], [address], [place], [address] , [facility] 4 13:11:43 Graves' disease 515543687 Active 2023 SAM Mcguire, [facility] 5 12:51:35 Hypertroph y of lingual tonsil 884763087 Active 2024 SAM Mcguire, [facility] 5 13:59:22 Chronic maxillary sinusitis 47012337 Active 2024 Ivan Owens MD [address] [facility], [address], [place], [address] , [facility] 5 10:43:21 Hypertroph y of tonsils 93651137 Active 2024 Ivan Owens MD [address] [facility], [address], [place], [address] , [facility] 5 10:43:38 Problem Notes None recorded. Procedures Surgical History Date Name Laterality Status Provider Name and Address Organization Details Recorded Time 4 biopsy of thyroid completed SAM Mcguire [facility] 02/21/2024 12:21:32 Imaging Results None recorded. Procedure Notes None recorded. Medical Equipment None [...] MOUTH EVERY 12 HOURS FOR 7 DAYS 06/13 /2023 completed Not Available Not Available Not Available [...] Not Available Not Available Not Avai lable Paxlovid 300 mg (150 mg x 2)-100 mg tablets in a dose pack Take 3 tablets twice a day by oral route for 5 days. 06/26 completed Not Available Not Available Not Available Vitals Date Recorded Body height Body mass index (BMI) Body weight Body temperature Provider Name and Address Organization Details Last Updated DateTime 06/09/2024 154.94 cm 34 kg/m2 53625.63 g 97.9 [degF] Maggy Cheek RN [place] [employer] 06/09/2024 10:33:09 Social History Question Answer Notes LastModified by Organizat ion Details LastModified Time Tobacco Smoking Status Never Smoker Not Available [employer] 06/14/2022 23:55:08 Do You Have An Advance Directive? No Information n ot available 06/26/2022 What Is Your Level Of Alcohol Consumption? None MIGRATION.[id number] Information not available 06/14/2022 What Is Your Level Of Caffeine Consumption? Heavy MIGRATION.260193 3092 Information not available 06/14/2022 In The 14 Days Before Symptom Onset, Have You Had Close Contact With A Laboratory-confirm ed COVID-19 While That Case Was Ill? No MIGRATION.635396 9673 Information not available 06/14/2022 In The 14 Days Before Symptom Onset, Have You Had Close Contact With A Person Who Is Under Investigation For COVID-19 While That Person Was Ill? No MIGRATION.782362 1284 Information not available 06/14/2022 Are You Currently Employed? Yes Information not available 06/26/2022 What Type Of Diet Are You Following? REGULAR MIGRATION.675784 1674 Information not available 06/14/2022 Which Illicit Or Recreational Drugs Have You Used? 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 Unknown Information not available 06/26/2022 Do You Use Insect Repellent Routinely? No MIGRATION.787456 5618 Information not available 06/14/2022 Do You Have A Medical Power Of Air Value Tester? No Information not available 06/26/2022 What Was The Date Of Your Most Recent Tobacco Screening? 05/08/2024 Information not available 05/08/2024 What Is Your Relationship Status? Single MIGRATION.859222 6901 Information not available 06/14/2022 Do You Use Your Seat Belt Or Car Seat Routinely? Yes MIGRATION.129232 5689 Information not available 06/14/2022 Do You Have Smoke And Carbon Monoxide Detectors In Your Home? Yes MIGRATION.762894 7927 Information not available 06/14/2022 Are You Passively Exposed To Smoke? Yes MIGRATION.828412 2186 Information not available 06/14/2022 Are There Any Smokers In Your House? Yes MIGRATION.174422 5759 Information not available 06/14/2022 Do You Feel Stressed (tense, Restless, Nervous, Or Anxious, Or Unable To Sleep At Night)? [id number] MIGRATION.342049 9643 Information not available 06/14/2022 Do You Use Any Illicit Or Recreational Drugs? Yes MIGRATION.021667 4761 Information not available 06/14/2022 Do You Use Sunscreen Routinely? No MIGRATION.537350 5746 Information not available 06/14/2022 Has Tobacco Cessation Counseling Been Provided? No N/a Information not available 09/26/2022 Have You Recently Traveled Abroad? No MIGRATION.716152 9174 Information not available 06/14/2022 Have You Used IV Drugs? No MIGRATION.766135 8040 Information not available 06/14/2022 Do You Have Any Dietary Restrictions? No MIGRATION.565150 2401 Information not available 06/14/2022 Do You Or Have You Ever Used Any Other Forms Of Tobacco Or Nicotine? No Information not available 06/26/2022 Sex: Female Functional Status Question Answer Note LastModified by Organizat ion Details LastModified Time What is your exercise level? Occasional MIGRATION.[id number] 26 Information not available 06/14/2022 Mental Status None recorded. Family History Relationship Description Onset Age of this Age Resolved Age Notes LastModified by Organization Details LastModified Time Mother Vertigo MIGRATION.887 [id number] Not available 06/14/2022 23:55:33 Maternal Grandmother Anemia MIGRATION.593 [id number] Not available 06/14/2022 23:55:33 Maternal Grandmother Vertigo MIGRATION.432 [id number] Not available 06/14/2022 23:55:33 Maternal Grandmother Heart disease MIGRATION.384 [id number] Not available 06/14/2022 23:55:33 Maternal Grandmother Hypertensive disorder MIGRATION.931 [id number] Not available 06/14/2022 23:55:33 Maternal Grandmother Diabetes mellitus MIGRATION.574 [id number] Not available 06/14/2022 23:55:33 Sister Tonsillectom y [email or web address] Not available 2024 10:30:25 Medical History Condition Response BLINDNESS N NERVE [...] HAVE YOU BEEN HOSPITALIZED OR SEEN IN [facility] IN THE PAST YEAR ? N ATHEROSCLEROSIS [...] SNOMED-CT Code Diagnosis ICD10 Code Diagnosis Note [id number] Ivan Owens MD [facility] [place] [address] [place] [address] 06/09/2024 10:25:08 06/09/2024 10:44:41 Chronic maxillary sinusitis 57795685 J32.0 Hypertroph y of tonsils 23328161 J35.1 Health Concerns Section Related Observation LastModified by Organization Detai ls LastModified Time None Recorded Concern Status LastModified by Organization Details LastModified Time None Recorded Payers Encounter Date Sequence Insurance Name Policy Number Policy Quarles Covered Member ID Quarles Member ID Guarantor Name 06/09/2024 1 [facility] [employer] Kyle Bob [id number] Maricruz Dodd 06/09/2024 2 [place] [employer] Maricruz Dodd [id number] Maricruz Dodd Notes Date Note Type Note Provider Name and Address Organization Details Recorded Time 06/09/2024 text/html This patient reports migraine headaches resulting in an MRI scan. This demonstrated tonsillar and adenoidal hypertrophy. She reports some congestion and zzlw-mwk-gipqjgt medications have not been helpful. Maxillary sinusitis was also seen and she has been on no medications for this Ivan Owens MD [address] [place] [address], [address] [address], [place], [address], [place] [facility] 06/09/2024 10:44:40 OBGyn Episode No OBEpisode recorded.
--- OUTSIDE RECORDS SUMMARY | 2024-06-09 10:51 | XMS_ITS | CONTINUITY OF CARE DOCUMENT ---
Author Name genet charlesricardo Address Unknown Organization [facility] Address [address] [facility] [address] [place] [address] Phone [phone] Care Team Providers Care Procedures Tech Name Role Phone Elizabeth Mendoza MD Unavailable ZACKARY JAIN MD Unavailable ZACKARY JAIN MD Unavailable PROBLEMS Condition Status Date Provider Notes ANA CRISTINA, adult active Elizabeth Mendoza MD Migraines active Elizabeth Mendoza MD Lightheadedness active Elizabeth Mendoza MD Dizziness active Elizabeth Mendoza MD Cardiology examination active Elizabeth licona MD ENCOUNTERS Date Type Provider Location Encounter Diag nosis - In-person encounter Office Visit Elizabeth Mendoza MD [facility] Cardiology examinationDizzinessLightheadednessMigraines VITAL SIGNS Date Observation Value Provider Body Mass Index (Ratio) 32.92 kg/m2 Jacinto Ingram blood pressure, cuff size regular Ke rri Suellen blood pressure, diastolic 86 mm[Hg] Ke rri Suellen blood pressure, systolic 130 mm[Hg] Hayden Ken oxygen saturation, oximetry 100 % Lorna Ken respiratory rate E&M 14 /min Lorna orozcosandra pulse rate 73 /min Lorna Lamb lder weight E&M 180 [lb_av] Lorna Lamb lder height E&M 62 [in_i] Lorna Irbywyatt frank HISTORY OF MEDICATION USE Medication Status Instructions Dates Provider Indications Com ments zonisamide 50 mg capsule active Elizabeth Mendoza MD rizatriptan 10 mg tablet,disintegrating active Elizabeth Mendoza MD SOCIAL HISTORY Date Observation Value Provider number of grandchildren Elizabeth Mendoza MD social history E&M S moking History: Murali cobb has never smoked. Elizabeth Mendoza MD social history reviewed E&M revi ewed - no changes required Elizabeth Mendoza MD smoking status Never smoker Lorna [place] INSURANCE PROVIDERS Payer name Policy type / Coverage type [place] red green party ID [id number] ADVANCE DIRECTIVES Name Date DISCUSSED - NO DECISION MADE TREATMENT PLAN Date Name Performer [id number],Sherry Alba arch 2022 A rrange for telemonitor for 1 week. Parth Serrano. Put her on treadmill stress test, see how she does with exertion. Arrange for home sleep study. Elizabeth Mendoza MD [id number] M arch 2022 T akes med rx migraines Elizabeth Mendoza MD Cardiology:June 23, 2022 A rrange for telemonitor for 1 week. Parth falk Echo. Put her on treadmill stress test, see how she does with exertion. Arrange for home sleep study. Elizabeth Mendoza MD Cardiology:June 23, 2022 T akes med rx migraines Elizabeth Mendoza MD Date Name Sleep Study Titratio n Stress Routine TSH, free T4, total T3 HEMOGLOBIN A1c LIPID PANEL COMPREHENSIVE METABO LIC PANEL, W/EGFR Stress Exercise Card iolite Sleep Study Home Complete Echo HISTORY OF PROCEDURES Procedure Date Procedure Name Provider Procedure Notes S tatus EKG Elizabeth Mendoza MD compl eted
--- OUTSIDE RECORDS SUMMARY | 2024-06-09 10:51 | XMS_ITS | Referral Summary ---
Author Organization [facility] [place] Address [address] [facility] [address] Care Team Providers Care Plant Operator/Shift Supervisor Name Role Phone Neal Peters MD Primary Care Provider Source Comments [facility],non-owned Affiliates and Associated Physician Practices is amultiple site organization consisting of ambulatory clinics and hospital sitesin [place], [place], [place] and [place]. This disclosure is being madepursuant to the Care Everywhere program and may not contain all information available regarding this patient. Last updated 18.[facility] Allergies No known active allergies Medications * [...] Pressure 133/91 09/07/2023 12:22 PM CDT Repeat IJ=934/86 Pulse 86 09/07/2023 12:22 PM CDT Temperature [...] On track( 017 4:02 PM CDT) No Sangeetha Pelaezey A, RN Administered Medications Care Teams Plant Operator/Shift Supervisor Relationship Specialty Start Date End Date Neal Peters MD [address] [facility] [address] [place] [address] PCP - General Internal Medicine 09/07/23
--- OUTSIDE RECORDS SUMMARY | 2024-06-09 10:51 | XMS_ITS | Clinical Summary ---
Author Organization [facility] Address [address] [place] [address] Care Team Providers Care Puller Machine Name Role Phone Neal Peters MD Primary Care Provider Source Comments [facility],non-owned Affiliates and Associated Physician Practices is amultiple site organization consisting of ambulatory clinics and hospital sitesin [place], [place], [place] and [place]. This disclosure is being madepursuant to the Care Everywhere program and may not contain all information available regarding this patient. Last updated 18.[facility] Allergies No known active allergies Medications * [...] Pressure 133/91 09/07/2023 12:22 PM CDT Repeat KN=592/86 Pulse 86 09/07/2023 12:22 PM CDT Temperature [...] On track( 017 4:02 PM CDT) Cricket Nieto, RN Maricruz Duke Personal/Famil y Self 2000 [address] [place] [address] Care Teams Puller Machine Relationship Specialty Start Date End Date Neal Peters MD [address] [facility] [address] [place] [address] PCP - General Internal Medicine 09/07/23
--- OUTSIDE RECORDS SUMMARY | 2024-06-09 10:51 | XMS_ITS ---
Author Organization [facility] Address [address] [place] [address] Care Team Providers Care Asphalt Patcher Name Role Phone Emily Valero Primary Care Provider [phone] REASON FOR VISIT records Encounters Encounter Location Date Provider Diagnosis [facility] - Emily Valero [address] [place] [address] 05/15/2024 Emily Valero Plan Of Treatment No Information Progress Notes * Yeny DODDOB:2000 (24 yo F)Acc No.[id number]:05/15/2024 Patient: Maricruz CAST :2000 A ge:24 Y S ex:Female Address:[address] [place] [id number] * true * Date: Generated for Altagraciai alvin/Fajulisag/eTransmitting on: 0 06/09/2024 10:51 AM IMPORT CLERK
--- OUTSIDE RECORDS SUMMARY | 2024-06-09 10:51 | XMS_ITS | Patient Health Summary ---
Author Organization [facility] Address [address] [place] [address] Care Team Providers Care Clin Nurse Name Role Phone Neal Peters MD Primary Care Provider Note from [facility],non-owned Affiliates and Associated Physician Practices is amultiple site organization consisting of ambulatory clinics and hospital sitesin [place], [place], [place] and [place]. This disclosure is being madepursuant to the Care Everywhere program and may not contain all information available regarding this patient. Last updated 18.[facility] Allergies No known active allergies Medications [...] Foot pain 03/04/2010 04/24/2018 Screening for condition 12/22/2009 0112/2018 Head lice 09/28/2009 04/24/2018 Immunizations * DTaP [...] Pressure 133/91 09/07/2023 12:22 PM CDT Repeat HE=553/86 Pulse 86 09/07/2023 12:22 PM CDT Temperature [...] DIFFERENTIAL(Performed 09/07/2023) Performed for Elevated LFTs * [place] LIVER ELASTOGRAPHY(Performed 09/07/2023) Performed for Elevated LFTs [...] 4.0 - 10.7 x10E9/L 09/07/2023 3:26 PM [facility] RBC Count 5.30(H) 3.90 - 5.20 x10E12/L 09/07/2023 3:26 PM [facility] Hemoglobin 13.9 11.9 - 15.8 g/dL 09/07/2023 3:26 PM [facility] Hematocrit 43.7 34.8 - 46.1 % 09/07/2023 3:26 PM [facility] MCV 82.5 80.0 - 98.0 fL 09/07/2023 3:26 PM [facility] MCH 26.2(L) 26.7 - 33.6 pg 09/07/2023 3:26 PM [facility] MCHC 31.8 31.7 - 36.3 g/dL 09/07/2023 3:26 PM [facility] RDW-CV 13.5 11.3 - 14.8 % 09/07/2023 3:26 PM [facility] Platelet Count 366 150 - 420 x10E9/L 09/07/2023 3:26 PM [facility] MPV 10.1 7.8 - 11.4 fL 09/07/2023 3:26 PM [facility] Neutrophil % 53.0 41.0 - 74.0 % 09/07/2023 3:26 PM [facility] Lymphocyte % 28.0 17.0 - 47.0 % 09/07/2023 3:26 PM [facility] Monocyte % 9.7 3.0 - 11.0 % 09/07/2023 3:26 PM [facility] Eosinophil % 8.0(H) 0.0 - 7.0 % 09/07/2023 3:26 PM [facility] Basophil % 1.1 0.0 - 1.6 % 09/07/2023 3:26 PM [facility] Immature Granulocytes % 0.2 0.0 - 1.0 % 09/07/2023 3:26 PM [facility] Neutrophil Absolute 4.38 1.60 - 7.50 x10E9/L 09/07/2023 3:26 PM [facility] Lymphocyte Absolute 2.31 1.00 - 4.40 x10E9/L 09/07/2023 3:26 PM [facility] Monocyte Absolute 0.80 0.15 - 1.00 x10E9/L 09/07/2023 3:26 PM [facility] Eosinophil Absolute 0.66(H) 0.00 - 0.60 x10E9/L 09/07/2023 3:26 PM [facility] Basophil Absolute 0.09 0.00 - 0.13 x10E9/L 09/07/2023 3:26 PM [facility] Blood BLOOD SPECIMEN / Unknown Lab Venipuncture / Unknown 09/07/2023 2:28 PM CDT 09/07/2023 3:16 PM T Laureen Cota SCREEN AND CYCLONE REPAIRER-MANAGER SUPPLY LAB - HEMATO LOGY ORDERABLES [facility] [address] [place] [address], [facility] [phone] * (ABNORMAL) COMPREHENSIVE METABOLIC PANEL (09/07/2023 2:28 PM CDT) Only the most recent of2 resultswithin the time period is included. BUN 13 7 - 26 mg/dL 09/07/2023 3:45 PM [facility] Creatinine 0.56 0.56 - 0.96 mg/dL 09/07/2023 3:45 PM [facility] Sodium 141 136 - 145 mmol/L 09/07/2023 3:45 PM [facility] Potassium 4.1 3.5 - 4.5 mmol/L 09/07/2023 3:45 PM [facility] Chloride 106 98 - 107 mmol/L 09/07/2023 3:45 PM [facility] CO2 26 22 - 29 mmol/L 09/07/2023 3:45 PM [facility] Glucose 78 70 - 115 mg/dL 09/07/2023 3:45 PM [facility] Calcium 10.1 8.4 - 10.2 mg/dL 09/07/2023 3:45 PM [facility] Protein Total 7.9 6.0 - 8.3 g/dL 09/07/2023 3:45 PM [facility] Albumin 4.0 3.4 - 5.0 g/dL 09/07/2023 3:45 PM [facility] Bilirubin Total 0.4 0.2 - 1.2 mg/dL 09/07/2023 3:45 PM [facility] Alkaline Phosphatase 90 40 - 150 U/L 09/07/2023 3:45 PM [facility] ALT 27 5 - 55 U/L 09/07/2023 3:45 PM [facility] AST 16 5 - 34 U/L 09/07/2023 3:45 PM [facility] Anion Gap 9 6 - 16 09/07/2023 3:45 PM CDT [facility] BUN/Creatinine Ratio 23 7 - 23 09/07/2023 3:45 PM CDT [facility] Osmolality Calculated 291 275 - 295 mOsm/kg 09/07/2023 3:45 PM CDT [facility] Albumin/Globulin Ratio 1.0(L) 1.1 - 2.3 09/07/2023 3:45 PM CDT [facility] eGFR by CKD-EPI >90 >=90 mL/min/1.7 3 m2 09/07/2023 3:45 PM CDT [facility] Blood BLOOD SPECIMEN / Unknown Lab Venipuncture / Unknown 09/07/2023 2:28 PM CDT 09/07/2023 3:15 PM CDT Laureen SANZ LAB - CHEMIS TRY ORDERABLES [facility] [address] [place] [address], [facility] [phone] * [place] LIVER ELASTOGRAPHY (09/07/2023 1:17 PM CDT) Narrative [...] patients with nonalcoholic fatty liver disease. Gastroenterology 2019;156:0834-3008. Sushila MS, Mary Carmen R, Van [place]ta [...] at-risk nonalcoholic steatohepatitis (MEDINA) in a [place] cohort and comparison to other non-invasive algorithms. PLoS ONE (2021) 17: [id number]. Josie AJ, Tae J, Enoc ZM, et al. Enhanced diagnosis of advanced fibrosis and cirrhosis in individuals with NAFLD using FibroScan-based Agile scores. J Hepatol (2022) 78: 247-259. Fibroscan LSM can also be used with laboratory parameters without formulas to assess prognosis. According to the Baveno-VII criteria (Ferrell, 2021), Fibroscan LSM ?15 kPa plus a platelet count of ?102u783/L rules out clinically significant portal hypertension (sensitivity and negative predictive value >90%) in patients with compensated advanced chronic liver disease. Rubio, Nandini Hutchison, Amari G, Lisa T, Jorge Alba on behalf of the Baveno VII Faculty. Baveno VII--Renewing consensus in portal hypertension. J Hepatol (2021) 76: 959-974 Assessing the likelihood of advanced fibrosis in patients with intermediate liver stiffness measurement (LSM) by Fibroscan (e.g., 8-15 kPa) can be improved by also calculating the FIB-4 score (Ingauke et al. Hepatology Communications 2019;3:2145-3770) or NAFLD Fibrosis score (Conteh et al. Clinical Gastroenterology and Hepatology 2019;17:9096-3028 using routine clinical data. Note: 1. Fibroscan [...] additional interpretive data was last updated 08/19/22.) [email or web address] Laureen Cota SCREEN AND CYCLONE REPAIRER-MANAGER SUPPLY PROCEDURE/NV NOR SURGICAL ORDERABLES * SKIN TEST PPD - POINT OF CARE (07/10/2018) Only the most recent of2 resultswithin the time period is included. PPD 0mm Comment:No induration Other MISCELLANEOUS SAMPLE S / Unknown 07/10/2018 Rosie Chapa SCREEN AND CYCLONE REPAIRER-MANAGER SUPPLY LAB - POINT OF CARE ORDERABLES * SONOGRAM - COMPLETE (04/26/2018 8:04 AM MANAGER BRAND) Anatomical Region Laterality Modality Other 04/26/2018 8:04 AM MANAGER BRAND Narrative 04/26/2018 9:55 AM MANAGER BRAND [facility]ANDI [facility] PHONE: FAX: Pat. Name: MARICRUZ DODD Pat. No: [id number] Study Date: 04/26/2018 8:04am , Age: 9 2000, 18 Pregnancies: 1 Height: 62 in Weight: 162 lb LMP: 08/24/2017 GA by LMP: 35w0d GA by US: 36w3d ROBERTO: 05/21/2018 GA Selected: 35w0d (LMP) ROBERTO: 05/31/2018 Referring MD: Steven Heller MD Safe Technician: Cyndy Parker RDMS CPT4: 70930 BMI: 29.63 Hist/Ind: Enlarged Cisterna Magna on Outside Scan MEASUREMENTS & AGE GROWTH EVALUATION Measurement GA Range Srce %for GA Ratios ----- ---- ------- BPD 8.8 cm 35w3d (44x4q-38p9f) Hadl BPD 66% FL/BPD 0.76 (0.71 - 0.87) HC 34.2 cm 39w3d (45r2v-22x8e) Hadl HC 97% FL/AC 0.20 (0.20 - 0.24) AC 32.7 cm 36w4d (85s7b-00h0u) Hadl AC 92% HC/AC 1.05 (0.93 - 1.12) FL 6.6 cm 34w1d (93i8h-95w4c) Hadl FL 22% CI 0.69 (0.70 - 0.86* HL 5.8 cm 33w6d (14m3a-69x8m) Jesse HL 30% GA for sonogram 36w3d (26i0q-19y4e) Weight Estimate: based on (BPD,HC,AC,FL) Avg Weight: [...] <Electronic Signature> 04/26/2018 09:55am Chase Heller MD [facility] ORDERABLES * IMAGING/RADIOLOGY/XRAY RESULTS ORDER (04/10/2018) Anatomical Region Laterality Modality Other Scanned Document IMAGING * (ABNORMAL) HEMOGLOBIN - POINT OF CARE (AMB) (12/06/2015) Only the most recent of3 resultswithin the time period is included. Pathologist [facility] Hemoglobin POCT 17.9(A) 11.0 - 14.0 gm/dL Blood specimen (specimen) BLOOD SPECIMEN / Unknown 12/06/2015 Scarlet Larkin MD LAB - POINT OF CARE ORDERABLES * RHEUMATOID FACTOR BLOOD QUANTITATIVE (RF) (12/06/2015) Blood specimen (specimen) BLOOD SPECIMEN / Unknown 12/06/2015 Scarlet Larkin MD LAB - CHEMISTRY ASHOK GRIMALDO Performing Organization Address [facility]/ZIP Co de Phone Number NONSSM RESULT SCAN * C-REACTIVE PROTEIN (12/06/2015) Blood specimen (specimen) BLOOD SPECIMEN / Unknown 12/06/2015 Scarlet Larkin MD LAB - CHEMISTRY ASHOK GRIMALDO NONSSM RESULT SCAN * KATIUSKA BLOOD SCREEN W/REFLEX TITER (12/06/2015) Blood specimen (specimen) BLOOD SPECIMEN / Unknown 12/06/2015 Scarlet Larkin MD LAB - CHEMISTRY ASHOK GRIMALDO Performing Organization Address City/[facility]/[place] Co de Phone Number NONSSM RESULT SCAN * SED RATE AUTO (ESR) (12/06/2015) Blood specimen (specimen) BLOOD SPECIMEN / Unknown 12/06/2015 Scarlet Larkin MD LAB - [facility]OLOG[facility] RESULT [facility] * CBC W MANUAL DIFFERENTIAL (12/06/2015) Blood specimen (specimen) BLOOD SPECIMEN / Unknown 12/06/2015 Scarlet Larkin MD LAB - HEMATOLOGY ORD ANTON NONS RESULT SCAN * LAB RESULTS ORDER (04/13/2015) Scanned Document LAB - THERAPEUTIC DR UG MONITORING ORDERABLES * URINALYSIS W MICROSCOPIC - POINT OF CARE (05/06/2013 3:38 PM MANAGER BRAND) Only the most recent of2 resultswithin the time period is included. Leukocyte UA trace Negative Comment:culture sent Nitrite UA POCT negative Negative Urobilinogen UA 0.2 0.1 - 1.0 Protein UA POCT trace Negative pH UA 5.0 5.0 - 8.0 pH units Blood UA negative Negative Specific [place] UA POCT 1.030 1.002 - 1.030 Ketone [...] ORDERABLES * CULTURE URINE (05/06/2013 3:33 PM MANAGER BRAND) Only the most recent of2 resultswithin the time period is included. Urine Culture Routine Final report [facility] INSURANCE BILL Result 1 No growth [facility] INSURANCE BILL Urine specimen (specimen) URINE SPECIMEN OBTAINED BY CLEAN CATCH PROCEDURE / Unknown 05/06/2013 3:33 PM MANAGER BRAND 05/06/2013 9:07 PM MANAGER BRAND Narrative Resulting Agency Comment [facility] [address] [facility] [phone] Scarlet Larkin MD LAB - MICROBIOLOGY O RDANTON Performing Organization Address City/[facility]/ZIP Co de Phone Number [facility] INSURANCE BILL * (ABNORMAL) INFLUENZA A+B - POINT OF CARE (AMB) (04/18/2013 4:07 PM MANAGER BRAND) Influenza A Antigen Rapid Positive(A) Negative Influenza [...] 9:10 PM CDT Narrative Resulting Agency Comment [facility] [address] [facility] [phone] Dhaval Jovel MD LAB - MICROBIOLOGY O KORIN Performing Organization Address [facility]/[place] Co de Phone Number [facility] INSURANCE BILL [...] MD DIAGNOSTIC IMAGING O RDERABLES Care Teams Clin Nurse Relationship Specialty Start Date End Date Neal Peters MD [address] [phone] PCP - General Internal Medicine 09/07/23
--- OUTSIDE RECORDS SUMMARY | 2024-06-09 10:51 | XMS_ITS | Patient Health Record ---
Author Organization [facility] Address [address] [address] Care Team Providers Care Drywall Finishing Foreman Name Role Phone Emily Valero Primary Care Provider Allergies No Known Allergies Results Component Value Reference Range Notes COMPREHENSIVE METABOLIC PANE L (Not yet reviewed by provider) Interpretation: Performing Lab:JAYANT, [facility], [address], [place], [address] Vern Lyons Notes/Report: FASTING:YES FASTING: YES VITAMIN D, 25-HYDROXY, LC/MS /MS (Not yet reviewed by provider) Interpretation: Performing Lab:KS, [facility], [address], [address] Vern Lyons MD Notes/Report: FASTING:YES FASTING: YES ACTH, PLASMA (Not yet review ed by provider) Interpretation: Performing Lab:ELEAZAR, [facility], [address], [place], [place], Kaveh Caicedo M.D.,PhD Notes/Report: FASTING:YES FASTING: YES TSI (THYROID STIMULATING IMM UNOGLOBULIN) (Not yet reviewed by provider) Interpretation: Performing Lab:EZ, [facility],, [address] [place], [address] Kesha Rojo MD,PhD,MANPREET Notes/Report: FASTING:YES FASTING: YES T3, FREE (Not yet reviewed b y provider) Interpretation: Performing Lab:KS, [facility], [address] [place], [address] Vern Lyons MD Notes/Report: FASTING:YES FASTING: YES CORTISOL, TOTAL (Not yet rev iewed by provider) Interpretation: Performing Lab:[facility], [address] [place], [address] Vern Lyons MD Notes/Report: FASTING:YES FASTING: YES DHEA SULFATE (Not yet review ed by provider) Interpretation: Performing Lab:[facility], [address] [place], [address] Vern Lyons MD Notes/Report: FASTING:YES FASTING: YES ESTRADIOL (Not yet reviewed by provider) Interpretation: Performing Lab:[facility], [address] [place], [address] [facility] Lyons Notes/Report: FASTING:YES FASTING: YES FERRITIN (Not yet reviewed b y provider) Interpretation: Performing Lab:[facility], [address] [place], [address] LauraSara Lyons MD Notes/Report: FASTING:YES FASTING: YES HEMOGLOBIN A1c (Not yet revi ewed by provider) Interpretation: Performing Lab:[facility], [address] [place], [address] [place] [address] Karin Lyons Notes/Report: FASTING:YES FASTING: YES INSULIN (Not yet reviewed by provider) Interpretation: Performing Lab:[facility], [address] [place], [address] LauraSara Lyons MD Notes/Report: FASTING:YES FASTING: YES CBC (INCLUDES DIFF/PLT) (Not yet reviewed by provider) Interpretation: Performing Lab:[facility], [address] [place], [address] [place] [address] Karin Lyons Notes/Report: FASTING:YES FASTING: YES VITAMIN B12/FOLATE, SERUM PA LAWRENCE (Not yet reviewed by provider) Interpretation: Performing Lab:[facility], [address] [place], [address] Vern Lyons MD Notes/Report: FASTING:YES FASTING: YES PROGESTERONE (Not yet review ed by provider) Interpretation: Performing Lab:, [facility], [address] [place], [address] [facility] Karin Notes/Report: FASTING:YES FASTING: YES IRON AND TOTAL IRON BINDING CAPACITY (Not yet reviewed by provider) Interpretation: Performing Lab:ME, [facility], [address] [facility], [place], [address] Laura-Sara Lyons MD Notes/Report: FASTING:YES FASTING: YES LIPID PANEL (Not yet reviewe d by provider) Interpretation: Performing Lab:, [facility], [address] [place], [address] [facility] Ly[facility] Notes/Report: FASTING:YES FASTING: YES T4, FREE (Not yet reviewed b y provider) Interpretation: Performing Lab:, [facility], [address] [place], [address] [facility] Karin Lyons Notes/Report: FASTING:YES FASTING: YES TSH (Not yet reviewed by pro vider) Interpretation: Performing Lab:, [facility], [address] [place], [address] [facility] Karin Lyons Notes/Report: FASTING:YES FASTING: YES THYROID PEROXIDASE ANTIBODIE S (Not yet reviewed by provider) Interpretation: Performing Lab:, [facility], [address] [place], [address] Michael Medina Notes/Report: FASTING:YES FASTING: YES THYROID PEROXIDASE ANTIBODIES 2 <9 IU/mL TESTOSTERONE, FREE (DIALYSIS ) AND TOTAL,MS (Not yet reviewed by provider) Interpretation: Performing Lab:Z3E, [facility], [address] [address], [address], [place], [address] Kirt Leonard MD,PhD Notes/Report: FASTING:YES FASTING: YES TESTOSTERONE, TOTAL, MS 23 2-45 ng/dL For additional information, please refer to https://education.[email or web address] DDRdrive.com/faq/PAL913 (This link is being provided for informational/educational purposes only.) (Note) This test was developed and its analytical performance characteristics have been determined by [employer]. It has not been cleared or approved by the FDA. This assay has been validated pursuant to the CLIA regulations and is used for clinical purposes. TESTOSTERONE, FREE 3 0.1-6.4 pg/mL (Note) This test was developed and its analytical performance characteristics have been determined by [employer]. It has not been cleared or approved by the FDA. This assay has been validated pursuant to the CLIA regulations and is used for clinical purposes. [facility] [address] [address],[address] [facility] [address] Kirt Leonard MD, PhD Reason For Referral No Information Medications Medication [...] Status Risk Notes Problem Vitamin D deficiency (58010438) Vitamin D deficiency, unspecified (E55.9) Active confirmed Problem Non-toxic single thyroid nodule (145632024) Nontoxic single thyroid nodule (E04.1) Active confirmed Problem Obesity (049960342) Obesity, unspecified (E66.9) Active confirmed Problem Irregular menstruation (74018436) Irregular menstruation, unspecified (N92.6) Active confirmed Vital Signs Heart Rate 82 /min 05/15/2024 Respiratory Rate 12 /min 05/15/2024 Blood pressure diastolic 72 mm Hg 05/15/2024 Height 62 in 05/15/2024 Blood pressure systolic 120 mm Hg 05/15/2024 Weight 180 lbs 05/15/2024 BMI 32.92 kg/m2 05/15/2024 Encounters Encounter Location Date Provider Diagnosis [facility], [facility] - Emily Valero [address] [place] [address] 05/15/2024 Emily Valero Nontoxic single thyroid nodule E04.1 ; Obesity, unspecified E66.9 ; Irregular menstruation, unspecified N92.6 ; Impaired fasting glucose R73.01 ; Encounter for screening for lipoid disorders Z13.220 and Vitamin D deficiency, unspecified E55.9 [facility], [facility] Emily Valero [address] [place] [address] 05/15/2024 Emily Valero Assessments Encounter Date Diagnosis (ICD Code) Assessment [...] appointment in 3-4 weeks post-lab completion. 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, anxiety, mood swings, [...] procedures, referring and communicating with other health wound care technician, documenting clinical information in the electronic or [...] DIFF/PLT) 05/27/2024 VITAMIN B12/FOLATE, SERUM PANEL 05/27/19 PROGESTERONE 05/27/2024 IRON AND TOTAL IRON BINDING CAPACITY 02/2025 LIPID PANEL 05/27/2024 T4, FREE 05/27/2024 TSH 05/27/2024 THYROID PEROXIDASE ANTIBODIES 05/27/2024 TESTOSTERONE, FREE (DIALYSIS) AND TOTAL, MS 05/27/2024 Insurance Providers Payer Name Payer Address Payer Phone Subscriber Number Group Number Insured Name Patient Relationship to Insured Coverage Start Date Coverage End Date [facility] [address] [place] [phone] [id number] Maricruz Duke Self - patient is the insured Medicaid [place] [address] [address] [place] [address] [id number] Maricruz Duke Self - patient is the insured Medical (General) History Medical History History ICD Code thyroid nodule graves disease Surgical History Surgery Date(Month/Year) vaginal delivery x 2 thyroid biopsy of left dominant nodule tongue tied as Hospitalization History Reason Date(Month/Year) vaginal delivery x 2
--- OUTSIDE RECORDS SUMMARY | 2024-06-09 10:51 | XMS_ITS | Patient Health Record ---
Author Organization [facility] Address [address] [place] [address] Care Team Providers Care Metal Spray Operator Name Role Phone Georgia Stallings Primary Care Provider [phone] Allergies No Known Allergies Reason For Referral [...] Problem Status W/U Status Risk Notes Problem [id number] Bipolar II disorder (F31.81) Active confirmed Problem 34262270 ADHD (attention deficit hyperactivity disorder), combined type (F90.2) Active confirmed Problem 72926714 WILLIS (generalized anxiety disorder) (F41.1) Active confirmed Plan Of Treatment No Information Insurance Providers Payer Name Payer Address Payer Phone Subscriber Number Group Number Insured Name Patient Relationship to Insured Coverage Start Date Coverage End Date [facility] [address] [address] [place] [phone] [id number] Kyle Cruz Child - Insured has Financial Responsibility 1 MEDICAID [address] [place] [phone] [id number] Maricruz Dkue Self - patient is the insured 1 Medical (General) History Surgical History Surgery Date(Month/Year)
--- OUTSIDE RECORDS SUMMARY | 2024-06-09 10:51 | XMS_ITS | Data Portability ---
Author Organization [facility] Address [address] [place] [address] Assessment Encounter Date Assessment Date Assessment LastModified by Organization Details LastModified Time 12/07/2023 12/07/[address] mccullough send cultures treat infection and pain do not have unprotected intercourse as IUD is mal-positioned plan to removal and replace next sunday if fever worsening pain to ED for evlauation Not available 12/07/2023 17:02:17 Plan of Treatment Reminders Order Date Submit Date Provider Last Modified By Organization Details Last Modified Time Details Appointments None recorded. Lab bacterial vaginosis DNA, PCR, vaginal fluid [address] [facility] (Lab), [address], [place], [address], 4 11:06:39 colleen sp DNA, vaginal [address] [facility] (Lab), [address], [place], [address], 4 11:06:40 mobiluncus, DNA, vaginal [address] [facility] (Lab), [address] [place], [address], 4 11:06:40 colleen krusei DNA, vaginal [address] [facility] (Lab), [address], [place], [address], 4 11:06:41 STI panel [address] [facility] (Lab), [address], [place], [address], 4 11:06:38 test, urine 2023 024 [email or web address] [address], [address], [place], [address], 4 15:08:39 Referral None recorded. Procedures None recorded. Surgeries None recorded. Imaging US, transvagina l 2023 024 [place] [address] [address], [address], [place], [address], 4 13:50:49 US, pelvis [address], [address], [place], [address], 4 12:49:54 US, transvagina l [address]23 [address], [address], [place], [address], 4 12:49:54 US, pelvis 2023 [address], [address], [place], [address], 4 18:49:33 US, transvagina l 2023 [address], [address], [place], [address], 4 18:49:33 Medication Orders Mirena 21 mcg/24 hr (up to 8 years) 52 mg intrauterin e device 2023 024 [email or web address] 1 [id number], [address], [place], [place], [id number], 4 15:10:05 Flagyl 500 mg tablet [address] [facility] #[id number], [address], [place], [place], [id number], 4 15:04:12 hydrocodone 5 mg-acetamin ophen 325 mg tablet [address] [facility] #[id number], [address], [place], [place], [id number], 4 16:48:58 doxycycline hyclate 100 mg tablet [address] [facility] #[id number], [address], [place], [place], [id number], 4 15:04:05 Patient TargetsNo targets recorded. Patient InstructionsNo instructions recorded. Reason for Referral None Reported. Results Created Date Observation Date Name Description Value Unit Range Abnormal Flag Note LastModifiedBy Organization Detail LastModifiedTime 05/09/19 24 05/09/2023 CT/GC AND TRICH OMONA S VAGIN KENNEY (RRNA ), URINE chlamydia trachomatis, PCR Negati ve negati ve Not Available [facility] (Lab) [address] [place], [address], 05/10/2023 15:34:52 05/09/19 24 05/09/2023 CT/GC AND TRICH OMONA S VAGIN KENNEY (RRNA ), URINE neisseria gonorrhoeae, PCR Negati ve negati ve Not Available [facility] (Lab) [address] [place], [address], 05/10/2023 15:34:52 05/09/19 24 05/09/2023 CT/GC AND TRICH OMONA S VAGIN KENNEY (RRNA ), URINE trichomonas vaginalis ribosomal RNA (rrna) Negati ve negati ve Not Available [facility] (Lab) [address] [facility], [place], [address], 05/10/2023 15:34:52 12/07/19 24 12/07/2023 CT/GC AND TRICH OMONA S VAGIN KENNEY (RRNA ), URINE chlamydia trachomatis, PCR Negati ve negati ve Not Available [facility] (Lab) [address] [facility], [place], [address], 12/10/2023 10:34:57 12/07/19 24 12/07/2023 CT/GC AND TRICH OMONA S VAGIN KENNEY (RRNA ), URINE neisseria gonorrhoeae, PCR Negati ve negati ve Not Available [facility] (Lab) [address] [facility], [place], [address], 12/10/2023 10:34:57 12/07/19 24 12/07/2023 CT/GC AND TRICH OMONA S VAGIN KENNEY (RRNA ), URINE trichomonas vaginalis ribosomal RNA (rrna) Negati ve negati ve Not Available [facility] (Lab) [address] [facility], [place], [address], 12/10/2023 10:34:57 12/07/19 24 12/07/2023 CULTU RE: URINE result report SEE RESULT S BELOW Test: Cultu re: Urine Speci men Sourc e: Urine - Clean Catch Speci men Type: Urine Speci men Date: 2023 1554 Resul t Date: 2023 0608 Resul t Statu s: Final resul t Abnor mal: No Resul stevog Lab: [facility] [address] [facility] [address] Tel: CULTU RE ----- ----- ----- --- No growt h in 1 day (dete ction level of 10,00 0 colon ies / ml.) Not Available [facility] (Lab) [address] [facility], [place], [address], 12/10/2023 10:34:58 12/07/19 24 12/07/2023 VAGIN ITIS/ VAGIN OSIS, DNA PROBE colleen sp. detection, direct probe Negati ve negati ve Not Available [facility] (Lab) [address] [facility], [place], [address], 12/10/2023 10:34:59 12/07/19 24 12/07/2023 VAGIN ITIS/ VAGIN OSIS, DNA PROBE gardnerella vag. detection, direct probe Negati ve negati ve Not Available [facility] (Lab) [address] [facility], [place], [address], 12/10/2023 10:34:59 12/07/19 24 12/07/2023 VAGIN ITIS/ VAGIN OSIS, DNA PROBE trichomonas vag. detection, direct probe Negati ve negati ve Not Available [facility] (Lab) [address] [place], [address], 12/10/2023 10:34:59 12/14/19 24 12/14/2023 UROGE NITAL MYCOP LASMA /UREA PLASM A PANEL RT-PC R, ONESW AB mycoplasma genitalium by RT-PCR Negati ve Swab- 1 Cerv/ End Not Available [facility] (Lab) [address] [place], [address], 12/25/2023 11:06:38 12/14/19 24 12/14/2023 UROGE NITAL MYCOP LASMA /UREA PLASM A PANEL RT-PC R, ONESW AB mycoplasma hominis by RT-PCR Negati ve Swab- 1 Cerv/ End Not Available [facility] (Lab) [address] [place], [address], 12/25/2023 11:06:38 12/14/19 24 12/14/2023 UROGE NITAL MYCOP LASMA /UREA PLASM A PANEL RT-PC R, ONESW AB ureaplasma urealyticum by RT-PCR Negati ve Swab- 1 Cerv/ End Not Available [facility] (Lab) [address] [place], [address], 12/25/2023 11:06:38 12/14/19 24 12/14/2023 BACTE RIAL VAGIN OSIS PANEL (WITH LACTO BACIL CHATO PROFI LING) BY QRT TERRELL, ERON STEWART (CHARISMA) atopobium vaginae PCR Negati ve Swab- 1 Cerv/ End Not Available [facility] (Lab) [address] [place], [address], 12/25/2023 11:06:39 12/14/19 24 12/14/2023 BACTE RIAL VAGIN OSIS PANEL (WITH LACTO BACIL CHATO PROFI LING) BY QRT TERRELL, ERON STEWART (CHARISMA) bacterial vaginosis associated bacterium 1 (bvab1) RT PCR Negati ve Swab- 1 Cerv/ End Not Available [facility] (Lab) [address] [facility], [place], [address], 12/25/2023 11:06:39 12/14/19 24 12/14/2023 BACTE RIAL VAGIN OSIS PANEL (WITH LACTO BACIL CHATO PROFI LING) BY QRT PRC, ERON STEWART (CHARISMA) bacterial vaginosis associated bacteria 2 (bvab2) Negati ve Swab- 1 Cerv/ End Not Available [facility] (Lab) [address] [place], [address], 12/25/2023 11:06:39 12/14/19 24 12/14/2023 BACTE RIAL VAGIN OSIS PANEL (WITH LACTO BACIL CHATO PROFI LING) BY QRT TERRELL, ERON STEWART (CHARISMA) bacterial vaginosis associated bacterium 3 (bvab3) RT PCR Negati ve Swab- 1 Cerv/ End Not Available [facility] (Lab) [address] [place], [address], 12/25/2023 11:06:39 12/14/19 24 12/14/2023 BACTE RIAL VAGIN OSIS PANEL (WITH LACTO BACIL CHATO PROFI LING) BY QRT PRC, ERON STEWART (CHARISMA) bacteroides fragilis by real - time PCR Negati ve Swab- 1 Cerv/ End Not Available [facility] (Lab) [address] [place], [address], 12/25/2023 11:06:39 12/14/19 24 12/14/2023 BACTE RIAL VAGIN OSIS PANEL (WITH LACTO BACIL CHATO PROFI LING) BY QRT PRC, ERON STEWART (CHARISMA) bifidobacter ium breve by real-time PCR Negati ve Swab- 1 Cerv/ End Not Available [facility] (Lab) [address] [place], [address], 12/25/2023 11:06:39 12/14/19 24 12/14/2023 BACTE RIAL VAGIN OSIS PANEL (WITH LACTO BACIL CHATO PROFI LING) BY QRT PRC, ERON STEWART (CHARISMA) gardnerella vaginalis PCR Negati ve Swab- 1 Cerv/ End Not Available [facility] (Lab) [address] [place], [address], 12/25/2023 11:06:39 12/14/19 24 12/14/2023 BACTE RIAL VAGIN OSIS PANEL (WITH LACTO BACIL CHATO PROFI LING) BY QRT PRC, ERON STEWART (CHARISMA) lactobacillu s (bvpanel) PCR See Commen t Swab- 1 Cerv/ End L.cri spatu s: Posit andrea L.radha senii : Negat andrea L.gas seri : Negat andrea L.ine rs : Negat andrea. Not Available [facility] (Lab) [address] [place], [address], 12/25/2023 11:06:39 12/14/19 24 12/14/2023 BACTE RIAL VAGIN OSIS PANEL (WITH LACTO BACIL CHATO PROFI LING) BY QRT PRC, ERON STEWART (CHARISMA) lactobacillu s acidophilus by real-time PCR Negati ve Swab- 1 Cerv/ End Not Available [facility] (Lab) [address] [place], [address], 12/25/2023 11:06:39 12/14/19 24 12/14/2023 BACTE RIAL VAGIN OSIS PANEL (WITH LACTO BACIL CHATO PROFI LING) BY QRT PRC, KOFIW AB (MDL) megasphaera species (type 1 and type 2) PCR Negati ve (Type1 ,Type2 ) Swab- 1 Cerv/ End Type1 :Nega tive Type2 :Nega tive. Not Available [facility] (Lab) [address] [facility], [place], [address], 12/25/2023 11:06:39 12/14/19 24 12/14/2023 BACTE RIAL VAGIN OSIS PANEL (WITH LACTO BACIL CHATO PROFI LING) BY QRT PRC, KOFIW AB (MDL) mobiluncus curtisii by real-time PCR Negati ve Swab- 1 Cerv/ End Not Available [facility] (Lab) [address] [facility], [place], [address], 12/25/2023 11:06:39 12/14/19 24 12/14/2023 BACTE RIAL VAGIN OSIS PANEL (WITH LACTO BACIL CHATO PROFI LING) BY QRT PRC, ERON AB (MDL) mobiluncus mulieris by real-time PCR Negati ve Swab- 1 Cerv/ End Not Available [facility] (Lab) [address] [place], [address], 12/25/2023 11:06:39 12/14/19 24 12/14/2023 BACTE RIAL VAGIN OSIS PANEL (WITH LACTO BACIL CHATO PROFI LING) BY QRT PRC, KOFIW AB (MDL) prevotella bivia by real-time PCR Negati ve Swab- 1 Cerv/ End Not Available [facility] (Lab) [address] [place], [address], 12/25/2023 11:06:39 12/14/19 24 12/14/2023 BACTE RIAL VAGIN OSIS PANEL (WITH LACTO BACIL CHATO PROFI LING) BY QRT PRC, ERON STEWART (CHARISMA) sneathia sanguinegens real-time PCR Negati ve Swab- 1 Cerv/ End Not Available [facility] (Lab) [address] [place], [address], 12/25/2023 11:06:39 12/14/19 24 12/14/2023 BACTE RIAL VAGIN OSIS PANEL (WITH LACTO BACIL CHATO PROFI LING) BY QRT PRC, ERON STEWART (L) streptococcu s anginosus by real-time PCR Negati ve Swab- 1 Cerv/ End Not Available [facility] (Lab) [address] [place], [address], 12/25/2023 11:06:39 12/14/19 24 12/14/2023 MOBIL UNCUS MULIE RIS/C URTIS STEVEN, RT-PC R, ONE SWAB mobiluncus mulieris and mobiluncus curtisii by RT-PCR Negati ve Swab- 1 Cerv/ End Not Available [facility] (Lab) [address] [place], [address], 12/25/2023 11:06:40 12/14/19 24 12/14/2023 EMILI DA VAGIN ITIS PANEL RT-PC R, ONESW AB colleen albicans PCR Negati ve Swab- 1 Cerv/ End Not Available [facility] (Lab) [address] [place], [address], 12/25/2023 11:06:40 12/14/19 24 12/14/2023 EMILI DA VAGIN ITIS PANEL RT-PC R, ONESW AB colleen glabrata PCR Negati ve Swab- 1 Cerv/ End Not Available [facility] (Lab) [address] [place], [address], 12/25/2023 11:06:40 12/14/19 24 12/14/2023 EMILI DA VAGIN ITIS PANEL RT-PC R, ONESW AB colleen krusei by RT-PCR Negati ve Swab- 1 Cerv/ End Not Available [facility] (Lab) [address] [facility], [place], [address], 12/25/2023 11:06:40 12/14/19 24 12/14/2023 EMILI DA VAGIN ITIS PANEL RT-PC R, ONESW AB colleen parapsilosis PCR Negati ve Swab- 1 Cerv/ End Not Available [facility] (Lab) [address] [facility], [place], [address], 12/25/2023 11:06:40 12/14/19 24 12/14/2023 EMILI DA VAGIN ITIS PANEL RT-PC R, ONESW AB colleen tropicalis PCR Negati ve Swab- 1 Cerv/ End Not Available [facility] (Lab) [address] [facility], [place], [address], 12/25/2023 11:06:40 12/14/19 24 12/14/2023 EMILI DA AYAH I BY RT-PC R colleen krusei by RT-PCR [facility] Not Available [facility] (Lab) [address] [facility], [place], [address], 12/25/2023 11:06:41 12/14/19 24 12/14/2023 pregn gamaliel test, urine HCG negati ve Not Available [place] [address], [place], [address], 12/14/2023 15:07:32 06/06/19 24 06/06/2023 US, trans vagin al No observ ation record ed. [email or web address] [place] [address], [place], [address], 06/06/2023 15:53:01 06/07/19 24 06/07/2023 US, pelvi s No observ ation record ed. [email or web address] [place] [address], [place], [address], 06/07/2023 10:32:49 06/07/19 24 06/07/2023 US, trans vagin al No observ ation record ed. [email or web address] [place] [address] [address], [place], [address], 06/07/2023 10:32:38 06/07/19 24 06/07/2023 US, pelvi s No observ ation record ed. KELLE Gaby [address], [place], [address], 06/08/2023 20:56:23 12/04/19 24 12/04/2023 US, pelvi s No observ ation record ed. [facility] [address], [place], [address], 12/04/2023 17:40:10 12/04/19 24 12/04/2023 US, trans vagin al No observ ation record ed. [facility] [address], [place], [address], 12/04/2023 17:40:25 12/04/19 24 12/04/2023 US, pelvi s No observ ation record ed. [address], [place], [address], 12/06/2023 09:48:56 01/11/20 24 01/11/2024 US, trans vagin al No observ ation record ed. [email or web address], [place], [address], 01/11/2024 13:15:06 01/11/20 24 01/11/2024 US, trans vagin al No observ ation record ed. KELLE Gaby [address], [place], [address], 01/13/2024 10:06:03 Result Notes None recorded. Problems Name Problem SNOMED Code Status Onset Date Resolution Date Notes Provider Name and Address Organization Details Recorded Time Gestatio n period, 37 weeks [id number] Completed 201808/18/2020 37 weeks gestatio n of pregnanc y;Practi ce ID: 0001 Natalie arias, [facility] 11:33:46 Normal pregnanc y in multigra phyllis [id number] Completed 201808/18/2020 Encounte r for suprvsn of normal pregnanc y, third trimeste r;Practi ce ID: 0001 Natalie arias, [facility] 11:34:43 False labor at or after 37 complete d weeks of gestatio n [id number] Completed 201808/18/2020 False labor at or after 37 complete d weeks of gestatio n;Practi ce ID: 0001 Natalie arias, [facility] 11:33:32 Gestatio n period, 38 weeks [id number] Completed 201808/18/2020 38 weeks gestatio n of pregnanc y;Practi ce ID: 0001 Natalie arias, [facility] 11:33:48 Lacerati on of female perineum Completed 201808/18/2020 First degree perineal lacerati on during delivery ;Practic e ID: 0001 Natalie arias, [facility] 11:33:57 Single live [id number] Completed 201808/18/2020 Single live ;Pr actice ID: 0001 Natalie arias, [facility] 11:34:58 Gestatio n period, 39 weeks [id number] Completed 201808/18/2020 39 weeks gestatio n of pregnanc y;Practi ce ID: 0001 Natalie arias, [facility] 11:33:50 Lochia finding Completed 201808/18/2020 Encounte r for routine postpart um follow-u p;Practi ce ID: 0001 Natalie arias, [facility] 11:34:42 Discharg e from nipple [id number] Completed 201908/18/2020 Nipple discharg e;Practi ce ID: 0001 Natalie arias, [facility] 11:33:27 Uses combined oral contrace ption [id number] Completed 201908/18/2020 Encounte r for surveill ance of contrace ptive pills;Pr actice ID: 0001 Natalie arias, [facility] 11:33:26 Finding of menstrua l bleeding Completed 201608/18/2020 Menorrha trevon;Juan Manuel rded Elsewher e: No Locat ion: [facility] S ource: EHR Metal Stamping Machine Operator alida: N Practi ce ID: 0001 Scout lable Time: 02:15:00 PM Natalie arias, [facility] 11:33:34 Procedur e Completed 201608/18/2020 Encounte r for checking , reinsert ion or removal of implanta ble subderma l contrace ptive;Re corded Elsewher e: No Locat ion: [facility] S ource: EHR Metal Stamping Machine Operator alida: N Practi ce ID: 0001 Scout lable Time: 02:15:00 PM Natalie arias, [facility] 11:34:54 Pregnanc y, childbir th and puerperi um finding Completed 201708/18/2020 Encounte r for supervis ion of normal 1st pregnanc y;Record ed Elsewher e: No Locat ion: Mary dillard [facility] S ource: EHR Metal Stamping Machine Operator alida: N Practi ce ID: 0001 Scout lable Time: 02:30:00 PM Natalie Magana [facility], [facility] 1 11:34:48 Pregnanc y detectio n examinat ion Completed 201708/18/2020 Encounte r for pregnanc y test, result positive ;Recorde d Elsewher e: No Locat ion: [facility] S ource: EHR Metal Stamping Machine Operator alida: N Practi ce ID: 0001 Scout lable Time: 11:00:00 AM Natalie Magana [facility], [facility] 11:34:45 Developm ental disorder Completed 201708/18/2020 Malforma tion of placenta , unspecif ied, third trimeste r;Record ed Elsewher e: No Locat ion: Randal gilma [facility] S ource: EHR Metal Stamping Machine Operator alida: N Stuti ce ID: 0001 Scout lable Time: 03:15:00 PM Natalie Magana [facility], [facility] 11:33:16 Cardioto chogram finding [id number] Completed 201808/18/2020 Other abnormal findings on antenata l screenin g of mother;R ecorded Elsewher e: No Locat ion: Randal gilma [facility] S ource: EHR Metal Stamping Machine Operator alida: N Practi ce ID: 0001 Scout lable Time: 03:30:00 PM Natalie Magana [facility], [facility] 1 11:33:23 Gestatio n period, 30 weeks [id number] Completed 201708/18/2020 30 weeks gestatio n of pregnanc y;Record ed Elsewher e: No Locat ion: [facility] S ource: EHR Metal Stamping Machine Operator alida: N Practi ce ID: 0001 Scout lable Time: 03:15:00 PM Natalie Magana [facility] 11:33:42 Rubella screenin g status [id number] Completed 201708/18/2020 Encounte r for antenata l screenin g, unspecif ied;Juan Manuel rded Elsewher e: No Locat ion: [facility] S ource: EHR Metal Stamping Machine Operator alida: N Stuti ce ID: 0001 Scout lable Time: 10:15:00 AM Natalie Magana [facility], [facility] 11:34:56 Pregnanc y test negative [id number] Completed 201608/18/2020 Encounte r for pregnanc y test, result negative ;Recorde d Elsewher e: No Locat ion: [facility] S ource: EHR Metal Stamping Machine Operator alida: N Stuti ce ID: 0001 Scout lable Time: 02:15:00 PM Natalie arias, [facility] 11:34:46 Insertio n of subcutan eous contrace ptive Completed 201408/18/2020 Insertio n of implanta ble subderma l contrace ptive;Re corded Elsewher e: No Locat ion: [facility] S ource: EHR Metal Stamping Machine Operator alida: N Stuti ce ID: 0001 Scout lable Time: 11:00:00 AM Natalie arias, [facility] 11:33:55 Gestatio n period, 32 weeks [id number] Completed 201708/18/2020 32 weeks gestatio n of pregnanc y;Record ed Elsewher e: No Locat ion: [facility] S ource: EHR Metal Stamping Machine Operator alida: N Stuti ce ID: 0001 Scout lable Time: 03:15:00 PM Natalie arias, [facility] 11:33:44 Developm ental disorder Completed 201708/18/2020 Malforma tion of placenta , unspecif ied, second trimeste r;Record ed Elsewher e: No Locat ion: [facility] S ource: EHR Metal Stamping Machine Operator alida: Jemima Perazati ce ID: 0001 Scout lable Time: 02:00:00 PM Natalie Izzy hugo, [facility] 1 11:33:14 Antenata l ultrasou nd finding [id number] Completed 201808/18/2020 Abnormal ultrason ic finding on antenata l screenin g of mother;R ecorded Elsewher e: No Locat ion: [facility] N Stuti ce ID: 0001 Scout lable Time: 01:45:00 PM Natalie Magana hugo, [facility] 11:33:21 Speciali zed medical examinat ion Completed 201308/18/2020 Gynecolo gical Examinat ion;Juan Manuel rded Elsewher e: No Locat ion: [facility]: Jemima Perazalawson ce ID: 0001 Scout lable Time: 03:00:00 PM Natalie Magana [facility], [facility] 11:35:05 Threaten ed miscarri age [id number] Completed 201708/18/2020 Threaten ed ;Recorde d Elsewher e: No Locat ion: [facility] S ource: EHR Metal Stamping Machine Operator alida: N Stulawson ce ID: 0001 Scout lable Time: 11:30:00 AM Natalie Magana hugo, [facility] 1 11:35:09 Antenata l screenin g for malforma tion Completed 201708/18/2020 Encounte r for antenata l screenin g for malforma tions;Re corded Elsewher e: No Locat ion: [facility] S ource: EHR Metal Stamping Machine Operator alida: N Stuti ce ID: 0001 Scout lable Time: 03:30:00 PM Natalie Magana hugo, [facility] 11:33:20 Subcutan eous contrace ptive implant present [id number] Completed 201408/18/2020 Surveill ance of implanta ble subderma l contrace ptive;Re corded Elsewher e: No Locat ion: Mary dillard [facility] S ource: EHR Metal Stamping Machine Operator alida: N Practi ce ID: 0001 Scout lable Time: 03:00:00 PM Natalie arias [facility] 11:35:07 Gestatio n less than 9 weeks [id number] Completed 201708/18/2020 Less than 8 weeks gestatio n of pregnanc y;Record ed Elsewher e: No Locat ion: [facility] d[facility] S ource: EHR Metal Stamping Machine Operator alida: N Stuti ce ID: 0001 Scout lable Time: 11:30:00 AM Natalie arias [facility] 11:33:[address] Concept Completed 201608/18/2020 Well woman check w/o abnormal finding; Recorded Elsewher e: No Locat ion: [facility] S ource: EHR Metal Stamping Machine Operator alida: N Practi ce ID: 0001 Scout lable Time: 01:30:00 PM Natalie arias [facility] 11:35:02 Gestatio n period, 23 weeks [id number] Completed 201708/18/2020 23 weeks gestatio n of pregnanc y;Record ed Elsewher e: No Locat ion: [facility] d[facility] S ource: EHR Metal Stamping Machine Operator alida: N Practi ce ID: 0001 Scout lable Time: 03:00:00 PM Natalie arias [facility] 11:33:38 Gestatio n period, 28 weeks [id number] Completed 201708/18/2020 28 weeks gestatio n of pregnanc y;Record ed Elsewher e: No Locat ion: Mary dillard [facility] S ource: EHR Metal Stamping Machine Operator alida: N Stuti ce ID: 0001 Scout lable Time: 02:00:00 PM Natalie arias [facility] 11:33:40 Gestatio n period, 35 weeks [id number] Completed 201808/18/2020 35 weeks gestatio n of pregnanc y;Record ed Elsewher e: No Locat ion: Mary dillard [facility] S ource: EHR Metal Stamping Machine Operator alida: N Practi ce ID: 0001 Scout lable Time: 03:30:00 PM [facility]rias [facility] [facility] 11:33:45 Educatio n Completed 201408/18/2020 Family planning ;Recorde d Elsewher e: No Locat ion: [facility] S ource: EHR Metal Stamping Machine Operator alida: N Practi ce ID: 0001 Scout lable Time: 01:00:00 PM Natalie arias [facility] 11:33:30 Pregnanc y, childbir th and puerperi um finding Completed 201708/18/2020 Encntr for suprvsn of normal first preg, second trimeste r;Record ed Elsewher e: No Locat ion: Mary dillard [facility] S ource: EHR Metal Stamping Machine Operator alida: N Practi ce ID: 0001 Scout lable Time: 09:30:00 AM Natalie arias [facility] 11:34:[address] Concept Completed 201608/18/2020 Encntr for routine child health exam w/o abnormal findings ;Recorde d Elsewher e: No Locat ion: [facility] S ource: EHR Metal Stamping Machine Operator alida: N Practi ce ID: 0001 Scout lable Time: 01:30:00 PM Natalie arias [facility] 11:35:[address] Concept Completed 201608/18/2020 Encounte r for surveill ance of other contrace ptives;P ractice ID: [id number] Natalie Magana [facility], [facility] 1 11:35:03 Pregnanc y, childbir th and puerperi um finding Completed 201708/18/2020 Encntr for suprvsn of normal first preg, first trimeste r;Practi ce ID: 0001 Natalie Magana [facility], [facility] 1 11:34:50 Antenata l screenin g Completed 201708/18/2020 Encounte r for other specifie d antenata l screenin g;Practi ce ID: 0001 Natalie Magana [facility], [facility] 1 11:33:18 Pregnanc y [id number] Completed 202204/02/2023 Elvin Alcantara [facility] 3 16:06:04 Mixed anxiety and depressi ve disorder 055990715 Active bipolar- zoloft 50. stopped. needs to make appt with psych- Georgia Chandrakantrajinder Blackmananejerald Snyderle [facility] 3 16:05:56 Mixed anxiety and depressi ve disorder 559407915 Completed bipolar- zoloft 50. stopped. needs to make appt with psych- Georgia Chandrakantrajinder Blackmananejerald IrbyQuinton [facility] 3 16:05:56 Postpart um depressi on [id number] Active last pregnanc y- bad Britaney Quinton [facility] 3 16:05:56 Postpart um depressi on [id number] Completed last pregnanc y- bad Britaney Quinton [facility] 3 16:05:56 Anemia of pregnanc y 52895297 Completed 2022 slofe daily Britaney Quinton null, [facility] 3 16:05:56 Problem Notes None recorded. Procedures Surgical History Date Name Laterality Status Provider Name and Address Organization Details Recorded Time 4 IUD Removal completed Andria Ortiz CNM [address], [place], [address], [facility] 12/14/2023 15:32:58 4 IUD Insertion completed Andria Ortiz CNM [address], [place], [address], [facility] 12/14/2023 15:32:56 4 IUD Insertion completed Natalie Magana [facility] 05/14/2023 11:37:05 3 Date of Last Pap Smear completed Natalie Magana [facility] 08/08/2022 17:32:46 9 procedure on tongue completed Natalievesta Magana [facility] 08/18/2020 11:36:37 Imaging Results Imaging Date Name Status LastModified by Organization Details LastModified Time 06/06/2023 US, transvaginal completed [email or web address] [place] [address], [place], [address], 06/06/2023 15:53:01 06/07/2023 US, pelvis completed [email or web address] [place] [address], [place], [address], 06/07/2023 10:32:49 06/07/2023 US, transvaginal completed [email or web address] [place] [address], [place], [address], 06/07/2023 10:32:38 06/07/2023 US, pelvis completed KELLE Gab[address], [place], [address], 06/08/2023 20:56:23 12/04/2023 US, pelvis completed [email or web address] [place] [address], [place], [address], 12/04/2023 17:40:10 12/04/2023 US, transvaginal completed martina dillard [address], [place], [address], 12/04/2023 17:40:25 12/04/2023 US, pelvis completed [email or web address] [address], [place], [address], 12/06/2023 09:48:56 01/11/2024 US, transvaginal completed [email or web address] dillard [address], [place], [address], 01/11/2024 13:15:06 01/11/2024 US, transvaginal completed KELLE [address], [place], [address], 01/13/2024 10:06:03 Procedure Notes None recorded. Medical [...] 2023 active 4 mirena IUD inserted lot [id number] Exp 01/2026 and needs removed by 2 [...] needed with food 08/18 completed Prescrib ed [facility] e: Yes Loca tion: [facility] M odify By: araceli nichols DateTime : [...] Prescrib ed Elsewher e: No Locat ion: [facility] odify By: ashly worthington DateTime : 11/27/19 18 02:43:12 PM Not Available Not Available Not Available Ortho Evra 150 mcg-35 mcg/24 hr transderm al patch apply 1 patch by transder mal route every week 04/26 completed Prescrib ed Elsewher e: No Locat ion: [facility] odify By: carmela z Encoun ter DateTime [...] Prescrib ed Elsewher e: No Locat ion: [facility] odify By: araceli nichols DateTime : 12/09/19 [...] Prescrib ed Elsewher e: No [facility]at ion[facility] odify By: roxana medina DateTime : 06/29/19 19 02:30:00 PM Not Available Not Available Not Available Nexplanon 68 mg subdermal implant 05/25 completed Prescrib ed Elsewher e: Yes [facility] By: jair Tovar nter DateTime : [...] Updated DateTime 12/07/2023 156.21 cm 35.5 kg/m2 16553.14 g 124 mm[Hg] 85 mm[Hg] Natalie Magana [facility] 4 16:24:40 Date Recorded Body height Body mass index (BMI) Body weight Systolic blood pressure Diastolic blood pressure Provider Name and Address Organization Details Last Updated DateTime 12/14/2023 156.21 cm 35.5 kg/m2 92419.14 g 136 mm[Hg] 86 mm[Hg] Natalie Magana [facility] 4 15:02:14 Social History Question Answer Notes LastModified by Organizat ion Details LastModified Time Tobacco Smoking Status Never Smoker Natalie Magana [facility], [facility] 08/08/2022 17:30:01 What Is Your Level Of Alcohol Consumption? None Information not available 07/13/2021 If You Are , What Was Your Level Of Alcohol Consumption Prior To ? None Information not available 08/08/2022 Are You Blind Or Do You Have Difficulty Seeing? No [email or web address] Information not available 08/18/2020 What Is Your Level Of Caffeine Consumption? Heavy Information not available 07/13/2021 How Much Tobacco Do You Chew? None [email or web address] Information not available 08/08/2022 In The 14 Days Before Symptom Onset, Have You Had Close Contact With A Laboratory-confir med COVID-19 While That Case Was Ill? No [email or web address] Information not available 08/18/2020 In The 14 Days Before Symptom Onset, Have You Had Close Contact With A Person Who Is Under Investigation For COVID-19 While That Person Was Ill? No [email or web address] Information not available 08/18/2020 Have You Been To An Area Known To Be High Risk For COVID-19? No [email or web address] Information not available 08/18/2020 Are You Deaf Or Do You Have Serious Difficulty Hearing? No [email or web address] Information not available 08/18/2020 What Type Of Diet Are You Following? REGULAR [email or web address] Information not available 08/18/2020 Do You Or Have You Ever Used E-cigarettes Or Vape? Never Used Electronic Cigarettes [email or web address] Information not available 08/08/2022 What Is The Highest Grade Or Level Of School You Have Completed Or The Highest Degree You Have Received? [id number] Information not available 07/13/2021 Are There Any Guns Present In Your Home? No Information not available 07/13/2021 What Was The Date Of Your Most Recent Tobacco Screening? 12/14/2023 [email or web address] Information not available 12/14/2023 Have You Ever Been Counseled For Unhealthy Alcohol Use? No [email or web address] Information not available 08/08/2022 Do You Use Protection During Sex? No Information not available 07/13/2021 Do You Use Your Seat Belt Or Car Seat Routinely? Yes [email or web address] Information not available 08/18/2020 Do You Have Smoke And Carbon Monoxide Detectors In Your Home? Yes Information not available 08/18/2020 Do You Or Have You Ever Used Smokeless Tobacco? Never Used Smokeless Tobacco [email or web address] Information not available 08/08/2022 How Much Tobacco Do You Smoke? No [email or web address] Information not available 12/25/2019 Do You Feel Stressed (tense, Restless, Nervous, Or Anxious, Or Unable To Sleep At Night)? [id number] [email or web address] Information not available 08/18/2020 Do You Use Any Illicit Or Recreational Drugs? No [email or web address] Information not available 08/18/2020 Do You Use Sunscreen Routinely? No Information not available 07/13/2021 Has Tobacco Cessation Counseling Been Provided? No [email or web address] Information not available 08/08/2022 Have You Used IV Drugs? No [email or web address] Information not available 08/08/2022 Do You Or Have You Ever Used Any Other Forms Of Tobacco Or Nicotine? No [email or web address] Information not available 08/08/2022 Sex: Unknown Functional Status Question Answer Note LastModified by Organizat ion Details LastModified Time Do you have difficulty walking or climbing stairs? No [email or web address] Information not available 08/08/2022 Are you able to walk? YESWOREST Information not available 08/18/2020 Are you able to care for yourself? Yes [email or web address] Information not available 08/08/2022 Do you have difficulty dressing or bathing? No [email or web address] Information not available 08/08/2022 What is your exercise level? Occasional [email or web address] Information not available 12/25/2019 Mental Status None [...] (Food, seasonal, environmental ) N Other N Drug/Latex Allergies/Reactions N Breast Cancer N Blood Transfusion N Dermatologic Disorders N [...] Neurologic/Epilepsy Y Endometriosis N High Cholesterol N Fibromyalgia N Headaches N Kidney Disease N Heart Problems N Thyroid Problems Y Kidney or Bladder Problems N GI Problems N Eating Disorder N Anemia [...] Code Diagnosis Note [id number] Steven Mccullough MD [place] [address],[place] [address] 09/05/2019 12:18:56 09/05/2019 13:53:44 Mixed anxiety and depressive disorder 669941977 F41.8 This patient is a 19-year-ol d [...] [id number] MD Brannon Wyatt [address],[facility] [address] 10/06/2019 12:40:28 10/06/2019 13:06:30 [id number] MD Brannon Wyatt [address],[place] [address] 11/03/2019 11:19:11 11/03/2019 12:23:40 Mixed anxiety and depressive disorder 104761097 F41.8 This patient is a 19-year-ol d [...] todiscuss the value of the medication change. [id number] Steven Mccullough MD [place] [address],[place] [address] 11/24/2019 10:43:02 11/24/2019 11:23:54 Mood disorder 53392424 F39 This patient is a 19-year-ol d [...] given precaution s about the medication s. [id number] Steven Mccullough MD [place] [address],[place] [address] 12/25/2019 12:05:15 12/25/2019 13:05:40 Mixed anxiety and depressive disorder 653028885 F41.8 This patient is a 19-year-ol d [...] or new counselor to make arrangemen ts. [id number] Andria [facility]ogleS[facility] [address],[place] [address] 08/18/2020 11:11:52 08/18/2020 11:56:41 Vaginal discharge 894175288 N89.8 [id number] Grace Prater [facility] [address],[facility] [address] 07/13/2021 15:49:12 07/13/2021 16:41:35 Cyst of ovary 24675719 N83.209 PCP referred today for incidental finding [...] this patient s visit, including available hand district scout executive upon arrive, temperatur e check and being asked a series of screening questions. All staff wore face coverings during this encounter, as well as provided additional cleaning and sanitizing of all surfaces, including countertop s, pens, chairs, door handles, light switches, etc, prior to and following the patient s visit. [id number] Remedios Hendrix [place] [address] [address] 07/14/2021 10:51:44 07/14/2021 11:41:35 Cyst of left ovary 1348779522 8786146 N83.292 [id number] Louann Rojas [place] [address],[place] [address] 08/08/2022 16:32:18 08/08/2022 17:28:04 Uncertain viability of 052858460 O36.80X0 Z3A.01 532793 Jes Phillips [place] [address],[place] [address] 08/08/2022 16:34:23 08/08/2022 18:02:30 Amenorrhea 78287100 N91.2 test positive 351201183 Z32.01 Risk factors addressed: Tobacco Cessation, Safe [...] care. Mixed anxi ety and depressive disorder 822908022 F41.8 Pt would like to restart sertraline . Discussed risks and benefits. Will return in 2 weeks for follow up or sooner if any problems/c oncerns. [id number] Remedios Hendrix [place] [address],[place] [address] 09/04/2022 14:23:25 09/04/2022 15:34:43 screening 148598829 Z36.82 [id number] Paulian Trimble MD [place] [address],[place] [address] 09/04/2022 14:23:54 09/06/2022 10:54:32 Routine care 946465659 Z34.91 Mixed anxi ety and depressive disorder 982546098 F41.8 [id number] Paulina Trimble MD [place] [address],[place] [address] 10/04/2022 14:04:27 10/04/2022 14:36:27 Routine care 779023683 Z34.91 Mixed anxi ety and depressive disorder 705858803 F41.8 [id number] Louann Rojas [place] [address],[place] [address] 11/01/2022 14:08:20 11/01/2022 16:00:16 screening 709382050 Z36.3 [id number] Paulina Trimble MD [place] [address],[place] [address] 11/01/2022 14:08:32 11/08/2022 13:13:27 Routine care 709068022 Z34.91 [id number] Remedios Hendrix [place] [address],[place] [address] 11/27/2022 16:32:41 11/27/2022 17:35:09 screening 644782410 Z36.2 [id number] Paulina Trimble MD [place] [address],[place] [address] 11/27/2022 16:36:02 11/28/2022 15:49:11 Routine care 793845728 Z34.91 Mixed anxi ety and depressive disorder 949953307 F41.8 [id number] [facility] [address],[place] [address] 12/11/2022 17:27:19 12/11/2022 17:51:53 Low back pain in 5156018241 106 O26.899 O23.42 Z3A.24 [id number] Paulina Trimble MD [place] [address],[place] [address] 01/01/2023 15:29:48 01/03/2023 15:02:56 Routine care 799444320 Z34.91 Mixed anxi ety and depressive disorder 342979103 F41.8 [id number] OCTAVIANO KIMBLE MD [place] [address],[place] [address] 01/15/2023 15:49:53 01/15/2023 16:41:02 Routine care 203294602 Z34.93 Mixed anxi ety and depressive disorder 209819495 F41.8 [id number] Andria Ortiz [facility] [address],[place] [address] 02/02/2023 16:50:57 02/04/2023 17:05:44 Routine care 487826399 Z34.82 [id number] [facility] [address],[place] [address] 02/16/2023 16:39:22 02/16/2023 17:26:19 Urinary symptoms 564086021 R39.9 Routine an tenatal care 003722731 Z34.82 [id number] [facility] [address],[place] [address] 02/16/2023 16:39:47 02/18/2023 09:55:17 Uterine size for dates discrepancy 317608302 O26.843 Z3A.34 [id number] [facility] [address],[place] [address] 02/28/2023 16:25:09 02/28/2023 17:29:27 Routine care 245218446 Z34.82 Acute righ t otitis media 144543827 H66.91 [id number] [facility] [address] [place] [address] 03/07/2023 16:25:01 03/07/2023 16:54:45 Routine care 549806568 Z34.82 [id number] Remedios Hendrix [place] [address] [place] [address] 03/14/2023 15:28:01 03/14/2023 16:13:02 Poor growth affecting management 706887978 O36.5930 Z3A.38 [id number] Andria Ortiz [facility] [address],[place] [address] 03/14/2023 15:28:26 03/14/2023 16:32:56 Routine care 242407317 Z34.82 [id number] Andria Ortiz [facility] [address],[place] [address] 03/21/2023 16:22:36 03/21/2023 16:56:08 Routine care 761319885 Z34.82 [id number] OCTAVIANO KIMBLE MD [place] [address],[place] [address] 03/26/2023 16:11:47 03/29/2023 09:01:40 Gestation period, 39 weeks 54797484 Z3A.39 [id number] [facility] [address],[place] [address] 04/06/2023 13:59:14 04/06/2023 16:03:01 Abnormal uterine bleeding 8149833679 9100 N93.9 R10.2 [id number] Andria Ortiz [facility] [address],[place] [address] 04/06/2023 15:18:33 04/06/2023 15:35:53 Urinary symptoms 967477949 R39.9 Abdominal pain 37308590 R10.9 urine for culture, flagyl and macrobid to pharmacypr ecautions for ed given f/u pending culture [id number] Natalie Magana [place] [address] [place] [address] 04/25/2023 14:11:13 04/25/2023 16:46:53 care 742471997 R53.82 continue meds for UTI, abstain from intercours e until mirena placementf /u in 2 weeks [id number] Natalie Magana [place] [address],[place] [address] 05/09/2023 16:44:59 05/09/2023 17:23:45 Insertion of intrauterine contraceptive device 41134141 Z30.430 [id number] [facility] [address],[place] [address] 06/06/2023 14:12:13 06/06/2023 14:33:11 Pain in pelvis 81092115 R10.2 plan pelvic floor PT Irregular periods 614351 07 N92.6 Abnormal u terine bleeding 2694731585 9100 N93.9 [id number] Remedios Hendrix [place] [address],[place] [address] 06/07/2023 09:56:05 06/07/2023 10:38:53 Abnormal uterine bleeding 9459360201 9100 N93.9 R10.2 [id number] Alicia Aguirre [place] [address],[place] [address] 12/04/2023 10:47:25 12/04/2023 12:11:56 Abnormal uterine bleeding 5447400411 9100 N93.9 R10.2 [id number] [facility] [address],[place] [address] 12/07/2023 16:08:20 12/10/2023 09:42:12 Mechanical complication of intrauterine contraceptive device 169688575 T83.39XA Irregular intermenstrual bleeding 65818725 N92.1 Pain in pelvis 73333291 R10.2 Bacterial vaginosis 4197 52622 N76.0 [id number] Natalie Magana [place] [address],[place] [address] 12/14/2023 14:39:13 12/14/2023 15:37:30 Contraception care management 696433302 Z30.9 removal and reinsertio n of IUD f/u one month IUD check Venereal d isease screening 370949002 Z11.3 Insertion of intrauterine contraceptive device 73858731 Z30.430 Vaginal discharge 020343 006 N89.8 [id number] Remedios [facility] [address] [address] 01/11/2024 12:19:12 01/11/2024 13:44:05 Vaginal discharge 443998958 N89.8 Health Concerns Section Related Observation LastModified by Organization Detai ls LastModified Time None Recorded Concern Status LastModified by Organization Details LastModified Time None Recorded Advance Directives Directive None Recorded Payers Encounter Date Sequence Insurance Name Policy Number Policy Quarles Covered Member ID Quarles Member ID Guarantor Name 06/07/2023 1 [employer] (POS II) [id number] Kyle Lisbeth [id number] Kyle Lisbeth 06/07/2023 2 [place] [address] [id number] Kyle Lisbeth 12/04/2023 1 [employer] ([place]) [id number] Kyle Lisbeth [id number] Kyle Fairborn 12/04/2023 2 [place] [address] [id number] Kyle Fairborn 12/07/2023 1 [employer] ([place]) [id number] Kyle Fairborn [id number] Kyle Fairborn 12/07/2023 2 [place] [facility] [address] [place] [address] [id number] Kyle Fairborn 12/14/2023 1 [employer] (POS II) [id number] Kyle Fairborn [id number] Kyle Lisbeth 12/14/2023 2 [place] [facility] [address] [place] [address] [id number] Kyle Lisbeth 01/11/2024 1 [employer] [place] [id number] Kyle Fairborn [id number] Kyle Fairborn 01/11/2024 2 [place] [address] [id number] Kyle Lisbeth Notes Date Note Type Note Provider Name and Address Organization Details Recorded Time 12/07/2023 text/html Patient presents for follow up on pelvic US, IUD positioned in myometrium, has been having pelvic pain and cramping, lots of spotting and now also started vaginal discharge with odor and green/mucous in color, afebrile Andria Ortiz, CNM [address], [place], [address], [facility] 12/07/2023 17:03:00 12/14/2023 text/html Patient presents for IUD removal and reinsertion, still some d/c with odor took flagyl and doxy all tests were negative for infection Natalie arias, [facility] 12/14/2023 15:38:05 OBGyn Episode Ob Episode Information Episode Created Date Number of Fetuses Patient Bloodtype Patient rh Status Prepregnancy Weight lbs Domestic Partner Domestic Partner Phone Father Name [place] Laborer Status 09/05/19 20 1 CLOSED Fetus Data [...] Domestic Partner Domestic Partner Phone Father Name [place] Laborer Status 09/05/19 23 1 O Positive 183 CLOSED Fetus Data First Name Last Name Admitted to NICU Weight (g) Sex Living Outcome Pediatric Complications Fetus ID Race Codes Race Delivery Type Maria Esther [phone] 5 F true Full Term Vaginal Delivery Problems Problem Notes Problem Name Start Date End Date Resolution Snomed Code Not e Anemia of 02/20/2023 81715402 slofe daily Mixed anxiety and depressive disorder 300161069 bipolar- zoloft 50. stopped. needs to make appt with psych- Georgia Chandrakant depression 36194510 last - bad Mitul Calculation Initial Mitul [...] Date Ultra Sound Latest Days Gestation 0 [email or web address] 09/04/2022 03/28/20 23 0 Pre- Flowsheet Flowsheet Date 09/04/2022 Alexandre Score Blood Edema Fundus Height Fundus Units Glucose Ketones Leukocytes Nitrite Labor Signs Protein Cervic Dilation Cervic Effacement Cervic Station neg none none trace Type Weight in lbs Pre/Post Dialysis Refused Weight 186.853976406242 BP Diastolic BP Location Tested BP Systolic [...] Weight in lbs Pre/Post Dialysis Refused Weight 185.917241915593 BP Diastolic BP Location Tested BP Systolic [...] Weight in lbs Pre/Post Dialysis Refused Weight 186.594752612223 BP Diastolic BP Location Tested BP Systolic [...] Weight in lbs Pre/Post Dialysis Refused Weight 192.752110209216 BP Diastolic BP Location Tested BP Systolic [...] Weight in lbs Pre/Post Dialysis Refused Weight 197.844967067252 BP Diastolic BP Location Tested BP Systolic [...] Weight in lbs Pre/Post Dialysis Refused Weight 200.930844206772 BP Diastolic BP Location Tested BP Systolic [...] Weight in lbs Pre/Post Dialysis Refused Weight 200.129717917253 BP Diastolic BP Location Tested BP Systolic [...] Weight in lbs Pre/Post Dialysis Refused Weight 204.086301817143 BP Diastolic BP Location Tested BP Systolic [...] Weight in lbs Pre/Post Dialysis Refused Weight 204.217351022951 BP Diastolic BP Location Tested BP Systolic [...] Weight in lbs Pre/Post Dialysis Refused Weight 207.037893521077 BP Diastolic BP Location Tested BP Systolic [...] Weight in lbs Pre/Post Dialysis Refused Weight 204.543753711820 BP Diastolic BP Location Tested BP Systolic [...] Weight in lbs Pre/Post Dialysis Refused Weight 207.478844173725 BP Diastolic BP Location Tested BP Systolic [...] Weight in lbs Pre/Post Dialysis Refused Weight 209.586931651921 BP Diastolic BP Location Tested BP Systolic [...] Estim ated Date of Delivery false Thalassemia (Montenegrin, Turks And Ca[place] Islander, Mediterranean, Or Background): MCV < 80 false Neural Tube Defect (Meningomyelocele, Spina Bifi da, Or Anencephaly) false Congenital Heart Defect false Down Syndrome false Jesus-Sachs (eg, Jainism, Cajun, Turkmen-[place]) f alse Davion Disease false Sickle Cell [...]
--- NOTE | 2024-06-09 11:06 | ED_ITS ---
HPI - Abdominal Pain General Chief Complaint: Abdominal Pain Stated Complaint: abd pain Time Seen by Provider: 06/09/24 10:34 History of Present Illness HPI narrative: 24-year-old female with history of appendectomy on 05/[address] Gomez presents to the emergency department for persistent abdominal pain since the appendectomy. Patient states she has been having pain around her with left lower quadrant near her incision site. 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 She is advised to come to the ER for further evaluation. States her last bowel movement was yesterday. Denies dysuria or hematuria. States the pain in her abdomen is worse with standing for long periods of time and with movement, better when lying still. No fevers or vomiting. Related Data Allergies Allergy/AdvReac Type Severity Reaction Status Date / Time No Known Allergies Allergy Verified 05/30/24 14:38 Review of Systems 2 Review of Systems: All systems reviewed & are unremarkable except as noted in HPI and below PMFSH Past Medical History Medical History Tongue tied Post depression Eczema Anxiety and depression Overweight (BMI 25.0-29.9) Migraines Surgical History Surgical History No pertinent past surgical history Family History Family History Sibling Diabetes mellitus Heart disease Hypertension Asthma Depression Stomach cancer Thyroid disease Other No pertinent family history in first degree relatives Social History Social History Smoking status: Never smoker Second hand tobacco smoke exposure: No Substance use: former Other substance usage details: Used marijuana prior to Do You Feel Safe in your Home?: No Lack of Transportation: No Lack of Food: Never True Current Housing: I Have Housing Concerned About Future Housing: No Difficulty Paying Gas/Electric Bills: No Difficulty Paying for Meds: No Currently Unemployed: No Education: High School Diploma/GED Difficulty w/ Childcare or Family Care: No Spiritual care concerns: No Exam 2 Narrative: GENERAL: Well-appearing, well-nourished, and in no acute distress. HEAD: Normocephalic, atraumatic. EYES: PERRLA and EOMI. ENT: Nares clear, no rhinorrhea or epistaxis. Mucous membranes moist. NECK: Supple. CHEST: Clear to auscultation. No respiratory distress. HEART: Regular rate and rhythm. No murmur heard. Normal peripheral pulses. ABDOMEN: Well-healing incisions to the suprapubic region, umbilicus and left lower quadrant with overlying skin glue and mild amount of ecchymosis. Tenderness to the left lower quadrant with voluntary guarding. No rebound or rigidity. EXTREMITIES: Normal range of motion. No edema. SKIN: Warm, dry, no rash. NEURO: No focal deficits. Alert and oriented x3 Course Vital Signs Vital signs: Vital Signs Temperature 98 F 06/09/24 09:56 Pulse Rate 84 06/09/24 09:56 Respiratory Rate 18 06/09/24 09:56 Blood Pressure 124/83 06/09/24 09:56 Pulse Oximetry 98 06/09/24 09:56 Oxygen Delivery Room Air 06/09/24 09:56 Temperature 98 F 06/09/24 09:56 Pulse Rate 84 06/09/24 09:56 Respiratory Rate 18 06/09/24 09:56 Blood Pressure 124/83 06/09/24 09:56 Pulse Oximetry 98 06/09/24 09:56 Oxygen Delivery Room Air 06/09/24 09:56 MDM - Abdominal Pain MDM Narrative Medical decision making narrative: 24-year-old female presents to the ED for left lower quadrant abdominal pain since her appendectomy on 05/30/2024. See HPI for further history. Triage vitals are stable. Exam significant for the above. Postoperative incisions without evidence of secondary infection. CBC without leukocytosis. Chemistries and UA unremarkable. is negative. CT abdomen pelvis shows a 2.6 cm splenic mass which is most likely a benign mass which is assist, granulomatous disease or hemangioma. Malignancy is unlikely but could have the same appearance with recommendations for an abdomen MRI without and with contrast in 6 months. Patient updated on results. She received Toradol and Zofran with improvement. On re-evaluation she is resting comfortably in exam bed. Advised her to take Tylenol ibuprofen as needed for pain and follow-up with PCP and surgery. Return precautions discussed. She is agreeable to plan verbalized understanding. Discharged in stable condition. Lab Data 06/09/24 11:24 06/09/24 11:24 Labs: Lab Results 06/09/24 06/09/24 Range/Units 11:24 11:25 WBC 7.6 (4.5-10.0) K/mm3 RBC 5.13 (4.2-5.4) M/mm3 Hgb 15.3 H (12.0-15.0) g/dL Hct 46.7 (37.0-47.0) % MCV 91.0 (80-100) fl MCH 29.8 (26-34) pg MCHC 32.8 (32-36) g/dl RDW 12.5 (11.5-14.5) % Plt Count 319 (150-375) k/mm3 MPV 9.8 (7.4-10.4) fl Immature Gran % (Auto) 0.3 (0-0.5) % Neut % (Auto) 59.0 (45.5-73.1) % Lymph % (Auto) 30.1 (18.3-44.2) % [place] % (Auto) 7.3 (2.6-8.5) % Eos % (Auto) 2.6 (0-4.4) % Baso % (Auto) 0.7 (0.2-1.2) % Lymph # (Auto) 2.28 (0.9-3.2) K/mm3 [place] # (Auto) 0.6 (0.1-0.6) K/mm3 Eos # (Auto) 0.2 (0-0.3) K/mm3 Baso # (Auto) 0.1 (0.0-0.1) K/mm3 Abs Immat Gran (auto) 0.02 (0.00-0.031) K/mm3 Absolute Neuts (auto) 4.5 (1.3-6.7) K/mm3 Absolute Nucleated RBC 0.000 (0.0-0.012) K/mm3 Nucleated RBC % 0.0 (0.0-0.2) % Sodium 142 (137-145) mmol/L Potassium 4.1 (3.4-5.0) mmol/L Chloride 101 (98-107) mmol/L Carbon Dioxide 26 (22-30) mmol/L Anion Gap 15 H (4-12) mmol/L BUN 16 (7-17) mg/dL Creatinine 0.58 L (0.7-1.0) mg/dL Estim Creat Clear Calc 121 ml/min Estimated GFR > 60 (59 - ) Glucose 89 (65-110) mg/dL Calcium 9.4 (8.4-10.2) mg/dL Total Bilirubin 0.9 (0.2-1.3) mg/dL AST 23 (14-36) U/L ALT 26 (6-35) U/L Alkaline Phosphatase 73 (38-126) U/L Total Protein 9.0 H (6.3-8.2) g/dL Albumin 4.7 (3.5-5.1) g/dL Urine Color Yellow (Yellow) Urine Appearance Clear (Clear) Urine pH 5.5 (5.0-9.0) Ur Specific [place] 1.034 (1.001-1.035) Urine Protein Negative (Negative) mg/dL Urine Glucose (UA) Negative (Negative) mg/dL Urine Ketones Trace H (Negative) mg/dL Ur Blood (Man) Negative (Negative) Urine Nitrate Negative (Negative) Urine Bilirubin Negative (Negative) Urine Urobilinogen 1.0 (<2.0) mg/dL Leukocyte Esterase Rfl Negative (Negative) KM/UL POC Urine HCG, Qual Negative (Negative) Imaging Data Radiologist's impression: ITS Impressions Abdomen/Pelvis CT 06/09/24 12:00 IMPRESSION: 1. 2.6 cm splenic mass, most likely a benign mass such as cyst, granulomatous disease, or hemangioma. Malignancy is unlikely, but could have the same appearance. Consider abdomen MRI without and with contrast in 6 months. Discharge Plan Discharge Clinical Impression: Splenic mass Patient Disposition: Home, Self-Care Condition: Stable Instructions: Antibiotic Form, Abdominal Pain (ED) Additional Instructions: Please follow-up closely with the surgeon and primary care provider. Incidentally or found have a 2.6 cm mass in her spleen which is likely a benign mass such as a cyst. Please have this rechecked in 6 months with an abdomen MRI with and without contrast as ordered by her PCP. Return to the emergency department if you develop fever, new or worsening pain or other concerning symptoms. Patient Language: Ugandan Prescriptions: No Action hydrocodone-acetaminophen 5-325 mg tablet 1 tablet PO Q4H PRN (Reason: pain) Qty: 10 0RF polysaccharide iron complex 150 mg iron Capsule 150 mg PO BIDWM Qty: 60 0RF ibuprofen 600 mg Tablet 600 mg PO Q6H PRN (Reason: Cramping) Qty: 30 0RF ondansetron 4 mg tablet,disintegrating 4 mg PO Q6H PRN (Reason: nausea and vomiting) Qty: 10 0RF oxycodone-acetaminophen [Endocet] 5-325 mg tablet 1 tablet PO Q4H PRN (Reason: pain) Qty: 10 0RF Follow-up/Referrals: Lorraine,MD Neal [Primary Care Provider] -
[2024-06-09 11:28] LABS: BEDSIDEPREGUCG Negative (Negative)
[2024-06-09 11:32] LABS: Basophils Absolute Auto 0.1 K/mm3 (0.0-0.1); Basophils Percent Auto 0.7 % (0.2-1.2); Eosinophils Absolute Auto 0.2 K/mm3 (0-0.3); Eosinophils Percent Auto 2.6 % (0-4.4); Hematocrit 46.7 % (37.0-47.0); Hemoglobin 15.3 g/dL (12.0-15.0); Immature Granulocyte Absolute 0.02 K/mm3 (0.00-0.031); Immature Granulocyte Percent A 0.3 % (0-0.5); Lymphocytes Absolute Auto 2.28 K/mm3 (0.9-3.2); Lymphocytes Percent Auto 30.1 % (18.3-44.2); Mean Corpuscular HGB Conc 32.8 g/dl (32-36); Mean Corpuscular Hemoglobin 29.8 pg (26-34); Mean Platelet Volume 9.8 fl (7.4-10.4); Monocytes Absolute Auto 0.6 K/mm3 (0.1-0.6); Monocytes Percent Auto 7.3 % (2.6-8.5); Neutrophils Absolute Auto 4.5 K/mm3 (1.3-6.7); Platelet Count Result 319 k/mm3 (150-375); Red Blood Count 5.13 M/mm3 (4.2-5.4); Red Cell Distribution Width 12.5 % (11.5-14.5); White Blood Count 7.6 K/mm3 (4.5-10.0)
[2024-06-09 11:34] LABS: Add Urine Microscopic? NO; Appearance Urine Clear (Clear); Bilirubin Urine Negative (Negative); Blood Urine Negative (Negative); Color Urine Yellow (Yellow); Glucose Urine UA Negative (Negative); Ketones Urine Trace mg/dL (Negative); Leukocyte Esterase Ur Negative LEU/UL (Negative); Nitrate Urine Negative (Negative); Protein Urine Negative (Negative); Specific Grav Ur 1.034 (1.001-1.035); pH Urine 5.5 (5.0-9.0)
[2024-06-09] MEDS: KETOROLAC 15 MG/ML VIAL (*BKC) IV PUSH (11:45)
[2024-06-09] MEDS: ONDANSETRON INJ 4 MG/2 ML VIAL (11:45)
[2024-06-09 11:46] LABS: Alanine Aminotransferase 26 U/L (6-35); Albumin Level 4.7 g/dL (3.5-5.1); Alkaline Phosphatase 73 U/L (38-126); Anion Gap 15 mmol/L (4-12); Aspartate Amino Transferase 23 U/L (14-36); Bilirubin,Total 0.9 mg/dL (0.2-1.3); Blood Urea Nitrogen 16 mg/dL (7-17); Calcium 9.4 mg/dL (8.4-10.2); Carbon Dioxide 26 mmol/L (22-30); Chloride 101 mmol/L (98-107); Estimated CRCL calculation 121 ml/min; Estimated Glomerular Filt Rate > 60; Glucose 89 mg/dL (65-110); Potassium 4.1 mmol/L (3.4-5.0); Sodium 142 mmol/L (137-145)
--- NOTE | 2024-06-09 11:49 | PC.NURSE ---
c/o nausea. Meds given per ERP
--- OUTSIDE RECORDS SUMMARY | 2024-06-09 12:23 | XMS_ITS | Clinical Summary ---
Author Organization [facility] Address [address] [place] [address] Care Team Providers Care Printed Circuit Board Panels Plater Name Role Phone Dayanna Peters MD Primary Care Provide r Allergies No known active allergies Medications escitalopram (LEXAPRO) 5 mg tablet Take 5 mg by mouth daily 3 Active zonisamide (ZONEGRAN) 50 mg capsuleIndications: Partial Epilepsy Treatment Adjunct Take 1 capsule (50 mg total) by mouth daily 30 capsule 3 3 Active rizatriptan AUTOMATION DRIVER (MAXALT-AUTOMATION DRIVER) 10 mg disintegrating tabletIndications:M igraine Take 1 [...] Comments Blood Pressure 90/60 06/21/2022 9:[address] SHAFT AND STEERING POST REPAIRER Pulse 93 06/21/2022 9:[address] SHAFT AND STEERING POST REPAIRER Temperature 36.7 C (98 F) 06/21/2022 9:[address] SHAFT AND STEERING POST REPAIRER Respiratory Rate 20 06/21/2022 9:[address] SHAFT AND STEERING POST REPAIRER Oxygen Saturation 99% 06/21/2022 9:[address] SHAFT AND STEERING POST REPAIRER Inhaled Oxygen Concentration - - Weight 82 kg (180 lb 12.8 oz) 06/21/2022 9:[address] SHAFT AND STEERING POST REPAIRER Height 157.5 cm (5' 2 ) 06/21/2022 9:[address] SHAFT AND STEERING POST REPAIRER Body Mass Index 33.07 06/21/2022 9:[address] SHAFT AND STEERING POST REPAIRER Plan of Treatment Health Maintenance Due Date [...] 09/20/2010, 05/17, 03/04/2010 Insurance CMR Care Teams Printed Circuit Board Panels Plater Relationship Specialty Start Date End Date Dayanna Peters MD [address] [place] [address] PCP - General Internal Medicine 05/17/22
--- OUTSIDE RECORDS SUMMARY | 2024-06-09 12:23 | XMS_ITS | Clinical Summary ---
Author Organization [facility] Address [address] [place] [id number] Care Team Providers Care Security Guard Supervisor Name Role Phone Unavailable Primary Care Provider [...]
--- OUTSIDE RECORDS SUMMARY | 2024-06-09 12:23 | XMS_ITS | Clinical Summary ---
Author Organization [email or web address] Address [address] [place] [address] Care Team Providers Care Market Reporter Name Role Phone Neal Peters MD Primary Care Provider Source Comments [email or web address],non-owned Affiliates and Associated Physician Practices is amultiple site organization consisting of ambulatory clinics and hospital sitesin [place], [place], [place]. This disclosure is being madepursuant to the Care Everywhere program and may not contain all information available regarding this patient. Last updated [facility] Allergies No known active allergies Medications * [...] Pressure 133/91 09/07/2023 12:22 PM CDT Repeat QN=243/86 Pulse 86 09/07/2023 12:22 PM CDT Temperature [...] [address] [place] [id number] Care Teams Market Reporter Relationship Specialty Start Date End Date Neal Peters MD [address] [facility] [address] [place] [address] PCP - General Internal Medicine 09/07/23
--- OUTSIDE RECORDS SUMMARY | 2024-06-09 12:23 | XMS_ITS | Referral Summary ---
Author Organization [facility] Address [address] [place] [address] Care Team Providers Care Financial Report Service Sales Agent Name Role Phone Dayanna Peters MD Primary Care Provide r Allergies No known active allergies Medications escitalopram (LEXAPRO) 5 mg tablet Take 5 mg by mouth daily 3 Active zonisamide (ZONEGRAN) 50 mg capsuleIndications: Partial Epilepsy Treatment Adjunct Take 1 capsule (50 mg total) by mouth daily 30 capsule 3 3 Active rizatriptan SIGNAL INTELLIGENCE ANALYST (MAXALT-SIGNAL INTELLIGENCE ANALYST) 10 mg disintegrating tabletIndications:M igraine Take 1 [...] Comments Blood Pressure 90/60 06/21/2022 9:04 AM PIPE WELDER Pulse 93 06/21/2022 9:04 AM PIPE WELDER Temperature 36.7 C (98 F) 06/21/2022 9:04 AM PIPE WELDER Respiratory Rate 20 06/21/2022 9:04 AM PIPE WELDER Oxygen Saturation 99% 06/21/2022 9:04 AM PIPE WELDER Inhaled Oxygen Concentration - - Weight 82 kg (180 lb 12.8 oz) 06/21/2022 9:04 AM PIPE WELDER Height 157.5 cm (5' 2 ) 06/21/2022 9:04 AM PIPE WELDER Body Mass Index 33.07 06/21/2022 9:04 AM PIPE WELDER Plan of Treatment Not on file Insurance CMR Care Teams Financial Report Service Sales Agent Relationship Specialty Start Date End Date Dayanna Peters MD [address] [place] [address] PCP - General Internal Medicine 05/17/22
--- OUTSIDE RECORDS SUMMARY | 2024-06-09 12:23 | XMS_ITS | CONTINUITY OF CARE DOCUMENT ---
Author Name genet charlesricardo Address Unknown Organization [facility] Address [address] [place] [address] Phone [phone] Care Team Providers Care Zoology Professor Name Role Phone Elizabeth Mendoza MD Unavailable ZACKARY JAIN MD Unavailable [phone] ZACKARY JAIN MD Unavailable [phone] PROBLEMS Condition Status Date Provider Notes ANA CRISTINA, adult active Elizabeth Mendoza MD Migraines active Elizabeth Mendoza MD Lightheadedness active Elizabeth Mendoza MD Dizziness active Elizabeth Mendoza MD Cardiology examination active Elizabeth licona MD ENCOUNTERS Date Type Provider Location Encounter Diag nosis - In-person encounter Office Visit Elizabeth Mednoza MD [place] [facility] Cardiology examinationDizzinessLightheadednessMigraines VITAL SIGNS Date Observation [...] Mendoza MD smoking status Never smoker Lorna lebron [employer] Payer name Policy type / Coverage type Lindsay red democrat ID [id number] ADVANCE DIRECTIVES Name Date DISCUSSED - NO DECISION MADE TREATMENT PLAN Date Name Performer [id number],Sherry Alba arch 2022 A rrange for telemonitor for 1 week. Parth Serrano. Put her on treadmill stress test, see how she does with exertion. Arrange for home sleep study. Elizabeth Mendoza MD [id number] M arch 2022 T akes med rx [...]
--- OUTSIDE RECORDS SUMMARY | 2024-06-09 12:24 | XMS_ITS | Patient Health Summary ---
Author Organization [facility] Address [address] [place] [address] Care Team Providers Care Miller Supervisor Name Role Phone Neal Peters MD Primary Care Provider Note from [facility],non-owned Affiliates and Associated Physician Practices is amultiple site organization consisting of ambulatory clinics and hospital sitesin [place], [place], [place] and [place]. This disclosure is being madepursuant to the Care Everywhere program and may not contain all information available regarding this patient. Last updated 18.[facility] Allergies No known active allergies Medications * [...] Pressure 133/91 09/07/2023 12:22 PM CDT Repeat YV=774/86 Pulse 86 09/07/2023 12:22 PM CDT Temperature [...] DIFFERENTIAL(Performed 09/07/2023) Performed for Elevated LFTs * [place] LIVER ELASTOGRAPHY(Performed 09/07/2023) Performed for Elevated LFTs [...] 4.0 - 10.7 x10E9/L 09/07/2023 3:26 PM [facility] RBC Count 5.30(H) 3.90 - 5.20 x10E12/L 09/07/2023 3:26 PM [facility] Hemoglobin 13.9 11.9 - 15.8 g/dL 09/07/2023 3:26 PM [facility] Hematocrit 43.7 34.8 - 46.1 % 09/07/2023 3:26 PM [facility] MCV 82.5 80.0 - 98.0 fL 09/07/2023 3:26 PM [facility] MCH 26.2(L) 26.7 - 33.6 pg 09/07/2023 3:26 PM [facility] MCHC 31.8 31.7 - 36.3 g/dL 09/07/2023 3:26 PM [facility] RDW-CV 13.5 11.3 - 14.8 % 09/07/2023 3:26 PM [facility] Platelet Count 366 150 - 420 x10E9/L 09/07/2023 3:26 PM [facility] MPV 10.1 7.8 - 11.4 fL 09/07/2023 3:26 PM [facility] Neutrophil % 53.0 41.0 - 74.0 % 09/07/2023 3:26 PM [facility] Lymphocyte % 28.0 17.0 - 47.0 % 09/07/2023 3:26 PM [facility] Monocyte % 9.7 3.0 - 11.0 % 09/07/2023 3:26 PM [facility] Eosinophil % 8.0(H) 0.0 - 7.0 % 09/07/2023 3:26 PM [facility] Basophil % 1.1 0.0 - 1.6 % 09/07/2023 3:26 PM [facility] Immature Granulocytes % 0.2 0.0 - 1.0 % 09/07/2023 3:26 PM [facility] Neutrophil Absolute 4.38 1.60 - 7.50 x10E9/L 09/07/2023 3:26 PM [facility] Lymphocyte Absolute 2.31 1.00 - 4.40 x10E9/L 09/07/2023 3:26 PM [facility] Monocyte Absolute 0.80 0.15 - 1.00 x10E9/L 09/07/2023 3:26 PM [facility] Eosinophil Absolute 0.66(H) 0.00 - 0.60 x10E9/L 09/07/2023 3:26 PM [facility] Basophil Absolute 0.09 0.00 - 0.13 x10E9/L 09/07/2023 3:26 PM [facility] Blood BLOOD SPECIMEN / Unknown Lab Venipuncture / Unknown 09/07/2023 2:28 PM CDT 09/07/2023 3:16 PM T Laureen Cota BIOLOGY RESEARCH ASSISTANT-OPEN HEARTH FURNACE OPERATOR LAB - HEMATO LOGY ORDERABLES [facility] [address] [place] [address], [facility] [phone] * (ABNORMAL) COMPREHENSIVE METABOLIC PANEL (09/07/2023 2:28 PM CDT) Only the most recent of2 resultswithin the time period is included. BUN 13 7 - 26 mg/dL 09/07/2023 3:45 PM [facility] Creatinine 0.56 0.56 - 0.96 mg/dL 09/07/2023 3:45 PM [facility] Sodium 141 136 - 145 mmol/L 09/07/2023 3:45 PM [facility] Potassium 4.1 3.5 - 4.5 mmol/L 09/07/2023 3:45 PM [facility] Chloride 106 98 - 107 mmol/L 09/07/2023 3:45 PM [facility] CO2 26 22 - 29 mmol/L 09/07/2023 3:45 PM [facility] Glucose 78 70 - 115 mg/dL 09/07/2023 3:45 PM [facility] Calcium 10.1 8.4 - 10.2 mg/dL 09/07/2023 3:45 PM [facility] Protein Total 7.9 6.0 - 8.3 g/dL 09/07/2023 3:45 PM [facility] Albumin 4.0 3.4 - 5.0 g/dL 09/07/2023 3:45 PM [facility] Bilirubin Total 0.4 0.2 - 1.2 mg/dL 09/07/2023 3:45 PM [facility] Alkaline Phosphatase 90 40 - 150 U/L 09/07/2023 3:45 PM [facility] ALT 27 5 - 55 U/L 09/07/2023 3:45 PM [facility] AST 16 5 - 34 U/L 09/07/2023 3:45 PM [facility] Anion Gap 9 6 - 16 09/07/2023 3:45 PM CDT [facility] BUN/Creatinine Ratio 23 7 - 23 09/07/2023 3:45 PM CDT [facility] Osmolality Calculated 291 275 - 295 mOsm/kg 09/07/2023 3:45 PM CDT [facility] Albumin/Globulin Ratio 1.0(L) 1.1 - 2.3 09/07/2023 3:45 PM CDT [facility] eGFR by CKD-EPI >90 >=90 mL/min/1.7 3 m2 09/07/2023 3:45 PM CDT [facility] Blood BLOOD SPECIMEN / Unknown Lab Venipuncture / Unknown 09/07/2023 2:28 PM CDT 09/07/2023 3:15 PM CDT Laureen SANZ LAB - CHEMIS TRY ORDERABLES [facility] [address] [place] [address], [facility] [phone] * [place] LIVER ELASTOGRAPHY (09/07/2023 1:17 PM CDT) Narrative [...] patients with nonalcoholic fatty liver disease. Gastroenterology 2019;156:9462-9151. Sushila MS, Mary Carmen R, [place] [...] at-risk nonalcoholic steatohepatitis (MEDINA) in a [place] cohort and comparison to other non-invasive algorithms. PLoS ONE (2021) 17: [id number]. Josie AJ, Tae J, Enoc ZM, et al. Enhanced diagnosis of advanced fibrosis and cirrhosis in individuals with NAFLD using FibroScan-based Agile scores. J Hepatol (2022) 78: 247-259. Fibroscan LSM can also be used with laboratory parameters without formulas to assess prognosis. According to the Baveno-VII criteria (Ferrell, 2021), Fibroscan LSM ?15 kPa plus a platelet count of ?281v586/L rules out clinically significant portal hypertension (sensitivity [...] FIB-4 score (Ingauke et al. Hepatology Communications 2019;3:5126-0656) or NAFLD Fibrosis score (Conteh et al. Clinical Gastroenterology and Hepatology 2019;17:6555-9271 using routine clinical data. Note: 1. Fibroscan [...] additional interpretive data was last updated 08/19/22.) [email or web address] Laureen Cota BIOLOGY RESEARCH ASSISTANT-OPEN HEARTH FURNACE OPERATOR PROCEDURE/DE NOR SURGICAL ORDERABLES * SKIN TEST PPD - POINT OF CARE (07/10/2018) Only the most recent of2 resultswithin the time period is included. PPD 0mm Comment:No induration Other MISCELLANEOUS SAMPLE S / Unknown 07/10/2018 Rosie Chapa BIOLOGY RESEARCH ASSISTANT-OPEN HEARTH FURNACE OPERATOR LAB - POINT OF CARE ORDERABLES * SONOGRAM - COMPLETE (04/26/2018 8:04 AM INSURANCE MANAGER) Anatomical Region Laterality Modality Other 04/26/2018 8:04 AM INSURANCE MANAGER Narrative 04/26/2018 9:55 AM INSURANCE MANAGER [facility] PHONE: FAX: Pat. Name: MARICRUZ DODD Pat. 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 MEASUREMENTS & AGE GROWTH EVALUATION Measurement GA Range Srce %for GA Ratios ----- ---- ------- BPD 8.8 cm 35w3d (15o5m-98r5z) Hadl BPD 66% FL/BPD 0.76 (0.71 - 0.87) HC 34.2 cm 39w3d (66j7y-18o7a) Hadl HC 97% FL/AC 0.20 (0.20 - 0.24) AC 32.7 cm 36w4d (98b7g-14h6v) Hadl AC 92% HC/AC 1.05 (0.93 - 1.12) FL 6.6 cm 34w1d (29h7u-74s0q) Hadl FL 22% CI 0.69 (0.70 - 0.86* HL 5.8 cm 33w6d (84v2k-58v4b) Jesse HL 30% GA for sonogram 36w3d (75n5m-19s9k) Weight Estimate: based on (BPD,HC,AC,FL) Avg Weight: [...] amniotic fluid volume Appropriate size for reported ROBETRO No major malformations are seen today within the limitations of ultrasound Blaine cisterna magna RECOMMEND: 1) Follow-up ultrasound as clinically indicated 2) evaluation is recommended for blaine cisterna magna Thank you for allowing us the opportunity to care for your patient. Immanuel Frias MD <Electronic Signature> 04/26/2018 09:55am Chase Heller MD [facility] ORDERABLES * IMAGING/RADIOLOGY/XRAY RESULTS ORDER (04/10/2018) Anatomical Region Laterality Modality Other Scanned Document IMAGING * (ABNORMAL) HEMOGLOBIN - POINT OF CARE (AMB) (12/06/2015) Only the most recent of3 resultswithin the time period is included. Pathologist [facility] Hemoglobin POCT 17.9(A) 11.0 - 14.0 gm/dL Blood specimen (specimen) BLOOD SPECIMEN / Unknown 12/06/2015 Scarlet Larkin MD LAB - POINT OF CARE ORDERABLES * RHEUMATOID FACTOR BLOOD QUANTITATIVE (RF) (12/06/2015) Blood specimen (specimen) BLOOD SPECIMEN / Unknown 12/06/2015 Scarlet Larkin MD LAB - CHEMISTRY ASHOK GRIMALDO Performing Organization Address [facility]/ZIP Co de Phone Number NONSSM RESULT SCAN * C-REACTIVE PROTEIN (12/06/2015) Blood specimen (specimen) BLOOD SPECIMEN / Unknown 12/06/2015 Scarlet Larkin MD LAB - CHEMISTRY ASHOK GRIMALDO NONSSM RESULT SCAN * [place] BLOOD SCREEN W/REFLEX TITER (12/06/2015) Blood specimen (specimen) BLOOD SPECIMEN / Unknown 12/06/2015 Scarlet Larkin MD LAB - CHEMISTRY ASHOK GRIMALDO Performing Organization Address City/[facility] Co de Phone Number NONSSM RESULT SCAN * SED RATE AUTO (ESR) (12/06/2015) Blood specimen (specimen) BLOOD SPECIMEN / Unknown 12/06/2015 Scarlet Larkin MD LAB - [facility]OLOGY [facility] RESULT [facility] * CBC W MANUAL DIFFERENTIAL (12/06/2015) Blood specimen (specimen) BLOOD SPECIMEN / Unknown 12/06/2015 Scarlet Larkin MD LAB - HEMATOLOGY ORD ANTON NONS RESULT SCAN * LAB RESULTS ORDER (04/13/2015) Scanned Document LAB - THERAPEUTIC DR UG MONITORING ORDERABLES * URINALYSIS W MICROSCOPIC - POINT OF CARE (05/06/2013 3:38 PM INSURANCE MANAGER) Only the most recent of2 resultswithin the time period is included. Leukocyte UA trace Negative Comment:culture sent Nitrite UA POCT negative Negative Urobilinogen UA 0.2 0.1 - 1.0 Protein UA POCT trace Negative pH UA 5.0 5.0 - 8.0 pH units Blood UA negative Negative Specific [place] UA POCT 1.030 1.002 - 1.030 Ketone [...] ORDERABLES * CULTURE URINE (05/06/2013 3:33 PM INSURANCE MANAGER) Only the most recent of2 resultswithin the time period is included. Urine Culture Routine Final report [facility] INSURANCE BILL Result 1 No growth [facility] INSURANCE BILL Urine specimen (specimen) URINE SPECIMEN OBTAINED BY CLEAN CATCH PROCEDURE / Unknown 05/06/2013 3:33 PM INSURANCE MANAGER 05/06/2013 9:07 PM INSURANCE MANAGER Narrative Resulting Agency Comment [facility] [address] [facility] [phone] Scarlet Larkin MD LAB - MICROBIOLOGY O [place] Performing Organization Address City/[facility]/ZIP Co de Phone Number [facility] INSURANCE BILL * (ABNORMAL) INFLUENZA A+B - POINT OF CARE (AMB) (04/18/2013 4:07 PM INSURANCE MANAGER) Influenza A Antigen Rapid Positive(A) Negative Influenza [...] 9:10 PM CDT Narrative Resulting Agency Comment [facility] [address] [facility] [phone] Dhaval Jovel MD LAB - MICROBIOLOGY O [place] Performing Organization Address [facility] Co de Phone Number [facility] INSURANCE [...] MD DIAGNOSTIC IMAGING O RDERABLES Care Teams Miller Supervisor Relationship Specialty Start Date End Date Neal Peters MD [address] [phone] PCP - General Internal Medicine 09/07/23
--- OUTSIDE RECORDS SUMMARY | 2024-06-09 12:24 | XMS_ITS | Referral Summary ---
Author Organization [facility] Address [address] [place] [address] Care Team Providers Care Derrickman Helper Name Role Phone Neal Peters MD Primary Care Provider Source Comments [facility],non-owned Affiliates and Associated Physician Practices is amultiple site organization consisting of ambulatory clinics and hospital sitesin [place], [place], [place] and [place]. This disclosure is being madepursuant to the Care Everywhere program and may not contain all information available regarding this patient. Last updated 18.[facility] Allergies No known active allergies Medications * [...] Pressure 133/91 09/07/2023 12:22 PM CDT Repeat MG=254/86 Pulse 86 09/07/2023 12:22 PM CDT Temperature [...] Pelaezey A, RN Administered Medications Care Teams Derrickman Helper Relationship Specialty Start Date End Date Neal Peters MD [address] [facility] [address] [place] [phone] PCP - General Internal Medicine 09/07/23
[2024-06-09 12:42] VITALS: BP 118/70; PULSE 70; RESP 16; TEMP 36.4; O2SAT 100
== END 2024-06-09 12:44 | disposition home or self-care (01) ==
PROVIDERS: Emergency Provider Physician Assistant; PCP Internal Medicine
DX: R16.1 Splenomegaly, not elsewhere classified (principal); E66.3 Overweight; Z68.33 Body mass index [BMI] 33.0-33.9, adult
CPT/HCPCS: 36415; 74177; 80053; 81003; 81025; 85025; 96374; 96375; 99284; J1885; J2405; Q9967

== ENCOUNTER 2024-08-27 07:34 | Outpatient (CLI) | payer OTHER, MEDICAID, SELFPAY ==
--- NOTE | ~2024-08-27 | US_ITS ---
Thyroid ultrasound. Clinical History: Goiter COMPARISON: 02/18/2024 Findings: Real-time sonography of the thyroid gland was performed. The right lobe measures 5.6 x 1.8 x 2.1 cm. The left lobe measures 5.0 x 1.4 x 1.7 cm. The isthmus is 4 mm in AP diameter. There is a 5 mm hypoechoic solid nodule at the right lower pole. There is a 6 mm mixed hyperechoic and hypoechoic nodule at the left midpole. There is a 1.4 x 0.9 x 1 .5 cm heterogeneous solid nodule at the left lower pole near the junction with the isthmus. Impression: 1.5 cm left thyroid nodule near the junction with the isthmus, similar to prior exam. Additional subcentimeter thyroid nodules, as above.. Reviewed, dictated and finalized at [facility]. Impression: 1.5 cm left thyroid nodule near the junction with the isthmus, similar to prior exam. Additional subcentimeter thyroid nodules, as above..
--- OUTSIDE RECORDS SUMMARY | 2024-08-27 07:37 | XMS_ITS | Clinical Summary ---
Author Organization [facility] Address [address] [place] [address] Care Team Providers Care Furs Salesperson Name Role Phone Dayanna Peters MD Primary Care Provide r Allergies No known active allergies Medications escitalopram (LEXAPRO) 5 mg tablet Take 5 mg by mouth daily 3 Active zonisamide (ZONEGRAN) 50 mg capsuleIndications: Partial Epilepsy Treatment Adjunct Take 1 capsule (50 mg total) by mouth daily 30 capsule 3 3 Active rizatriptan FIXER SUPERVISOR (MAXALT-FIXER SUPERVISOR) 10 mg disintegrating tabletIndications:M igraine Take 1 [...] Comments Blood Pressure 90/60 06/21/2022 9:04 AM EMERGENCY MEDICAL SERVICE COORDINATOR Pulse 93 06/21/2022 9:04 AM EMERGENCY MEDICAL SERVICE COORDINATOR Temperature 36.7 C (98 F) 06/21/2022 9:04 AM EMERGENCY MEDICAL SERVICE COORDINATOR Respiratory Rate 20 06/21/2022 9:04 AM EMERGENCY MEDICAL SERVICE COORDINATOR Oxygen Saturation 99% 06/21/2022 9:04 AM EMERGENCY MEDICAL SERVICE COORDINATOR Inhaled Oxygen Concentration - - Weight 82 kg (180 lb 12.8 oz) 06/21/2022 9:04 AM EMERGENCY MEDICAL SERVICE COORDINATOR Height 157.5 cm (5' 2 ) 06/21/2022 9:04 AM EMERGENCY MEDICAL SERVICE COORDINATOR Body Mass Index 33.07 06/21/2022 9:04 AM EMERGENCY MEDICAL SERVICE COORDINATOR Plan of Treatment Health Maintenance Due Date Last Done Comments Cervical Cancer Screening 1999 Depression Screening 1999 Hepatitis C Screening 1999 Regular Well Visit/Exam 18-64 2017 DTaP/Tdap/Td Vaccine (7 - Td or Tdap) 03/04/2020 03/04/2010, 09/26/2004, 07/30/2000, Additional history exists Influenza Vaccine (Season Ended) 2024 03/04/2010, 03/04/2010, 01/26/2009, Additional history exists Pneumococcal vaccine <65 Completed 02/08/2001, 07/15 Varicella Vaccines Completed 02/04/2007, 04/30/2000 Hepatitis B Screening Completed 01/07/2010 , 1999, 1999, Additional history exists HPV Vaccines Completed 09/20/2010, 05/17, 03/04/2010 Insurance CMR Care Teams Furs Salesperson Relationship Specialty Start Date End Date Dayanna Peters MD [address] [place] [address] PCP - General Internal Medicine 05/17/22
--- OUTSIDE RECORDS SUMMARY | 2024-08-27 07:37 | XMS_ITS | Referral Summary ---
Author Organization [facility] Address [address] [place] [address] Care Team Providers Care Director Of Quality Improvement Name Role Phone Dayanna Peters MD Primary Care Provide r Allergies No known active allergies Medications escitalopram (LEXAPRO) 5 mg tablet Take 5 mg by mouth daily 3 Active zonisamide (ZONEGRAN) 50 mg capsuleIndications: Partial Epilepsy Treatment Adjunct Take 1 capsule (50 mg total) by mouth daily 30 capsule 3 3 Active rizatriptan DAG COATER (MAXALT-DAG COATER) 10 mg disintegrating tabletIndications:M igraine Take 1 [...] Comments Blood Pressure 90/60 06/21/2022 9:04 AM ROD DRAWER Pulse 93 06/21/2022 9:04 AM ROD DRAWER Temperature 36.7 C (98 F) 06/21/2022 9:04 AM ROD DRAWER Respiratory Rate 20 06/21/2022 9:04 AM ROD DRAWER Oxygen Saturation 99% 06/21/2022 9:04 AM ROD DRAWER Inhaled Oxygen Concentration - - Weight 82 kg (180 lb 12.8 oz) 06/21/2022 9:04 AM ROD DRAWER Height 157.5 cm (5' 2 ) 06/21/2022 9:04 AM ROD DRAWER Body Mass Index 33.07 06/21/2022 9:04 AM ROD DRAWER Plan of Treatment Not on file Insurance CMR Care Teams Director Of Quality Improvement Relationship Specialty Start Date End Date Dayanna Peters MD [address] [place] [address] PCP - General Internal Medicine 05/17/22
--- OUTSIDE RECORDS SUMMARY | 2024-08-27 07:38 | XMS_ITS | Clinical Summary ---
Author Organization [facility] Address [address] [place] [id number] Care Team Providers Care Milk Handler Name Role Phone Unavailable Primary Care Provider [...] 2018 COVID-19 Vaccine (2023-2 5 season) 2023 Meningococcal B Vaccine Aged Out No l onger eligible based on patient's age to complete this topic Meningococcal Vaccine Aged Out No jacoby jacques eligible based on patient's age to complete this topic Pneumococcal Vaccine: Pediat rics (0 to 5 Years) and At-Risk Patients (6 to 49 Years) Aged Out No longer eligible b ased on patient's age to complete this topic RSV Immunizations Under 20 Months Aged Out No longer eligible based on patient's age to complete this topic
--- OUTSIDE RECORDS SUMMARY | 2024-08-27 07:38 | XMS_ITS | Data Portability ---
Author Organization [place] [facility], Main Office Address [address] [place] [address] Care Team Providers Care Lithographic Platemaker Name Role Phone NEAL PETERS Primary Care Provider [phone] ISAURA RICO Bushel Girl [phone] LIZZIE MCKEON Solid Surface Fabricator SHELLY CLOUD Neurologist [facility] Otolary ngologist APRIL BERNAL Bushel Girl Assessment Encounter Date Assessment Date Assessment LastModified by Organization Details LastModified Time 05/08/2024 05/08/2024 05/01/2023 VIT D 26.8 ALT 70 TG 241 Not available 05/08/2024 17:40:36 07/01/2024 07/01/2024 Time spent with patient included: preparing to see patient by reviewing tests, obtaining and reviewing history, medical examination and evaluation, counseling and educating the patient, ordering medications and tests, documenting clinical information in EHR, interpreting results and communicating results to the patient for a total of 25 minutes.independ ently [email or web address] Not available 07/01/2024 10:55:35 07/31/2024 07/31/2024 05/01/2023 VIT D 26.8 ALT 70 TG 241 06/09/2024: HGB 15.3 TP 9.0 Not available 07/31/2024 18:05:43 Plan of Treatment Reminders Order Date Submit Date Provider Last Modified By Organization Details Last Modified Time Details Appointments Any 15 2024 04:30P M Neal sandoval MD Not available Not available Not available Lab gamma-glu tamyl transfera se (ggt), serum [address] [place] [address] (Lab), [address] [place], [address], 07/31/2024 18:20:28 hepatitis panel (A+B+C), acute, serum [address] [place] [address] (Lab), [address] [place], [address], 07/31/2024 18:20:29 lipid panel, serum [address] [place] [address] (Lab), [address] [place], [address], 07/31/2024 18:20:27 CMP, serum or plasma [address] [place] [address] (Lab), [address] [place], [address], 07/31/2024 18:20:27 CBC w/ auto diff [address] [place] [address] (Lab), [address] [place], [address], 07/31/2024 18:20:28 TSH, serum or plasma [address] [place] [address] (Lab), [address] [place], [address], 07/31/2024 18:20:28 vitamin D, 25-hydrox y, total, serum [address] [place] [address] (Lab), [address] [place], [address], 07/31/2024 18:20:27 vitamin B12 + folate, serum or blood [address] (Lab), [address] [place], [address], 07/31/2024 18:20:28 vitamin D, 25-hydrox y, total, serum [address] (Lab), [address] [place], [address], 05/08/2024 17:51:36 gamma-glu tamyl transfera se (ggt), serum 2024 025 [facility] (Lab), [address] [place], [address], 05/12/2024 11:18:48 hepatitis panel (A+B+C), acute, serum 2024 025 [facility] (Lab), [address] [place], [address], 05/12/2024 11:44:44 lipid panel, serum 2024 025 [facility] (Lab), [address] [place], [address], 05/12/2024 11:18:38 CMP, serum or plasma 2024 025 [facility] (Lab), [address] [place], [address], 05/12/2024 11:18:44 CBC w/ auto diff 2024 025 [facility] (Lab), [address] [place], [address], 05/12/2024 11:16:32 TSH, serum or plasma 2024 025 [facility] (Lab), [address] [place], [address], 05/12/2024 11:44:53 vitamin B12 + folate, serum or blood 2024 025 [facility] ([facility] [address] [place], [address], 05/08/2024 17:51:36 Referral endocrino logy referral - Please call patient to schedule an appointme nt. Thank you. 2024 025 [place], [address], [place], [address], 08/04/2024 12:10:28 dermatolo gist referral - Please call patient to schedule an appointme nt. Thank you. [address] [facility] [place], [address] [place] [address], [address], 08/04/2024 11:50:28 endocrino logy referral - Please call patient to schedule an appointme nt. Thank you. 2024 025 [email or web address] [place], [address], [place], [address], 07/24/2024 09:43:21 dermatolo gist referral - Please call patient to schedule an appointme nt. Thank you. [address] [facility], [address] [place] [address], [address], 06/26/2024 20:40:[address] referral - Please call patient to schedule an appointme nt. Thank you. 2024 025 ARIELLE [facility], [address] [facility] , [address], [address], 06/16/2024 13:41:08 Procedures None recorded. Surgeries None recorded. Imaging XR, chest, 2 view 2024 025 [facility] ([facility]), [address] [place], [address], 07/01/2024 11:51:58 MRI, internal auditory canal, w/o contrast [address] ([facility]), [address] [place], [address], 05/08/2024 18:00:33 Medication Orders cefdinir 300 mg capsule 2024 025 [facility][id number], [address], [place], [place], [id number], 08/20/2024 12:03:43 amoxicill in 875 mg-potass ium clavulana te 125 mg tablet 2024 025 [email or web address] [facility] #59164, [address], [place], [place], [id number], 08/20/2024 09:21:31 Zyrtec 10 mg tablet 2024 025 [facility] #83094, [address], [place], [place], [id number], 07/31/2024 18:24:54 Flonase Allergy Relief 50 mcg/actua tion nasal spray,en pension 2024 025 [facility] #99208, [address], [place], [place], [id number], 07/31/2024 18:26:15 Robitussi n Cough-Padmini st Congestio n DM 5 mg-100 mg/5 mL oral liquid 2024 025 [facility] #75515, [address], [place], [place], [id number], 07/31/2024 17:36:53 Medrol (Fernando) 4 mg tablets in a dose pack 2024 025 [email or web address] [facility] #99914, [address], [place], [place], [id number], 08/20/2024 09:21:37 cefdinir 300 mg capsule 2024 025 [facility] #58519, [address], [place], [place], [id number], 07/31/2024 17:36:46 Patient TargetsNo targets recorded. Patient Instructions Encounter Date Encounter Id Patient Instructions Last Modified By Organization Details Last Modified Time 08/20/2024 [id number] this patient has also had a needle biopsy which was benign. We are going to reassess her labs and refer her for radiofrequency ablation. In addition we will prescribe cefdinir for her sinusitis. [email or web address] Not available 08/20/2024 12:03:13 Reason for Referral Neurologist Referral for Trey reena Please call patient to schedule an appointment. Thank you. Referring Physician: Neal Peters Internal Medicine, Encounter Date: 05/08/2024 [place] Referral for A cne Please call patient to schedule an appointment. Thank you. Referring Physician: Neal Peters Internal Medicine, Encounter Date: 05/08/2024 Endocrinology Referral for T hyroid nodule Please call patient to schedule an appointment. Thank you. Referring Physician: Neal Peters Internal Medicine, Encounter Date: 05/08/2024 Hoistman Referral for A cne Please call patient to schedule an appointment. Thank you. Referring Physician: Neal Peters Internal Medicine, Encounter Date: 07/31/2024 Endocrinology Referral for T hyroid nodule Please call patient to schedule an appointment. Thank you. Referring Physician: Sergio Pulliam Medicine, Encounter Date: 07/31/2024 Results Created Date Observation Date Name Description Value Unit Range Abnormal Flag Note LastModifiedBy Organization Detail LastModifiedTime 05/19/19 25 05/19/2024 MRI, inter nal audit ory canal , w/o contr ast [facility] [address] [facility] [address], [place] [address] Patien t Name: MARICRUZ DODD Access ion #: [id number] Sex: F : 1999 2 Dictat ed By: Juvencio Mesa e Attend ing Physic constanza: KEYANNA MUIR Orderi [...] cells or middle ear spaces . The caramel cutter hand al audito ry canals are patent . IMPRES KYESHAWN: 1. No acute intrac ranial proces s. Page 1 [facility] [address] [facility] [place] [address] [phone] Patien t Name: MARICRUZ DODD Access ion #: [id number] Sex: F : 1999 2 Dictat ed By: Juvencio dillard Attend ing Physic constanza: GINI CASTREJON ng Physic constanza: KEYANNA MUIR Exam Date: [...] at 2024 15:21: 20 PM Page 2 INTERFACE [facility] (Imaging) [address] [place], [address], 05/19/2024 16:23:56 05/19/19 25 05/19/2024 imagi ng/di agnos tic resul t No observ ation record ed. [facility] [address] [place], [address], 05/19/2024 16:26:15 05/30/19 25 05/30/2024 imagi ng/di agnos tic resul t No observ ation record ed. [address], [address], 05/30/2024 10:56:36 05/30/19 25 05/30/2024 imagi ng/di agnos tic resul t No observ ation record ed. [address], [place], [address], 05/30/2024 12:32:34 06/09/19 25 06/09/2024 imagi ng/di agnos tic resul t No observ ation record ed. [facility] [address], [place], [address], 06/09/2024 13:13:08 07/02/19 25 07/01/2024 XR, chest , 2 view No observ ation record ed. [address] [place], [address], 07/08/2024 13:46:54 07/02/19 25 07/01/2024 imagi ng/di agnos tic resul t No observ ation record ed. [facility] [address] [place], [address], 07/01/2024 11:57:42 Result Notes None recorded. Problems Name Problem SNOMED Code Status Onset Date Resolution Date Notes Provider Name and Address Organization Details Recorded Time Bipolar disorder 96946250 Active 2020 Not Available [facility] 3 19:17:51 Toothache 92482564 Active 2022 Not Available [facility] 3 19:17:51 Pain of left hip joint 2905718402809 00 Active 2021 Not Available [facility] 3 19:17:51 Depressive disorder 03915192 Active 2020 Not Available [facility] 3 19:17:51 Migraine 33598202 Active 2021 Not Available [facility] 3 19:17:51 Anxiety 94191632 Active 2020 Not Available [facility] 3 19:17:51 Limitation of joint movement 81946714 Active 2021 Not Available [facility] 3 19:17:51 COVID-19 967800085 Active 2021 Not Available [facility] 3 19:17:51 Mixed anxiety and depressive disorder 625248766 Active 2022 Not Available [facility] 3 19:17:51 Acne 88342471 Active 2022 Not Available [facility] 3 19:17:51 Low back pain 510729518 Active 2022 Not Available [facility] 3 19:17:51 Hyperlipid emia 68069564 Active 2022 Not Available [facility] 3 19:17:51 Dizziness 259713480 Active 2022 Not Available [facility] 3 19:17:51 Vitamin D deficiency 93400447 Active 2022 Not Available [facility] 3 19:17:51 Serum vitamin B12 below reference range 331192980 Active 2022 Not Available [facility] 3 19:17:51 Acute right otitis media 375431680 Active 2022 Not Available [facility] 3 19:17:51 Upper respirator y infection 68354879 Active 2022 Not Available [facility] 3 19:17:51 Vertigo 284041768 Active 2022 Not Available [facility] 3 19:17:51 Acute sinusitis 97274348 Active 2022 Not Available [facility] 3 19:17:51 Serum thyroid stimulatin g hormone level outside reference range 136782792 Active 2023 Neal fitch MD [address], [facility] [address], [place], [address] , [facility] [facility] 4 16:53:02 Thyroid nodule 996454433 Active 2023 Ivan Owens MD [address], [address], [place], [address] , [facility] [employer] [facility] 5 12:00:53 Liver enzymes level above reference range 104365557 Active 2023 Andie Anders RN null, [facility] 4 15:38:27 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 2023 Andie Anders RN null, [place] [facility] 4 10:40:40 Increased liver function 14741371 Active 2023 Neal fitch MD [address], [address], [place], [address] , [facility] 4 12:28:47 Acute urinary tract infection 365749383 Active 2023 Georgia Bliss MA null, [place] [facility] 4 17:45:40 Obesity 855274893 Active 2023 Neal fitch MD [address], [address], [place], [address] , [facility] 4 13:11:43 Graves' disease 036970965 Active 2023 SAM Mcguire null, MD - [facility] 5 12:51:35 Hypertroph y of lingual tonsil 811072809 Active 2024 SAM Mcguire null, MD - [facility] 5 13:59:22 Chronic maxillary sinusitis 98537496 Active 2024 Ivan Owens MD [address], [address], [place], [address] , [facility] 5 10:43:21 Hypertroph y of tonsils 66891168 Active 2024 Ivan Owens MD [address], [address], [place], [address] , [facility] 5 10:43:38 Cyst of ovary 60577023 Active 2024 SAM Mcguire null, MD - [facility] 5 17:36:43 Acute bronchitis 12607765 Active 2024 Colleen Schulz NP [address], [address], [place], [address] , [place] [facility] 10:40:50 Candidiasi s of skin 11411067 Active 2024 Sally Charleston, SAM null, [facility] 16:33:24 Hyperprote inemia 17580635 Active 2024 Neal fitch MD [address] [facility], [address], [address] , [facility] 18:26:57 Sore throat 129846100 Active 2024 Kimmie Bennett MA null, [facility] [employer] [facility] 15:57:13 Autoantibo dy level - finding 833229126 Active 2024 Ivan Owens MD [address] [facility], [place] [address], [place], [address] , [facility] [facility] 12:01:15 Hypothyroi dism 10054387 Active 2024 Ivan Owens MD [address] [facility], [place] [address], [place], [address] , [facility] [facility] 12:02:21 Problem Notes None recorded. Procedures Surgical History Date Name Laterality Status Provider Name and Address Organization Details Recorded Time 05/30/19 25 Appendectomy completed Sally Evans ASHLilian [facility] [facility] 07/31/2024 17:39:48 02/18/20 24 biopsy of thyroid completed Sally Evans ASHLilian [facility] 02/21/2024 12:21:32 Imaging Results Imaging Date Name Status LastModified by [facility]iz [facility] Details LastModified Time 05/19/2024 MRI, internal auditory canal, w/o contrast active INTERFACE [facility] (Imaging) [address] [place], [address], 05/19/2024 16:23:56 05/19/2024 imaging/diagn ostic result active [facility] [address] [place], [address], 05/19/2024 16:26:15 05/30/2024 imaging/diagn ostic result active [address] [facility], [place], [address], 05/30/2024 10:56:36 05/30/2024 imaging/diagn ostic result active [address], [place], [address], 05/30/2024 12:32:34 06/09/2024 imaging/diagn ostic result active [address], [place], [address], 06/09/2024 13:13:08 07/01/2024 XR, chest, [address] [place], [address], 07/08/2024 13:46:54 07/01/2024 imaging/diagn ostic result active [facility] [address] [place], [address], 07/01/2024 11:57:42 Procedure Notes None recorded. Medical Equipment None Reported. Allergies Allergen ID Allergen Name Allergen Category Reaction Reaction Severity Criticality Documentation Date Start Date Code Code System Note Provider Name and Address Organization Details Recorded Time 50660 Medrol medicatio n Not available Not available Not available 08/20/2024 2 RxNorm SUICI NICOLÁS, DEPRE SSION Maggy Cheek RN null, [place] [facility] [place] [facility] 11:31:29 Medications Name Sig Start Date Stop Date [...] completed Not Available Not Available Not Available azithromyci n 250 mg tablet TAKE 2 TABLETS (500 MG) BY ORAL ROUTE ONCE DAILY FOR 1 DAY THEN 1 TABLET (250 MG) BY ORAL ROUTE ONCE DAILY FOR 4 DAYS 07/01 completed Not Available Not Available Not Available [...] completed Not Available Not Available Not Available Zyrtec 10 mg tablet TAKE 1 TABLET BY MOUTH EVERY DAY NEEDED active Not Available Not Available No t Available metronidazo le 500 mg tablet TAKE [...] MOUTH EVERY 4 HOURS NEEDED FOR PAIN 07/01 completed Not Available Not Available Not Available [...] completed Not Available Not Available Not Available benzonatate 100 mg capsule TAKE 1 CAPSULE BY MOUTH TWICE DAILY FOR 7 DAYS NEEDED 07/01 completed Not Available Not Available Not Available [...] completed Not Available Not Available Not Available nystatin-tr iamcinolone 100,000 unit/g-0.1 % topical cream APPLY TOPICALLY TO THE AFFECTED AREA TWICE DAILY IN THE MORNING AND IN THE EVENING active Not Available Not Available No t Available ergocalcife rol (vitamin D2) 1,250 mcg (50,000 unit) capsule TAKE 1 CAPSULE BY MOUTH WEEKLY active Not Available Not Available No t Available ibuprofen 600 mg tablet TAKE 1 TABLET BY MOUTH EVERY 6 HOURS NEEDED FOR CRAMPING 05/01 completed Not Available Not Available Not Available levofloxaci n 750 mg tablet TAKE 1 TABLET BY MOUTH EVERY DAY FOR 7 DAYS 09/26 completed Not Available Not Available Not Available methylpredn isolone 4 mg tablets in a dose pack FOLLOW PACKAGE DIRECTION S 08/20 completed Not Available Not Available Not Available norethindro ne (contracept andrea) 0.35 mg tablet TAKE 1 TABLET BY MOUTH DAILY 07/31 completed Not Available Not Available Not Available hydroxyzine HCl 10 mg tablet TAKE 1 TABLET BY MOUTH EVERY 4 HOURS NEEDED 02/22 completed Not Available Not Available Not Available ondansetron 4 mg disintegrat ing tablet DISSOLVE 1 TABLET ON THE TONGUE EVERY 6 HOURS NEEDED FOR NAUSEA OR VOMITING 07/31 completed Not Available Not Available Not Available cefdinir 300 mg capsule Take 1 capsule every 12 hours by oral route. 2024 active Not Available Not Available Not Avai lable topiramate 100 mg tablet TAKE 1 TABLET BY MOUTH TWICE DAILY 02/22 completed Not Available Not Available Not Available fluticasone propionate 50 mcg/actuati on nasal spray,suspe nsion SHAKE LIQUID AND USE 1 SPRAY IN EACH NOSTRIL EVERY DAY active Not Available Not Available No t Available sertraline 50 mg tablet TAKE 1 TABLET BY MOUTH EVERY DAY 05/01 completed Not Available Not Available Not Available doxycycline hyclate 100 mg tablet TAKE 1 TABLET BY MOUTH TWICE DAILY FOR 7 DAYS 02/20 completed Not Available Not Available Not Available spironolact one 50 mg tablet TAKE 2 TABLETS BY MOUTH DAILY active Not Available Not Available No t Available amoxicillin 875 mg-potassiu m clavulanate 125 mg tablet TAKE 1 TABLET BY MOUTH EVERY 12 HOURS FOR 7 DAYS 08/20 completed Not Available Not Available Not Available [...] TAKE 1 TABLET BY MOUTH EVERY DAY 07/31 completed Not Available Not Available Not Available [...] completed Not Available Not Available Not Available [id number]|2024-08-27 07:38:00|2024-08-27 07:38:00|XMS_ITS|BKG DAEMON|External Medical Summaries|[id number]|" Progress note - 05/15/2024 Created on: August 27, 2024 Maricruz Dodd : 2000 Sex: Female Author Organization [employer] [facility] Address [address] [place] [address] Care Team Providers Care Lithographic Platemaker Name Role Phone April Bernal Primary Care Provider Allergies No Known Allergies [...] Risk Notes Problem Non-toxic single thyroid nodule (186487606) Nontoxic single thyroid nodule (E04.1) Active confirmed Problem Obesity (945954693) Obesity, unspecified (E66.9) Active confirmed Problem Irregular menstruation, unspecified (N92.6) Active confirmed Problem Vitamin D deficiency (00925518) Vitamin D deficiency, unspecified (E55.9) Active confirmed Vital Signs Blood pressure systolic 120 mm Hg 05/15/19 25 Blood pressure diastolic 72 mm Hg 025 Heart Rate 82 /min 05/15/2024 Respiratory Rate 12 /min 05/15/2024 Height 62 in 05/15/2024 Weight 180 lbs 05/15/2024 BMI 32.92 kg/m2 05/15/2024 Encounters Encounter Location Date Provider Diagnosis [facility] - April Bernal [address] [place] [address] 05/15/2024 April Bernal Nontoxic single thyroid nodule E04.1 ; Obesity, [...] appointment in 3-4 weeks post-lab completion. Suspected Kapaau's SyndromePresentation includes weight gain, anxiety, mood swings, [...] treatment plan. Consider the relation to suspected Kapaau's syndrome. Multiple ComorbiditiesPatient reports various health issues [...] procedures, referring and communicating with other health director of healthcare systems, documenting clinical information in the electronic or [...] appointment in 3-4 weeks post-lab completion. Suspected Kapaau's SyndromePresentation includes weight gain, anxiety, mood swings, [...] procedures, referring and communicating with other health director of healthcare systems, documenting clinical information in the electronic or [...] Weeks, Reason: labwork Progress Notes * Aleksandr DODDDreOB:2000 (24 yo F)Acc No.[id number]:05/15/2024 Progress Notes Patient: Maricruz CAST Provider: Sherry Bernal MD :2000 A ge:24 Y S ex:Female Date:05/15/2024 Address:[address], [place], [place] Subjective: * Chief Complaints: * 1 . [...] c hange in color of moles. n o lumps. n o d ry or sensitive skin. n o h randal. n o o isaac skin. n o acne. n o m oles-irregular. n o m [...] m igraine y es. n o t remors. no f ainting spells. n o h ead injury. n o s troke. O PTHALMOLOGY: no d iminished vision. n o e ye irritation. n o drainage from eyes. b lurring of vision y es. n o s easonal eye sx. n o dander related eye sx. n o l oss of vision. n o c ataracts. n o g lasses/contacts. n o g laucoma, r uns in family. n o d etached retina. n o m acular degeneration, r uns in family. n o e ye redness. R ESPIRATORY: no s hortness of breath. n o c hest pain. n o wheezing. n o a sthma. n o b [...] e asy bleeding. a nemia y es. U ROLOGY: no d ifficulty urinating. n [...] k idney disease. n o u rine hesitancy. no p ainful urination. N UTRITION: greater than body requirmemts y es. L ess than body requirements y es. a ppropriate / adequate y es, y es. C ONSTITUTIONAL: weight gain y es. n o l oss of appetite. n o fever. n o w eakness. n o w [...] o c ough. n o c oughing blood. no n ose bleed. n o h earing [...] oiter. n o g um problems. n o postnasal drip. n o f requent nosebleeds. C ARDIOLOGY: no c hest pain. p alpitations y es. n o l eg swelling. n o d izziness. n o s hortness of breath. n o v aricose veins. leg cramps y es. c old hands or [...] lcers. n o a nal fissures. n o hepatitis. n o g allstones. n o r ed blood after bowel movements. n o v omiting. n o b loating/belching. n o d ifficulty swallowing. n o d iarrhea. no c onstipation. n o c hange in bowel habits. n o b lood in stool. M USCULOSKELETAL: no j oint swelling. n o j oint pain. n o l eg cramps. n o j oint stiffness. n o a rthritis. n o b ack pain. n o muscle aches. n o m orning stiffness. n o t endinitis. n o n guy pain. no b ursitis. n o b one marrow biopsy. n o g out. a ctivity intolerance weakness. n o f racture. P SYCHOLOGY: no h igh stress level. n o d epression. n o sleep disturbances. n o r gabi sx worse [...] * Surgical History: t yon tied as infant , thyroid biopsy of left dominant nodule , vaginal delivery x 2 . * Hospitalization/Major Diagno stic Procedure: v aginal delivery x 2 . * Family History: F ather: alive. M other: alive. S iblings: alive. M aternal Grand Mother: , diagnosed with Stroke, Heart [...] I rregular menstruation, unspecified - N92.6 4 . Impaired fasting glucose - R73.01 5 . E ncounter for screening for lipoid disorders - Z13.220 6 . V itamin D deficiency, unspecified - E55.9 Plan: * Treatment: 2. O thers Notes: [...] appointment in 3-4 weeks post-lab completion. Suspected [place]apa[place]'s SyndromePresentation includes weight gain, anxiety, mood swings, [...] procedures, referring and communicating with other health director of healthcare systems, documenting clinical information in the electronic or [...] were discussed and all questions were answered. * Follow Up: 4 Weeks (Reason: labwork) * Billing Information: * Visit Code: 95147 Office Visit, New Pt., Level 4. Modifiers: 95 * Procedure Codes: * PULT AND ARRESTING GEAR OFFICER Sign off status: Completed true * Provider: Sherry Bernal MD Date: 05/15/2024 Generated for Belkys esquivel/Wesley/eTransmitting on: 0 08/27/2024 07:37 AM CDT History and Physical Notes * HPI (History [...] no urished and hydrated, pleasant obese female "
--- OUTSIDE RECORDS SUMMARY | 2024-08-27 07:39 | XMS_ITS | Clinical Summary ---
Author Organization [facility] Address [address] [place] [address] Care Team Providers Care Aerial Applicator Pilot Name Role Phone Neal Peters MD Primary Care Provider Source Comments [facility],non-owned Affiliates and Associated Physician Practices is amultiple site organization consisting of ambulatory clinics and hospital sitesin [place], [place], [place] and [place]. This disclosure is being madepursuant to the Care Everywhere program and may not contain all information available regarding this patient. Last updated 18.[facility] Allergies No known active allergies Medications * Be aware that medications may not be up to date on this document. Alwaysverify current medications with the patient. 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 Supervision of high-risk of young lanimere igravida 04/24/2018 Resolved Problems Problem Noted Date [...] (02/01/2010): 09/28/09 02/01/10 ovide (phone script) Immunizations Immunization Administration Dates Next Due DTaP VACCINE IM (6wk-6yrs) 09/26/2004,,1999,06/29,1999 HEP A PEDS 2 DOSE 03/02/2008,02/04/2007 HEP B VACCINE, PED/ADOL 01/07/2010,08/23,1999,04/01 HIB BOOSTER 07/30/2000, 0,1999,04/01 Human Papilloma Virus Emily valent Vaccine 09/20/2010,05/30/2010,03/04/2010 Influenza Nasal 03/04/2010,01/26/2009,03/02/2008 MENINGOCOCCAL ACWY (MCV4P) VAC IM 02/09/2015, MMR 09/26/2004,04/30/2000 PNEUMOCOCCAL CONJ, PEDS 02/08/2001,07/30/2000 POLIO [...] drink = 0.6 oz pur e alcohol) Comments No Sex and Gender Information Value Date Recorded Sex Assigned at Not on file Legal Sex Female 5:42 AM LETTERER Gender Identity Not on file Sexual Orientation Not on file 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 Not on file Not on file Not on file Last Filed Vital Signs Vital Sign Reading Time Taken Comments Blood Pressure 133/91 09/07/2023 12:22 PM CDT Repeat YC=484/86 Pulse 86 09/07/2023 12:22 PM CDT Temperature [...] Health Maintenance Due Date Last Done Comments PAP SMEAR 1999 HIV SCREENING 2014 HEPATITIS C SCREENING 01/25/2017 DTAP/TDAP/TD VACCINES (7 - Td or Tdap) 03/04/2020 03/04/2010, 09/26/2004, 07/30/2000, Additional history exists COVID-19 VACCINE (2023- season) 2023 CHLAMYDIA/GONORRHEA SCREENING 12/06/2024 12/07/2023, 05/09/2023 INFLUENZA VACCINE (Season Ended) 2024 03/04/2010, 01/26/2009, 03/02/2008 ZOSTER VACCINE (1 of 2) 2049 HIB VACCINE Completed 07/30/2000, 08/14, 1999, Additional history exists PNEUMOCOCCAL VACCINE Completed 02/08/2001, 07/31/19 HEPATITIS B VACCINE Completed 01/07/2010, 1999, 1999, Additional history exists HPV VACCINE Completed 09/20/2010, 05/17, 03/04/2010 MENINGOCOCCAL GROUPS A/C/Y/W VACCINE Completed 02/09/2015, 03/04/2010 MENINGOCOCCAL (Group B) VACCINE SHARED DECISION-MAKING Aged Out No longer eligible based on [...] On track( 017 4:02 PM CDT) No Cricket Pelaez, RN Insurance [facility] MEDICAID - [place] SELF PAY NO INSURANCE Member Subscriber Plan / Payer (Ef fective for All Dates) Name:Maricruz Duke Member ID:Not on file Relation to Subscriber:Not on file Name:MARICRUZ DUKE Subscriber ID:Not on file (Home) Address: [address] [place] [id number] Payer ID:Not on file Group ID:Not on file Type:Self Pay Address: [place], [place] MED[place] AETNA * Guarantor: Maricruz Duke Account Type Relation to Patient Date of Phone Billing Address Personal/Family Self [address] [place] [address] Care Teams Aerial Applicator Pilot Relationship Specialty Start Date End Date Neal Peters MD [address] [phone] PCP - General Internal Medicine 09/07/23
--- OUTSIDE RECORDS SUMMARY | 2024-08-27 07:39 | XMS_ITS | Patient Health Record ---
Author Organization [facility] Address [address] [address] Care Team Providers Care Strap Sewer Name Role Phone Emily Valero Primary Care Provider Allergies No Known Allergies Results Component Value Reference Range Notes COMPREHENSIVE METABOLIC PANE L (Not yet reviewed by provider) Interpretation: Performing Lab:JAYANT, [facility], [address], [place], [address] Vern Lyons Notes/Report: FASTING:YES FASTING: YES VITAMIN D, 25-HYDROXY, LC/MS /MS (Not yet reviewed by provider) Interpretation: Performing Lab:[place], [facility], [address], [address] Vern Lyons MD Notes/Report: FASTING:YES FASTING: YES ACTH, PLASMA (Not yet review ed by provider) Interpretation: Performing Lab:ELEAZAR, [facility], [address], [place], [place], Kaveh Caicedo M.D.,PhD Notes/Report: FASTING:YES FASTING: YES TSI (THYROID STIMULATING IMM UNOGLOBULIN) (Not yet reviewed by provider) Interpretation: Performing Lab:EZ, [facility],, [address] [place], [address] Kesha Rojo MD,PhD,MANPREET Notes/Report: FASTING:YES FASTING: YES T3, FREE (Not yet reviewed b y provider) Interpretation: Performing Lab:KS, [facility], [address] [place], [address] Vern Lyons MD Notes/Report: FASTING:YES FASTING: YES CORTISOL, TOTAL (Not yet rev iewed by provider) Interpretation: Performing Lab:[facility], [address] [place], [address] Vern Lyosn MD Notes/Report: FASTING:YES FASTING: YES DHEA SULFATE (Not yet review ed by provider) Interpretation: Performing Lab:[facility], [address] [place], [address] Vern Lyons MD Notes/Report: FASTING:YES FASTING: YES ESTRADIOL (Not yet reviewed by provider) Interpretation: Performing Lab:[facility], [address] [place], [address] [facility] Lyons Notes/Report: FASTING:YES FASTING: YES FERRITIN (Not yet reviewed b y provider) Interpretation: Performing Lab:[facility], [address] [place], [address] LauraSara Lyons MD Notes/Report: FASTING:YES FASTING: YES HEMOGLOBIN A1c (Not yet revi ewed by provider) Interpretation: Performing Lab:[facility], [address] [place], [phone] [place] [address] Karin Lyons Notes/Report: FASTING:YES FASTING: YES INSULIN (Not yet reviewed by provider) Interpretation: Performing Lab:[facility], [address] [place], [address] LauraSara Lyons MD Notes/Report: FASTING:YES FASTING: YES CBC (INCLUDES DIFF/PLT) (Not yet reviewed by provider) Interpretation: Performing Lab:[facility], [address] [place], [phone] [place] [address] Karin Lyons Notes/Report: FASTING:YES FASTING: YES VITAMIN B12/FOLATE, SERUM PA LAWRENCE (Not yet reviewed by provider) Interpretation: Performing Lab:[facility], [address] [place], [address] Vern Lyons MD Notes/Report: FASTING:YES FASTING: YES PROGESTERONE (Not yet review ed by provider) Interpretation: Performing Lab:, [facility], [address] [place], [address] [facility] Karin Notes/Report: FASTING:YES FASTING: YES IRON AND TOTAL IRON BINDING CAPACITY (Not yet reviewed by provider) Interpretation: Performing Lab:[place], [facility], [address] [facility], [place], [address] Laura-Sara Lyons MD Notes/Report: FASTING:YES FASTING: YES LIPID PANEL (Not yet reviewe d by provider) Interpretation: Performing Lab:, [facility], [address] [place], [address] [facility] Ly[facility] Notes/Report: FASTING:YES FASTING: YES T4, FREE (Not yet reviewed b y provider) Interpretation: Performing Lab:, [facility], [address] [place], [address] [facility] Karin Lyons Notes/Report: FASTING:YES FASTING: YES TSH (Not yet reviewed by pro vider) Interpretation: Performing Lab:, [facility], [address] [place], [address] [facility] Karin Lyons Notes/Report: FASTING:YES FASTING: YES THYROID PEROXIDASE ANTIBODIE S (Not yet reviewed by provider) Interpretation: Performing Lab:, [facility], [address] [place], [address] Michael Medina Notes/Report: FASTING:YES FASTING: YES THYROID PEROXIDASE ANTIBODIES 2 <9 IU/mL TESTOSTERONE, FREE (DIALYSIS ) AND TOTAL,MS (Not yet reviewed by provider) Interpretation: Performing Lab:Z3E, [facility], [address] [address], [address], [place], [address] Kirt Leonard MD,PhD Notes/Report: FASTING:YES FASTING: YES TESTOSTERONE, TOTAL, MS 23 2-45 ng/dL For additional information, please refer to https://education.[employer]ritiq[employer].com/faq/DAK241 (This link is being provided for informational/educational purposes only.) (Note) This test was developed and its analytical performance characteristics have been determined by [facility]. It has not been cleared or approved by the FDA. This assay has been validated pursuant to the CLIA regulations and is used for clinical purposes. TESTOSTERONE, FREE 3 0.1-6.4 pg/mL (Note) This test was developed and its analytical performance characteristics have been determined by [facility]. It has not been cleared or approved by the FDA. This assay has been validated pursuant to the CLIA regulations and is used for clinical purposes. [facility] [address] [address],[address] [facility] [address] Kirt Leonard MD, PhD Reason For [...] Status Risk Notes Problem Vitamin D deficiency (53058191) Vitamin D deficiency, unspecified (E55.9) Active confirmed Problem Non-toxic single thyroid nodule (321087235) Nontoxic single thyroid nodule (E04.1) Active confirmed Problem Obesity (646798588) Obesity, unspecified (E66.9) Active confirmed Problem Irregular menstruation (90789088) Irregular menstruation, unspecified (N92.6) Active confirmed Vital Signs Heart Rate 82 /min 05/15/2024 Respiratory Rate 12 /min 05/15/2024 Blood pressure diastolic 72 mm Hg 05/15/2024 Height 62 in 05/15/2024 Blood pressure systolic 120 mm Hg 05/15/2024 Weight 180 lbs 05/15/2024 BMI 32.92 kg/m2 05/15/2024 Encounters Encounter Location Date Provider Diagnosis [facility] - Emily Valero [address] [place] [address] 05/15/2024 Emily Valero Nontoxic single thyroid nodule E04.1 ; Obesity, unspecified E66.9 ; Irregular menstruation, unspecified N92.6 ; Impaired fasting glucose R73.01 ; Encounter for screening for lipoid disorders Z13.220 and Vitamin D deficiency, unspecified E55.9 [facility] Emily Valero [address] [place] [address] 05/15/2024 Emily Valero Assessments Encounter Date Diagnosis [...] appointment in 3-4 weeks post-lab completion. Suspected [place]'s SyndromePresentation includes weight gain, anxiety, mood swings, [...] treatment plan. Consider the relation to suspected [place]'s syndrome. Multiple ComorbiditiesPatient reports various health issues [...] procedures, referring and communicating with other health grounds caretaker, documenting clinical information in the electronic or [...] Insured Coverage Start Date Coverage End Date [facility] [address] [place] [phone] [id number] Maricruz Duke Self - patient is the insured Medicaid [place] [address] [address] [place] [phone] [id number] Maricruz Duke Self - patient is the insured Medical (General) History Medical History History ICD Code thyroid nodule graves disease Surgical History Surgery Date(Month/Year) vaginal delivery x 2 thyroid biopsy of left dominant nodule tongue tied as Hospitalization History Reason Date(Month/Year) vaginal delivery x 2
--- OUTSIDE RECORDS SUMMARY | 2024-08-27 07:39 | XMS_ITS | Data Portability ---
Author Organization [facility] Address [address] [place] [address] Assessment No assessment recorded. Plan of Treatment Reminders Order Date Submit Date Provider Last Modified By Organization Details Last Modified Time Details Appointments None recorded. Lab TSH, serum or plasma 2024 025 [facility] (Lab), [address], [place], [address], 5 22:34:17 HbA1c (hemoglobin A1c), blood 2024 025 [facility] (Lab), [address], [place], [address], 5 22:34:17 prolactin, serum 2024 025 [facility] (Lab), [address] [place], [address], 5 22:34:16 estradiol, serum 2024 025 [facility] (Lab), [address], [place], [address], 5 22:34:15 FSH (follicle-s timulating hormone), serum 2024 025 [facility] (Lab), [address], [place], [address], 5 22:34:16 lh (luteinizin g hormone), serum 2024 025 [facility] (Lab), [address] [place], [address], 5 22:34:16 dhea-sulfat e, serum 2024 025 [facility] (Lab), [address] [place], [address], 5 22:34:15 testosteron e free/testos terone total, ratio, serum 2024 025 [facility] (Lab), [address], [place], [address], 5 22:34:17 progesteron e, serum 2024 025 [facility] (Lab), [address], [place], [address], 5 22:34:16 bacterial vaginosis DNA, PCR, vaginal fluid 2023 024 [facility] (Lab), [address] [place], [address], 4 11:06:39 colleen sp DNA, vaginal 2023 024 [facility] (Lab), [address], [place], [address], 4 11:06:40 mobiluncus, DNA, vaginal 2023 024 [facility] (Lab), [address] [place], [address], 4 11:06:40 colleen krusei DNA, vaginal 2023 024 [facility] (Lab), [address] [place], [address], 4 11:06:41 STI panel 2023 024 [facility] (Lab), [address], [place], [address], 11:06:38 test, urine 2023 024 [email or web address], [address], [place], [address], 15:08:39 Referral None recorded. Procedures None recorded. Surgeries None recorded. Imaging US, pelvis, complete [facility]24 [facility]25 [email or web address] [address], [address], [place], [address], 5 08:53:05 US, pelvis [address], [address], [address], [place], [address], 5 21:29:37 US, transvagina l [address], [address], [address], [place], [address], 5 21:29:37 US, pelvis, complete 2024 025 [email or web address] [address], [address], [place], [address], 5 13:31:52 US, transvagina l 2023 024 [email or web address] [address], [address], [place], [address], 4 13:50:49 Medication Orders hydrocodone 5 mg-acetamin ophen 325 mg tablet 2024 025 [id number], [address], [place], [place], [id number], 5 18:37:41 Mirena 21 mcg/24 hr (up to 8 years) 52 mg intrauterin e device 2023 024 [email or web address] [id number], [address], [place], [place], [id number], 4 15:10:05 Patient TargetsNo targets recorded. Patient InstructionsNo instructions recorded. Reason for Referral None Reported. Results Created Date Observation Date Name Description Value Unit Range Abnormal Flag Note LastModifiedBy Organization Detail LastModifiedTime 12/07/19 24 12/07/2023 CT/GC AND TRICH OMONA S VAGIN KENNEY (RRNA ), URINE chlamydia trachomatis, PCR Negati ve negati ve Not Available [facility] (Lab) [address] [facility], [place], [address], 12/10/2023 10:34:57 12/07/19 24 12/07/2023 CT/GC AND TRICH OMONA S VAGIN KENNEY (RRNA ), URINE neisseria gonorrhoeae, PCR Negati ve negati ve Not Available [facility] (Lab) [address] [facility], [place], [address], 12/10/2023 10:34:57 12/07/19 24 12/07/2023 CT/GC AND TRICH OMONA S VAGIN KENNEY (RRNA ), URINE trichomonas vaginalis ribosomal RNA (rrna) Negati ve negati ve Not Available [facility] (Lab) [address] [facility], [place], [address], 12/10/2023 10:34:57 12/07/19 24 12/07/2023 CULTU RE: URINE result report SEE RESULT S BELOW Test: Cultu re: Urine Speci men Sourc e: Urine - Clean Catch Speci men Type: Urine Speci men Date: 2023 1554 Resul t Date: 2023 0608 Resul t Statu s: Final resul t Abnor mal: No Resul stevog Lab: [facility] [address] [facility] [address] Tel: [phone] CULTU RE ----- ----- ----- --- No growt h in 1 day (dete ction level of 10,00 0 colon ies / ml.) Not Available [facility] (Lab) [address] [place], [address], 12/10/2023 10:34:58 12/07/19 24 12/07/2023 VAGIN ITIS/ VAGIN OSIS, DNA PROBE colleen sp. detection, direct probe Negati ve negati ve Not Available [facility] (Lab) [address] [place], [address], 12/10/2023 10:34:59 12/07/19 24 12/07/2023 VAGIN ITIS/ VAGIN OSIS, DNA PROBE gardnerella vag. detection, direct probe Negati ve negati ve Not Available [facility] (Lab) [address] [place], [address], 12/10/2023 10:34:59 12/07/19 24 12/07/2023 VAGIN ITIS/ VAGIN OSIS, DNA PROBE trichomonas vag. detection, direct probe Negati ve negati ve Not Available [facility] (Lab) [address] [place], [address], 12/10/2023 10:34:59 12/14/19 24 12/14/2023 UROGE NITAL MYCOP LASMA /UREA PLASM A PANEL RT-PC R, ONESW AB mycoplasma genitalium by RT-PCR Negati ve Swab- 1 Cerv/ End Not Available [facility] (Lab) [address] [place], [address], 12/25/2023 11:06:38 12/14/19 24 12/14/2023 UROGE NITAL MYCOP LASMA /UREA PLASM A PANEL RT-PC R, ONESW AB mycoplasma hominis by RT-PCR Negati ve Swab- 1 Cerv/ End Not Available [facility] (Lab) [address] [place], [address], 12/25/2023 11:06:38 12/14/19 24 12/14/2023 UROGE NITAL MYCOP LASMA /UREA PLASM A PANEL RT-PC R, ONESW AB ureaplasma urealyticum by RT-PCR Negati ve Swab- 1 Cerv/ End Not Available [facility] (Lab) [address] [place], [address], 12/25/2023 11:06:38 12/14/19 24 12/14/2023 BACTE RIAL VAGIN OSIS PANEL (WITH LACTO BACIL CHATO PROFI LING) BY QRT PRC, ERON STEWART (L) atopobium vaginae PCR Negati ve Swab- 1 Cerv/ End Not Available [facility] (Lab) [address] [facility], [place], [address], 12/25/2023 11:06:39 12/14/19 24 12/14/2023 BACTE RIAL VAGIN OSIS PANEL (WITH LACTO BACIL CHATO PROFI LING) BY QRT TERRELL, ERON STEWART (L) bacterial vaginosis associated bacterium 1 (bvab1) RT PCR Negati ve Swab- 1 Cerv/ End Not Available [facility] (Lab) [address] [place], [address], 12/25/2023 11:06:39 12/14/19 24 12/14/2023 BACTE RIAL VAGIN OSIS PANEL (WITH LACTO BACIL CHATO PROFI LING) BY QRT TERRELL, ERON STEWART (CHARISMA) bacterial vaginosis associated bacteria 2 (bvab2) Negati ve Swab- 1 Cerv/ End Not Available [facility] (Lab) [address] [place], [address], 12/25/2023 11:06:39 12/14/19 24 12/14/2023 BACTE RIAL VAGIN OSIS PANEL (WITH LACTO BACIL CHATO PROFI LING) BY QRT PRC, ERON STEWART (CHARISMA) bacterial vaginosis associated bacterium 3 (bvab3) RT PCR Negati ve Swab- 1 Cerv/ End Not Available [facility] (Lab) [address] [place], [address], 12/25/2023 11:06:39 12/14/19 24 12/14/2023 BACTE RIAL VAGIN OSIS PANEL (WITH LACTO BACIL CHATO PROFI LING) BY QRT PRC, ERON STEWART (CHARISMA) bacteroides fragilis by real - time PCR Negati ve Swab- 1 Cerv/ End Not Available [facility] (Lab) [address] [place], [address], 12/25/2023 11:06:39 12/14/19 24 12/14/2023 BACTE RIAL VAGIN OSIS PANEL (WITH LACTO BACIL CHATO PROFI LING) BY QRT PRC, ERON STEWART (CHARISMA) bifidobacter ium breve by real-time PCR Negati ve Swab- 1 Cerv/ End Not Available [facility] (Lab) [address] [place], [address], 12/25/2023 11:06:39 12/14/19 24 12/14/2023 BACTE RIAL VAGIN OSIS PANEL (WITH LACTO BACIL CHATO PROFI LING) BY QRT PRC, ERON STEWART (CHARISMA) gardnerella vaginalis PCR Negati ve Swab- 1 Cerv/ End Not Available [facility] (Lab) [address] [place], [address], 12/25/2023 11:06:39 12/14/19 24 12/14/2023 BACTE RIAL VAGIN OSIS PANEL (WITH LACTO BACIL CHATO PROFI LING) BY QRT PRC, ERON STEWART (MDL) lactobacillu s (bvpanel) PCR See Commen t Swab- 1 Cerv/ End L.cri spatu s: Posit andrea L.radha senii : Negat andrea L.gas seri : Negat andrea L.ine rs : Negat andrea. Not Available [facility] (Lab) [address] [place], [address], 12/25/2023 11:06:39 12/14/19 24 12/14/2023 BACTE RIAL VAGIN OSIS PANEL (WITH LACTO BACIL CHATO PROFI LING) BY QRT PRC, ONESW AB (MDL) lactobacillu s acidophilus by real-time PCR Negati ve Swab- 1 Cerv/ End Not Available [facility] (Lab) [address] [place], [address], 12/25/2023 11:06:39 12/14/19 24 12/14/2023 BACTE RIAL VAGIN OSIS PANEL (WITH LACTO BACIL CHATO PROFI LING) BY QRT PRC, ONESW AB (MDL) megasphaera species (type 1 and type 2) PCR Negati ve (Type1 ,Type2 ) Swab- 1 Cerv/ End Type1 :Nega tive Type2 :Nega tive. Not Available [facility] (Lab) [address] [place], [address], 12/25/2023 11:06:39 12/14/19 24 12/14/2023 BACTE RIAL VAGIN OSIS PANEL (WITH LACTO BACIL CHATO PROFI LING) BY QRT PRC, ONESW AB (MDL) mobiluncus curtisii by real-time PCR Negati ve Swab- 1 Cerv/ End Not Available [facility] (Lab) [address] [place], [address], 12/25/2023 11:06:39 12/14/19 24 12/14/2023 BACTE RIAL VAGIN OSIS PANEL (WITH LACTO BACIL CHATO PROFI LING) BY QRT PRC, ONESW AB (MDL) mobiluncus mulieris by real-time PCR Negati ve Swab- 1 Cerv/ End Not Available [facility] (Lab) [address] [place], [address], 12/25/2023 11:06:39 12/14/19 24 12/14/2023 BACTE RIAL VAGIN OSIS PANEL (WITH LACTO BACIL CHATO PROFI LING) BY QRT PRC, ERON STEWART (MDL) prevotella bivia by real-time PCR Negati ve Swab- 1 Cerv/ End Not Available [facility] (Lab) [address] [place], [address], 12/25/2023 11:06:39 12/14/19 24 12/14/2023 BACTE RIAL VAGIN OSIS PANEL (WITH LACTO BACIL CHATO PROFI LING) BY QRT PRC, ERON STEWART (MDL) sneathia sanguinegens real-time PCR Negati ve Swab- 1 Cerv/ End Not Available [facility] (Lab) [address] [facility], [place], [address], 12/25/2023 11:06:39 12/14/19 24 12/14/2023 BACTE RIAL VAGIN OSIS PANEL (WITH LACTO BACIL CHATO PROFI LING) BY QRT PRC, ERON STEWART (MDL) streptococcu s anginosus by real-time PCR Negati ve Swab- 1 Cerv/ End Not Available [facility] (Lab) [address] [place], [address], 12/25/2023 11:06:39 12/14/19 24 12/14/2023 MOBIL UNCUS MULIE RIS/C URDAVON [place], RT-PC R, ONE SWAB mobiluncus mulieris and mobiluncus curtisii by RT-PCR Negati ve Swab- 1 Cerv/ End Not Available [facility] (Lab) [address] [place], [address], 12/25/2023 11:06:40 12/14/19 24 12/14/2023 EMILI DA VAGIN ITIS PANEL RT-PC R, ONESW AB colleen albicans PCR Negati ve Swab- 1 Cerv/ End Not Available [facility] (Lab) [address] [place], [address], 12/25/2023 11:06:40 12/14/19 24 12/14/2023 EMILI DA VAGIN ITIS PANEL RT-PC R, ONESW AB colleen glabrata PCR Negati ve Swab- 1 Cerv/ End Not Available [facility] (Lab) [address] [facility], [place], [address], 12/25/2023 11:06:40 12/14/19 24 12/14/2023 EMILI DA VAGIN ITIS PANEL RT-PC R, ONESW AB colleen krusei by RT-PCR Negati ve Swab- 1 Cerv/ End Not Available [facility] (Lab) [address] [facility], [place], [address], 12/25/2023 11:06:40 12/14/19 24 12/14/2023 EMILI DA VAGIN ITIS PANEL RT-PC R, ONESW AB colleen parapsilosis PCR Negati ve Swab- 1 Cerv/ End Not Available [facility] (Lab) [address] [facility], [place], [address], 12/25/2023 11:06:40 12/14/19 24 12/14/2023 EMILI DA VAGIN ITIS PANEL RT-PC R, ONESW AB colleen tropicalis PCR Negati ve Swab- 1 Cerv/ End Not Available [facility] (Lab) [address] [facility], [place], [address], 12/25/2023 11:06:40 12/14/19 24 12/14/2023 EMILI DA AYAH I BY RT-PC R colleen krusei by RT-PCR CANCEL LED Dupli chelsi Not Available [facility] (Lab) [address] [facility], [place], [address], 12/25/2023 11:06:41 12/14/19 24 12/14/2023 pregn gamaliel test, urine HCG negati ve Not Available [facility] [address], [place], [address], 12/14/2023 15:07:32 07/22/19 25 07/21/2024 DHEA SULFA TE DHEA-sulfate 292 ug/dL Femal e Range s Age(y ) Range (ug/d L) 10-15 34-28 0 15-20 65-36 8 20-25 148-4 07 25-35 99-34 0 35-45 61-33 7 45-55 35-25 6 55-65 19-20 5 65-75 9-246 > 75 12-15 4 Not Available [facility] (Lab) [address] [place], [address], 07/26/2024 22:34:15 07/22/19 25 07/21/2024 ESTRA DIOL estradiol 484.0 pg/mL This assay was perfo rmed using [employer] ratio n reage nts and test kits. Value s obtai veda with other assay metho ds or kits canno t be used inter st eay . Femal e Estra diol Range s: Folli cular phase 12.4- 233 pg/mL Ovula tion phase 41.0- 398 pg/mL Lutea l phase 22.3- 341 pg/mL Postm enopa usal <5-13 8 pg/mL Healt hy Pregn ant Women 1st Trime ster 154-3 243 pg/mL 2nd Trime ster 1561- 61464 pg/mL 3rd Trime ster 8525- >3000 0 pg/mL Not Available [facility] (Lab) [address] [place], [address], 07/26/2024 22:34:15 07/22/19 25 07/21/2024 PROGE STERO NE progesterone 0.39 NG/mL This assay was perfo rmed using [employer] ratio [employer] reage nts and test kits. Value s obtai veda with other assay metho ds or kits canno t be used inter st eably . Femal e Proge stero ne Range s: Folli cular phase 0.06- 0.89 ng/mL Ovula tion phase 0.12- 12.00 ng/mL Lutea l phase 1.83- 23.90 ng/mL Postm enopa usal <0.05 -0.13 ng/mL Healt hy Pregn ant Women 1st Trime ster 11.0- 44.30 2nd Trime ster 25.40 -83.3 0 3rd Trime ster 58.70 -214. 00 Not Available [facility] (Lab) [address] [facility], [place], [address], 07/26/2024 22:34:16 07/22/19 25 07/21/2024 PROLA CTIN prolactin, total 19.80 NG/mL 4.79-2 3.30 This assay was perfo rmed using [employer] reage nts and test kits. Value s obtai veda with other assay metho ds or kits canno t be used inter [facility] . Not Available [facility] (Lab) [address] [place], [address], 07/26/2024 22:34:16 07/22/19 25 07/21/2024 LH (LUTE NIZIN G HORMO NE) LH 5.3 mIU/m L This assay was perfo rmed using [employer] reage nts and test kits. Value s obtai veda with other assay metho ds or kits canno t be used inter [facility] . Femal es Mid-F ollic ular: 2.4-1 2.6 mIU/m L Mid-C ycle: 14.0- 95.6 mIU/m L Mid-L uteal : 1.0-1 1.4 mIU/m L Postm enopa use: 7.7-5 8.5 mIU/m L Not Available [facility] (Lab) [address] [facility], [place], [address], 07/26/2024 22:34:16 07/22/19 25 07/21/2024 FSH FSH 3.2 mIU/m L This assay was perfo rmed using [employer] reage nts and test kits. Value s obtai veda with other assay metho ds or kits canno t be used inter [facility] . Femal es Folli cular : 3.5-1 2.5 mIU/m L Ovula tion: 4.7-2 1.5 mIU/m L Lutea l: 1.7-7 .7 mIU/m L Postm enopa use: 25.8- 134.8 mIU/m L Not Available [facility] (Lab) [address] [facility], [place], [address], 07/26/2024 22:34:16 07/22/1907/21/2024 TSH, REFLE X FREE T4 TSH 1.92 uIU/m L 0.30-5 .33 Not Available [facility] (Lab) [address] [facility], [place], [address], 07/26/2024 22:34:17 07/22/1907/21/2024 HEMOG LOBIN A1C hemoglobin A1C 5.0 % 4.0-5. 6 The Ameri can Diabe elmira [employer] iatio n recom mends that a prima ry goal of thera py georgiul d be a HBA1C of < 7% and that physi cians shoul d reeva luate the treat ment regim en in patie nts with HBA1C value s consi stent ly > 8%. <5.7% Angelia l 5.7 - 6.4% Incre ased risk for diabe elmira >=6.5 % Diagn ostic of diabe elmira <7.0% Goal of thera py >8.0% Actio n sugge sted Not Available [facility] (Lab) [address] [facility], [place], [address], 07/26/2024 22:34:17 07/22/1907/21/2024 TESTO STERO NE, FREE( DIALY SIS) AND TOTAL (LC/M S/MS) testosterone , total 40 NG/dL 2-45 For addit ional estuardo lovell e refer to http: //moon de la torre.que stdia gnost ics.c om/fa q/ Total Testo stero neLCM SMSFA Q165 (This link is being provi ded for infosimone duque/ educa eber l purpo ses only. ) This test was devel oped and its evan tical perfo rmanc e gina cteri stics have been deter mined by [facility] [place], [place]. It has not been clear ed or appro mookie by the U.S. Food and Drug Admin istra tion. This assay has been valid ated pursu ant to the CLIA regul ation s and is used for clini arun purpo ses. Not Available [facility] (Lab) [address] [facility], [place], [address], 07/26/2024 22:34:17 07/22/19 25 07/21/2024 TESTO STERO NE, FREE( DIALY SIS) AND TOTAL (LC/M S/MS) testosterone , free 5.1 pg/mL 0.1-6. 4 This test was devel oped and its evan tical perfo rmanc e gina cteri stics have been deter mined by [facility] [place]. It has not been clear ed or appro mookie by the U.S. Food and Drug Admin istra tion. This assay has been valid ated pursu ant to the CLIA regul ation s and is used for clini arun purpo ses. Perfo rming Organ izati on Infor matio n: Site ID: [id number] Name: [facility] Inst[facility] valentingilma Addre ss: [id number] [facility] [employer] [place], [place] Direc tor: Hugo Caicedo MD PhD Not Available [facility] (Lab) [address] [place], [address], 07/26/2024 22:34:17 07/31/19 25 07/30/2024 FSH, LH, ESTRA DIOL estradiol 67.9 pg/mL This assay was perfo rmed using [employer] reage nts and test kits. Value s obtai veda with other assay metho ds or kits canno t be used inter st eably . Femal e Estra diol Range s: Folli cular phase 12.4- 233 pg/mL Ovula tion phase 41.0- 398 pg/mL Lutea l phase 22.3- 341 pg/mL Postm enopa usal <5-13 8 pg/mL Healt hy Pregn ant Women 1st Trime ster 154-3 243 pg/mL 2nd Trime ster 1561- 85154 pg/mL 3rd Trime ster 8525- >3000 0 pg/mL Not Available [facility] (Lab) [address] [facility], [place], [address], 07/31/2024 03:28:11 07/31/19 25 07/30/2024 FSH, LH, ESTRA DIOL FSH 3.3 mIU/m L This assay was perfo rmed using [employer] reage nts and test kits. Value s obtai veda with other assay metho ds or kits canno t be used inter st eably . Femal es Folli cular : 3.5-1 2.5 mIU/m L Ovula tion: 4.7-2 1.5 mIU/m L Lutea l: 1.7-7 .7 mIU/m L Postm enopa use: 25.8- 134.8 mIU/m L Not Available [facility] (Lab) [address] [facility], [place], [address], 07/31/2024 03:28:11 07/31/19 25 07/30/2024 FSH, LH, ESTRA DIOL LH 6.2 mIU/m L This assay was perfo rmed using [employer] reage nts and test kits. Value s obtai veda with other assay metho ds or kits canno t be used inter st eably . Femal es Mid-F ollic ular: 2.4-1 2.6 mIU/m L Mid-C ycle: 14.0- 95.6 mIU/m L Mid-L uteal : 1.0-1 1.4 mIU/m L Postm enopa use: 7.7-5 8.5 mIU/m L Not Available [facility] (Lab) [address] [place], [address], 07/31/2024 03:28:11 12/04/19 24 12/04/2023 US, pelvi s No observ ation record ed. [facility] [address], [place], [address], 12/04/2023 17:40:10 12/04/19 24 12/04/2023 US, trans vagin al No observ ation record ed. [facility] [address], [place], [address], 12/04/2023 17:40:25 12/04/19 24 12/04/2023 US, pelvi s No observ ation record ed. [email or web address] [address], [place], [address], 12/06/2023 09:48:56 01/11/20 24 01/11/2024 US, trans vagin al No observ ation record ed. [email or web address] [place] [address], [place], [address], 01/11/2024 13:15:06 01/11/20 24 01/11/2024 US, trans vagin al No observ ation record ed. KELLE [address], [place], [address], 01/13/2024 10:06:03 07/23/19 25 07/22/2024 US, pelvi s No observ ation record ed. [facility] [address], [place], [address], 07/22/2024 16:50:55 07/23/19 25 07/22/2024 US, trans vagin al No observ ation record ed. [facility] [address], [place], [address], 07/22/2024 16:51:04 0407/22/2024 US, pelvi s No observ ation record ed. [email or web address] [address], [place], [address], 07/22/2024 22:09:39 Result Notes None recorded. Problems Name Problem SNOMED Code Status Onset Date Resolution Date Notes Provider Name and Address Organization Details Recorded Time Gestatio n period, 37 weeks [id number] Completed 201808/18/2020 37 weeks gestatio n of pregnanc y;Practi ce ID: 0001 Natalie arias, [facility] 11:33:46 Normal pregnanc y in multigra phyllis [id number] Completed 201808/18/2020 Encounte r for suprvsn of normal pregnanc y, third trimeste r;Practi ce ID: 0001 Natalie arias, [facility] 11:34:43 False labor at or after 37 complete d weeks of gestatio n [id number] Completed 201808/18/2020 False labor at or after 37 complete d weeks of gestatio n;Practi ce ID: 0001 Natalie arias, [facility] 11:33:32 Gestatio n period, 38 weeks [id number] Completed 201808/18/2020 38 weeks gestatio n of pregnanc y;Practi ce ID: 0001 Natalie arias [facility] 11:33:48 Lacerati on of female perineum Completed 201808/18/2020 First degree perineal lacerati on during delivery ;Practic e ID: 0001 Natalie arias, [facility] 11:33:57 Single live from singleto n pregnanc y [id number] Completed 201808/18/2020 Single live ;Pr actice ID: 0001 Natalie arias, [facility] 11:34:58 Gestatio n period, 39 weeks [id number] Completed 201808/18/2020 39 weeks gestatio n of pregnanc y;Stuti ce ID: 0001 Natalie arias, [facility] 11:33:50 Lochia finding Completed 201808/18/2020 Encounte r for routine postpart um follow-u p;Practi ce ID: 0001 Natalie arias, [facility] 11:34:42 Discharg e from nipple [id number] Completed 201908/18/2020 Nipple discharg e;Practi ce ID: 0001 Natalie arias, [facility] 11:33:27 Uses combined oral contrace ption [id number] Completed 201908/18/2020 Encounte r for surveill ance of contrace ptive pills;Pr actice ID: 0001 Natalie Magana [facility], [facility] 11:33:26 Finding of menstrua l bleeding Completed 201608/18/2020 Menorrha trevon;Juan Manuel rded Elsewher e: No Locat ion: [facility] S ource: EHR Sociology Faculty Member alida: N Practi ce ID: [id number] Scout lable Time: 02:15:00 PM Natalie arias [facility] 11:33:34 Procedur e Completed 201608/18/2020 Encounte r for checking , reinsert ion or removal of implanta ble subderma l contrace ptive;Re corded Elsewher e: No Locat ion: [facility] S ource: EHR [employer]ology Faculty Member alida: N Practi ce ID: [id number] Scout lable Time: 02:15:00 PM Natalie arias [facility] 1 11:34:54 Pregnanc y, childbir th and puerperi um finding Completed 201708/18/2020 Encounte r for supervis ion of normal 1st pregnanc y;Record ed Elsewher e: No Locat ion: [facility] S ource: E[employer] Faculty Member alida: N Stuti ce ID: [id number] Scout lable Time: 02:30:00 PM Natalie arias, [facility] 1 11:34:48 Pregnanc y detectio n examinat ion Completed 201708/18/2020 Encounte r for pregnanc y test, result positive ;Recorde d Elsewher e: No Locat ion: [facility] S ource: E[employer] Faculty Member alida: N Noé ce ID: [id number] Scout lable Time: 11:00:00 AM Natalie Magana [facility], [facility] 11:34:45 Developm ental disorder Completed 201708/18/2020 Malforma tion of placenta , unspecif ied, third trimeste r;Record ed Elsewher e: No Locat ion: [facility] S ource: EHR Sociology Faculty Member alida: N Stuti ce ID: 0001 Scout lable Time: 03:15:00 PM Natalie arias, [facility] 11:33:16 Cardioto chogram finding [id number] Completed 201808/18/2020 Other abnormal findings on antenata l screenin g of mother;R ecorded Elsewher e: No Locat ion: [facility] S ource: EHR Sociology Faculty Member alida: N Stuti ce ID: 0001 Scout lable Time: 03:30:00 PM Natalie arias, [facility] 11:33:23 Gestatio n period, 30 weeks [id number] Completed 201708/18/2020 30 weeks gestatio n of pregnanc y;Record ed Elsewher e: No Locat ion: [facility] S ource: EHR Sociology Faculty Member alida: N Practi ce ID: [id number] Scout lable Time: 03:15:00 PM Natalie arias, [facility] 11:33:42 Rubella screenin g status [id number] Completed 201708/18/2020 Encounte r for antenata l screenin g, unspecif ied;Juan Manuel rded Elsewher e: No Locat ion: [facility] S ource: EHR Sociology Faculty Member alida: N Practi ce ID: [id number] Scout lable Time: 10:15:00 AM Natalie arias, [facility] 11:34:56 Pregnanc y test negative [id number] Completed 201608/18/2020 Encounte r for pregnanc y test, result negative ;Recorde d Elsewher e: No Locat ion[facility] S ource: EHR Sociology Faculty Member alida: N Practi [id number]|2024-08-27 07:39:00|2024-08-27 07:38:00|XMS_ITS|TERRELL DASAM|External Medical Summaries|[id number]|" CONTINUITY OF CARE DOCUMENT Created on: August 27, 2024 Maricruz Duke : 2000 Sex: Female Author Name genet de león Address Unknown Organization [facility] Address [address] [place] [address] Phone [phone] Care Team Providers Care Program Development Manager Name Role Phone Elizabeth Mendoza MD Unavailable ZACKARY JAIN MD Unavailable [phone] SUSY WILSON, ZACKARY Unavailable PROBLEMS Condition Status Date Provider Notes ANA CRISTINA, adult active Elizabeth Mendoza MD Migraines active Elizabeth Mendoza MD Lightheadedness active Elizabeth Mendoza MD Dizziness active Elizabeth Mendoza MD Cardiology examination active Elizabeth licona MD ENCOUNTERS Date Type Provider Location Encounter Diag nosis - In-person encounter Office Visit Elizabeth Mendoza MD [facility] Cardiology examinationDizzinessLightheadednessMigraines VITAL SIGNS Date Observation Value Provider Body Mass Index (Ratio) 32.92 kg/m2 Jacinto Ingram blood pressure, cuff size regular Ke rrsuhail Ken blood pressure, diastolic 86 mm[Hg] Ke rri Suellen blood pressure, systolic 130 mm[Hg] Hayden Ken oxygen saturation, oximetry 100 % Lorna Ken respiratory rate E&M 14 /min Lorna lomas pulse rate 73 /min Lorna garsiaer weight E&M 180 [lb_av] Lorna garsiaer height E&M 62 [in_i] Lorna garsia HISTORY OF MEDICATION USE Medication Status Instructions Dates Provider Indications Com ments zonisamide 50 mg capsule active Elizabeth Mendoza MD rizatriptan 10 mg tablet,disintegrating active Elizabeth Mendoza MD SOCIAL HISTORY Date Observation Value Provider number of grandchildren Elizabeth Mendoza MD social history E&M S moking History: P atient has never smoked. Elizabeth Mendoza MD social history reviewed E&M revi ewed - no changes required Elizabeth Mendoza MD smoking status Never smoker Lorna Garcia vi INSURANCE PROVIDERS Payer name Policy type / Coverage type Neri red democrat ID [employer] [id number] ADVANCE DIRECTIVES Name Date DISCUSSED - NO DECISION MADE TREATMENT PLAN Date Name Performer [id number],C,M arch 2022 A rrange for telemonitor for 1 week. Parth benjamink Echo. Put her on treadmill stress test, see how she does with exertion. Arrange for home sleep study. Elizabeth Mendoza MD [id number],Parth,M arch 2022 T akes med rx migraines Elizabeth Mendoza MD Cardiology:June 23, 2022 A rrange for telemonitor for 1 week. Parth heck Echo. Put her on treadmill stress test, [...] tatus EKG Elizabeth Mendoza MD compl eted "
--- OUTSIDE RECORDS SUMMARY | 2024-08-27 07:39 | XMS_ITS | Patient Health Record ---
Author Organization [facility] Address [address] [place] [address] Care Team Providers Care Sanitation Inspector Name Role Phone Georgia Stallings Primary Care [...] Problem Status W/U Status Risk Notes Problem 14874381 Bipolar II disorder (F31.81) Active confirmed Problem [id number] ADHD (attention deficit hyperactivity disorder), combined type (F90.2) Active confirmed Problem [id number] WILLIS (generalized anxiety disorder) (F41.1) Active confirmed Plan Of Treatment No Information Insurance Providers Payer Name Payer Address Payer Phone Subscriber Number Group Number Insured Name Patient Relationship to Insured Coverage Start Date Coverage End Date [facility] [address] [address] [place] [phone] [id number] Kyle Cruz Child - Insured has Financial Responsibility 1 MEDICAID [address] [place] [address] [id number] Maricruz Duke Self - patient is the insured 1 Medical (General) History Surgical History Surgery Date(Month/Year)
--- OUTSIDE RECORDS SUMMARY | 2024-08-27 07:39 | XMS_ITS ---
Author Organization [facility] Address [address] [place] [address] Care Team Providers Care Blue Leather Sorter Name Role Phone Emily Valero Primary Care Provider REASON FOR VISIT records Encounters Encounter Location Date Provider Diagnosis [facility] - Emily Valero [address] [place] [address] 05/15/2024 Emily Valero Plan Of Treatment No Information Progress Notes * Yeny DODDOB:2000 (24 yo F)Acc No.[id number]:05/15/2024 Patient: Maricruz CAST :2000 A ge:24 Y S ex:Female Address:[address] [place] [address] * true * Date: Generated for Altagraciai alvin/Fajulisag/eTransmitting on: 0 08/27/2024 07:38 AM CDT
== END 2024-08-27 07:35 | disposition home or self-care (01) ==
PROVIDERS: PCP Internal Medicine; Visit Provider Internal Medicine
DX: E04.2 Nontoxic multinodular goiter (principal)
CPT/HCPCS: 76536

== ENCOUNTER 2025-01-06 12:23 | Emergency (ER) | payer OTHER, MEDICAID, SELFPAY ==
[2025-01-06 12:31] VITALS: BP 125/82; PULSE 73; RESP 16; TEMP 37; O2SAT 100
--- NOTE | 2025-01-06 13:20 | ED_ITS ---
HPI - Extremity Problem General Chief complaint: Extremity Problem,Nontraumatic Stated complaint: Right Foot Toes Numbness Time Seen by Provider: 01/06/25 12:30 Source: patient Mode of arrival: ambulatory Limitations: no limitations History of Present Illness HPI Narrative: Patient is a 24-year-old female who presents with decreased sensation to right 2nd and 3rd toe for 2 days. Patient states she has been wearing flats sandals and has shoes and was very active prior to the start of symptoms. Denies any trauma to the toes on, swelling, bruising. Patient is able ambulate normally. Patient has not taken any medication for symptoms Related Data Home Medications ?Medication ?Instructions ?Recorded ?Confirmed ?Last Taken ?Type levothyroxine 50 mcg tablet mcg 01/06/25 Unknown Hist ory Allergies Allergy/AdvReac Type Severity Reaction Status Date / Time methylprednisolone (From AdvReac Severe suidical Verified 01/06/25 12:42 Medrol) thoughts Review of Systems Review of Systems: All systems reviewed & are unremarkable except as noted in HPI and below Constitutional: Constitutional: Denies body ache(s), Denies chills, Denies fatigue, Denies fever(s), Denies headache(s), Denies malaise and Denies weakness Eyes: Eyes: Denies blurry vision, Denies irritation and Denies loss of vision ENT: Denies otalgia, Denies headache(s), Denies nasal discharge, Denies sinus pain and Denies sore throat Cardiovascular: Cardiovascular: Denies chest pain, Denies irregular heart rhythm and Denies dyspnea Respiratory: Respiratory: Denies dyspnea Gastrointestinal: Gastrointestinal: Denies abdominal pain, Denies melena, Denies hematochezia, Denies diarrhea, Denies nausea and Denies vomiting Musculoskeletal: Musculoskeletal: Denies back pain, Denies myalgias and Denies arthralgias Integumentary/Breasts: Skin/Breast: Denies pruritus and Denies rash Neurologic: Denies headache(s), Denies loss of vision, Reports numbness (Second and 3rd right toes) and Denies weakness Psychiatric: Psychiatric: Reports no additional psychiatric complaints Endocrine: Endocrine: Denies fatigue PMFSH Past Medical History Medical History Tongue tied Post depression Eczema Anxiety and depression Overweight (BMI 25.0-29.9) Migraines Surgical History Surgical History History of laparoscopic appendectomy 05/30/[address] Gomez No pertinent past surgical history Family History Family History Sibling Diabetes mellitus Heart disease Hypertension Asthma Depression Stomach cancer Thyroid disease Other No pertinent family history in first degree relatives Social History Social History Smoking status: Never smoker Second hand tobacco smoke exposure: No Substance use: former Other substance usage details: Used marijuana prior to Do You Feel Safe in your Home?: Yes Lack of Transportation: No Lack of Food: Never True Current Housing: I Have Housing Concerned About Future Housing: No Difficulty Paying Gas/Electric Bills: No Difficulty Paying for Meds: No Currently Unemployed: No Education: High School Diploma/GED Difficulty w/ Childcare or Family Care: No Spiritual care concerns: No Comments At time of signature, agree with nursing past medical, surgical, social and family history. There is no relevant family history pertinent to the presenting complaint. Exam Const: General: cooperative, healthy appearing, comfortable, no acute distress and well nourished Nutritional Appearance: well nourished Orientation/consciousness: patient oriented x3 Limitations: no limitations HENMT: Head: normal to inspection, normocephalic and atraumatic Ears: hearing grossly normal bilaterally and external ears normal Face/Nose/Sinus: Normal external nose present, normal facial exam and face symmetric Face and sinus: normal facial exam and face symmetric Mouth: Yes lip normal Eyes: General: appearance normal, both eyes and all related structures Alignment and Position: alignment normal and position normal Periorbital: periorbital findings normal Eyelids: eyelids normal Pupils: Equal, round and reactive pupils present EOM: EOMs intact bilaterally Neck: Neck: normal visual inspection, full ROM and supple Chest: Chest palpation & inspection: normal inspection of the chest Resp: Effort & Inspection: normal respiratory effort and able to speak in complete sentences Auscultation: clear to auscultation bilaterally Cardio: Rate: regular rate Rhythm: regular rhythm Heart sounds: S1 normal heart sound present and S2 normal heart sound present GI: Inspection: normal to inspection Skin: General skin exam: normal color and no rashes or lesions noted Neuro: General: patient oriented x3 and moves all extremities Cranial nerves: Yes Equal, round and reactive pupils present Speech: normal speech Gait exam (Neuro): Normal gait present Motor exam (neuro): 5/5 motor strength present throughout, Normal motor muscle tone present throughout and Motor abnormalities not present Sensory Exam: normal sensation Extrem: General: normal to inspection, full ROM and no edema Right lower extremity: foot Details: normal capillary refill, toes with normal ROM, vascular exam Details: dorsalis pedis pulse present and normal capillary refill and motor-sensory exam Details: two point discrimination normal and light-touch normal; no tenderness, no unusual warmth and no ecchymosis Psych: Appearance: grossly normal and well kempt Mental Status: mental status grossly normal Speech and movement: Normal speech and movement present Affect: normal affect Attitude: cooperative Thought process: Normal thought process present Course Course Emergency Course: Patient is aware of diagnosis, understands and agrees to treatment plan. Anticipatory guidance given. Patient agrees to follow-up as directed and is aware of reasons to seek care at the emergency department. Portions of this record may have been created with voice recognition software Level of Care: Express Care Visit Vital Signs Vital signs: Vital Signs Temperature 37.0 C 01/06/25 12:31 Pulse Rate 73 01/06/25 12:31 Respiratory Rate 16 01/06/25 12:31 Blood Pressure 125/82 01/06/25 12:31 Pulse Oximetry 100 01/06/25 12:31 Oxygen Delivery Room Air 01/06/25 12:31 Temperature 37.0 C 01/06/25 12:31 Pulse Rate 73 01/06/25 12:31 Respiratory Rate 16 01/06/25 12:31 Blood Pressure 125/82 01/06/25 12:31 Pulse Oximetry 100 01/06/25 12:31 Oxygen Delivery Room Air 01/06/25 12:31 Reviewed MDM - Extremity (Nontraumatic) MDM Narrative Medical decision making narrative: Pt well hydrated appearing, in no respiratory distress, hemodynamically stable. Recommend supportive care. The patient is stable at time of discharge the clinical impression was discussed and the patient was given the opportunity to ask questions, which were addressed as completely as possible given the informa tion available at present. Anticipatory guidance and return to care precautions were discussed and the importance of primary care follow-up was stressed and encouraged. The patient voiced understanding of the plan, indications to return, and the need for follow-up. Exam findings show no acute concerns or changes Patient is appropriate for outpatient treatment and follow-up. Differential Diagnosis Differential diagnosis: Likely gout, cellulitis and other (Nerve inflammation, neuropathy) Discharge Plan Discharge Clinical Impression: Numbness of toes, Inflammation Patient Disposition: Home Condition: Stable Instructions: Paresthesia (ED) Additional Instructions: 1) Please follow-up with your primary care doctor in the next 1-2 days. I will also give you referral to Podiatry if not improving with ibuprofen 2) If you have any worsening of symptoms or any other urgent concerns please go to the ER. 3) Please take medications as prescribed and continue taking your home medications as usual. For pain, you may take: Tylenol 650-1000mg by mouth every 4-6 hours. Do not exceed 4000mg in 24 hours. Advil (Ibuprofen) 600 mg by mouth every 6 hours. Do not exceed 2400mg in 24 hours. 8 AM: Tylenol 11 AM: Ibuprofen 2 PM: Tylenol 5 PM: Ibuprofen 8 PM: Tylenol 11 PM: Ibuprofen 2 AM: Tylenol 5 AM: Ibuprofen Patient Language: Vietnamese Prescriptions: New ibuprofen 600 mg tablet 600 mg PO QID Qty: 30 0RF No Action levothyroxine 50 mcg tablet Follow-up/Referrals: Lorraine,MD Neal [Primary Care Provider, Unknown] - 3 Days Carlo Mchugh DPM [Physician, Podiatry] - 3 Days Referral Note: Toe numbness Time of Disposition: 13:32
== END 2025-01-06 13:35 | disposition home or self-care (01) ==
PROVIDERS: Emergency Provider Nurse Practitioner Family; PCP Internal Medicine
DX: R20.0 Anesthesia of skin (principal); L08.9 Local infection of the skin and subcutaneous tissue, unspecified
CPT/HCPCS: 99213; G0463